=== PATIENT | male | born 1945 | race Caucasian/White ===

== ENCOUNTER → 2020-06-25 11:54 | Outpatient (BNVA) | payer MEDICARE, SELFPAY | PROVIDERS: PCP Family Medicine; Visit Provider Urology | DX: E29.1 Testicular hypofunction (principal) | CPT/HCPCS: 96372; 99213 ==

== ENCOUNTER → 2020-07-18 09:56 | Outpatient (BNVA) | payer MEDICARE, SELFPAY | PROVIDERS: Visit Provider Urology | DX: E29.1 Testicular hypofunction (principal) | CPT/HCPCS: 99212 ==

== ENCOUNTER → 2020-08-03 09:31 | Outpatient (BNVA) | payer MEDICARE, SELFPAY | PROVIDERS: PCP Family Medicine; Referring Provider Family Medicine; Visit Provider Urology | DX: Z76.89 Persons encountering health services in other specified circumstances (principal) | CPT/HCPCS: 96372; 99212 ==

== ENCOUNTER → 2020-09-10 11:18 | Outpatient (BNVA) | payer MEDICARE, SELFPAY | PROVIDERS: PCP Family Medicine; Referring Provider Family Medicine; Visit Provider Internal Medicine | DX: Z13.89 Encounter for screening for other disorder (principal) | CPT/HCPCS: Q3014 ==

== ENCOUNTER → 2020-09-18 13:57 | Outpatient (BNVA) | payer MEDICARE, SELFPAY | PROVIDERS: PCP Family Medicine; Visit Provider Urology | DX: E29.1 Testicular hypofunction (principal); Z79.899 Other long term (current) drug therapy; Z79.84 Long term (current) use of oral hypoglycemic drugs | CPT/HCPCS: 96372; 99212 ==

== ENCOUNTER → 2020-10-12 13:15 | Outpatient (BNVA) | payer MEDICARE, SELFPAY | PROVIDERS: PCP Family Medicine; Visit Provider Urology | DX: E29.1 Testicular hypofunction (principal) | CPT/HCPCS: 96372; 99212 ==

== ENCOUNTER → 2020-11-02 13:42 | Outpatient (BNVA) | payer MEDICARE, SELFPAY | PROVIDERS: Visit Provider Urology | DX: E29.1 Testicular hypofunction (principal) | CPT/HCPCS: 96372; 99212; J9217 ==

== ENCOUNTER → 2020-11-23 12:39 | Outpatient (BNVA) | payer MEDICARE, SELFPAY | PROVIDERS: Visit Provider Urology | DX: E29.1 Testicular hypofunction (principal) | CPT/HCPCS: 96372; 99212 ==

== ENCOUNTER → 2020-12-20 12:49 | Outpatient (BNVA) | payer MEDICARE, SELFPAY | PROVIDERS: Visit Provider Urology | DX: E29.1 Testicular hypofunction (principal) | CPT/HCPCS: 96372; 99212 ==

== ENCOUNTER → 2021-01-10 12:41 | Outpatient (BNVA) | payer MEDICARE, SELFPAY | PROVIDERS: Visit Provider Urology | DX: E29.1 Testicular hypofunction (principal) | CPT/HCPCS: 96372; 99212 ==

== ENCOUNTER 2021-01-23 07:26 | Outpatient (REF) | payer MEDICARE, SELFPAY ==
[2021-01-23 09:02] LABS: Hematocrit 50.3 % (42-52); Hemoglobin 16.8 g/dl (14.0-18.0); Mean Corpuscular HGB Conc 33.4 g/dl (31.0-36.0); Mean Corpuscular Hemoglobin 32.2 pg (27.0-33.0); Mean Corpuscular Volume 96.5 fL (80-98); Mean Platelet Volume 12.7 fL (9.4-12.4); Red Blood Count 5.21 X10*6/uL (4.60-5.80); Red Cell Distribution Width 13.7 % (11.0-16.0); White Blood Count 8.4 X10*3/uL (4.8-10.8)
[2021-01-23 09:04] LABS: Estimated Average Glucose 315 mg/dL; Hemoglobin A1c % 12.6 %
[2021-01-23 09:12] LABS: Platelet Count 89 X10*3/uL (160-400)
[2021-01-23 09:18] LABS: Alanine Aminotransferase 66 U/L (0-40); Albumin Level 4.2 g/dL (3.5-5.0); Alkaline Phosphatase 74 U/L (39-117); Anion Gap 15 (12-20); Aspartate Amino Transferase 46 U/L (5-37); Bilirubin Total 0.7 mg/dL (0.0-1.0); Blood Urea Nitrogen 21 mg/dL (9-16); Calcium 9.6 mg/dL (8.4-10.2); Carbon Dioxide 25 mmol/L (22-29); Chloride 102 mmol/L (96-108); Cholesterol 166 mg/dL; Estimated Glomerular Filt Rate 49; Glucose Random 256 mg/dL (60-115); HDL Cholesterol 39 mg/dL; LDL Cholesterol Calculated 82 mg/dl; Phosphorus 3.7 mg/dL (2.7-4.5); Potassium 3.8 mmol/L (3.3-5.1); Sodium 138 mmol/L (135-145); Total Protein 7.2 g/dL (6.5-8.0); Triglycerides 225 mg/dL
[2021-01-23 09:33] LABS: Free T4 (Free Thyroxine) 1.12 ng/dL (0.71-1.85); Vitamin D 25-OH Total 36.4 ng/mL (>30)
[2021-01-23 09:40] LABS: Prostate Specific Antigen 1.39 ng/mL (<0.05-4.0); Thyroid Stimulating Hormone 2.89 uIU/mL (0.32-4.0)
[2021-01-23 09:52] LABS: Microalbum/Creatinine Ratio Ur 105.4 ug/mg cr
[2021-01-24 03:31] LABS: LDL Cholesterol Direct 97 mg/dL (<100)
[2021-01-24 13:11] LABS: Calcium (PTHI) 9.5 mg/dL (8.6-10.3); PTHI 7 pg/mL (14-64)
[2021-01-28 10:52] LABS: Testosterone, Total 603 ng/dL (250-1100)
== END 2021-01-23 07:27 | disposition home or self-care (01) ==
LOC: HO.LAB 07:26
PROVIDERS: Internal Medicine; PCP Family Medicine; Visit Provider Urology
DX: N40.1 Benign prostatic hyperplasia with lower urinary tract symptoms (principal); N13.8 Other obstructive and reflux uropathy; E11.65 Type 2 diabetes mellitus with hyperglycemia; E83.52 Hypercalcemia; Z12.5 Encounter for screening for malignant neoplasm of prostate
CPT/HCPCS: 36415; 80053; 80061; 82043; 82306; 83036; 83721; 83970; 84100; 84153; 84403; 84439; 84443; 85027

== ENCOUNTER → 2021-02-01 10:46 | Outpatient (BNVA) | payer MEDICARE, SELFPAY | PROVIDERS: PCP Family Medicine; Visit Provider Urology | DX: E29.1 Testicular hypofunction (principal) | CPT/HCPCS: 96372; 99212 ==

== ENCOUNTER → 2021-02-06 11:11 | Outpatient (BNVA) | payer MEDICARE, SELFPAY | PROVIDERS: PCP Family Medicine; Visit Provider Internal Medicine | DX: E11.65 Type 2 diabetes mellitus with hyperglycemia (principal); E78.5 Hyperlipidemia, unspecified; I10 Essential (primary) hypertension; E55.9 Vitamin D deficiency, unspecified; E83.52 Hypercalcemia | CPT/HCPCS: 82947; Q3014 ==

== ENCOUNTER → 2021-02-22 10:54 | Outpatient (BNVA) | payer MEDICARE, SELFPAY | PROVIDERS: PCP Family Medicine; Visit Provider Urology | DX: E29.1 Testicular hypofunction (principal) | CPT/HCPCS: 96372 ==

== ENCOUNTER → 2021-03-22 11:05 | Outpatient (BNVA) | payer OTHER, SELFPAY | PROVIDERS: PCP Family Medicine; Visit Provider Urology | DX: Z51.81 Encounter for therapeutic drug level monitoring (principal); Z79.899 Other long term (current) drug therapy | CPT/HCPCS: 96372 ==

== ENCOUNTER → 2021-04-16 11:20 | Outpatient (BNVA) | payer MEDICARE, SELFPAY | PROVIDERS: PCP Family Medicine; Visit Provider Urology | DX: E29.1 Testicular hypofunction (principal) | CPT/HCPCS: 96372 ==

== ENCOUNTER 2021-05-13 07:53 | Outpatient (REF) | payer MEDICARE, SELFPAY | END 2021-05-13 07:54 | disposition home or self-care (01) | LOC: HO.HOSX 07:53 | PROVIDERS: Visit Provider Physician Assistant | DX: Z13.89 Encounter for screening for other disorder (principal) ==

== ENCOUNTER → 2021-05-14 11:17 | Outpatient (BNVA) | payer MEDICARE, SELFPAY | PROVIDERS: PCP Family Medicine; Visit Provider Urology | DX: E29.1 Testicular hypofunction (principal) | CPT/HCPCS: 96372 ==

== ENCOUNTER 2021-05-15 09:13 | Outpatient (REF) | payer MEDICARE, SELFPAY ==
--- NOTE | ~2021-05-15 | XR_ITS ---
EXAMINATION: XR KNEE, LEFT CLINICAL INFORMATION: Left knee pain COMPARISON: Radiographs left knee 07/20/2018 TECHNIQUE: 5 views of the left knee. FINDINGS: There is no fracture dislocation or destructive process. There is mild narrowing medial knee joint compartment. No erosive change or visible chondrocalcinosis. The lateral view shows small suprapatellar effusion similar to prior exam 2018. Hoffa's fat pad appears normal. Again, there is spurring at the quadriceps insertion patella and patellar tendon insertion anterior tibia. Axial view patella shows no lateralization or tilting. Medial and lateral patellar spurring again seen. No patellar lateralization or tilting appreciated. XR/XR knee LT 4V IMPRESSION: 1. Narrowing medial knee joint compartment. Small suprapatellar effusion. 2. Spurring quadriceps insertion patella and insertion patella tendon anterior tibia.
== END 2021-05-15 09:14 | disposition home or self-care (01) ==
LOC: HO.XRAY 09:13
PROVIDERS: PCP Family Medicine; Visit Provider Family Medicine
DX: M25.562 Pain in left knee (principal)
CPT/HCPCS: 73564

== ENCOUNTER → 2021-05-21 10:38 | Outpatient (BNVA) | payer MEDICARE, SELFPAY | PROVIDERS: Visit Provider Physician Assistant | DX: M17.12 Unilateral primary osteoarthritis, left knee (principal) | CPT/HCPCS: 20610; 99202; J1040 ==

== ENCOUNTER → 2021-06-04 10:50 | Outpatient (BNVA) | payer MEDICARE, SELFPAY | PROVIDERS: Visit Provider Urology | DX: E29.1 Testicular hypofunction (principal) | CPT/HCPCS: 96372 ==

== ENCOUNTER → 2021-06-10 11:05 | Outpatient (BNVA) | payer MEDICARE, SELFPAY | PROVIDERS: PCP Family Medicine; Visit Provider Internal Medicine | DX: E11.65 Type 2 diabetes mellitus with hyperglycemia (principal); I10 Essential (primary) hypertension; E78.5 Hyperlipidemia, unspecified; E55.9 Vitamin D deficiency, unspecified; G47.33 Obstructive sleep apnea (adult) (pediatric); Z79.4 Long term (current) use of insulin; Z79.899 Other long term (current) drug therapy | CPT/HCPCS: 82947; 83036; 99212 ==

== ENCOUNTER → 2021-06-25 10:35 | Outpatient (BNVA) | payer MEDICARE, SELFPAY | PROVIDERS: PCP Family Medicine; Visit Provider Urology | DX: E29.1 Testicular hypofunction (principal) | CPT/HCPCS: 96372 ==

== ENCOUNTER → 2021-06-26 10:48 | Outpatient (BNVA) | payer MEDICARE, SELFPAY | PROVIDERS: PCP Family Medicine; Visit Provider Dietitian, Registered | DX: E11.65 Type 2 diabetes mellitus with hyperglycemia (principal) | CPT/HCPCS: 97802 ==

== ENCOUNTER → 2021-07-16 10:27 | Outpatient (BNVA) | payer MEDICARE, SELFPAY | PROVIDERS: Visit Provider Urology | DX: E29.1 Testicular hypofunction (principal) | CPT/HCPCS: 96372 ==

== ENCOUNTER → 2021-08-13 11:11 | Outpatient (BNVA) | payer MEDICARE, SELFPAY | PROVIDERS: Visit Provider Urology | DX: E29.1 Testicular hypofunction (principal) | CPT/HCPCS: 96372 ==

== ENCOUNTER → 2021-09-11 11:28 | Outpatient (BNVA) | payer MEDICARE, SELFPAY | PROVIDERS: PCP Family Medicine; Visit Provider Urology | DX: E29.1 Testicular hypofunction (principal) | CPT/HCPCS: 96372 ==

== ENCOUNTER 2021-09-24 13:46 | Emergency (ER) | payer MEDICARE, SELFPAY ==
--- NOTE | 2021-09-24 | ECG_ITS ---
Test Reason : palpitations Blood Pressure : / mmHG Vent. Rate : 112 BPM Atrial Rate : 112 BPM P-R Int : 156 ms QRS Dur : 092 ms QT Int : 338 ms P-R-T Axes : 045 -40 045 degrees QTc Int : 461 ms Sinus tachycardia Left axis deviation Inferior infarct , age undetermined Anterolateral infarct , age undetermined Abnormal ECG When compared with ECG of 15-OCT-2019 08:42, Anterior infarct is now Present Anterolateral infarct is now Present Inferior infarct is now Present Referred By: Generic ED Physician Electronically Signed By:SJ BECKETT MD
[2021-09-24 14:05] VITALS: BP 138/80; PULSE 112; RESP 16; TEMP 36.1; O2SAT 96; BMI 32.4
[2021-09-24 14:52] LABS: MANUAL DIFF FLAG NO
[2021-09-24 15:10] LABS: Alanine Aminotransferase 47 U/L (0-40); Albumin Level 4.1 g/dL (3.5-5.0); Alkaline Phosphatase 81 U/L (39-117); Anion Gap 13 (12-20); Aspartate Amino Transferase 31 U/L (5-37); Bilirubin Total 0.4 mg/dL (0.0-1.0); Blood Urea Nitrogen 15 mg/dL (9-16); Calcium 9.3 mg/dL (8.4-10.2); Carbon Dioxide 27 mmol/L (22-29); Chloride 103 mmol/L (96-108); Estimated Glomerular Filt Rate > 60; Glucose Random 221 mg/dL (60-115); Potassium 4.2 mmol/L (3.3-5.1); Sodium 139 mmol/L (135-145); Total Protein 7.2 g/dL (6.5-8.0)
[2021-09-24 16:43] LABS: Basophils Percent Auto 0.3 % (0-2); Eosinophils Absolute Auto 0.1 X10*3/uL (0.0-0.4); Eosinophils Percent Auto 1.8 % (0-4); Hemoglobin 15.3 g/dl (14.0-18.0); Imm Gran Abs Auto 0.05 X10*3/uL (0.00-0.03); Imm Gran Pct Auto 0.6 % (0.0-0.4); Lymphocytes Absolute Auto 1.6 X10*3/uL (1.2-4.9); Lymphocytes Percent Auto 20.2 % (20-40); Mean Corpuscular Hemoglobin 33.2 pg (27.0-33.0); Mean Corpuscular Volume 97.6 fL (80.0-98.0); Mean Platelet Volume 11.8 fL (9.4-12.4); Monocytes Absolute Auto 0.6 X10*3/uL (0.1-1.2); Neutrophils Absolute Auto 5.4 x10*3/uL (2.0-8.3); Neutrophils Percent Auto 69.1 % (45-73); Platelet Count 121 X10*3/uL (160-400); Red Blood Count 4.61 X10*6/uL (4.60-5.80); Red Cell Distribution Width 14.4 % (11.0-16.0); White Blood Count 7.9 X10*3/uL (4.8-10.8)
[2021-09-24 23:47] VITALS: BP 139/87; PULSE 112; RESP 18; TEMP 36.5; O2SAT 99
== END 2021-09-25 02:24 | disposition left against medical advice (07) ==
PROVIDERS: Emergency Provider Emergency Medicine
DX: R51.9 Headache, unspecified (principal); E11.9 Type 2 diabetes mellitus without complications; I10 Essential (primary) hypertension; E78.5 Hyperlipidemia, unspecified
CPT/HCPCS: 36415; 80053; 84484; 85025; 93005; 99283

== ENCOUNTER → 2021-10-09 11:22 | Outpatient (BNVA) | payer MEDICARE, SELFPAY | PROVIDERS: Visit Provider Urology | DX: E29.1 Testicular hypofunction (principal) | CPT/HCPCS: 96372 ==

== ENCOUNTER 2021-10-25 12:22 | Outpatient (REF) | payer MEDICARE, SELFPAY ==
[2021-10-25 14:42] LABS: PSA,Total (Free>4and<10) 1.21 ng/mL (0.00-4.00)
== END 2021-10-25 12:23 | disposition home or self-care (01) ==
LOC: HO.LAB 12:22
PROVIDERS: PCP Family Medicine; Visit Provider Urology
DX: N40.0 Benign prostatic hyperplasia without lower urinary tract symptoms (principal); Z12.5 Encounter for screening for malignant neoplasm of prostate
CPT/HCPCS: 36415; 84153

== ENCOUNTER → 2021-11-06 11:19 | Outpatient (BNVA) | payer MEDICARE, SELFPAY | PROVIDERS: PCP Family Medicine; Visit Provider Urology | DX: E29.1 Testicular hypofunction (principal) | CPT/HCPCS: 96372; 99212 ==

== ENCOUNTER 2021-11-26 20:17 | Emergency (ER) | payer MEDICARE, SELFPAY ==
--- NOTE | ~2021-11-26 | XR_ITS ---
EXAMINATION: XR CHEST CLINICAL INFORMATION: Chest pain COMPARISON: Chest x-ray on 10/15/2019 TECHNIQUE: Frontal view of the chest was obtained. FINDINGS: No significant abnormality is noted involving the heart, lungs, mediastinum, bony thorax or soft tissues. XR/XR chest 1V IMPRESSION: Unremarkable examination.
--- NOTE | ~2021-11-26 | CT_ITS ---
EXAMINATION: CT HEAD WITHOUT CONTRAST CLINICAL INFORMATION: Headache. Right hand numbness for 2 days. COMPARISON: None available. TECHNIQUE: Contiguous axial imaging was performed from the skull base to vertex without intravenous administration of contrast. This CT examination was performed using dose optimization techniques as appropriate, variously including the following: *Automated exposure control. *Adjustment of mA and/or kV according to patient size (this includes techniques or standardized protocols for targeted exams where dose is matched to indication/reason for exam; i.e. extremities or head). *Use of iterative reconstruction technique. DLP: 330 mGy-cm FINDINGS: There is no evidence of acute intracranial hemorrhage or edematous territorial infarction. A few foci of hypoattenuation in the periventricular and deep white matter are consistent with mild microangiopathy. [place]-white matter differentiation is preserved. Proportional prominence of the ventricles and sulcal spaces. No evidence for obstructive hydrocephalus. No abnormal mass effect or midline shift. No extra-axial fluid collections. Calcific atherosclerotic disease of the intracranial internal carotid arteries. No hyperdense vessel sign. No acute soft tissue or osseous abnormalities. Mild mucosal thickening of the paranasal sinuses. The mastoid air cells and millicuries are clear. The patient is edentulous. Bilateral lens extractions. CT/CT head/brain wo con IMPRESSION: 1. No evidence of acute intracranial hemorrhage or edematous territorial infarction. 2. Mild underlying microangiopathy and generalized cerebral volume loss.
--- NOTE | 2021-11-26 20:25 | ED_ITS ---
HPI - Headache General Chief Complaint: Headache Stated Complaint: headache Source: patient Mode of arrival: ambulatory Limitations: no limitations History of Present Illness HPI Narrative: 75-year-old male presents via EMS for elevated blood pressure, shortness of breath, dizziness, and headache for 1 week. Patient was unable to get an appointment with his primary care physician. MD elicited complaint: headache and migraine Pertinent past history: hypertension Onset (ago): week(s) (1) Onset description: gradually Location: diffuse Severity: moderate Pain scale (0-10): 6 Quality & Timing: aching and throbbing Relieving factors: nothing Associated symptoms: chest pain, shortness of breath and other (Headache, hypertension) Treatments prior to arrival: none Related Data Home Medications Medication Instructions Recorded Confirmed aspirin 81 mg tablet,delayed 81 mg PO DAILY 06/23/20 06/10/21 release baclofen 10 mg tablet 10 mg PO TID 06/23/20 06/10/21 betamethasone dipropionate 0.05 % 1 applic TOPICAL BID 06/23/20 06/10/21 topical ointment cholecalciferol (vitamin D3) 50 50 mcg PO DAILY 06/23/20 06/10/21 mcg (2,000 unit) tablet docusate sodium 100 mg capsule 100 mg PO DAILY PRN 06/23/20 06/10/21 doxycycline hyclate 100 mg capsule 100 mg PO BID 06/23/20 06/10/21 ezetimibe 10 mg tablet 10 mg PO DAILY 06/23/20 06/10/21 fenofibrate 160 mg tablet 160 mg PO DAILY 06/23/20 06/10/21 ferrous sulfate 325 mg (65 mg 325 mg PO DAILY 06/23/20 06/10/21 iron) tablet fluocinonide 0.05 % topical 1 applic TOPICAL BID 06/23/20 06/10/21 ointment fluticasone propionate 50 2 spray INTRANASAL DAILY 06/23/20 06/10/21 mcg/actuation nasal spray,suspension glipizide 10 mg tablet 20 mg PO BID 06/23/20 06/10/21 hydrocodone 5 mg-acetaminophen 300 1 tab PO TID PRN 06/23/20 06/10/21 mg tablet hydrocortisone 2.5 % topical TOPICAL 06/23/20 06/10/21 ointment hydroxyzine HCl 25 mg tablet [id number] mg PO 06/23/20 06/10/21 lancets 33 gauge #100 ea 06/23/20 06/10/21 loratadine 10 mg tablet 10 mg PO DAILY 06/23/20 06/10/21 magnesium oxide 400 mg PO BID 06/23/20 06/10/21 metformin 500 mg tablet,extended 1,000 mg PO BID 06/23/20 06/10/21 release 24 hr metoprolol succinate 100 mg 100 mg PO DAILY 06/23/20 06/10/21 tablet,extended release 24 hr omega-3 fatty acids-fish oil 340 1 cap PO BID 06/23/20 06/10/21 mg-1,000 mg capsule oxycodone-acetaminophen 5 mg-325 0 tab PO 06/23/20 06/10/21 mg tablet sildenafil 100 mg tablet 100 mg PO DAILY PRN 06/23/20 06/10/21 amlodipine 5 mg tablet 5 mg PO DAILY 09/18/20 06/10/21 triamcinolone acetonide 0.1 % appl TOPICAL Q OTHER DAY PRN 09/18/20 06/10/21 topical cream naloxone 4 mg/actuation nasal spray 0 spray INTRANASAL 02/01/21 06/10/21 irbesartan 150 mg tablet 300 mg PO DAILY 02/06/21 06/10/21 niacin 1,000 mg tablet,extended 1,000 mg PO BEDTIME tab 02/06/21 06/10/21 release 24 hr omeprazole 20 mg capsule,delayed 20 mg PO DAILY cap 02/06/21 06/10/21 release albuterol sulfate 90 mcg/actuation 1 inh INHALATION QID 06/10/21 06/10/21 aerosol inhaler (Ventolin HFA) varicella-zoster glycoE [id number] IM 06/10/21 06/10/21 adj(PF) 50 mcg/0.5 mL IM susp, kit (Shingrix (PF)) irbesartan 300 mg tablet 300 mg PO DAILY 11/06/21 metformin 500 mg tablet 1,000 mg PO BID 11/06/21 Previous Rx's Medication Instructions Recorded atorvastatin 40 mg tablet 40 mg PO DAILY 30 Days #30 tab 02/06/21 dulaglutide 0.75 mg/0.5 mL 0.75 mg (0.5 mL) SUBCUT QWEEK 30 02/06/21 subcutaneous pen injector Days #2.5 ml (Trulicity) blood sugar diagnostic (FreeStyle #100 ea 06/26/21 Lite Strips) blood-glucose meter (FreeStyle #1 ea 06/26/21 [place] Lite) testosterone cypionate 200 mg/mL 200 mg IM Q3W 21 Days #1 ml 10/03/21 intramuscular oil celecoxib 200 mg capsule 200 mg PO BID #60 cap 11/01/21 tamsulosin 0.4 mg capsule 0.4 mg PO BEDTIME 90 Days #90 cap 11/07/21 Allergies Allergy/AdvReac Type Severity Reaction Status Date / Time No Known Allergies Allergy Verified 11/06/21 11:30 Review of Systems Review of Systems: Constitutional: No Weight loss, No Fever, No Chills, No Night Sweats, No Fatigue, No Malaise ENT/Mouth: No Hearing loss, No Ear Pain, No Nasal Congestion, No Sinus Pain, No Hoarseness, No sore throat, No Rhinorrhea, No Swallowing Difficulty Eyes: No Eye Pain, No Swelling, No Redness, No Foreign Body, No Discharge, No Vision Changes Cardiovascular: Positive Chest Pain, positive SOB, no Dyspnea on Exertion, No Orthopnea, positive Edema, No Palpitations Respiratory: No Cough, No Sputum, No Wheezing, No Smoke Exposure, No Dyspnea Gastrointestinal: No Nausea, No Vomiting, No Diarrhea, No abdominal Pain, No Hematochezia, No Melena Genitourinary: No irregular bleeding, No Dysuria, No Urinary Frequency, No Hem aturia, No Urinary Incontinence, No Urgency, No Flank Pain, No Urinary Flow Changes, No Hesitancy Musculoskeletal: No joint pain, No Myalgias, No Joint Swelling Skin: No Skin Lesions, No rash Neuro: No Weakness, No Numbness, No Paresthesias, No Loss of Consciousness, No Dizziness, positive Headache Psych: No Anxiety/Panic, No Depression, No SI/HI/AH/VH Heme/Lymph: No Bruising, No Bleeding,No Lymphadenopathy Endocrine: No Polyuria, No Polydipsia, No Temperature Intolerance Yes all other systems are reviewed and are negative [facility] Past Medical History Attestation statement: The following information was validated with the patient. Source: old records reviewed Medical History Anemia Benign prostatic hyperplasia without lower urinary tract symptoms Chronic GERD Erectile dysfunction HLD (hyperlipidemia) HTN (hypertension) Hypertriglyceridemia Hypertrophic cardiomegaly STEPH (obstructive sleep apnea) Osteoarthritis T2DM (type 2 diabetes mellitus) Type 2 diabetes mellitus Vitamin D deficiency Surgical History History of eye surgery History of left knee surgery History of removal of testicle Family History Family History Father No problems noted. Mother No problems noted. Social History Social History Alcohol intake: never Patient Tobacco Use Status: Never used Tobacco Advance Directives: No Advance Directives Information Provided: No Physical Exam Vital Signs: Vital Signs: Last Vital Signs Temp 98.0 F 11/26/21 20:29 Pulse 96 11/26/21 23:30 Resp 22 H 11/26/21 23:30 BP 146/85 H 11/26/21 23:30 Pulse Ox 98 11/26/21 23:30 BMI result Body Mass Index 31.8 Appearance: Alert. Oriented X3. No acute distress. Eyes: Pupils equal, round and reactive to light. Sclera nonicteric. EOMI. No nystagmus. ENT: Pharynx normal. Moist mucous membranes. Neck: Normal inspection. Neck supple. No JVD. No nuchal rigidity. No vertebral tenderness or step-offs. Full range of motion against resistance. No axial loading tenderness. CVS: Tachycardic heart rate and rhythm. Apical pulse occult pulses to extremities. Respiratory: Tachypneic without accessory muscle use. Breath sounds normal. Abdomen: Soft and nontender. Obese. Skin: Skin warm and dry. Normal skin color. Normal skin turgor. Extremities: +2 pitting bilateral lower extremity edema. Moves all extremities against resistance. Neuro: No motor deficit. No sensory deficit. Cranial nerves 2-12 intact. NIH Stroke Scale Internal: Initial- Upon Arrival Level of Consciousness: Alert Level of Consciousness Questions: Answers both questions correctly Level of Consciousness Commands: Performs both tasks correctly Best Gaze: Normal Visual: No visual loss Facial Palsy: Normal Motor Arm (Right): No drift Motor Arm (Left): No drift Motor Leg (Right): No drift Motor Leg (Left): No drift Limb Ataxia: Absent Sensory: Normal Best Language: No aphasia Dysarthia: Normal Extinction and Inattention: No abnormality Score: 0 Course Course Course Narrative: 75-year-old male presents with 1 week of headache, hypertension, shortness of breath and dizziness. Does report 2 days of right hand numbness. Will order CT of head to rule out CVA. Order for lab values, rule out ACS and chest x-ray 20:28 patient has had 2 days of right hand numbness. Outside of the tPA window. NIH stroke scale is 0. Will order CT angio head and neck once lab values return. 21:00 patient has chronic thrombocytopenia, CBC lab values are within his normal limits, chemistries indicate an elevated glucose level of 203, Mag of 0.9, AST of 43 and ALT of 50. Lipase is negative. Will replete with 2 g of Mag IV, and L of fluid. 21:30 lactic acid is 2.8, highly unlikely that this is DKA or euglycemic DKA. Patient is on metformin twice a day, most likely to be due to metformin acidosis. No indication of infection. Afebrile at this time. 21:44 chest x-rays negative for acute findings requiring emergent intervention. 22:42 CT of head is negative for acute findings requiring emergent intervention. Mild underlying microangiopathic and generalized cerebral volume loss which is chronic. 00:00 discussion with patient regarding need follow-up with primary care physician diabetic medication evaluation. Patient does understand that he may need to stop p.o. medications and use insulin, does have an appointment with his primary care on the . 00:27 repeat BMP within normal limits, repeat lactic 2.0, repeat Mag 2.0. Plan of care is to discharge home and have patient follow-up with primary care physician for diabetic medication evaluation. lease out worker utilized for all correspondence. Google translate utilized for discharge instructions. Patient verbalized understanding of and agrees to plan of care to discharge home. Verbalized understanding of signs and symptoms indicating need for emergent intervention MDM - Headache Differential Diagnosis Differential diagnosis: Likely migraine, tension headache, subarachnoid hemorrhage, headache and sinusitis Medical Records Attestation: I reviewed the patient's medical records. Lab Data Attestation: I reviewed the patient's lab results. Result diagrams: 11/26/21 20:50 11/27/21 00:27 Labs: Lab Results 03/08/22 03/08/22 03/08/22 Range/Units 20:49 20:50 20:50 WBC 6.8 (4.8-10.8) X10*3/uL RBC 4.36 L (4.60-5.80) X10*6/uL Hgb 14.5 (14.0-18.0) g/dl Hct 43.6 (42.0-52.0) % MCV 100.0 H (80.0-98.0) fL MCH 33.3 H (27.0-33.0) pg MCHC 33.3 (31.0-36.0) g/dl RDW 13.7 (11.0-16.0) % Plt Count 92 L (160-400) X10*3/uL MPV 11.8 (9.4-12.4) fL Immature Gran % (Auto) 0.4 (0.0-0.4) % Neut % (Auto) 57.0 (45-73) % Lymph % (Auto) 30.1 (20-40) % [place] % (Auto) 10.1 (2-11) % Eos % (Auto) 2.1 (0-4) % Baso % (Auto) 0.3 (0-2) % Lymph # (Auto) 2.1 (1.2-4.9) X10*3/uL [place] # (Auto) 0.7 (0.1-1.2) X10*3/uL Eos # (Auto) 0.1 (0.0-0.4) X10*3/uL Baso # (Auto) 0.0 (0.0-0.2) X10*3/uL Abs Immat Gran (auto) 0.03 (0.00-0.03) X10*3/uL Absolute Neuts (auto) 3.9 (2.0-8.3) x10*3/uL Absolute Nucleated RBC 0.000 (0.0-0.012) X10*3/uL Nucleated RBC % (auto) 0.0 (0.0-0.2) /100WBC PT (9.9-13.0) SEC INR (0.9-1.1) Sodium 138 (135-145) mmol/L Potassium 3.6 (3.3-5.1) mmol/L Chloride 103 (96-108) mmol/L Carbon Dioxide 27 (22-29) mmol/L Anion Gap 12 (12-20) BUN 13 (9-16) mg/dL Creatinine 0.85 (0.5-1.4) mg/dL Estim Creat Clear Calc 68.7 Estimated GFR > 60 Random Glucose 203 H (60-115) mg/dL Lactic Acid (0.5-2.0) mmol/L Calcium 8.6 D (8.4-10.2) mg/dL Magnesium 0.9 L* (1.6-2.6) mg/dL Total Bilirubin 0.5 (0.0-1.0) mg/dL Direct Bilirubin 0.2 (0.0-0.5) mg/dL AST 43 H (5-37) U/L ALT 50 H (0-40) U/L Alkaline Phosphatase 76 (39-117) U/L Troponin I High Sens 4.5 (<3.5-35.0) ng/L B-Natriuretic Peptide < 10 (<100) pg/mL Total Protein 6.5 (6.5-8.0) g/dL Albumin 3.7 (3.5-5.0) g/dL Lipase 70 (8-78) U/L Urine Color Urine Appearance Urine pH (5.0-8.0) Ur Specific [place] (1.005-1.025) Urine Protein (NEG-TRACE) MG/DL Urine Glucose (UA) (NEG) MG/DL Urine Ketones (NEG) MG/DL Urine Blood (NEG) Urine Nitrite (NEG) Ur Leukocyte Esterase (NEG) Urine RBC (0) /HPF Urine WBC (0-4) /HPF Ur Squamous Epith Cells /LPF Urine Bacteria /LPF Influenza Type A (PCR) (Negative) Influenza Type B (PCR) (Negative) RSV RNA Qual (PCR) (Negative) SARS-CoV-2 RNA (RT-PCR) (Negative) 11/26/21 11/26/21 11/26/21 Range/Units 20:50 20:50 21:30 WBC (4.8-10.8) X10*3/uL RBC (4.60-5.80) X10*6/uL Hgb (14.0-18.0) g/dl Hct (42.0-52.0) % MCV (80.0-98.0) fL MCH (27.0-33.0) pg MCHC (31.0-36.0) g/dl RDW (11.0-16.0) % Plt Count (160-400) X10*3/uL MPV (9.4-12.4) fL Immature Gran % (Auto) (0.0-0.4) % Neut % (Auto) (45-73) % Lymph % (Auto) (20-40) % [place] % (Auto) (2-11) % Eos % (Auto) (0-4) % Baso % (Auto) (0-2) % Lymph # (Auto) (1.2-4.9) X10*3/uL [place] # (Auto) (0.1-1.2) X10*3/uL Eos # (Auto) (0.0-0.4) X10*3/uL Baso # (Auto) (0.0-0.2) X10*3/uL Abs Immat Gran (auto) (0.00-0.03) X10*3/uL Absolute Neuts (auto) (2.0-8.3) x10*3/uL Absolute Nucleated RBC (0.0-0.012) X10*3/uL Nucleated RBC % (auto) (0.0-0.2) /100WBC PT 11.7 (9.9-13.0) SEC INR 1.0 (0.9-1.1) Sodium (135-145) mmol/L Potassium (3.3-5.1) mmol/L Chloride (96-108) mmol/L Carbon Dioxide (22-29) mmol/L Anion Gap (12-20) BUN (9-16) mg/dL Creatinine (0.5-1.4) mg/dL Estim Creat Clear Calc Estimated GFR Random Glucose (60-115) mg/dL Lactic Acid 2.8 H* (0.5-2.0) mmol/L Calcium (8.4-10.2) mg/dL Magnesium (1.6-2.6) mg/dL Total Bilirubin (0.0-1.0) mg/dL Direct Bilirubin (0.0-0.5) mg/dL AST (5-37) U/L ALT (0-40) U/L Alkaline Phosphatase (39-117) U/L Troponin I High Sens (<3.5-35.0) ng/L B-Natriuretic Peptide (<100) pg/mL Total Protein (6.5-8.0) g/dL Albumin (3.5-5.0) g/dL Lipase (8-78) U/L Urine Color Urine Appearance Urine pH (5.0-8.0) Ur Specific [place] (1.005-1.025) Urine Protein (NEG-TRACE) MG/DL Urine Glucose (UA) (NEG) MG/DL Urine Ketones (NEG) MG/DL Urine Blood (NEG) Urine Nitrite (NEG) Ur Leukocyte Esterase (NEG) Urine RBC (0) /HPF Urine WBC (0-4) /HPF Ur Squamous Epith Cells /LPF Urine Bacteria /LPF Influenza Type A (PCR) NEGATIVE (Negative) Influenza Type B (PCR) NEGATIVE (Negative) RSV RNA Qual (PCR) NEGATIVE (Negative) SARS-CoV-2 RNA (RT-PCR) NEGATIVE (Negative) 11/26/21 11/27/21 11/27/21 Range/Units 22:05 00:27 00:27 WBC (4.8-10.8) X10*3/uL RBC (4.60-5.80) X10*6/uL Hgb (14.0-18.0) g/dl Hct (42.0-52.0) % MCV (80.0-98.0) fL MCH (27.0-33.0) pg MCHC (31.0-36.0) g/dl RDW (11.0-16.0) % Plt Count (160-400) X10*3/uL MPV (9.4-12.4) fL Immature Gran % (Auto) (0.0-0.4) % Neut % (Auto) (45-73) % Lymph % (Auto) (20-40) % [place] % (Auto) (2-11) % Eos % (Auto) (0-4) % Baso % (Auto) (0-2) % Lymph # (Auto) (1.2-4.9) X10*3/uL [place] # (Auto) (0.1-1.2) X10*3/uL Eos # (Auto) (0.0-0.4) X10*3/uL Baso # (Auto) (0.0-0.2) X10*3/uL Abs Immat Gran (auto) (0.00-0.03) X10*3/uL Absolute Neuts (auto) (2.0-8.3) x10*3/uL Absolute Nucleated RBC (0.0-0.012) X10*3/uL Nucleated RBC % (auto) (0.0-0.2) /100WBC PT (9.9-13.0) SEC INR (0.9-1.1) Sodium 140 (135-145) mmol/L Potassium 3.8 (3.3-5.1) mmol/L Chloride 106 (96-108) mmol/L Carbon Dioxide 26 (22-29) mmol/L Anion Gap 12 (12-20) BUN 12 (9-16) mg/dL Creatinine 0.80 (0.5-1.4) mg/dL Estim Creat Clear Calc 73.0 Estimated GFR > 60 Random Glucose 158 H (60-115) mg/dL Lactic Acid 2.0 (0.5-2.0) mmol/L Calcium 8.2 L (8.4-10.2) mg/dL Magnesium 2.0 (1.6-2.6) mg/dL Total Bilirubin (0.0-1.0) mg/dL Direct Bilirubin (0.0-0.5) mg/dL AST (5-37) U/L ALT (0-40) U/L Alkaline Phosphatase (39-117) U/L Troponin I High Sens (<3.5-35.0) ng/L B-Natriuretic Peptide (<100) pg/mL Total Protein (6.5-8.0) g/dL Albumin (3.5-5.0) g/dL Lipase (8-78) U/L Urine Color YELLOW Urine Appearance CLEAR Urine pH 6.0 (5.0-8.0) Ur Specific [place] 1.010 (1.005-1.025) Urine Protein NEG (NEG-TRACE) MG/DL Urine Glucose (UA) 500 H (NEG) MG/DL Urine Ketones NEG (NEG) MG/DL Urine Blood TRACE (NEG) Urine Nitrite NEG (NEG) Ur Leukocyte Esterase NEG (NEG) Urine RBC 0-2 (0) /HPF Urine WBC 0-2 (0-4) /HPF Ur Squamous Epith Cells TRACE /LPF Urine Bacteria TRACE /LPF Influenza Type A (PCR) (Negative) Influenza Type B (PCR) (Negative) RSV RNA Qual (PCR) (Negative) SARS-CoV-2 RNA (RT-PCR) (Negative) Imaging Data Chest x-ray: Attestation: I personally reviewed and interpreted this imaging study as follows: Radiologist's impression: EXAMINATION: XR CHEST CLINICAL INFORMATION: Chest pain COMPARISON: Chest x-ray on 10/15/2019 TECHNIQUE: Frontal view of the chest was obtained. FINDINGS: No significant abnormality is noted involving the heart, lungs, mediastinum, bony thorax or soft tissues. XR/XR chest 1V IMPRESSION: Unremarkable examination. ? CT scan - head: Attestation: I personally reviewed and interpreted this imaging study as follows: Radiologist's impression: FINDINGS: There is no evidence of acute intracranial hemorrhage or edematous territorial infarction. A few foci of hypoattenuation in the periventricular and deep white matter are consistent with mild microangiopathy. [place]-white matter differentiation is preserved. Proportional prominence of the ventricles and sulcal spaces. No evidence for obstructive hydrocephalus. No abnormal mass effect or midline shift. No extra-axial fluid collections. Calcific atherosclerotic disease of the intracranial internal carotid arteries. No hyperdense vessel sign. No acute soft tissue or osseous abnormalities. Mild mucosal thickening of the paranasal sinuses. The mastoid air cells and millicuries are clear. The patient is edentulous. Bilateral lens extractions. ? CT/CT head/brain wo con IMPRESSION: 1. No evidence of acute intracranial hemorrhage or edematous territorial infarction. 2. Mild underlying microangiopathy and generalized cerebral volume loss. ECG Data Attestation: I personally reviewed and interpreted this ECG as follows: ECG interpretation date: 11/26/21 ECG interpretation time: 20:31 Prior ECG tracings: available for review Interpretation: Vent. rate 106 BPM MO interval 164 ms QRS duration 94 ms QT/QTc 334/443 ms P-R-T axes 42 -23 49 Sinus tachycardia Otherwise normal ECG When compared with ECG of 24-SEP-2021 14:29, Criteria for Anterior infarct are no longer Present Criteria for Anterolateral infarct are no longer Present No significant change was found Discharge Plan Discharge Clinical Impression: Hypomagnesemia, Headache, Acidosis Patient Disposition: Home, Self-Care Instructions: Acute Headache (ED), Hypomagnesemia (ED) Additional Instructions: Se le evalu? por presi?n arterial elevada, mareos y dolor de xavier. La tomograf?a computarizada de la xavier es negativa para accidente cerebrovascular y hallazgos agudos que requieren jacquelyn intervenci?n urgente. Radiograf?a de t?rax negativa para hallazgos agudos. El electrocardiograma es ritmo sinusal normal. La troponina es negativa. No hay indicios de evento card?aco en wendy momento. Los niveles de laboratorio indicaron acidosis, que probablemente se deba a brasher metformina. Debe realizar un seguimiento con el m?dico de atenci?n primaria para la evaluaci?n de medicamentos para la diabetes. Es posible que deba cambiar los medicamentos. Brasher nivel de magnesio era bajo. Te dimos 2 g de magnesio IV. Maria Teresa por elegir wendy departamento de emergencias para brasher evaluaci?n. Por favor, jaquan un seguimiento con el m?dico de atenci?n primaria seg?n sea necesario. Regrese al departamento de emergencias por cualquier s?ntoma nuevo, preocupante o que empeore. You were evaluated for elevated blood pressure, dizziness, and headache. CT scan of the head is negative for stroke and acute findings requiring emergent intervention. Chest x-rays negative for acute findings. EKG is normal sinus rhythm. Troponin is negative. No indication of cardiac event at this time. Lab levels indicated acidosis, which is most likely due to your metformin. You must follow-up with primary care physician for diabetic medication evaluation. You may need to change medications. Your magnesium level was low. We gave you 2 g of IV magnesium. Thank you for choosing this emergency department for evaluation. Please follow-up with primary care physician as needed. Return to the emergency department for any new, concerning, or worsening symptoms. Prescriptions: No Action (DME) blood-glucose meter [FreeStyle [place] Lite] Kit See Rx Instructions .Route Qty: 1 0RF Rx Instructions: As directed (DME) FreeStyle Lite Strips Strip See Rx Instructions .Route Qty: 100 11RF Rx Instructions: 4x daily testosterone cypionate 200 mg/mL oil 200 mg IM Q3W 21 Days Qty: 1 5RF celecoxib 200 mg capsule 200 mg PO BID Qty: 60 0RF tamsulosin 0.4 mg capsule 0.4 mg PO BEDTIME 90 Days Qty: 90 2RF Trulicity 0.75 mg/0.5 mL pen injector 0.75 mg subcut QWEEK 30 Days Qty: 2.5 11RF atorvastatin 40 mg tablet 40 mg PO DAILY 30 Days Qty: 30 11RF Narcan 4 mg/actuation spray,non-aerosol 0 spray intranasal 0RF albuterol sulfate [Ventolin HFA] 90 mcg/actuation HFA aerosol inhaler 1 inh inhalation QID 0RF Shingrix (PF) 50 mcg/0.5 mL suspension for reconstitution IM 0RF hydrocodone-acetaminophen 5-300 mg tablet 1 tab PO TID PRN0RF metoprolol succinate 100 mg tablet extended release 24 hr 100 mg PO DAILY 0RF glipizide 10 mg tablet 20 mg PO BID 0RF ezetimibe 10 mg tablet 10 mg PO DAILY 0RF hydroxyzine HCl 25 mg tablet [id number] mg PO 0RF fenofibrate 160 mg tablet 160 mg PO DAILY 0RF ferrous sulfate 325 mg (65 mg iron) tablet 325 mg PO DAILY 0RF baclofen 10 mg tablet 10 mg PO TID 0RF sildenafil 100 mg tablet 100 mg PO DAILY PRN0RF cholecalciferol (vitamin D3) 50 mcg (2,000 unit) tablet 50 mcg PO DAILY 0RF Fish Oil 340-1,000 mg capsule 1 cap PO BID 0RF loratadine 10 mg tablet 10 mg PO DAILY 0RF fluticasone propionate 50 mcg/actuation spray,suspension 2 spray intranasal DAILY 0RF oxycodone-acetaminophen 5-325 mg tablet 0 tab PO 0RF aspirin 81 mg tablet,delayed release (DR/EC) 81 mg PO DAILY 0RF (DME) lancets 33 gauge misc See Rx Instructions ea .ROUTE .MEDSUPPLY Qty: 100 0RF Rx Instructions: As directed metformin 500 mg tablet extended release 24 hr 1,000 mg PO BID 0RF hydrocortisone 2.5 % ointment topical 0RF betamethasone dipropionate 0.05 % ointment 1 applic topical BID 0RF magnesium oxide 400 mg magnesium capsule 400 mg PO BID 0RF docusate sodium 100 mg capsule 100 mg PO DAILY PRN (Reason: constipation) 0RF doxycycline hyclate 100 mg capsule 100 mg PO BID 0RF fluocinonide 0.05 % ointment 1 applic topical BID 0RF omeprazole 20 mg capsule,delayed release(DR/EC) 20 mg PO DAILY 0RF niacin 1,000 mg tablet extended release 24 hr 1,000 mg PO BEDTIME 0RF irbesartan 150 mg tablet 300 mg PO DAILY 0RF triamcinolone acetonide 0.1 % cream topical Q OTHER DAY PRN0RF amlodipine 5 mg tablet 5 mg PO DAILY 0RF metformin 500 mg tablet 1,000 mg PO BID 0RF irbesartan 300 mg tablet 300 mg PO DAILY 0RF Referrals: Gretel Robles DO [Physician] - 2 days (Lactic acidosis most likely due to metformin)
--- NOTE | 2021-11-26 20:26 | ECG_ITS ---
Test Reason : HYPERTENSION Blood Pressure : / mmHG Vent. Rate : 106 BPM Atrial Rate : 106 BPM P-R Int : 164 ms QRS Dur : 094 ms QT Int : 334 ms P-R-T Axes : 042 -23 049 degrees QTc Int : 443 ms Sinus tachycardia Otherwise normal ECG When compared with ECG of 24-SEP-2021 14:29, Criteria for Anterior infarct are no longer Present Criteria for Anterolateral infarct are no longer Present No significant change was found Referred By: Pretty Srivastava Electronically Signed By:SJ BECKETT MD
[2021-11-26 20:29] VITALS: BP 162/92; BP 200/100; PULSE 110; PULSE 116; RESP 30; TEMP 36.7; O2SAT 96; O2SAT 99; BMI 31.8
[2021-11-26 20:55] LABS: MANUAL DIFF FLAG NO
[2021-11-26 20:57] LABS: Basophils Percent Auto 0.3 % (0-2); Eosinophils Absolute Auto 0.1 X10*3/uL (0.0-0.4); Eosinophils Percent Auto 2.1 % (0-4); Hematocrit 43.6 % (42.0-52.0); Hemoglobin 14.5 g/dl (14.0-18.0); Imm Gran Abs Auto 0.03 X10*3/uL (0.00-0.03); Imm Gran Pct Auto 0.4 % (0.0-0.4); Lymphocytes Absolute Auto 2.1 X10*3/uL (1.2-4.9); Lymphocytes Percent Auto 30.1 % (20-40); Mean Corpuscular HGB Conc 33.3 g/dl (31.0-36.0); Mean Corpuscular Hemoglobin 33.3 pg (27.0-33.0); Mean Platelet Volume 11.8 fL (9.4-12.4); Monocytes Absolute Auto 0.7 X10*3/uL (0.1-1.2); Monocytes Percent Auto 10.1 % (2-11); Neutrophils Absolute Auto 3.9 x10*3/uL (2.0-8.3); Red Blood Count 4.36 X10*6/uL (4.60-5.80); Red Cell Distribution Width 13.7 % (11.0-16.0); White Blood Count 6.8 X10*3/uL (4.8-10.8)
[2021-11-26 20:58] LABS: Platelet Count 92 X10*3/uL (160-400)
[2021-11-26 21:05] LABS: Prothrombin Time 11.7 SEC (9.9-13.0)
[2021-11-26 21:15] LABS: Alanine Aminotransferase 50 U/L (0-40); Albumin Level 3.7 g/dL (3.5-5.0); Alkaline Phosphatase 76 U/L (39-117); Anion Gap 12 (12-20); Aspartate Amino Transferase 43 U/L (5-37); Bilirubin Direct 0.2 mg/dL (0.0-0.5); Bilirubin Total 0.5 mg/dL (0.0-1.0); Blood Urea Nitrogen 13 mg/dL (9-16); Calcium 8.6 mg/dL (8.4-10.2); Carbon Dioxide 27 mmol/L (22-29); Chloride 103 mmol/L (96-108); Creatinine Clr Calc Pharmacy 68.7; Estimated Glomerular Filt Rate > 60; Glucose Random 203 mg/dL (60-115); Lipase 70 U/L (8-78); Magnesium 0.9 mg/dL (1.6-2.6); Potassium 3.6 mmol/L (3.3-5.1); Sodium 138 mmol/L (135-145); Total Protein 6.5 g/dL (6.5-8.0)
[2021-11-26 21:17] LABS: B Type Natriuretic Peptide < 10 pg/mL (<100); Troponin-I High Sensitivity 4.5 ng/L (<3.5-35.0)
[2021-11-26 21:34] LABS: Influenza A PCR NEGATIVE (Negative); Influenza B PCR NEGATIVE (Negative); Resp Syncy Virus RNA Qual PCR NEGATIVE (Negative); SARS COV2 PCR INHOUSE NEGATIVE (Negative)
[2021-11-26 21:54] LABS: Lactic Acid 2.8 mmol/L (0.5-2.0)
--- NOTE | 2021-11-26 22:06 | PC.NURSE ---
PT ambulated to bathroom with steady gait. Return to room with complaint of increased SOB. PT O2 sat found to be 94% on RA. PT placed on O2 at 2 L/min via NC; sat increase to 98%. PT reported decreased SOB with O2.
[2021-11-26 22:09] LABS: Appearance Urine CLEAR; Color Urine YELLOW; Glucose Urine UA 500 MG/DL (NEG); Leukocyte Esterase Urine NEG (NEG); Nitrite Urine NEG (NEG); UACC Culture Trigger NO; Urine Blood TRACE (NEG); Urine Ketones NEG (NEG); Urine Protein NEG (NEG-TRACE)
[2021-11-26 22:16] LABS: Bacteria Urine TRACE /LPF; RBC Urine 0-2 /HPF (0); Squamous Epithelial Cell Urine TRACE /LPF; WBC Urine 0-2 /HPF (0-4)
[2021-11-26] MEDS: Magnesium Sulfate/H2O 2 GM/50 ML PIGGYBACK IV (22:43)
[2021-11-26] MEDS: 0.9 % Sodium Chloride 1,000 ML 999 ML IVCONT ×2 (22:43→23:32)
[2021-11-26 23:30] VITALS: BP 146/85; PULSE 96; RESP 22; O2SAT 98
[2021-11-26 23:34] LABS: Reflex Lactate? Lactic Acid Added
[2021-11-27 01:07] LABS: Anion Gap 12 (12-20); Blood Urea Nitrogen 12 mg/dL (9-16); Calcium 8.2 mg/dL (8.4-10.2); Carbon Dioxide 26 mmol/L (22-29); Chloride 106 mmol/L (96-108); Estimated Glomerular Filt Rate > 60; Glucose Random 158 mg/dL (60-115); Potassium 3.8 mmol/L (3.3-5.1); Sodium 140 mmol/L (135-145)
[2021-11-27 02:04] VITALS: BP 183/100; PULSE 111; RESP 20
== END 2021-11-27 02:27 | disposition home or self-care (01) ==
PROVIDERS: Nurse Practitioner Family; Emergency Provider Student in an Organized Health Care Education/Training Program
DX: R51.9 Headache, unspecified (principal); E83.42 Hypomagnesemia; E87.2 Acidosis; R06.02 Shortness of breath; R20.0 Anesthesia of skin; I10 Essential (primary) hypertension; E78.5 Hyperlipidemia, unspecified; E11.9 Type 2 diabetes mellitus without complications; Z20.822 Contact with and (suspected) exposure to COVID-19; Z79.02 Long term (current) use of antithrombotics/antiplatelets; Z79.84 Long term (current) use of oral hypoglycemic drugs
CPT/HCPCS: 0241U; 36415; 70450; 71045; 80048; 80076; 81001; 83605; 83690; 83735; 83880; 84484; 85025; 85610; 87040; 93005; 96365; 96366; 99284; J3475

== ENCOUNTER 2021-11-29 15:02 | Outpatient (REF) | payer MEDICARE, SELFPAY ==
--- NOTE | ~2021-11-29 | MR_ITS ---
EXAMINATION: MR BRAIN WITHOUT CONTRAST CLINICAL INFORMATION: 75-year-old with new left-sided headaches of 1 year duration. COMPARISON: None TECHNIQUE: Multiplanar multisequence MR imaging of the brain was done without IV contrast. FINDINGS: Brain Volume: [id number] generalized diffuse nonspecific brain parenchymal volume loss. Structural: No malformations. Brain and Meninges: DWI sequence demonstrates no restricted diffusion. Specifically, there is no evidence for acute or subacute cerebral ischemia. A few small, scattered T2 hyperintensities are seen within the deep periventricular white matter bilaterally and right subcortical white matter which are nonspecific findings, but likely reflect small zones of chronic ischemic microangiopathy with similar findings in the deep periatrial white matter bilaterally. Patchy T2 hyperintensity in the dianna on both sides of the midline likely reflects chronic ischemic microangiopathy as well. Small nodular indentations of the ependymas are seen along the lateral ventricles bilaterally which are slightly hyperintense on T1 and hyperintense on FLAIR imaging compared to crisostomo matter, consistent with bilateral subependymal nodules, the largest of which is 5.5 mm on the left. Gradient refocused imaging demonstrates no evidence for hemorrhage, hemosiderin staining or abnormal mineral deposition. No extra-axial fluid collections, space-occupying process or mass effect. Ventricles and Subarachnoid Spaces: The ventricular system and subarachnoid spaces are within normal limits in size without hydrocephalus. Orbital Structures: Bilateral lens extractions are noted. Limited assessment. Vascular: Signal voids are noted in the visualized major intracranial vessels. Sinuses and Osseous Structures: Note that the upper cervical region and craniocervical junction is partially obscured by ghosting artifact. There are probable degenerative changes at the anterior atlantodental joint. There is some mucosal thickening in the ethmoid complex. MR/MR head/brain wo con IMPRESSION: 1. No acute intracranial process. No evidence for hemorrhage, infarction, extra-axial fluid collection, space-occupying process, mass effect or hydrocephalus. 2. 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 3. 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 The signal intensity is not entirely consistent with crisostomo matter heterotopias and therefore a follow-up MRI of the brain with contrast is recommended in 3-6 months to reassess utilizing thin section gradient echo T1-weighted imaging postcontrast. 4. Other incidental findings as described above.
== END 2021-11-29 15:03 | disposition home or self-care (01) ==
LOC: HO.MRI 15:02
PROVIDERS: Visit Provider Family Medicine
DX: R51.9 Headache, unspecified (principal)
CPT/HCPCS: 70551

== ENCOUNTER → 2021-12-02 10:48 | Outpatient (BNVA) | payer MEDICARE, SELFPAY | PROVIDERS: PCP Family Medicine; Visit Provider Urology | DX: E29.1 Testicular hypofunction (principal) | CPT/HCPCS: 96372 ==

== ENCOUNTER → 2021-12-23 11:12 | Outpatient (BNVA) | payer OTHER, SELFPAY | PROVIDERS: PCP Family Medicine; Visit Provider Urology | DX: E29.1 Testicular hypofunction (principal) | CPT/HCPCS: 96372 ==

== ENCOUNTER → 2022-01-16 10:51 | Outpatient (BNVA) | payer MEDICARE, SELFPAY | PROVIDERS: PCP Family Medicine; Visit Provider Urology | DX: E29.1 Testicular hypofunction (principal) | CPT/HCPCS: 96372 ==

== ENCOUNTER 2022-01-16 12:07 | Emergency (ER) | payer MEDICARE, MEDICAID, SELFPAY ==
--- NOTE | ~2022-01-16 | XR_ITS ---
EXAMINATION: XR CHEST CLINICAL INFORMATION: Chest pain COMPARISON: 11.26.2021 TECHNIQUE: Frontal view of the chest was obtained. FINDINGS: Normal symmetric lung volumes. No parenchymal consolidation. No pleural effusion. No pneumothorax. Cardiomediastinal silhouette and pulmonary vascularity are within normal limits. No acute osseous abnormalities. XR/XR chest 1V IMPRESSION: No acute findings
[2022-01-16 12:09] VITALS: BP 158/91; PULSE 96; RESP 18; TEMP 37.2; O2SAT 95; BMI 31.8
--- NOTE | 2022-01-16 12:12 | ECG_ITS ---
Test Reason : cp Blood Pressure : / mmHG Vent. Rate : 094 BPM Atrial Rate : 094 BPM P-R Int : 178 ms QRS Dur : 096 ms QT Int : 334 ms P-R-T Axes : 060 005 050 degrees QTc Int : 417 ms Normal sinus rhythm Normal ECG No significant changes when compared with the previous EKG of 26 november 2021 Referred By: Generic ED Physician Electronically Signed By:SHEELA OBRIEN
[2022-01-16 12:39] LABS: Hematocrit 51.2 % (42.0-52.0); Hemoglobin 16.6 g/dl (14.0-18.0); Mean Corpuscular HGB Conc 32.4 g/dl (31.0-36.0); Mean Corpuscular Hemoglobin 32.2 pg (27.0-33.0); Mean Corpuscular Volume 99.2 fL (80.0-98.0); Mean Platelet Volume 12.2 fL (9.4-12.4); Platelet Count 111 X10*3/uL (160-400); Red Blood Count 5.16 X10*6/uL (4.60-5.80); Red Cell Distribution Width 12.5 % (11.0-16.0); White Blood Count 9.6 X10*3/uL (4.8-10.8)
[2022-01-16 12:42] LABS: COVID-19 Test Negative (Negative); IDNOW Serial# 55D5AD1C
[2022-01-16 12:58] LABS: Anion Gap 13 (12-20); Blood Urea Nitrogen 20 mg/dL (9-16); Calcium 9.7 mg/dL (8.4-10.2); Carbon Dioxide 30 mmol/L (22-29); Chloride 97 mmol/L (96-108); Creatinine Clr Calc Pharmacy 34.2; Estimated Glomerular Filt Rate 40; Glucose Random 220 mg/dL (60-115); Potassium 4.8 mmol/L (3.3-5.1); Sodium 135 mmol/L (135-145)
[2022-01-16 13:03] LABS: B Type Natriuretic Peptide 15 pg/mL (<100); Troponin-I High Sensitivity 4.3 ng/L (<3.5-35.0)
--- NOTE | 2022-01-16 18:26 | ED_ITS ---
HPI - Chest Pain General Chief Complaint: Chest Pain Stated Complaint: chest pain Time Seen by Provider: 01/16/22 19:19 Source: patient Mode of arrival: ambulatory Limitations: language barrier History of Present Illness HPI narrative: 76-year-old male presents with midsternal chest pain and shortness of breath. S tates his he has felt like this for approximately 2 days. complaint: chest pain Onset (ago): day(s) (2) Timing of current episode: constant Onset: during rest Pain location: substernal Pain radiation: none Severity: moderate Quality: tightness Relieving factors: nothing Exacerbating factors: exertion, inspiration, palpation and movement Associated symptoms: dyspnea Treatment prior to arrival: none Risk Factors Coronary artery disease risk factors: diabetes, hyperlipidemia and hypertension Thoracic aortic dissection risk factors: none Related Data Home Medications Medication Instructions Recorded Confirmed aspirin 81 mg tablet,delayed 81 mg PO DAILY 06/23/20 06/10/21 release baclofen 10 mg tablet 10 mg PO TID 06/23/20 06/10/21 betamethasone dipropionate 0.05 % 1 applic TOPICAL BID 06/23/20 06/10/21 topical ointment cholecalciferol (vitamin D3) 50 50 mcg PO DAILY 06/23/20 06/10/21 mcg (2,000 unit) tablet docusate sodium 100 mg capsule 100 mg PO DAILY PRN 06/23/20 06/10/21 doxycycline hyclate 100 mg capsule 100 mg PO BID 06/23/20 06/10/21 ezetimibe 10 mg tablet 10 mg PO DAILY 06/23/20 06/10/21 fenofibrate 160 mg tablet 160 mg PO DAILY 06/23/20 06/10/21 ferrous sulfate 325 mg (65 mg 325 mg PO DAILY 06/23/20 06/10/21 iron) tablet fluocinonide 0.05 % topical 1 applic TOPICAL BID 06/23/20 06/10/21 ointment fluticasone propionate 50 2 spray INTRANASAL DAILY 06/23/20 06/10/21 mcg/actuation nasal spray,suspension glipizide 10 mg tablet 20 mg PO BID 06/23/20 06/10/21 hydrocodone 5 mg-acetaminophen 300 1 tab PO TID PRN 06/23/20 06/10/21 mg tablet hydrocortisone 2.5 % topical TOPICAL 06/23/20 06/10/21 ointment hydroxyzine HCl 25 mg tablet [id number] mg PO 06/23/20 06/10/21 lancets 33 gauge #100 ea 06/23/20 06/10/21 loratadine 10 mg tablet 10 mg PO DAILY 06/23/20 06/10/21 magnesium oxide 400 mg PO BID 06/23/20 06/10/21 metformin 500 mg tablet,extended 1,000 mg PO BID 06/23/20 06/10/21 release 24 hr metoprolol succinate 100 mg 100 mg PO DAILY 06/23/20 06/10/21 tablet,extended release 24 hr omega-3 fatty acids-fish oil 340 1 cap PO BID 06/23/20 06/10/21 mg-1,000 mg capsule oxycodone-acetaminophen 5 mg-325 0 tab PO 06/23/20 06/10/21 mg tablet sildenafil 100 mg tablet 100 mg PO DAILY PRN 06/23/20 06/10/21 amlodipine 5 mg tablet 5 mg PO DAILY 09/18/20 06/10/21 triamcinolone acetonide 0.1 % appl TOPICAL Q OTHER DAY PRN 09/18/20 06/10/21 topical cream naloxone 4 mg/actuation nasal spray 0 spray INTRANASAL 02/01/21 06/10/21 irbesartan 150 mg tablet 300 mg PO DAILY 02/06/21 06/10/21 niacin 1,000 mg tablet,extended 1,000 mg PO BEDTIME tab 02/06/21 06/10/21 release 24 hr omeprazole 20 mg capsule,delayed 20 mg PO DAILY cap 02/06/21 06/10/21 release albuterol sulfate 90 mcg/actuation 1 inh INHALATION QID 06/10/21 06/10/21 aerosol inhaler (Ventolin HFA) varicella-zoster glycoE [id number] IM 06/10/21 06/10/21 adj(PF) 50 mcg/0.5 mL IM susp, kit (Shingrix (PF)) irbesartan 300 mg tablet 300 mg PO DAILY 11/06/21 metformin 500 mg tablet 1,000 mg PO BID 11/06/21 Previous Rx's Medication Instructions Recorded atorvastatin 40 mg tablet 40 mg PO DAILY 30 Days #30 tab 02/06/21 dulaglutide 0.75 mg/0.5 mL 0.75 mg (0.5 mL) SUBCUT QWEEK 30 02/06/21 subcutaneous pen injector Days #2.5 ml (Trulicity) blood sugar diagnostic (FreeStyle #100 ea 06/26/21 Lite Strips) blood-glucose meter (FreeStyle #1 ea 06/26/21 [place] Lite) testosterone cypionate 200 mg/mL 200 mg IM Q3W 21 Days #1 ml 10/03/21 intramuscular oil tamsulosin 0.4 mg capsule 0.4 mg PO BEDTIME 90 Days #90 cap 11/07/21 celecoxib 200 mg capsule 200 mg PO BID #60 cap 12/03/21 Allergies Allergy/AdvReac Type Severity Reaction Status Date / Time No Known Allergies Allergy Verified 11/06/21 11:30 Review of Systems Review of Systems: Constitutional: No Weight loss, No Fever, No Chills, No Night Sweats, No Fatigue, No Malaise ENT/Mouth: No Hearing loss, No Ear Pain, No Nasal Congestion, No Sinus Pain, No Hoarseness, No sore throat, No Rhinorrhea, No Swallowing Difficulty Eyes: No Eye Pain, No Swelling, No Redness, No Foreign Body, No Discharge, No Vision Changes Cardiovascular: Hot Chest Pain, all SOB, no Dyspnea on Exertion, No Orthopnea, No Edema, No Palpitations Respiratory: No Cough, No Sputum, No Wheezing, No Smoke Exposure, No Dyspnea Gastrointestinal: No Nausea, No Vomiting, No Diarrhea, No abdominal Pain, No Hematochezia, No Melena Genitourinary: No irregular bleeding, No Dysuria, No Urinary Frequency, No Hematuria, No Urinary Incontinence, No Urgency, No Flank Pain, No Urinary Flow Changes, No Hesitancy Musculoskeletal: No joint pain, No Myalgias, No Joint Swelling Skin: No Skin Lesions, No rash Neuro: No Weakness, No Numbness, No Paresthesias, No Loss of Consciousness, No Dizziness, No Headache Psych: No Anxiety/Panic, No Depression, No SI/HI/AH/VH Heme/Lymph: No Bruising, No Bleeding,No Lymphadenopathy Endocrine: No Polyuria, No Polydipsia, No Temperature Intolerance Yes all other systems are reviewed and are negative COUNT INCLUDES THE [facility] Past Medical History Attestation statement: The following information was validated with the patient. Source: old records reviewed Medical History Anemia Benign prostatic hyperplasia without lower urinary tract symptoms Chronic GERD Erectile dysfunction HLD (hyperlipidemia) HTN (hypertension) Hypertriglyceridemia Hypertrophic cardiomegaly STEPH (obstructive sleep apnea) Osteoarthritis T2DM (type 2 diabetes mellitus) Type 2 diabetes mellitus Vitamin D deficiency Surgical History History of eye surgery History of left knee surgery History of removal of testicle Family History Family History Father No problems noted. Mother No problems noted. Social History Social History Alcohol intake: never Patient Tobacco Use Status: Never used Tobacco Advance Directives: No Advance Directives Information Provided: No Physical Exam Vital Signs: Vital Signs: Last Vital Signs Temp 99 F 01/16/22 12:09 Pulse 84 01/16/22 21:05 Resp 20 01/16/22 21:05 BP 136/78 01/16/22 21:05 Pulse Ox 96 01/16/22 21:05 BMI result Body Mass Index 31.8 Appearance: Alert. Oriented X3. Mild distress. Eyes: Pupils equal, round and reactive to light. EOMI ENT: Pharynx normal. Neck: Normal inspection. Neck supple. CVS: Normal heart rate and rhythm. Pulses normal. Respiratory: Tachypnea, mild respiratory distress. Diminished at the bases. Poor air flow. Abdomen: Soft and nontender. Skin: Skin warm and dry. Normal skin color. Normal skin turgor. Extremities: No lower extremity edema. Moves all extremities against resistance. Neuro: No motor deficit. No sensory deficit. Gait well balanced well coordi nated. Cranial nerves 2-12 intact. Course Course Course Narrative: 76-year-old male presents for chest pain and shortness breath for approximately 2 days. Chest pain is reproducible on palpation, has poor air flow and diminished lung sounds. Will order Solu-Medrol, albuterol and labs. 19:50 lactic acid is 2.3, this is unlikely due to sepsis, most likely due to metformin acidosis. Has a history of metformin acidosis. 20:17 Magnesium 1.1 order for 2 g IV 21:00 patient receive albuterol neb. 21:44 repeat lactic 2.6, patient is not septic. His metabolic acidosis secondary to metformin use. 2 L fluid is still infusing at this time 23:04 patient states feel much better. Even unlabored respirations. Will discharge home. Patient does understand that he must follow up with primary care physician and discontinue metformin. turbine technician utilized for all correspondence. Google translate utilized for discharge instructions.Patient verbalized understanding of and agrees to plan of care to discharge home. Verbalized understanding of signs and symptoms indicating need for emergent intervention MDM - Chest Pain Differential Diagnosis Differential diagnosis: Likely pneumothorax, unstable angina pectoris, atypical chest pain, st elevation myocardial infarction and costochondritis Differential diagnosis: Asthma exacerbation, COPD, CHF, influenza, COVID Medical Records Data Attestation: I reviewed the patient's medical records. Lab Data Attestation: I reviewed the patient's lab results. Result diagrams: 01/16/22 12:20 01/16/22 12:20 Labs: Lab Results 01/16/22 01/16/22 01/16/22 Range/Units 12:20 12:20 12:20 WBC 9.6 (4.8-10.8) X10*3/uL RBC 5.16 (4.60-5.80) X10*6/uL Hgb 16.6 (14.0-18.0) g/dl Hct 51.2 (42.0-52.0) % MCV 99.2 H (80.0-98.0) fL MCH 32.2 (27.0-33.0) pg MCHC 32.4 (31.0-36.0) g/dl RDW 12.5 (11.0-16.0) % Plt Count 111 L (160-400) X10*3/uL MPV 12.2 (9.4-12.4) fL Absolute Nucleated RBC 0.000 (0.0-0.012) X10*3/uL Nucleated RBC % (auto) 0.0 (0.0-0.2) /100WBC PT (9.9-13.0) SEC INR (0.9-1.1) Sodium 135 (135-145) mmol/L Potassium 4.8 D (3.3-5.1) mmol/L Chloride 97 (96-108) mmol/L Carbon Dioxide 30 H (22-29) mmol/L Anion Gap 13 (12-20) BUN 20 H D (9-16) mg/dL Creatinine 1.68 H (0.5-1.4) mg/dL Estim Creat Clear Calc 34.2 Estimated GFR 40 Random Glucose 220 H D (60-115) mg/dL Lactic Acid (0.5-2.0) mmol/L Lactic Acid F/U @ 2Hr (0.5-2.0) mmol/L Calcium 9.7 D (8.4-10.2) mg/dL Magnesium (1.6-2.6) mg/dL Troponin I High Sens 4.3 (<3.5-35.0) ng/L B-Natriuretic Peptide 15 (<100) pg/mL Urine Color Urine Appearance Urine pH (5.0-8.0) Ur Specific [place] (1.005-1.025) Urine Protein (NEG-TRACE) MG/DL Urine Glucose (UA) (NEG) MG/DL Urine Ketones (NEG) MG/DL Urine Blood (NEG) Urine Nitrite (NEG) Ur Leukocyte Esterase (NEG) Urine RBC (0) /HPF Urine WBC (0-4) /HPF Ur Squamous Epith Cells /LPF Calcium Oxalate Crystal /LPF Urine Bacteria /LPF COVID-19 (JASSON) (Negative) COVID-19 Clin Com Influenza Type A (RICARDO) (Negative) Influenza Type B (RICARDO) (Negative) Influenza A & B Note 01/16/22 01/16/22 01/16/22 Range/Units 12:20 19:10 19:10 WBC (4.8-10.8) X10*3/uL RBC (4.60-5.80) X10*6/uL Hgb (14.0-18.0) g/dl Hct (42.0-52.0) % MCV (80.0-98.0) fL MCH (27.0-33.0) pg MCHC (31.0-36.0) g/dl RDW (11.0-16.0) % Plt Count (160-400) X10*3/uL MPV (9.4-12.4) fL Absolute Nucleated RBC (0.0-0.012) X10*3/uL Nucleated RBC % (auto) (0.0-0.2) /100WBC PT 13.0 (9.9-13.0) SEC INR 1.1 (0.9-1.1) Sodium (135-145) mmol/L Potassium (3.3-5.1) mmol/L Chloride (96-108) mmol/L Carbon Dioxide (22-29) mmol/L Anion Gap (12-20) BUN (9-16) mg/dL Creatinine (0.5-1.4) mg/dL Estim Creat Clear Calc Estimated GFR Random Glucose (60-115) mg/dL Lactic Acid 2.3 H* (0.5-2.0) mmol/L Lactic Acid F/U @ 2Hr (0.5-2.0) mmol/L Calcium (8.4-10.2) mg/dL Magnesium (1.6-2.6) mg/dL Troponin I High Sens (<3.5-35.0) ng/L B-Natriuretic Peptide (<100) pg/mL Urine Color Urine Appearance Urine pH (5.0-8.0) Ur Specific [place] (1.005-1.025) Urine Protein (NEG-TRACE) MG/DL Urine Glucose (UA) (NEG) MG/DL Urine Ketones (NEG) MG/DL Urine Blood (NEG) Urine Nitrite (NEG) Ur Leukocyte Esterase (NEG) Urine RBC (0) /HPF Urine WBC (0-4) /HPF Ur Squamous Epith Cells /LPF Calcium Oxalate Crystal /LPF Urine Bacteria /LPF COVID-19 (JASSON) Negative (Negative) COVID-19 Clin Com See Note Influenza Type A (RICARDO) (Negative) Influenza Type B (RICARDO) (Negative) Influenza A & B Note 01/16/22 01/16/22 01/16/22 Range/Units 19:10 19:33 21:08 WBC (4.8-10.8) X10*3/uL RBC (4.60-5.80) X10*6/uL Hgb (14.0-18.0) g/dl Hct (42.0-52.0) % MCV (80.0-98.0) fL MCH (27.0-33.0) pg MCHC (31.0-36.0) g/dl RDW (11.0-16.0) % Plt Count (160-400) X10*3/uL MPV (9.4-12.4) fL Absolute Nucleated RBC (0.0-0.012) X10*3/uL Nucleated RBC % (auto) (0.0-0.2) /100WBC PT (9.9-13.0) SEC INR (0.9-1.1) Sodium (135-145) mmol/L Potassium (3.3-5.1) mmol/L Chloride (96-108) mmol/L Carbon Dioxide (22-29) mmol/L Anion Gap (12-20) BUN (9-16) mg/dL Creatinine (0.5-1.4) mg/dL Estim Creat Clear Calc Estimated GFR Random Glucose (60-115) mg/dL Lactic Acid (0.5-2.0) mmol/L Lactic Acid F/U @ 2Hr (0.5-2.0) mmol/L Calcium (8.4-10.2) mg/dL Magnesium 1.1 L* (1.6-2.6) mg/dL Troponin I High Sens (<3.5-35.0) ng/L B-Natriuretic Peptide (<100) pg/mL Urine Color YELLOW Urine Appearance CLEAR Urine pH 5.5 (5.0-8.0) Ur Specific [place] <= 1.005 (1.005-1.025) Urine Protein NEG (NEG-TRACE) MG/DL Urine Glucose (UA) 250 H (NEG) MG/DL Urine Ketones NEG (NEG) MG/DL Urine Blood 1+ H (NEG) Urine Nitrite NEG (NEG) Ur Leukocyte Esterase NEG (NEG) Urine RBC 0-2 (0) /HPF Urine WBC 0 (0-4) /HPF Ur Squamous Epith Cells TRACE /LPF Calcium Oxalate Crystal TRACE /LPF Urine Bacteria NONE /LPF COVID-19 (JASSON) (Negative) COVID-19 Clin Com Influenza Type A (RICARDO) Negative (Negative) Influenza Type B (RICARDO) Negative (Negative) Influenza A & B Note See Note 01/16/22 Range/Units 21:44 WBC (4.8-10.8) X10*3/uL RBC (4.60-5.80) X10*6/uL Hgb (14.0-18.0) g/dl Hct (42.0-52.0) % MCV (80.0-98.0) fL MCH (27.0-33.0) pg MCHC (31.0-36.0) g/dl RDW (11.0-16.0) % Plt Count (160-400) X10*3/uL MPV (9.4-12.4) fL Absolute Nucleated RBC (0.0-0.012) X10*3/uL Nucleated RBC % (auto) (0.0-0.2) /100WBC PT (9.9-13.0) SEC INR (0.9-1.1) Sodium (135-145) mmol/L Potassium (3.3-5.1) mmol/L Chloride (96-108) mmol/L Carbon Dioxide (22-29) mmol/L Anion Gap (12-20) BUN (9-16) mg/dL Creatinine (0.5-1.4) mg/dL Estim Creat Clear Calc Estimated GFR Random Glucose (60-115) mg/dL Lactic Acid (0.5-2.0) mmol/L Lactic Acid F/U @ 2Hr 2.6 H* (0.5-2.0) mmol/L Calcium (8.4-10.2) mg/dL Magnesium (1.6-2.6) mg/dL Troponin I High Sens (<3.5-35.0) ng/L B-Natriuretic Peptide (<100) pg/mL Urine Color Urine Appearance Urine pH (5.0-8.0) Ur Specific [place] (1.005-1.025) Urine Protein (NEG-TRACE) MG/DL Urine Glucose (UA) (NEG) MG/DL Urine Ketones (NEG) MG/DL Urine Blood (NEG) Urine Nitrite (NEG) Ur Leukocyte Esterase (NEG) Urine RBC (0) /HPF Urine WBC (0-4) /HPF Ur Squamous Epith Cells /LPF Calcium Oxalate Crystal /LPF Urine Bacteria /LPF COVID-19 (JASSON) (Negative) COVID-19 Clin Com Influenza Type A (RICARDO) (Negative) Influenza Type B (RICARDO) (Negative) Influenza A & B Note Imaging Data Chest x-ray: Attestation: I personally reviewed and interpreted this imaging study as follows: Radiologist's impression: EXAMINATION: XR CHEST CLINICAL INFORMATION: Chest pain COMPARISON: 11.26.2021 TECHNIQUE: Frontal view of the chest was obtained. FINDINGS: Normal symmetric lung volumes. No parenchymal consolidation. No pleural effusion. No pneumothorax.? Cardiomediastinal silhouette and pulmonary vascularity are within normal limits. No acute osseous abnormalities. XR/XR chest 1V IMPRESSION: No acute findings ? ECG Data ECG #1: Attestation: I personally reviewed and interpreted this ECG as follows: ECG interpretation date: 01/16/22 ECG interpretation time: 12:08 Prior ECG tracings: available for review Interpretation: Vent. rate 94 BPM SC interval 178 ms QRS duration 96 ms QT/QTc 334/417 ms P-R-T axes 60 5 50 Normal sinus rhythm Normal ECG No significant changes when compared with the previous EKG of 26 november 2021 Scores Heart Score History: -0- slightly suspicious ECG: -0- normal Age: -2- > or = 65 Risk factory: -1- 1 or 2 risk factors Troponin: -0- < or = normal limit Score: 3 Risk: 1.7% Discharge Plan Discharge Clinical Impression: Atypical chest pain, Hypomagnesemia, Acidosis, lactic Patient Disposition: Home, Self-Care Instructions: Hypomagnesemia (ED), Noncardiac Chest Pain (ED), Chest Wall Pain (ED) Additional Instructions: Lo evaluaron por dolor en el pecho y dificultad para respirar. Debe hacer un seguimiento con el m?dico de atenci?n primaria para ajustar paola medicamentos para la diabetes. Lopez nivel de ?cido l?ctico era alto mientras estuvo en el departamento de emergencias. Siento que lopez metformina est? causando lopez nivel elevado de ?cido l?ctico. No tiene harjinder?n signo de infecci?n y no tiene un recuento de gl?bulos blancos elevado. Un efecto secundario de la metformina es la acidosis l?ctica. Esta es lopez segunda presentaci?n al departamento de emergencias por ?cido l?ctico elevado sin bhavani de infecci?n. La radiograf?a de t?rax es negativa. El electrocardiograma es ritmo sinusal normal. Las enzimas card?acas son negativas. Lopez nivel de magnesio. le dimos magnesio mientras estabas en el departamento de emergencias. Maria Teresa por elegir wendy departamento de emergencias para lopez evaluaci?n. Por favor, jaquan un seguimiento con el m?dico de atenci?n primaria seg?n sea necesario. Regrese al departamento de emergencias por cualquier s?ntoma nuevo, preocupante o que empeore You were evaluated for chest pain and shortness of breath. You must follow up with primary care physician for adjustment to your diabetes medications. Your lactic acid level was high while you were in the emergency department. I feel that your metformin is causing his elevated lactic acid level. Do not have any signs of infection, and did not have an elevated white count. A side effect of metformin is lactic acidosis. This is your 2nd presentation to the emergency department for elevated lactic acid without source of infection. Chest x-ray is negative. EKG is normal sinus rhythm. Cardiac enzymes are negative Your magnesium level. we gave him magnesium while you were in the emergency department. Thank you for choosing this emergency department for evaluation. Please follow-up with primary care physician as needed. Return to the emergency department for any new, concerning, or worsening symptoms. Prescriptions: No Action (DME) blood-glucose meter [FreeStyle [place] Lite] Kit See Rx Instructions .Route Qty: 1 0RF Rx Instructions: As directed (DME) FreeStyle Lite Strips Strip See Rx Instructions .Route Qty: 100 11RF Rx Instructions: 4x daily testosterone cypionate 200 mg/mL oil 200 mg IM Q3W 21 Days Qty: 1 5RF tamsulosin 0.4 mg capsule 0.4 mg PO BEDTIME 90 Days Qty: 90 2RF celecoxib 200 mg capsule 200 mg PO BID Qty: 60 0RF Trulicity 0.75 mg/0.5 mL pen injector 0.75 mg subcut QWEEK 30 Days Qty: 2.5 11RF atorvastatin 40 mg tablet 40 mg PO DAILY 30 Days Qty: 30 11RF Narcan 4 mg/actuation spray,non-aerosol 0 spray intranasal 0RF albuterol sulfate [Ventolin HFA] 90 mcg/actuation HFA aerosol inhaler 1 inh inhalation QID 0RF Shingrix (PF) 50 mcg/0.5 mL suspension for reconstitution IM 0RF hydrocodone-acetaminophen 5-300 mg tablet 1 tab PO TID PRN0RF metoprolol succinate 100 mg tablet extended release 24 hr 100 mg PO DAILY 0RF glipizide 10 mg tablet 20 mg PO BID 0RF ezetimibe 10 mg tablet 10 mg PO DAILY 0RF hydroxyzine HCl 25 mg tablet [id number] mg PO 0RF fenofibrate 160 mg tablet 160 mg PO DAILY 0RF ferrous sulfate 325 mg (65 mg iron) tablet 325 mg PO DAILY 0RF baclofen 10 mg tablet 10 mg PO TID 0RF sildenafil 100 mg tablet 100 mg PO DAILY PRN0RF cholecalciferol (vitamin D3) 50 mcg (2,000 unit) tablet 50 mcg PO DAILY 0RF Fish Oil 340-1,000 mg capsule 1 cap PO BID 0RF loratadine 10 mg tablet 10 mg PO DAILY 0RF fluticasone propionate 50 mcg/actuation spray,suspension 2 spray intranasal DAILY 0RF oxycodone-acetaminophen 5-325 mg tablet 0 tab PO 0RF aspirin 81 mg tablet,delayed release (DR/EC) 81 mg PO DAILY 0RF (DME) lancets 33 gauge misc See Rx Instructions ea .ROUTE .MEDSUPPLY Qty: 100 0RF Rx Instructions: As directed metformin 500 mg tablet extended release 24 hr 1,000 mg PO BID 0RF hydrocortisone 2.5 % ointment topical 0RF betamethasone dipropionate 0.05 % ointment 1 applic topical BID 0RF magnesium oxide 400 mg magnesium capsule 400 mg PO BID 0RF docusate sodium 100 mg capsule 100 mg PO DAILY PRN (Reason: constipation) 0RF doxycycline hyclate 100 mg capsule 100 mg PO BID 0RF fluocinonide 0.05 % ointment 1 applic topical BID 0RF omeprazole 20 mg capsule,delayed release(DR/EC) 20 mg PO DAILY 0RF niacin 1,000 mg tablet extended release 24 hr 1,000 mg PO BEDTIME 0RF irbesartan 150 mg tablet 300 mg PO DAILY 0RF triamcinolone acetonide 0.1 % cream topical Q OTHER DAY PRN0RF amlodipine 5 mg tablet 5 mg PO DAILY 0RF metformin 500 mg tablet 1,000 mg PO BID 0RF irbesartan 300 mg tablet 300 mg PO DAILY 0RF Referrals: Pastora Prasad DO [Primary Care Provider] - Interventions: ED Discharge Assessment Last Done: 01/16/22 23:20 Discharge Date/Time: 01/16/22 23:32
[2022-01-16] MEDS: Albuterol Sulfate (0.083%) 2.5 MG/3 ML VIAL.NEB 5 MG INHALE (19:26)
[2022-01-16 19:28] VITALS: PULSE 88; RESP 20; O2SAT 97
[2022-01-16] MEDS: methylPREDNISolone Sod Succ 125 MG/2 ML VIAL IVPUSH (19:30)
[2022-01-16] MEDS: 0.9 % Sodium Chloride 1,000 ML 999 ML IVCONT ×2 (19:30→21:41)
[2022-01-16 19:35] LABS: INTERNATIONAL NORM RATIO 1.1 (0.9-1.1)
[2022-01-16 19:45] LABS: Lactic Acid 2.3 mmol/L (0.5-2.0)
[2022-01-16 19:51] LABS: IDNOW Serial# 16C4AD1C; Influenza A Negative (Negative); Influenza B2 Negative (Negative)
[2022-01-16 20:04] LABS: Magnesium 1.1 mg/dL (1.6-2.6)
[2022-01-16] MEDS: Magnesium Sulfate/H2O 2 GM/50 ML PIGGYBACK IV (21:02)
[2022-01-16 21:05] VITALS: BP 136/78; PULSE 84; RESP 20; O2SAT 96
[2022-01-16 21:17] LABS: Appearance Urine CLEAR; Color Urine YELLOW; Glucose Urine UA 250 MG/DL (NEG); Leukocyte Esterase Urine NEG (NEG); Nitrite Urine NEG (NEG); PH 5.5 (5.0-8.0); Specific Gravity - Urine <= 1.005 (1.005-1.025); UACC Culture Trigger NO; Urine Blood 1+ (NEG); Urine Ketones NEG (NEG); Urine Protein NEG (NEG-TRACE)
[2022-01-16 21:26] LABS: Reflex Lactate? Lactic Acid Added
[2022-01-16 21:34] LABS: Calcium Oxalate Crystals Urine TRACE /LPF; RBC Urine 0-2 /HPF (0); Squamous Epithelial Cell Urine TRACE /LPF; WBC Urine 0 /HPF (0-4)
[2022-01-16 22:00] LABS: ~Lactic Acid-LAB USE ONLY 2.6 mmol/L (0.5-2.0)
[2022-01-16 23:44] LABS: Reflex Lactate? 2 Y
== END 2022-01-16 23:32 | disposition home or self-care (01) ==
PROVIDERS: Nurse Practitioner Family; Emergency Provider Internal Medicine; PCP Family Medicine
DX: R07.89 Other chest pain (principal); E83.42 Hypomagnesemia; E87.2 Acidosis; I10 Essential (primary) hypertension; E11.9 Type 2 diabetes mellitus without complications; Z20.822 Contact with and (suspected) exposure to COVID-19
CPT/HCPCS: 36415; 71045; 80048; 81001; 83605; 83735; 83880; 84484; 85027; 85610; 87040; 87502; 87635; 93005; 94640; 94644; 96361; 96365; 96366; 96375; 99283; 99284; J2930; J3475

== ENCOUNTER 2022-01-30 13:20 | Inpatient (IN) | payer MEDICARE, SELFPAY ==
[2022-01-30] VITALS (7 sets, daily range): BP systolic 124–139; BP diastolic 52–80; PULSE 112–124; RESP 18–32; TEMP 36.7; O2SAT 89–99; BMI 32.8
--- NOTE | ~2022-01-30 | XR_ITS ---
EXAMINATION: XR CHEST CLINICAL INFORMATION: Chest pain COMPARISON: Chest x-ray on 11/26/2021 TECHNIQUE: 2 views of the chest were obtained. FINDINGS: No significant abnormality is noted involving the heart, lungs, mediastinum, bony thorax or soft tissues. XR/XR chest 2V IMPRESSION: Unremarkable examination.
--- NOTE | ~2022-01-30 | CT_ITS ---
EXAMINATION: CT CHEST WITHOUT CONTRAST CLINICAL INFORMATION: Hypoxia and shortness of breath. Decreased lung sounds. COMPARISON: Previous chest x-ray from earlier the same day TECHNIQUE: Multidetector volumetric CT imaging of the chest was done. Axial MIP volume rendering provided. Sagittal and coronal reformatted images were obtained. This CT examination was performed using dose optimization techniques as appropriate, variously including the following: *Automated exposure control *Adjustment of mA and/or kV according to patient size (this includes techniques or standardized protocols for targeted exams where dose is matched to indication/reason for exam; i.e. extremities or head) *Use of iterative reconstruction technique DLP: 328 mGy-cm FINDINGS: PROCUREMENT FORESTER: Unremarkable LUNGS: The lungs are clear. MEDIASTINUM: There is mild coronary artery calcification. The mediastinum is otherwise normal. PLEURA: There is no pleural effusion. No pleural mass or thickening. AXILLA: No lymphadenopathy. UPPER ABDOMEN: Unremarkable. OSSEOUS STRUCTURES: There are degenerative changes of the spine. CT/CT chest wo con IMPRESSION: Mild coronary artery calcification. Otherwise unremarkable exam. Fleischner guidelines were followed.
--- NOTE | 2022-01-30 13:51 | ECG_ITS ---
Test Reason : CHEST PAIN Blood Pressure : / mmHG Vent. Rate : 122 BPM Atrial Rate : 122 BPM P-R Int : 176 ms QRS Dur : 094 ms QT Int : 320 ms P-R-T Axes : 000 -29 138 degrees QTc Int : 456 ms Sinus tachycardia Possible Anterolateral infarct , age undetermined Abnormal ECG When compared with ECG of 16-JAN-2022 12:08, Borderline criteria for Anterolateral infarct are now Present Referred By: Generic ED Physician Electronically Signed By:SJ BECKETT MD
[2022-01-30 14:21] LABS: Glucose, Whole Blood 459 mg/dL (60-115)
[2022-01-30 15:24] LABS: MANUAL DIFF FLAG NO
[2022-01-30 15:28] LABS: Basophils Percent Auto 0.1 % (0-2); Eosinophils Absolute Auto 0.1 X10*3/uL (0.0-0.4); Eosinophils Percent Auto 0.5 % (0-4); Hematocrit 53.1 % (42.0-52.0); Hemoglobin 17.9 g/dl (14.0-18.0); Imm Gran Abs Auto 0.17 X10*3/uL (0.00-0.03); Imm Gran Pct Auto 1.2 % (0.0-0.4); Lymphocytes Absolute Auto 2.3 X10*3/uL (1.2-4.9); Lymphocytes Percent Auto 15.8 % (20-40); Mean Corpuscular HGB Conc 33.7 g/dl (31.0-36.0); Mean Corpuscular Hemoglobin 32.5 pg (27.0-33.0); Mean Corpuscular Volume 96.4 fL (80.0-98.0); Mean Platelet Volume 11.6 fL (9.4-12.4); Monocytes Absolute Auto 1.2 X10*3/uL (0.1-1.2); Monocytes Percent Auto 8.1 % (2-11); Neutrophils Percent Auto 74.3 % (45-73); Platelet Count 152 X10*3/uL (160-400); Red Blood Count 5.51 X10*6/uL (4.60-5.80); White Blood Count 14.8 X10*3/uL (4.8-10.8)
[2022-01-30 15:44] LABS: Troponin-I High Sensitivity 36.1 ng/L (<3.5-35.0)
[2022-01-30 15:47] LABS: Alanine Aminotransferase 56 U/L (0-40); Albumin Level 3.8 g/dL (3.5-5.0); Alkaline Phosphatase 103 U/L (39-117); Anion Gap 17 (12-20); Aspartate Amino Transferase 27 U/L (5-37); Bilirubin Direct 0.4 mg/dL (0.0-0.5); Bilirubin Total 0.8 mg/dL (0.0-1.0); Blood Urea Nitrogen 23 mg/dL (9-16); Calcium 9.7 mg/dL (8.4-10.2); Carbon Dioxide 27 mmol/L (22-29); Chloride 95 mmol/L (96-108); Creatinine Clr Calc Pharmacy 39.1; Estimated Glomerular Filt Rate 46; Glucose Random 489 mg/dL (60-115); Lipase 102 U/L (8-78); Potassium 4.5 mmol/L (3.3-5.1); Sodium 134 mmol/L (135-145); Total Protein 6.9 g/dL (6.5-8.0)
--- NOTE | 2022-01-30 15:55 | PC.NURSE ---
pt alert and oriented, skin appropriate for ethnicity, respirations even and breathing at about 24-26, ls diminished, pt ambulated to the bathroom then states that he felt really tired/fatigued, sinus tach on the monitor mid 120's
[2022-01-30 16:11] LABS: B Type Natriuretic Peptide 14 pg/mL (<100)
[2022-01-30] MEDS: 0.9 % Sodium Chloride 1,000 ML 999 ML IV (16:29)
[2022-01-30 16:32] LABS: COVID-19 Test Negative (Negative)
--- NOTE | 2022-01-30 16:34 | ED_ITS ---
HPI - Chest Pain General Chief Complaint: Chest Pain Stated Complaint: DIARRHEA X'S 2 DAYS Time Seen by Provider: 01/30/22 16:07 Source: patient and EMS Mode of arrival: EMS History of Present Illness HPI narrative: 76-year-old male with a past medical history of anemia, GERD, HLD, HTN, STEPH, diabetes, presenting to the ED complaining of intermittent substernal chest pain, SOB and diarrhea since yesterday. Reports generalized fatigue / weakness and mild cough. Denies fever, chills, abdominal pain, nausea/ vomiting, pedal edema, recent travel, sick contacts. Reports eating and drinking WNL patient is poor historian MD complaint: chest pain Onset (ago): day(s) Related Data Home Medications Medication Instructions Recorded Confirmed cholecalciferol (vitamin D3) 50 50 mcg PO DAILY 06/23/20 06/10/21 mcg (2,000 unit) tablet docusate sodium 100 mg capsule 100 mg PO DAILY PRN 06/23/20 06/10/21 ezetimibe 10 mg tablet 10 mg PO DAILY 06/23/20 06/10/21 fenofibrate 160 mg tablet 160 mg PO DAILY 06/23/20 06/10/21 ferrous sulfate 325 mg (65 mg 325 mg PO DAILY 06/23/20 06/10/21 iron) tablet fluocinonide 0.05 % topical 1 applic TOPICAL BID 06/23/20 06/10/21 ointment fluticasone propionate 50 2 spray INTRANASAL DAILY 06/23/20 06/10/21 mcg/actuation nasal spray,suspension glipizide 10 mg tablet 20 mg PO BID 06/23/20 06/10/21 hydrocodone 5 mg-acetaminophen 300 1 tab PO TID PRN 06/23/20 06/10/21 mg tablet lancets 33 gauge #100 ea 06/23/20 06/10/21 loratadine 10 mg tablet 10 mg PO DAILY 06/23/20 06/10/21 magnesium oxide 400 mg PO BID 06/23/20 06/10/21 metoprolol succinate 100 mg 100 mg PO DAILY 06/23/20 01/30/22 tablet,extended release 24 hr omega-3 fatty acids-fish oil 340 1 cap PO BID 06/23/20 06/10/21 mg-1,000 mg capsule sildenafil 100 mg tablet 100 mg PO DAILY PRN 06/23/20 06/10/21 triamcinolone acetonide 0.1 % appl TOPICAL Q OTHER DAY PRN 09/18/20 06/10/21 topical cream naloxone 4 mg/actuation nasal spray 0 spray INTRANASAL 02/01/21 06/10/21 niacin 1,000 mg tablet,extended 1,000 mg PO BEDTIME tab 02/06/21 06/10/21 release 24 hr omeprazole 20 mg capsule,delayed 20 mg PO BID cap 02/06/21 06/10/21 release albuterol sulfate 90 mcg/actuation 1 inh INHALATION QID 06/10/21 01/30/22 aerosol inhaler (Ventolin HFA) irbesartan 300 mg tablet 300 mg PO DAILY 11/06/21 amitriptyline 10 mg tablet 1 tab PO BEDTIME 01/30/22 01/30/22 dulaglutide 1.5 mg/0.5 mL 1.5 mg SUBCUT QWEEK 01/30/22 subcutaneous pen injector (Trulicity) famotidine 40 mg tablet 1 tab PO BEDTIME 01/30/22 fluticasone 250 mcg-salmeterol 50 1 puff INHALATION 01/30/22 mcg/dose blistr powdr for inhalation umeclidinium 62.5 mcg/actuation 1 puff INHALATION DAILY 01/30/22 blister powder for inhalation (Incruse Ellipta) Previous Rx's Medication Instructions Recorded atorvastatin 40 mg tablet 40 mg PO DAILY 30 Days #30 tab 02/06/21 blood sugar diagnostic (FreeStyle #100 ea 06/26/21 Lite Strips) blood-glucose meter (FreeStyle #1 ea 06/26/21 [place] Lite) testosterone cypionate 200 mg/mL 200 mg IM Q3W 21 Days #1 ml 10/03/21 intramuscular oil tamsulosin 0.4 mg capsule 0.4 mg PO BEDTIME 90 Days #90 cap 11/07/21 Allergies Allergy/AdvReac Type Severity Reaction Status Date / Time No Known Allergies Allergy Verified 11/06/21 11:30 Review of Systems Review of Systems: Constitutional: No Fever, No Chills, No Night Sweats, + Fatigue, + Malaise ENT/Mouth: No Nasal Congestion, No Sinus Pain, No sore throat, No Rhinorrhea, No Swallowing Difficulty Eyes: No Eye Pain, No Swelling, No Redness Cardiovascular: + Chest Pain, + SOB, + Dyspnea on Exertion, No Orthopnea, No Edema, No Palpitations Respiratory: + Cough, No Sputum, No Wheezing, No Dyspnea Gastrointestinal: No Nausea, No Vomiting, + Diarrhea, No Constipation, No Abdominal pain Genitourinary: No Dysuria, No Urinary Frequency, No Hematuria, No Urinary Incontinence/retention Musculoskeletal: No joint pain, No Myalgias, No Joint Swelling Skin: No Skin Lesions, No rash Neuro: No Weakness, No Numbness, No Paresthesias, No Loss of Consciousness, No Dizziness, No Headache Yes all other systems are reviewed and are negative [facility] Past Medical History Attestation statement: The following information was validated with the patient. Medical History Anemia Benign prostatic hyperplasia without lower urinary tract symptoms Chronic GERD Erectile dysfunction HLD (hyperlipidemia) HTN (hypertension) Hypertriglyceridemia Hypertrophic cardiomegaly STEPH (obstructive sleep apnea) Osteoarthritis T2DM (type 2 diabetes mellitus) Type 2 diabetes mellitus Vitamin D deficiency Surgical History History of eye surgery History of left knee surgery History of removal of testicle Family History Family History Father No problems noted. Mother No problems noted. Social History Social History Alcohol intake: never Patient Tobacco Use Status: Never used Tobacco Use of substances other than those prescribed or required for medical reasons: No Advance Directives: No Advance Directives Information Provided: No Physical Exam Vital Signs: Vital Signs: Last Vital Signs Temp 98.1 F 01/30/22 13:53 Pulse 115 H 01/31/22 00:58 Resp 20 01/31/22 00:58 BP 110/87 01/31/22 00:58 Pulse Ox 98 01/31/22 00:58 BMI result Body Mass Index 32.8 Const: General: cooperative, alert and diaphoretic Limitations: no limitations HEENT: Head: Yes normal to inspection and Yes atraumatic Ears: hearing grossly normal bilaterally General nose exam: Normal external nose present Face and sinus: Yes normal facial exam Eyes: General: appearance normal, both eyes and all related structures EOM: EOMs intact bilaterally Neck: Neck: Yes normal visual inspection and Yes no meningeal signs Resp: Effort & Inspection: no respiratory distress and tachypneic Auscultation: diminished lung sounds diffuse Cardio: Rate: regular rate and tachycardic Heart sounds: S1 normal heart sound present and S2 normal heart sound present GI: Inspection: Yes normal to inspection Palpation (GI): Soft to palpation, nontender, no guarding and not rigid : General: Yes no CVA tenderness Back/Spine/Pelvis: Back: no CVA tenderness Skin: Rashes: no rashes Wounds: no wounds Neuro: General: tone normal and no meningeal signs Gait exam (Neuro): Normal gait present Extrem: General: Yes normal to inspection and Yes no pedal edema Course Course Course Narrative: -1700-- leukocytosis of 14.8. Mild DARREN with a BUN of 23, creatinine of 1.49 likely from dehydration / fluid losses. -Glucose elevated to 489, no anion gap. acetone negative > Patient receiving 1 L IVF and 5 units of IV insulin - troponin elevated to 36.1 > will obtain 3 hour repeat XR chest 2V IMPRESSION: Unremarkable examination. - lactic acid negative. Repeat troponin equivocal, [place] unlikely - D-dimer negative, PE unlikely -1720-- on re-evaluation patient with increased air movement, still diminished throughout. CT chest wo con IMPRESSION: Mild coronary artery calcification. Otherwise unremarkable exam. Fleischner guidelines were followed >> Plan to admit for further management MDM - Chest Pain MDM Narrative Medical decision making narrative: 76-year-old male with a past medical history of anemia, GERD, HLD, HTN, STEPH, diabetes, presenting to the ED complaining of intermittent substernal chest pain, SOB and diarrhea since yesterday. Reports generalized fatigue / weakness and mild cough. On exam tachypneic, tachycardic, satting 89% on RA, diaphoretic, diminished lung sounds throughout, no pedal edema, abdomen soft/ nontender. Concern for viral illness vs pneumonia vs dehydration vs ACS. PE on differential however lower at this time. Plan: EKG, labs, CXR, COVID 19/influenza testing, IVF, Solu-Medrol, magnesium, DuoNebs, anticipated admission Differential Diagnosis Differential diagnosis: Likely pneumothorax, stable angina, unstable angina pectoris, atypical chest pain and chest pain Medical Records Data Attestation: I reviewed the patient's medical records. Lab Data Attestation: I reviewed the patient's lab results. Result diagrams: 01/30/22 15:21 01/30/22 15:21 Labs: Lab Results 01/30/22 01/30/22 01/30/22 Range/Units 14:12 15:21 15:21 WBC 14.8 H (4.8-10.8) X10*3/uL RBC 5.51 (4.60-5.80) X10*6/uL Hgb 17.9 (14.0-18.0) g/dl Hct 53.1 H (42.0-52.0) % MCV 96.4 (80.0-98.0) fL MCH 32.5 (27.0-33.0) pg MCHC 33.7 (31.0-36.0) g/dl RDW 13.0 (11.0-16.0) % Plt Count 152 L D (160-400) X10*3/uL MPV 11.6 (9.4-12.4) fL Immature Gran % (Auto) 1.2 H (0.0-0.4) % Neut % (Auto) 74.3 H (45-73) % Lymph % (Auto) 15.8 L (20-40) % [place] % (Auto) 8.1 (2-11) % Eos % (Auto) 0.5 (0-4) % Baso % (Auto) 0.1 (0-2) % Lymph # (Auto) 2.3 (1.2-4.9) X10*3/uL [place] # (Auto) 1.2 (0.1-1.2) X10*3/uL Eos # (Auto) 0.1 (0.0-0.4) X10*3/uL Baso # (Auto) 0.0 (0.0-0.2) X10*3/uL Abs Immat Gran (auto) 0.17 H (0.00-0.03) X10*3/uL Absolute Neuts (auto) 11.0 H (2.0-8.3) x10*3/uL Absolute Nucleated RBC 0.000 (0.0-0.012) X10*3/uL Nucleated RBC % (auto) 0.0 (0.0-0.2) /100WBC PT (9.9-13.0) SEC INR (0.9-1.1) D-Dimer High Sensitivty NG/ML Sodium 134 L (135-145) mmol/L Potassium 4.5 (3.3-5.1) mmol/L Chloride 95 L (96-108) mmol/L Carbon Dioxide 27 (22-29) mmol/L Anion Gap 17 (12-20) BUN 23 H (9-16) mg/dL Creatinine 1.49 H (0.5-1.4) mg/dL Estim Creat Clear Calc 39.1 Estimated GFR 46 POC Glucose 459 H* (60-115) mg/dL Random Glucose 489 H* (60-115) mg/dL Lactic Acid (0.5-2.0) mmol/L Calcium 9.7 (8.4-10.2) mg/dL Magnesium 1.5 L (1.6-2.6) mg/dL Total Bilirubin 0.8 (0.0-1.0) mg/dL Direct Bilirubin 0.4 (0.0-0.5) mg/dL AST 27 (5-37) U/L ALT 56 H (0-40) U/L Alkaline Phosphatase 103 D (39-117) U/L Troponin I High Sens (<3.5-35.0) ng/L B-Natriuretic Peptide (<100) pg/mL Total Protein 6.9 (6.5-8.0) g/dL Albumin 3.8 (3.5-5.0) g/dL Lipase 102 H (8-78) U/L Urine Color Urine Appearance Urine pH (5.0-8.0) Ur Specific [place] (1.005-1.025) Urine Protein (NEG-TRACE) MG/DL Urine Glucose (UA) (NEG) MG/DL Urine Ketones (NEG) MG/DL Urine Blood (NEG) Urine Nitrite (NEG) Ur Leukocyte Esterase (NEG) Urine RBC (0) /HPF Urine WBC (0-4) /HPF Ur Squamous Epith Cells /LPF Urine Bacteria /LPF Acetone, Qual Negative (Negative) COVID-19 (JASSON) (Negative) COVID-19 Clin Com Influenza Type A (RICARDO) (Negative) Influenza Type B (RICARDO) (Negative) Influenza A & B Note 01/30/22 01/30/22 01/30/22 Range/Units 15:21 15:47 15:55 WBC (4.8-10.8) X10*3/uL RBC (4.60-5.80) X10*6/uL Hgb (14.0-18.0) g/dl Hct (42.0-52.0) % MCV (80.0-98.0) fL MCH (27.0-33.0) pg MCHC (31.0-36.0) g/dl RDW (11.0-16.0) % Plt Count (160-400) X10*3/uL MPV (9.4-12.4) fL Immature Gran % (Auto) (0.0-0.4) % Neut % (Auto) (45-73) % Lymph % (Auto) (20-40) % [place] % (Auto) (2-11) % Eos % (Auto) (0-4) % Baso % (Auto) (0-2) % Lymph # (Auto) (1.2-4.9) X10*3/uL [place] # (Auto) (0.1-1.2) X10*3/uL Eos # (Auto) (0.0-0.4) X10*3/uL Baso # (Auto) (0.0-0.2) X10*3/uL Abs Immat Gran (auto) (0.00-0.03) X10*3/uL Absolute Neuts (auto) (2.0-8.3) x10*3/uL Absolute Nucleated RBC (0.0-0.012) X10*3/uL Nucleated RBC % (auto) (0.0-0.2) /100WBC PT (9.9-13.0) SEC INR (0.9-1.1) D-Dimer High Sensitivty NG/ML Sodium (135-145) mmol/L Potassium (3.3-5.1) mmol/L Chloride (96-108) mmol/L Carbon Dioxide (22-29) mmol/L Anion Gap (12-20) BUN (9-16) mg/dL Creatinine (0.5-1.4) mg/dL Estim Creat Clear Calc Estimated GFR POC Glucose (60-115) mg/dL Random Glucose (60-115) mg/dL Lactic Acid (0.5-2.0) mmol/L Calcium (8.4-10.2) mg/dL Magnesium (1.6-2.6) mg/dL Total Bilirubin (0.0-1.0) mg/dL Direct Bilirubin (0.0-0.5) mg/dL AST (5-37) U/L ALT (0-40) U/L Alkaline Phosphatase (39-117) U/L Troponin I High Sens 36.1 H D (<3.5-35.0) ng/L B-Natriuretic Peptide 14 (<100) pg/mL Total Protein (6.5-8.0) g/dL Albumin (3.5-5.0) g/dL Lipase (8-78) U/L Urine Color Urine Appearance Urine pH (5.0-8.0) Ur Specific [place] (1.005-1.025) Urine Protein (NEG-TRACE) MG/DL Urine Glucose (UA) (NEG) MG/DL Urine Ketones (NEG) MG/DL Urine Blood (NEG) Urine Nitrite (NEG) Ur Leukocyte Esterase (NEG) Urine RBC (0) /HPF Urine WBC (0-4) /HPF Ur Squamous Epith Cells /LPF Urine Bacteria /LPF Acetone, Qual (Negative) COVID-19 (JASSON) Negative (Negative) COVID-19 Clin Com See Note Influenza Type A (RICARDO) (Negative) Influenza Type B (RICARDO) (Negative) Influenza A & B Note 01/30/22 01/30/22 01/30/22 Range/Units 17:02 17:02 17:02 WBC (4.8-10.8) X10*3/uL RBC (4.60-5.80) X10*6/uL Hgb (14.0-18.0) g/dl Hct (42.0-52.0) % MCV (80.0-98.0) fL MCH (27.0-33.0) pg MCHC (31.0-36.0) g/dl RDW (11.0-16.0) % Plt Count (160-400) X10*3/uL MPV (9.4-12.4) fL Immature Gran % (Auto) (0.0-0.4) % Neut % (Auto) (45-73) % Lymph % (Auto) (20-40) % [place] % (Auto) (2-11) % Eos % (Auto) (0-4) % Baso % (Auto) (0-2) % Lymph # (Auto) (1.2-4.9) X10*3/uL [place] # (Auto) (0.1-1.2) X10*3/uL Eos # (Auto) (0.0-0.4) X10*3/uL Baso # (Auto) (0.0-0.2) X10*3/uL Abs Immat Gran (auto) (0.00-0.03) X10*3/uL Absolute Neuts (auto) (2.0-8.3) x10*3/uL Absolute Nucleated RBC (0.0-0.012) X10*3/uL Nucleated RBC % (auto) (0.0-0.2) /100WBC PT 12.9 (9.9-13.0) SEC INR 1.1 (0.9-1.1) D-Dimer High Sensitivty < 150 NG/ML Sodium (135-145) mmol/L Potassium (3.3-5.1) mmol/L Chloride (96-108) mmol/L Carbon Dioxide (22-29) mmol/L Anion Gap (12-20) BUN (9-16) mg/dL Creatinine (0.5-1.4) mg/dL Estim Creat Clear Calc Estimated GFR POC Glucose (60-115) mg/dL Random Glucose (60-115) mg/dL Lactic Acid (0.5-2.0) mmol/L Calcium (8.4-10.2) mg/dL Magnesium (1.6-2.6) mg/dL Total Bilirubin (0.0-1.0) mg/dL Direct Bilirubin (0.0-0.5) mg/dL AST (5-37) U/L ALT (0-40) U/L Alkaline Phosphatase (39-117) U/L Troponin I High Sens 36.2 H (<3.5-35.0) ng/L B-Natriuretic Peptide (<100) pg/mL Total Protein (6.5-8.0) g/dL Albumin (3.5-5.0) g/dL Lipase (8-78) U/L Urine Color Urine Appearance Urine pH (5.0-8.0) Ur Specific [place] (1.005-1.025) Urine Protein (NEG-TRACE) MG/DL Urine Glucose (UA) (NEG) MG/DL Urine Ketones (NEG) MG/DL Urine Blood (NEG) Urine Nitrite (NEG) Ur Leukocyte Esterase (NEG) Urine RBC (0) /HPF Urine WBC (0-4) /HPF Ur Squamous Epith Cells /LPF Urine Bacteria /LPF Acetone, Qual (Negative) COVID-19 (JASSON) (Negative) COVID-19 Clin Com Influenza Type A (RICARDO) Negative (Negative) Influenza Type B (RICARDO) Negative (Negative) Influenza A & B Note See Note 01/30/22 01/30/22 01/30/22 Range/Units 17:14 17:24 18:36 WBC (4.8-10.8) X10*3/uL RBC (4.60-5.80) X10*6/uL Hgb (14.0-18.0) g/dl Hct (42.0-52.0) % MCV (80.0-98.0) fL MCH (27.0-33.0) pg MCHC (31.0-36.0) g/dl RDW (11.0-16.0) % Plt Count (160-400) X10*3/uL MPV (9.4-12.4) fL Immature Gran % (Auto) (0.0-0.4) % Neut % (Auto) (45-73) % Lymph % (Auto) (20-40) % [place] % (Auto) (2-11) % Eos % (Auto) (0-4) % Baso % (Auto) (0-2) % Lymph # (Auto) (1.2-4.9) X10*3/uL [place] # (Auto) (0.1-1.2) X10*3/uL Eos # (Auto) (0.0-0.4) X10*3/uL Baso # (Auto) (0.0-0.2) X10*3/uL Abs Immat Gran (auto) (0.00-0.03) X10*3/uL Absolute Neuts (auto) (2.0-8.3) x10*3/uL Absolute Nucleated RBC (0.0-0.012) X10*3/uL Nucleated RBC % (auto) (0.0-0.2) /100WBC PT (9.9-13.0) SEC INR (0.9-1.1) D-Dimer High Sensitivty NG/ML Sodium (135-145) mmol/L Potassium (3.3-5.1) mmol/L Chloride (96-108) mmol/L Carbon Dioxide (22-29) mmol/L Anion Gap (12-20) BUN (9-16) mg/dL Creatinine (0.5-1.4) mg/dL Estim Creat Clear Calc Estimated GFR POC Glucose 330 H (60-115) mg/dL Random Glucose (60-115) mg/dL Lactic Acid 1.7 (0.5-2.0) mmol/L Calcium (8.4-10.2) mg/dL Magnesium (1.6-2.6) mg/dL Total Bilirubin (0.0-1.0) mg/dL Direct Bilirubin (0.0-0.5) mg/dL AST (5-37) U/L ALT (0-40) U/L Alkaline Phosphatase (39-117) U/L Troponin I High Sens (<3.5-35.0) ng/L B-Natriuretic Peptide (<100) pg/mL Total Protein (6.5-8.0) g/dL Albumin (3.5-5.0) g/dL Lipase (8-78) U/L Urine Color STRAW Urine Appearance CLEAR Urine pH 5.5 (5.0-8.0) Ur Specific [place] <= 1.005 (1.005-1.025) Urine Protein NEG (NEG-TRACE) MG/DL Urine Glucose (UA) >=1000 H (NEG) MG/DL Urine Ketones 5 (NEG) MG/DL Urine Blood TRACE (NEG) Urine Nitrite NEG (NEG) Ur Leukocyte Esterase NEG (NEG) Urine RBC 1-4 (0) /HPF Urine WBC 0 (0-4) /HPF Ur Squamous Epith Cells 1+ /LPF Urine Bacteria NONE /LPF Acetone, Qual (Negative) COVID-19 (JASSON) (Negative) COVID-19 Clin Com Influenza Type A (RICARDO) (Negative) Influenza Type B (RICARDO) (Negative) Influenza A & B Note ECG Data ECG #1: Attestation: I personally reviewed and interpreted this ECG as follows: ECG interpretation date: 01/30/22 ECG interpretation time: 13:45 Prior ECG tracings: available for review Interpretation: EKG sinus tachycardia rate of 122. Pr interval 176. QTC 456. No STEMI. Critical Care Time Critical Care Time Critical Care Time: Yes Total Critical Care Time: 35 Attestation: I have personally provided critical care time exclusive of time spent on separately billable procedures. Time includes review of lab data, radiology results, discussion with consultants, and monitoring for potential decompensation. Intervention performed as documented. Discharge Plan Discharge Clinical Impression: Hypoxia Patient Disposition: Admitted As Inpatient
[2022-01-30 16:39] LABS: Acetone, serum QL Negative (Negative)
[2022-01-30 16:40] LABS: Magnesium 1.5 mg/dL (1.6-2.6)
[2022-01-30] MEDS: Albuterol/Iprat 2.5/0.5MG 3 ML AMPUL.NEB INHALE (16:52)
[2022-01-30] MEDS: Magnesium Sulfate/H2O 2 GM/50 ML PIGGYBACK IV (17:05)
[2022-01-30] MEDS: methylPREDNISolone Sod Succ 125 MG/2 ML VIAL IVPUSH (17:06)
[2022-01-30 17:18] LABS: INTERNATIONAL NORM RATIO 1.1 (0.9-1.1); Prothrombin Time 12.9 SEC (9.9-13.0)
[2022-01-30] MEDS: cefTRIAXone sodium 1 GM in 0.9 % Sodium Chloride 50 ML IV (17:19)
[2022-01-30 17:28] LABS: Lactic Acid 1.7 mmol/L (0.5-2.0)
[2022-01-30 17:29] LABS: Troponin-I High Sensitivity 36.2 ng/L (<3.5-35.0)
[2022-01-30] MEDS: Insulin Regular, Human 100 UNIT/ML 3 ML VIAL IVPUSH (17:29)
[2022-01-30] MEDS: 0.9 % Sodium Chloride 500 ML 999 ML IV (17:36)
[2022-01-30 17:48] LABS: Appearance Urine CLEAR; Color Urine STRAW; Glucose Urine UA >=1000 MG/DL (NEG); Leukocyte Esterase Urine NEG (NEG); Nitrite Urine NEG (NEG); PH 5.5 (5.0-8.0); Specific Gravity - Urine <= 1.005 (1.005-1.025); UACC Culture Trigger NO; Urine Blood TRACE (NEG); Urine Ketones 5 MG/DL (NEG); Urine Protein NEG (NEG-TRACE)
--- NOTE | 2022-01-30 17:51 | PC.NURSE ---
pt's oxygen level drops while asleep 89% on room air, put put back on the 2l via nasal cannual
[2022-01-30 17:59] LABS: Influenza A Negative (Negative); Influenza B2 Negative (Negative)
[2022-01-30 18:00] LABS: D Dimer High Sensitivity < 150 NG/ML
[2022-01-30 18:15] LABS: Squamous Epithelial Cell Urine 1+ /LPF; WBC Urine 0 /HPF (0-4)
[2022-01-30 18:45] LABS: Glucose, Whole Blood 330 mg/dL (60-115)
--- NOTE | 2022-01-30 19:00 | PC.NURSE ---
Took report from Taina to assume care of Pt, Pt resting, call light in reach.
--- NOTE | 2022-01-30 23:27 | PM.IMHP ---
History of Present Illness Date of Service: 01/30/22 Chief Complaint: Chest pain 76 M with HTN, HLD,DM p/w chest pain; reports he has been having chest pain /sob for past 3 days; denies chest pain at the time of my interview. reports no dizzines or sweating. also reports dry cough with SOB ; mentions PCP suggested him to go to ER for Eval. Denies any GI or symptoms. ROS negative except mentioned above. ER course: ER teaM reported pt sats 89% on RA. noted wheezing; given nebs. admitted for further mngt. [facility] Medical History Anemia Benign prostatic hyperplasia without lower urinary tract symptoms Chronic GERD Erectile dysfunction HLD (hyperlipidemia) HTN (hypertension) Hypertriglyceridemia Hypertrophic cardiomegaly STEPH (obstructive sleep apnea) Osteoarthritis T2DM (type 2 diabetes mellitus) Type 2 diabetes mellitus Vitamin D deficiency Family History Father No problems noted. Mother No problems noted. Surgical History History of eye surgery History of left knee surgery History of removal of testicle Social History Alcohol intake: never Patient Tobacco Use Status: Never used Tobacco Use of substances other than those prescribed or required for medical reasons: No Advance Directives: No Advance Directives Information Provided: No Meds Allergies Allergy/AdvReac Type Severity Reaction Status Date / Time No Known Allergies Allergy Verified 11/06/21 11:30 Active Medications: Current Medications Pharmacy Consult (Consult Rx Perform Med Rec) 1 each MISCELLANE ONCE PRN PRN Reason: Consult order Home Medications Medication Instructions Recorded Confirmed Last Taken Type cholecalciferol (vitamin D3) 50 50 mcg PO DAILY 06/23/20 06/10/21 Unknown History mcg (2,000 unit) tablet docusate sodium 100 mg capsule 100 mg PO DAILY PRN 06/23/20 06/10/21 Unknown History ezetimibe 10 mg tablet 10 mg PO DAILY 06/23/20 06/10/21 Unknown History fenofibrate 160 mg tablet 160 mg PO DAILY 06/23/20 06/10/21 Unknown History ferrous sulfate 325 mg (65 mg 325 mg PO DAILY 06/23/20 06/10/21 Unknown History iron) tablet fluocinonide 0.05 % topical 1 applic TOPICAL BID 06/23/20 06/10/21 Unknown History ointment fluticasone propionate 50 2 spray INTRANASAL DAILY 06/23/20 06/10/21 Unknown History mcg/actuation nasal spray,suspension glipizide 10 mg tablet 20 mg PO BID 06/23/20 06/10/21 Unknown History hydrocodone 5 mg-acetaminophen 300 1 tab PO TID PRN 06/23/20 06/10/21 Unknown History mg tablet lancets 33 gauge #100 ea 06/23/20 06/10/21 Unknown History loratadine 10 mg tablet 10 mg PO DAILY 06/23/20 06/10/21 Unknown History magnesium oxide 400 mg PO BID 06/23/20 06/10/21 Unknown History metoprolol succinate 100 mg 100 mg PO DAILY 06/23/20 01/30/22 Unknown History tablet,extended release 24 hr omega-3 fatty acids-fish oil 340 1 cap PO BID 06/23/20 06/10/21 Unknown History mg-1,000 mg capsule sildenafil 100 mg tablet 100 mg PO DAILY PRN 06/23/20 06/10/21 Unknown History triamcinolone acetonide 0.1 % appl TOPICAL Q OTHER DAY PRN 09/18/20 06/10/21 Unknown History topical cream naloxone 4 mg/actuation nasal spray 0 spray INTRANASAL 02/01/21 06/10/21 Unknown History niacin 1,000 mg tablet,extended 1,000 mg PO BEDTIME tab 02/06/21 06/10/21 Unknown History release 24 hr omeprazole 20 mg capsule,delayed 20 mg PO BID cap 02/06/21 06/10/21 Unknown History release albuterol sulfate 90 mcg/actuation 1 inh INHALATION QID 06/10/21 01/30/22 01/30/22 History aerosol inhaler (Ventolin HFA) 2 irbesartan 300 mg tablet 300 mg PO DAILY 11/06/21 Unknown History amitriptyline 10 mg tablet 1 tab PO BEDTIME 01/30/22 01/30/22 Unknown History dulaglutide 1.5 mg/0.5 mL 1.5 mg SUBCUT QWEEK 01/30/22 Unknown History subcutaneous pen injector (Trulicity) famotidine 40 mg tablet 1 tab PO BEDTIME 01/30/22 Unknown History fluticasone 250 mcg-salmeterol 50 1 puff INHALATION 01/30/22 Unknown History mcg/dose blistr powdr for inhalation umeclidinium 62.5 mcg/actuation 1 puff INHALATION DAILY 01/30/22 Unknown History blister powder for inhalation (Incruse Ellipta) Physical Exam Vital Signs and Narrative: Vital Signs: Last Vital Signs Temp 98.1 F 01/30/22 13:53 Pulse 117 H 01/30/22 18:19 Resp 32 H 01/30/22 18:19 BP 124/52 L 01/30/22 17:34 Pulse Ox 89 L 01/30/22 17:51 BMI result Body Mass Index 32.8 Gen: Appears be in no acute distress HEENT: NCAT, Moist mucosa. Pulmonary: slightly diminished; occasional expiratory wheeze CVS: Normal S1-S2 Abdomen: BS+, Soft, Nontender Extremities: Warm well perfused Neuro: Alert and awake. Results Labs CBC and Chem 7: 01/31/22 06:09 01/31/22 06:09 Labs: Laboratory Results - last 24 hr 01/30/22 01/30/22 01/30/22 14:12 15:21 15:21 MCV 96.4 MCH 32.5 MCHC 33.7 RDW 13.0 Plt Count 152 L D MPV 11.6 Immature Gran % (Auto) 1.2 H Neut % (Auto) 74.3 H Lymph % (Auto) 15.8 L [place] % (Auto) 8.1 Eos % (Auto) 0.5 Baso % (Auto) 0.1 Lymph # (Auto) 2.3 [place] # (Auto) 1.2 Eos # (Auto) 0.1 Baso # (Auto) 0.0 Abs Immat Gran (auto) 0.17 H Absolute Neuts (auto) 11.0 H Absolute Nucleated RBC 0.000 Nucleated RBC % (auto) 0.0 PT INR D-Dimer High Sensitivty Anion Gap 17 Estim Creat Clear Calc 39.1 Estimated GFR 46 POC Glucose 459 H* Random Glucose 489 H* Lactic Acid Calcium 9.7 Magnesium 1.5 L Total Bilirubin 0.8 Direct Bilirubin 0.4 AST 27 ALT 56 H Alkaline Phosphatase 103 D Troponin I High Sens B-Natriuretic Peptide Total Protein 6.9 Albumin 3.8 Lipase 102 H Urine Color Urine Appearance Urine pH Ur Specific [place] Urine Protein Urine Glucose (UA) Urine Ketones Urine Blood Urine Nitrite Ur Leukocyte Esterase Urine RBC Urine WBC Ur Squamous Epith Cells Urine Bacteria Acetone, Qual Negative COVID-19 (JASSON) COVID-19 Clin Com Influenza Type A (RICARDO) Influenza Type B (RICARDO) Influenza A & B Note 01/30/22 01/30/22 01/30/22 15:21 15:47 15:55 MCV MCH MCHC RDW Plt Count MPV Immature Gran % (Auto) Neut % (Auto) Lymph % (Auto) [place] % (Auto) Eos % (Auto) Baso % (Auto) Lymph # (Auto) [place] # (Auto) Eos # (Auto) Baso # (Auto) Abs Immat Gran (auto) Absolute Neuts (auto) Absolute Nucleated RBC Nucleated RBC % (auto) PT INR D-Dimer High Sensitivty Anion Gap Estim Creat Clear Calc Estimated GFR POC Glucose Random Glucose Lactic Acid Calcium Magnesium Total Bilirubin Direct Bilirubin AST ALT Alkaline Phosphatase Troponin I High Sens 36.1 H D B-Natriuretic Peptide 14 Total Protein Albumin Lipase Urine Color Urine Appearance Urine pH Ur Specific [place] Urine Protein Urine Glucose (UA) Urine Ketones Urine Blood Urine Nitrite Ur Leukocyte Esterase Urine RBC Urine WBC Ur Squamous Epith Cells Urine Bacteria Acetone, Qual COVID-19 (JASSON) Negative COVID-19 Clin Com See Note Influenza Type A (RICARDO) Influenza Type B (RICARDO) Influenza A & B Note 01/30/22 01/30/22 01/30/22 17:02 17:02 17:02 MCV MCH MCHC RDW Plt Count MPV Immature Gran % (Auto) Neut % (Auto) Lymph % (Auto) [place] % (Auto) Eos % (Auto) Baso % (Auto) Lymph # (Auto) [place] # (Auto) Eos # (Auto) Baso # (Auto) Abs Immat Gran (auto) Absolute Neuts (auto) Absolute Nucleated RBC Nucleated RBC % (auto) PT 12.9 INR 1.1 D-Dimer High Sensitivty < 150 Anion Gap Estim Creat Clear Calc Estimated GFR POC Glucose Random Glucose Lactic Acid Calcium Magnesium Total Bilirubin Direct Bilirubin AST ALT Alkaline Phosphatase Troponin I High Sens 36.2 H B-Natriuretic Peptide Total Protein Albumin Lipase Urine Color Urine Appearance Urine pH Ur Specific [place] Urine Protein Urine Glucose (UA) Urine Ketones Urine Blood Urine Nitrite Ur Leukocyte Esterase Urine RBC Urine WBC Ur Squamous Epith Cells Urine Bacteria Acetone, Qual COVID-19 (JASSON) COVID-19 Clin Com Influenza Type A (RICARDO) Negative Influenza Type B (RICARDO) Negative Influenza A & B Note See Note 01/30/22 01/30/22 01/30/22 17:14 17:24 18:36 MCV MCH MCHC RDW Plt Count MPV Immature Gran % (Auto) Neut % (Auto) Lymph % (Auto) [place] % (Auto) Eos % (Auto) Baso % (Auto) Lymph # (Auto) [place] # (Auto) Eos # (Auto) Baso # (Auto) Abs Immat Gran (auto) Absolute Neuts (auto) Absolute Nucleated RBC Nucleated RBC % (auto) PT INR D-Dimer High Sensitivty Anion Gap Estim Creat Clear Calc Estimated GFR POC Glucose 330 H Random Glucose Lactic Acid 1.7 Calcium Magnesium Total Bilirubin Direct Bilirubin AST ALT Alkaline Phosphatase Troponin I High Sens B-Natriuretic Peptide Total Protein Albumin Lipase Urine Color STRAW Urine Appearance CLEAR Urine pH 5.5 Ur Specific [place] <= 1.005 Urine Protein NEG Urine Glucose (UA) >=1000 H Urine Ketones 5 Urine Blood TRACE Urine Nitrite NEG Ur Leukocyte Esterase NEG Urine RBC 1-4 Urine WBC 0 Ur Squamous Epith Cells 1+ Urine Bacteria NONE Acetone, Qual COVID-19 (JASSON) COVID-19 Clin Com Influenza Type A (RICARDO) Influenza Type B (RICARDO) Influenza A & B Note Imaging Radiologist's Impressions: Impressions Chest X-Ray 01/30/22 15:27 IMPRESSION: Unremarkable examination. Chest CT 01/30/22 18:24 IMPRESSION: Mild coronary artery calcification. Otherwise unremarkable exam. Fleischner guidelines were followed. Assessment and Plan (1) Hypoxia: Status: Acute (2) Chest pain: Status: Acute (3) Reactive airway disease: Status: Acute Plan 76M with HX HTN, HLD, DM p/w Chest pain/SOB Chest pain: currently resolved; EKG non ischemic. Trops indeterminate and plateaued. Cardiology consult. Reactive airway dz/Hypoxia: suppl oxygen prn Nebs standinfg and prn Solumedrol IV QID Azithromycin DM: lantus 20U plus ISS For all other c/w home meds once med rec done. DVT ppx: Lovenox Code: full code. Quality Stroke Does the patient have a stroke diagnosis?: No VTE Prior VTE?: No VTE Risk Level:: Medical - moderate - high VTE Device Contraindication: Treatment Not Indicated VTE Drug Contraindication: N/A - Med Ordered
[2022-01-31] VITALS (13 sets, daily range): BP systolic 97–153; BP diastolic 56–87; PULSE 99–125; RESP 16–36; TEMP 36.3–36.7; O2SAT 93–99; BMI 32.4
[2022-01-31] MEDS: Melatonin 3 MG TABLET 6 MG PO (01:54)
[2022-01-31] MEDS: Acetaminophen 325 MG TABLET 650 MG PO ×2 (01:54→14:46)
[2022-01-31] MEDS: Azithromycin 500 MG TABLET PO ×2 (01:54→21:10)
[2022-01-31] MEDS: methylPREDNISolone Sod Succ 40 MG/ML VIAL IVPUSH ×5 (01:55→23:08)
[2022-01-31 06:53] LABS: Basophils Percent Auto 0.1 % (0-2); Hematocrit 50.2 % (42.0-52.0); Hemoglobin 16.4 g/dl (14.0-18.0); Imm Gran Abs Auto 0.17 X10*3/uL (0.00-0.03); Imm Gran Pct Auto 1.2 % (0.0-0.4); Lymphocytes Absolute Auto 0.7 X10*3/uL (1.2-4.9); Lymphocytes Percent Auto 4.6 % (20-40); MANUAL DIFF FLAG SCAN; Mean Corpuscular HGB Conc 32.7 g/dl (31.0-36.0); Mean Corpuscular Volume 97.9 fL (80.0-98.0); Mean Platelet Volume 11.6 fL (9.4-12.4); Monocytes Absolute Auto 0.2 X10*3/uL (0.1-1.2); Neutrophils Absolute Auto 13.7 x10*3/uL (2.0-8.3); Neutrophils Percent Auto 93.1 % (45-73); Platelet Count 139 X10*3/uL (160-400); Red Blood Count 5.13 X10*6/uL (4.60-5.80); Red Cell Distribution Width 13.2 % (11.0-16.0); SCAN SMEAR FLAG 1; White Blood Count 14.7 X10*3/uL (4.8-10.8)
[2022-01-31 07:22] LABS: SLIDE REVIEW VERIFIED
[2022-01-31 07:28] LABS: Glucose, Whole Blood 341 mg/dL (60-115)
[2022-01-31 07:29] LABS: Anion Gap 20 (12-20); Blood Urea Nitrogen 25 mg/dL (9-16); Calcium 8.5 mg/dL (8.4-10.2); Carbon Dioxide 19 mmol/L (22-29); Chloride 98 mmol/L (96-108); Creatinine Clr Calc Pharmacy 46.2; Estimated Glomerular Filt Rate 55; Glucose Random 405 mg/dL (60-115); Potassium 5.3 mmol/L (3.3-5.1); Sodium 132 mmol/L (135-145)
[2022-01-31] MEDS: Insulin Lispro 100 UNIT/ML 3 ML VIAL SUBCUT ×3 (07:51→18:34)
[2022-01-31] MEDS: Enoxaparin Sodium 40 MG/0.4 ML SYRINGE SUBCUT (07:56)
--- NOTE | 2022-01-31 07:58 | PC.NURSE ---
slight SOB while at rest in bed. LS cta. denies CP and dizziness. ST on monitor. skin pwd. ate full breakfast.
[2022-01-31] MEDS: Albuterol/Iprat 2.5/0.5MG 3 ML AMPUL.NEB INHALE ×4 (08:11→19:53)
[2022-01-31 09:23] LABS: ABG HCO3 17 mmol/L (22-26); ABG pCO2 32 mmHg (32-45); ABG pH 7.33 (7.35-7.45); ABG pO2 94 mmHg (83-108)
[2022-01-31 09:23] LABS: ABG Refer to POC result
[2022-01-31 09:42] LABS: Procalcitonin 0.16 ng/mL
[2022-01-31] MEDS: Sodium Zirconium Cyclosilicate 5 GM POWD.PACK PO (09:58)
[2022-01-31] MEDS: 0.9 % Sodium Chloride 1,000 ML 75 ML IVCONT (09:58)
--- NOTE | 2022-01-31 10:00 | PC.NURSE ---
pt has increased SOBwhile at rest in bed, may have been exacerbated by repositioning. 2L NC applied. continues to deny cp. ST on monitor at htis time. no pedal edema. LA CTA
--- NOTE | 2022-01-31 11:24 | PHA.MEDREC ---
Pharmacy Consult ? Medication Reconciliation Pharmacy has completed the medication reconciliation.Patient does not know any of his medications, he could only remember he is no longer taking metformin. Contacted md office at [facility] and compared list with claim history.
[2022-01-31 13:04] LABS: Glucose, Whole Blood 340 mg/dL (60-115)
--- NOTE | 2022-01-31 13:04 | PC.NURSE ---
resting queitly. ICE PULLER at bedside. no complaints at this time. remains tachy with w/hr of 120. ST.
[2022-01-31 13:40] LABS: Glucose, Whole Blood 356 mg/dL (60-115)
--- NOTE | 2022-01-31 14:09 | MHC.CM.PN ---
Met with pt via chain carrier to discuss dc planning: pt resides alone, uses a walker and has [employer] services in addition to [facility] RN visits through [facility]. Pt states his [employer], [employer], assists with transportation and housekeeping: IMM in chart, HCP declined, Pfizer x3. [employer] will transport pt to home when medically ready. PCP is Dr. Ford at [facility]
--- NOTE | 2022-01-31 14:38 | HO.PM.IMPN ---
Subjective Subjective Date of Service: 01/31/22 Interval History: This history was taken in Yoruba from the patient. Dyspneic, wheezing No chest pain or palpitations Feels dehydrated. Not lightheaded Review of Systems Review of Systems: Yes all other systems are reviewed and are negative Physical Exam Vital Signs: Vital Signs: Last Vital Signs Temp 97.4 F 01/31/22 08:11 Pulse 118 H 01/31/22 11:01 Resp 32 H 01/31/22 11:01 BP 133/73 01/31/22 10:00 Pulse Ox 93 01/31/22 10:00 BMI result Body Mass Index 32.8 Gen: mod resp distress HEENT: sclera anicteric, moist mucus membranes Neck: supple Lungs: moderate resp distress, diffuse exp wheezes Heart: regular, tachycardic, no murmurs Abd: soft, non-tender, non-distended Ext: no edema Skin: warm/well-perfused Neuro: alert and oriented x3, no focal findings Psych: appropriate affect Objective Data Active Medications Acetaminophen (Acetaminophen 325 Mg Tablet) 650 mg PO Q6H PRN PRN Reason: Pain, Mild (Pain Scale 1-3) Last Admin: 01/31/22 01:54 Dose: 650 mg Documented by: EDGRADO Albuterol/Ipratropium (Albuterol/Iprat 2.5/0.5mg 3 Ml Ampul.Neb) 3 ml INHALE RQ4H WHILE AWAKE [facility] Last Admin: 01/31/22 11:01 Dose: 3 ml Documented by: YASMIN Amitriptyline HCl (Amitriptyline Hcl 10 Mg Tablet) 10 mg PO BEDTIME JENNA Azithromycin (Azithromycin 500 Mg Tablet) 500 mg PO Q24H [facility] Dextrose (Dextrose 50 % 25 Gm/50 Ml Syringe) 25 gm IVPUSH Q15M PRN; Protocol PRN Reason: per Hypoglycemia Standing Ord. Enoxaparin Sodium (Enoxaparin Sodium 40 Mg/0.4 Ml Syringe) 40 mg SUBCUT Q24H [facility] Last Admin: 01/31/22 07:56 Dose: 40 mg Documented by: JEFFRY Glucose (Glucose Gel 15 Gm Gel..Gram.) 15 gm PO Q15M PRN; Protocol PRN Reason: per Hypoglycemia Standing Ord. Sodium Chloride (Ns) 1,000 mls @ 75 mls/hr IVCONT .[id number] [facility] Stop: 01/31/22 21:49 Last Admin: 01/31/22 09:58 Dose: 75 mls/hr Documented by: JEFFRY Insulin Glargine (Insulin Glargine,Hum.Rec.Anlog 100 Unit/Ml 10 Ml Vial) 20 unit SUBCUT BEDTIME [facility] Insulin Human Lispro (Insulin Lispro 100 Unit/Ml 3 Ml Vial) 0 unit SUBCUT QIDACHS [facility]; Protocol Last Admin: 01/31/22 14:11 Dose: 10 unit Documented by: JEFFRY Melatonin (Melatonin 3 Mg Tablet) 6 mg PO BEDTIME PRN PRN Reason: Insomnia Last Admin: 01/31/22 01:54 Dose: 6 mg Documented by: RAYMUNDO-FILI Methylprednisolone Sodium Succinate (Methylprednisolone Sod Succ 40 Mg/Ml Vial) 40 mg IVPUSH Q6H [facility] Last Admin: 01/31/22 14:12 Dose: 40 mg Documented by: JEFFRY Metoprolol Succinate (Metoprolol Succinate Er 100 Mg Tab.Er.24h) 100 mg PO DAILY [facility]; Protocol Pharmacy Consult (Consult Rx Perform Med Rec) 1 each MISCELLANE ONCE PRN PRN Reason: Consult order Senna (Sennosides 8.6 Mg Tablet) 17.2 mg PO BEDTIME PRN PRN Reason: Constipation Sodium Chloride (0.9 % Sodium Chloride Flush 3 Ml Syringe) 3 ml IVFLUSH QSHIFT [facility] Last Admin: 01/31/22 14:22 Dose: Not Given Documented by: JEFFRY Non-Admin Reason: Med Not Available Labs CBC & Chem 7: 01/31/22 06:09 01/31/22 06:09 Labs: Laboratory Results - last 24 hr 01/30/22 01/30/22 01/30/22 14:12 15:21 15:21 MCV 96.4 MCH 32.5 MCHC 33.7 RDW 13.0 Plt Count 152 L D MPV 11.6 Immature Gran % (Auto) 1.2 H Neut % (Auto) 74.3 H Lymph % (Auto) 15.8 L [place] % (Auto) 8.1 Eos % (Auto) 0.5 Baso % (Auto) 0.1 Lymph # (Auto) 2.3 [place] # (Auto) 1.2 Eos # (Auto) 0.1 Baso # (Auto) 0.0 Abs Immat Gran (auto) 0.17 H Absolute Neuts (auto) 11.0 H Absolute Nucleated RBC 0.000 Nucleated RBC % (auto) 0.0 Smear Tech's Comments PT INR D-Dimer High Sensitivty O2 Saturation ABG pH at Pt Temp ABG pCO2 at Pt Temp ABG pO2 at Pt Temp ABG HCO3 ABG Base Excess (Actual) Anion Gap 17 Estim Creat Clear Calc 39.1 Estimated GFR 46 POC Glucose 459 H* Random Glucose 489 H* Lactic Acid Calcium 9.7 Magnesium 1.5 L Total Bilirubin 0.8 Direct Bilirubin 0.4 AST 27 ALT 56 H Alkaline Phosphatase 103 D Troponin I High Sens B-Natriuretic Peptide Total Protein 6.9 Albumin 3.8 Lipase 102 H Procalcitonin Urine Color Urine Appearance Urine pH Ur Specific [place] Urine Protein Urine Glucose (UA) Urine Ketones Urine Blood Urine Nitrite Ur Leukocyte Esterase Urine RBC Urine WBC Ur Squamous Epith Cells Urine Bacteria Acetone, Qual Negative COVID-19 (JASSON) COVID-19 Clin Com Influenza Type A (RICARDO) Influenza Type B (RICARDO) Influenza A & B Note 01/30/22 01/30/22 01/30/22 15:21 15:47 15:55 MCV MCH MCHC RDW Plt Count MPV Immature Gran % (Auto) Neut % (Auto) Lymph % (Auto) [place] % (Auto) Eos % (Auto) Baso % (Auto) Lymph # (Auto) [place] # (Auto) Eos # (Auto) Baso # (Auto) Abs Immat Gran (auto) Absolute Neuts (auto) Absolute Nucleated RBC Nucleated RBC % (auto) Smear Tech's Comments PT INR D-Dimer High Sensitivty O2 Saturation ABG pH at Pt Temp ABG pCO2 at Pt Temp ABG pO2 at Pt Temp ABG HCO3 ABG Base Excess (Actual) Anion Gap Estim Creat Clear Calc Estimated GFR POC Glucose Random Glucose Lactic Acid Calcium Magnesium Total Bilirubin Direct Bilirubin AST ALT Alkaline Phosphatase Troponin I High Sens 36.1 H D B-Natriuretic Peptide 14 Total Protein Albumin Lipase Procalcitonin Urine Color Urine Appearance Urine pH Ur Specific [place] Urine Protein Urine Glucose (UA) Urine Ketones Urine Blood Urine Nitrite Ur Leukocyte Esterase Urine RBC Urine WBC Ur Squamous Epith Cells Urine Bacteria Acetone, Qual COVID-19 (JASSON) Negative COVID-19 Clin Com See Note Influenza Type A (RICARDO) Influenza Type B (RICARDO) Influenza A & B Note 01/30/22 01/30/22 01/30/22 17:02 17:02 17:02 MCV MCH MCHC RDW Plt Count MPV Immature Gran % (Auto) Neut % (Auto) Lymph % (Auto) [place] % (Auto) Eos % (Auto) Baso % (Auto) Lymph # (Auto) [place] # (Auto) Eos # (Auto) Baso # (Auto) Abs Immat Gran (auto) Absolute Neuts (auto) Absolute Nucleated RBC Nucleated RBC % (auto) Smear Tech's Comments PT 12.9 INR 1.1 D-Dimer High Sensitivty < 150 O2 Saturation ABG pH at Pt Temp ABG pCO2 at Pt Temp ABG pO2 at Pt Temp ABG HCO3 ABG Base Excess (Actual) Anion Gap Estim Creat Clear Calc Estimated GFR POC Glucose Random Glucose Lactic Acid Calcium Magnesium Total Bilirubin Direct Bilirubin AST ALT Alkaline Phosphatase Troponin I High Sens 36.2 H B-Natriuretic Peptide Total Protein Albumin Lipase Procalcitonin Urine Color Urine Appearance Urine pH Ur Specific [place] Urine Protein Urine Glucose (UA) Urine Ketones Urine Blood Urine Nitrite Ur Leukocyte Esterase Urine RBC Urine WBC Ur Squamous Epith Cells Urine Bacteria Acetone, Qual COVID-19 (JASSON) COVID-19 Clin Com Influenza Type A (RICARDO) Negative Influenza Type B (RICARDO) Negative Influenza A & B Note See Note 01/30/22 01/30/22 01/30/22 17:14 17:24 18:36 MCV MCH MCHC RDW Plt Count MPV Immature Gran % (Auto) Neut % (Auto) Lymph % (Auto) [place] % (Auto) Eos % (Auto) Baso % (Auto) Lymph # (Auto) [place] # (Auto) Eos # (Auto) Baso # (Auto) Abs Immat Gran (auto) Absolute Neuts (auto) Absolute Nucleated RBC Nucleated RBC % (auto) Smear Tech's Comments PT INR D-Dimer High Sensitivty O2 Saturation ABG pH at Pt Temp ABG pCO2 at Pt Temp ABG pO2 at Pt Temp ABG HCO3 ABG Base Excess (Actual) Anion Gap Estim Creat Clear Calc Estimated GFR POC Glucose 330 H Random Glucose Lactic Acid 1.7 Calcium Magnesium Total Bilirubin Direct Bilirubin AST ALT Alkaline Phosphatase Troponin I High Sens B-Natriuretic Peptide Total Protein Albumin Lipase Procalcitonin Urine Color STRAW Urine Appearance CLEAR Urine pH 5.5 Ur Specific [place] <= 1.005 Urine Protein NEG Urine Glucose (UA) >=1000 H Urine Ketones 5 Urine Blood TRACE Urine Nitrite NEG Ur Leukocyte Esterase NEG Urine RBC 1-4 Urine WBC 0 Ur Squamous Epith Cells 1+ Urine Bacteria NONE Acetone, Qual COVID-19 (JASSON) COVID-19 Clin Com Influenza Type A (RICARDO) Influenza Type B (RICARDO) Influenza A & B Note 01/31/22 01/31/22 01/31/22 06:09 06:09 06:09 MCV 97.9 MCH 32.0 MCHC 32.7 RDW 13.2 Plt Count 139 L MPV 11.6 Immature Gran % (Auto) 1.2 H Neut % (Auto) 93.1 H Lymph % (Auto) 4.6 L [place] % (Auto) 1.0 L Eos % (Auto) 0.0 Baso % (Auto) 0.1 Lymph # (Auto) 0.7 L [place] # (Auto) 0.2 Eos # (Auto) 0.0 Baso # (Auto) 0.0 Abs Immat Gran (auto) 0.17 H Absolute Neuts (auto) 13.7 H Absolute Nucleated RBC 0.000 Nucleated RBC % (auto) 0.0 Smear Tech's Comments VERIFIED PT INR D-Dimer High Sensitivty O2 Saturation ABG pH at Pt Temp ABG pCO2 at Pt Temp ABG pO2 at Pt Temp ABG HCO3 ABG Base Excess (Actual) Anion Gap 20 Estim Creat Clear Calc 46.2 Estimated GFR 55 POC Glucose Random Glucose 405 H* Lactic Acid Calcium 8.5 D Magnesium 2.0 Total Bilirubin Direct Bilirubin AST ALT Alkaline Phosphatase Troponin I High Sens B-Natriuretic Peptide Total Protein Albumin Lipase Procalcitonin 0.16 Urine Color Urine Appearance Urine pH Ur Specific [place] Urine Protein Urine Glucose (UA) Urine Ketones Urine Blood Urine Nitrite Ur Leukocyte Esterase Urine RBC Urine WBC Ur Squamous Epith Cells Urine Bacteria Acetone, Qual COVID-19 (JASSON) COVID-19 Clin Com Influenza Type A (RICARDO) Influenza Type B (RICARDO) Influenza A & B Note 01/31/22 01/31/22 01/31/22 07:24 09:15 12:58 MCV MCH MCHC RDW Plt Count MPV Immature Gran % (Auto) Neut % (Auto) Lymph % (Auto) [place] % (Auto) Eos % (Auto) Baso % (Auto) Lymph # (Auto) [place] # (Auto) Eos # (Auto) Baso # (Auto) Abs Immat Gran (auto) Absolute Neuts (auto) Absolute Nucleated RBC Nucleated RBC % (auto) Smear Tech's Comments PT INR D-Dimer High Sensitivty O2 Saturation 96.0 ABG pH at Pt Temp 7.33 L ABG pCO2 at Pt Temp 32 ABG pO2 at Pt Temp 94 ABG HCO3 17 L ABG Base Excess (Actual) -7.0 Anion Gap Estim Creat Clear Calc Estimated GFR POC Glucose 341 H 340 H Random Glucose Lactic Acid Calcium Magnesium Total Bilirubin Direct Bilirubin AST ALT Alkaline Phosphatase Troponin I High Sens B-Natriuretic Peptide Total Protein Albumin Lipase Procalcitonin Urine Color Urine Appearance Urine pH Ur Specific [place] Urine Protein Urine Glucose (UA) Urine Ketones Urine Blood Urine Nitrite Ur Leukocyte Esterase Urine RBC Urine WBC Ur Squamous Epith Cells Urine Bacteria Acetone, Qual COVID-19 (JASSON) COVID-19 Clin Com Influenza Type A (RICARDO) Influenza Type B (RICARDO) Influenza A & B Note 01/31/22 13:36 MCV MCH MCHC RDW Plt Count MPV Immature Gran % (Auto) Neut % (Auto) Lymph % (Auto) [place] % (Auto) Eos % (Auto) Baso % (Auto) Lymph # (Auto) [place] # (Auto) Eos # (Auto) Baso # (Auto) Abs Immat Gran (auto) Absolute Neuts (auto) Absolute Nucleated RBC Nucleated RBC % (auto) Smear Tech's Comments PT INR D-Dimer High Sensitivty O2 Saturation ABG pH at Pt Temp ABG pCO2 at Pt Temp ABG pO2 at Pt Temp ABG HCO3 ABG Base Excess (Actual) Anion Gap Estim Creat Clear Calc Estimated GFR POC Glucose 356 H* Random Glucose Lactic Acid Calcium Magnesium Total Bilirubin Direct Bilirubin AST ALT Alkaline Phosphatase Troponin I High Sens B-Natriuretic Peptide Total Protein Albumin Lipase Procalcitonin Urine Color Urine Appearance Urine pH Ur Specific [place] Urine Protein Urine Glucose (UA) Urine Ketones Urine Blood Urine Nitrite Ur Leukocyte Esterase Urine RBC Urine WBC Ur Squamous Epith Cells Urine Bacteria Acetone, Qual COVID-19 (JASSON) COVID-19 Clin Com Influenza Type A (RICARDO) Influenza Type B (RICARDO) Influenza A & B Note Assessment and Plan (1) Hypoxia: Status: Acute (2) Reactive airway disease: Status: Acute (3) Chest pain: Status: Acute Plan hospital d#2 76yo M with DM2, HTN, HLD presenting with chest pain and dyspnea # acute hypoxic resp failure - wean O2 as tolerated # asthma vs COPD, acute exacerbation - steroids, azithromycin, nebs, continue ICS/LABA + LAMA # atypical chest pain - EKG without ischemic changes, hs-Tn-I flat # DARREN - improved p 1L NS + holding ARB- resume and monitor BMP carefully # HTN - continue metoprolol, ARB # DM2 with hyperglycemia - basal/bolus insulin, check A1c # HLD - statin, fenofibrate, ezetimibe, niacin # VTE ppx - LMWH In my clinical judgment, the patient requires continued hospitalization for the following reasons: DARREN, hypoxia Quality Stroke Does the patient have a stroke diagnosis?: No VTE Prior VTE?: No VTE Risk Level:: Medical - moderate - high VTE Device Contraindication: Treatment Not Indicated VTE Drug Contraindication: N/A - Med Ordered
--- NOTE | 2022-01-31 14:45 | PC.NURSE ---
medicated with tylenol for slight headache.
[2022-01-31 15:05] LABS: Estimated Average Glucose 278 mg/dL; Hemoglobin A1c % 11.3 %
[2022-01-31] MEDS: Metoprolol Succinate ER 100 MG TAB.ER.24H PO (16:33)
[2022-01-31] MEDS: Omeprazole 20 MG CAPSULE.DR PO (16:33)
[2022-01-31 17:17] LABS: Glucose, Whole Blood 369 mg/dL (60-115)
[2022-01-31 18:22] LABS: Glucose, Whole Blood 335 mg/dL (60-115)
[2022-01-31] MEDS: Insulin Glargine,Hum.rec.anlog 100 UNIT/ML 10 ML VIAL 20 UNIT SUBCUT (21:11)
[2022-01-31] MEDS: Tamsulosin HCL 0.4 MG CAPSULE PO (21:11)
[2022-01-31] MEDS: Famotidine 20 MG TABLET 40 MG PO (21:11)
[2022-01-31] MEDS: Magnesium Oxide 400 MG TABLET PO (21:11)
[2022-01-31] MEDS: Amitriptyline HCl 10 MG TABLET PO (21:37)
[2022-01-31] MEDS: 0.9 % Sodium Chloride Flush 3 ML SYRINGE IVFLUSH (22:10)
[2022-02-01] VITALS (11 sets, daily range): BP systolic 90–152; BP diastolic 52–78; PULSE 82–100; RESP 16–20; TEMP 36.1–36.8; O2SAT 93–100
[2022-02-01] MEDS: methylPREDNISolone Sod Succ 40 MG/ML VIAL IVPUSH ×3 (05:34→17:13)
[2022-02-01] MEDS: Omeprazole 20 MG CAPSULE.DR PO ×2 (05:35→17:12)
[2022-02-01 06:22] LABS: Hematocrit 43.4 % (42.0-52.0); Hemoglobin 14.6 g/dl (14.0-18.0); Mean Corpuscular HGB Conc 33.6 g/dl (31.0-36.0); Mean Corpuscular Volume 98.2 fL (80.0-98.0); Mean Platelet Volume 12.1 fL (9.4-12.4); Platelet Count 123 X10*3/uL (160-400); Red Blood Count 4.42 X10*6/uL (4.60-5.80); Red Cell Distribution Width 13.1 % (11.0-16.0); White Blood Count 16.4 X10*3/uL (4.8-10.8)
[2022-02-01 07:02] LABS: Anion Gap 15 (12-20); Blood Urea Nitrogen 29 mg/dL (9-16); Calcium 8.3 mg/dL (8.4-10.2); Carbon Dioxide 22 mmol/L (22-29); Chloride 102 mmol/L (96-108); Creatinine Clr Calc Pharmacy 53.6; Estimated Glomerular Filt Rate > 60; Glucose Random 399 mg/dL (60-115); Magnesium 1.9 mg/dL (1.6-2.6); Potassium 4.4 mmol/L (3.3-5.1); Sodium 135 mmol/L (135-145)
[2022-02-01] MEDS: Magnesium Oxide 400 MG TABLET PO ×2 (08:00→21:26)
[2022-02-01] MEDS: Cholecalciferol (Vitamin D3) 25 MCG TABLET 50 MCG PO (08:00)
[2022-02-01] MEDS: Fenofibrate 160 MG TABLET PO (08:01)
[2022-02-01] MEDS: Ezetimibe 10 MG TABLET PO (08:01)
[2022-02-01] MEDS: Aspirin Enteric Coated 81 MG TABLET.DR PO (08:01)
[2022-02-01] MEDS: Metoprolol Succinate ER 100 MG TAB.ER.24H PO (08:01)
[2022-02-01] MEDS: Ferrous Sulfate 324 MG TABLET.DR PO (08:02)
[2022-02-01] MEDS: Valsartan 160 MG TABLET PO (08:02)
[2022-02-01] MEDS: Atorvastatin Calcium 40 MG TABLET PO (08:02)
[2022-02-01] MEDS: Loratadine 10 MG TABLET PO (08:02)
[2022-02-01] MEDS: 0.9 % Sodium Chloride Flush 3 ML SYRINGE IVFLUSH ×2 (08:02→15:02)
[2022-02-01] MEDS: Insulin Lispro 100 UNIT/ML 3 ML VIAL SUBCUT ×4 (08:03→21:28)
[2022-02-01] MEDS: Enoxaparin Sodium 40 MG/0.4 ML SYRINGE SUBCUT (08:04)
[2022-02-01] MEDS: Albuterol/Iprat 2.5/0.5MG 3 ML AMPUL.NEB INHALE ×4 (08:06→18:57)
[2022-02-01 08:21] LABS: Glucose, Whole Blood 377 mg/dL (60-115)
[2022-02-01 11:11] LABS: Glucose, Whole Blood 405 mg/dL (60-115)
--- NOTE | 2022-02-01 11:19 | P.DS_ITS ---
DS: Providers Provider Date of Service: 02/01/22 Date of admission: 01/30/22 23:25 Date of discharge: 02/01/22 Primary care physician: Unknown Physician DS: Diagnosis Discharge Diagnosis (1) Acute and chronic respiratory failure with hypoxia: Status: Acute (2) Asthma with COPD with exacerbation: Status: Acute (3) Uncontrolled type 2 diabetes mellitus with hyperglycemia: Status: Acute (4) Atypical chest pain: Status: Acute (5) Acute kidney injury: Status: Acute DS: Summary Hospital Course Hospital Course: from admission H+P by Anupam ANTONIO, 01/30/22: 76 M with HTN, HLD,DM p/w chest pain; reports he has been having chest pain /sob for past 3 days; denies chest pain at the time of my interview. reports no dizzines or sweating. also reports dry cough with SOB ; mentions PCP suggested him to go to ER for Eval. Denies any GI or symptoms. ROS negative except mentioned above. ER course: ER teaM reported pt sats 89% on RA. noted wheezing; given nebs. admitted for further mngt. This 76yo M with DM2, HTN, and HLD presenting with chest pain and dyspnea was admitted for acute hypoxic respiratory failure and asthma/COPD exacerbation. He was treated with steroids and azithromycin and quickly weaned off oxygen. Chest pain resolved and was thought to be secondary to cough; EKG without ischemic changes and hs-Tn-I was flat. He had a mild degree of DARREN which improved with IV isotonic fluids. ARB was held for 1 day and resumed. He was noted to have hyperglycemia and A1c was 11.3; glipizide was discontinued and he was started on basal insulin- Lantus 20 units qhs. He was discharged home with VNA services through [facility] and will need 3 days of steroids + azithromycin. BMP should be repeated in 1 week. Time Spent with Patient Time attestation: Total time spent providing and/or coordinating discharge services: Discharge coordination time: Greater than 30 minutes Quality: Safe Use of Opioids Does Pt have an Active Cancer Diagnosis on the Problem List?: No Quality: Stroke Does the patient have a stroke diagnosis?: No Physical Exam Vital Signs: Vital Signs: Last Vital Signs Temp 98.2 F 02/01/22 07:24 Pulse 89 02/01/22 08:07 Resp 19 02/01/22 08:07 BP 117/67 02/01/22 07:24 Pulse Ox 94 02/01/22 07:24 BMI result Body Mass Index 32.4 Gen: in no acute distress HEENT: sclera anicteric, moist mucus membranes Neck: supple Lungs: clear to auscultation bilaterally Heart: regular rate and rhythm, no murmurs Abd: soft, non-tender, non-distended Ext: no edema Skin: warm/well-perfused Neuro: alert and oriented x3, no focal findings Psych: appropriate affect DS: Data Data Completed and Pending Completed studies during hospitalization [Text1]: Laboratory Results WBC 16.4 X10*3/uL (4.8-10.8) H 02/01/22 05:12 RBC 4.42 X10*6/uL (4.60-5.80) L 02/01/22 05:12 Hgb 14.6 g/dl (14.0-18.0) 02/01/22 05:12 Hct 43.4 % (42.0-52.0) 02/01/22 05:12 MCV 98.2 fL (80.0-98.0) H 02/01/22 05:12 MCH 33.0 pg (27.0-33.0) 02/01/22 05:12 MCHC 33.6 g/dl (31.0-36.0) 02/01/22 05:12 RDW 13.1 % (11.0-16.0) 02/01/22 05:12 Plt Count 123 X10*3/uL (160-400) L 02/01/22 05:12 MPV 12.1 fL (9.4-12.4) 02/01/22 05:12 Immature Gran % (Auto) 1.2 % (0.0-0.4) H 01/31/22 06:09 Neut % (Auto) 93.1 % (45-73) H 01/31/22 06:09 Lymph % (Auto) 4.6 % (20-40) L 01/31/22 06:09 [place] % (Auto) 1.0 % (2-11) L 01/31/22 06:09 Eos % (Auto) 0.0 % (0-4) 01/31/22 06:09 Baso % (Auto) 0.1 % (0-2) 01/31/22 06:09 Lymph # (Auto) 0.7 X10*3/uL (1.2-4.9) L 01/31/22 06:09 [place] # (Auto) 0.2 X10*3/uL (0.1-1.2) 01/31/22 06:09 Eos # (Auto) 0.0 X10*3/uL (0.0-0.4) 01/31/22 06:09 Baso # (Auto) 0.0 X10*3/uL (0.0-0.2) 01/31/22 06:09 Abs Immat Gran (auto) 0.17 X10*3/uL (0.00-0.03) H 01/31/22 06:09 Absolute Neuts (auto) 13.7 x10*3/uL (2.0-8.3) H 01/31/22 06:09 Absolute Nucleated RBC 0.000 X10*3/uL (0.0-0.012) 02/01/22 05:12 Nucleated RBC % (auto) 0.0 /100WBC (0.0-0.2) 02/01/22 05:12 Smear Tech's Comments VERIFIED 01/31/22 06:09 PT 12.9 SEC (9.9-13.0) 01/30/22 17:02 INR 1.1 (0.9-1.1) 01/30/22 17:02 D-Dimer High Sensitivty < 150 NG/ML 01/30/22 17:02 O2 Saturation 96.0 % 01/31/22 09:15 ABG pH at Pt Temp 7.33 (7.35-7.45) L 01/31/22 09:15 ABG pCO2 at Pt Temp 32 mmHg (32-45) 01/31/22 09:15 ABG pO2 at Pt Temp 94 mmHg (83-108) 01/31/22 09:15 ABG HCO3 17 mmol/L (22-26) L 01/31/22 09:15 ABG Base Excess (Actual) -7.0 mmol/L 01/31/22 09:15 Sodium 135 mmol/L (135-145) 02/01/22 05:12 Potassium 4.4 mmol/L (3.3-5.1) 02/01/22 05:12 Chloride 102 mmol/L (96-108) 02/01/22 05:12 Carbon Dioxide 22 mmol/L (22-29) 02/01/22 05:12 Anion Gap 15 (12-20) 02/01/22 05:12 BUN 29 mg/dL (9-16) H 02/01/22 05:12 Creatinine 1.08 mg/dL (0.5-1.4) 02/01/22 05:12 Estim Creat Clear Calc 53.6 02/01/22 05:12 Estimated GFR > 60 02/01/22 05:12 POC Glucose 405 mg/dL (60-115) H* 02/01/22 11:02 Random Glucose 399 mg/dL (60-115) H* 02/01/22 05:12 Estimat Average Glucose 278 mg/dL 01/31/22 06:09 Hemoglobin A1c % 11.3 % 01/31/22 06:09 Lactic Acid 1.7 mmol/L (0.5-2.0) 01/30/22 17:14 Calcium 8.3 mg/dL (8.4-10.2) L 02/01/22 05:12 Magnesium 1.9 mg/dL (1.6-2.6) 02/01/22 05:12 Total Bilirubin 0.8 mg/dL (0.0-1.0) 01/30/22 15:21 Direct Bilirubin 0.4 mg/dL (0.0-0.5) 01/30/22 15:21 AST 27 U/L (5-37) 01/30/22 15:21 ALT 56 U/L (0-40) H 01/30/22 15:21 Alkaline Phosphatase 103 U/L (39-117) D 01/30/22 15:21 Troponin I High Sens 36.2 ng/L (<3.5-35.0) H 01/30/22 17:02 B-Natriuretic Peptide 14 pg/mL (<100) 01/30/22 15:47 Total Protein 6.9 g/dL (6.5-8.0) 01/30/22 15:21 Albumin 3.8 g/dL (3.5-5.0) 01/30/22 15:21 Lipase 102 U/L (8-78) H 01/30/22 15:21 Procalcitonin 0.16 ng/mL 01/31/22 06:09 Urine Color STRAW 01/30/22 17:24 Urine Appearance CLEAR 01/30/22 17:24 Urine pH 5.5 (5.0-8.0) 01/30/22 17:24 Ur Specific [place] <= 1.005 (1.005-1.025) 01/30/22 17:24 Urine Protein NEG MG/DL (NEG-TRACE) 01/30/22 17:24 Urine Glucose (UA) >=1000 MG/DL (NEG) H 01/30/22 17:24 Urine Ketones 5 MG/DL (NEG) 01/30/22 17:24 Urine Blood TRACE (NEG) 01/30/22 17:24 Urine Nitrite NEG (NEG) 01/30/22 17:24 Ur Leukocyte Esterase NEG (NEG) 01/30/22 17:24 Urine RBC 1-4 /HPF (0) 01/30/22 17:24 Urine WBC 0 /HPF (0-4) 01/30/22 17:24 Ur Squamous Epith Cells 1+ /LPF 01/30/22 17:24 Urine Bacteria NONE /LPF 01/30/22 17:24 Acetone, Qual Negative (Negative) 01/30/22 15:21 COVID-19 (JASSON) Negative (Negative) 01/30/22 15:55 COVID-19 Clin Com See Note 01/30/22 15:55 Influenza Type A (RICARDO) Negative (Negative) 01/30/22 17:02 Influenza Type B (RICARDO) Negative (Negative) 01/30/22 17:02 Influenza A & B Note See Note 01/30/22 17:02 Impressions Chest X-Ray 01/30/22 15:27 IMPRESSION: Unremarkable examination. Chest CT 01/30/22 18:24 IMPRESSION: Mild coronary artery calcification. Otherwise unremarkable exam. Fleischner guidelines were followed. Discharge Plan Discharge Patient Disposition: Home Health Service Discharge Diagnosis: asthma/COPD exacerbation, atypical chest pain, acute kidney injury Referrals: Pastora Prasad DO [Physician] - 1 Week Discharge Medications: New dextrose [Glutose-15] 40 % Gel 15 g PO Q15M PRN (Reason: Per Hypoglycemia Standing Ord.) Qty: 60 0RF Protocol: Glucose Gel Hypoglycemia Standing Order Protocol Text: For patients able to take PO (patient cooperative and able to swallow). Give Glucose Gel 15 gm PO for Blood Glucose (BG) < 70. Repeat BG every 15 min until BG > 70 x 3, if BG still < 70 and/or patient symptomatic repeat glucose gel or rapid acting carbohydrate. Notify MD if BG does not improve with treatment. prednisone 10 mg tablet 40 mg PO DAILY Qty: 12 0RF azithromycin 250 mg tablet 250 mg PO DAILY 3 Days Qty: 3 0RF (DME) pen needle, diabetic 32 gauge x 3/16 needle See Rx Instructions .Route Qty: 50 0RF Rx Instructions: As directed Lantus Solostar U-100 Insulin 100 unit/mL (3 mL) insulin pen 20 unit subcut QAM Qty: 15 0RF Continued (DME) blood-glucose meter [FreeStyle Auxier Lite] Kit See Rx Instructions .Route Qty: 1 0RF Rx Instructions: As directed (DME) FreeStyle Lite Strips Strip See Rx Instructions .Route Qty: 100 11RF Rx Instructions: 4x daily testosterone cypionate 200 mg/mL oil 200 mg IM Q3W 21 Days Qty: 1 5RF tamsulosin 0.4 mg capsule 0.4 mg PO BEDTIME 90 Days Qty: 90 2RF fluticasone propion-salmeterol [Advair Diskus] 250-50 mcg/dose blister with device 1 puff inhalation BID 0RF famotidine 40 mg tablet 1 tab PO BEDTIME 0RF amitriptyline 10 mg tablet 1 tab PO BEDTIME 0RF Incruse Ellipta 62.5 mcg/actuation blister with device 1 puff inhalation DAILY 0RF Trulicity 1.5 mg/0.5 mL pen injector 1.5 mg subcut QWEEK 0RF aspirin 81 mg tablet,delayed release (DR/EC) 1 tab PO DAILY 0RF sertraline 25 mg tablet 0.5 tab PO DAILY 0RF nitroglycerin 0.4 mg Tablet, Sublingual 0.4 mg SUBLINGUAL Q5M PRN (Reason: Chest Pain) 0RF Rx Instructions: do not exceed 3 doses per episode omeprazole 20 mg capsule,delayed release(DR/EC) 1 cap PO BID@0630,1630 0RF atorvastatin 40 mg tablet 40 mg PO DAILY 30 Days Qty: 30 11RF albuterol sulfate [Ventolin HFA] 90 mcg/actuation HFA aerosol inhaler 2 inh inhalation Q4H PRN (Reason: Shortness Of Breath) 0RF hydrocodone-acetaminophen 5-300 mg tablet 1 tab PO Q8H PRN (Reason: Pain (Scale Score 4-6)) 0RF metoprolol succinate 100 mg tablet extended release 24 hr 100 mg PO DAILY 0RF ezetimibe 10 mg tablet 10 mg PO DAILY 0RF fenofibrate 160 mg tablet 160 mg PO DAILY 0RF ferrous sulfate 325 mg (65 mg iron) tablet 325 mg PO DAILY 0RF sildenafil 100 mg tablet 100 mg PO DAILY PRN (Reason: Sexual Activity) 0RF cholecalciferol (vitamin D3) 50 mcg (2,000 unit) tablet 50 mcg PO DAILY 0RF omega-3 fatty acids-fish oil 340-1,000 mg capsule 1 cap PO BID 0RF loratadine 10 mg tablet 10 mg PO DAILY 0RF (DME) lancets 33 gauge misc See Rx Instructions ea .ROUTE .MEDSUPPLY Qty: 100 0RF Rx Instructions: As directed magnesium oxide 400 mg magnesium capsule 400 mg PO BID 0RF niacin 1,000 mg tablet extended release 24 hr 2,000 mg PO BEDTIME 0RF irbesartan 300 mg tablet 300 mg PO DAILY 0RF Discontinued glipizide 10 mg tablet 20 mg PO BIDAC 0RF Discharge Orders: Discharge Order (Routine); Ordered 02/01/22 Ordered By: Gabrielle Thorpe Diet: diabetic diet Activity on Discharge: As tolerated Stand Alone Forms: Patient Portal Discharge page Other Ambulatory Orders: Basic Metabolic Panel (Routine) Timeframe: 1 Week Facility: [facility] - Location: Laboratory Ordered By: Gabrielle Thorpe Care Plan Goals: lung health control of diabetes and its complications Health Concerns: asthma/COPD exacerbation, atypical chest pain, acute kidney injury Plan of Treatment: take prednisone 40 mg daily x 3 days take azithromycin 250 mg daily x 3 days continue Advair and Incruse inhalers, as-needed albuterol stop glipizide, continue Trulicity, add Lantus 20 units daily diabetic diet avoid sugar and simple starches recheck BMP in 1 week see your primary care doctor in 1 week Assessment: See Discharge Summary Patient Instructions: Insulin Glargine (By injection)
--- NOTE | 2022-02-01 12:44 | P.PNIM_ITS ---
Subjective Subjective Date of Service: 02/01/22 Interval History: This history was taken in [place] from the patient. Breathing improved Having more chest pain again Hyperglycemic Review of Systems Review of Systems: Yes all other systems are reviewed and are negative Physical Exam Vital Signs: Vital Signs: Last Vital Signs Temp 98.3 F 02/01/22 11:23 Pulse 94 02/01/22 11:47 Resp 18 02/01/22 11:47 BP 144/70 H 02/01/22 11:23 Pulse Ox 99 02/01/22 11:23 BMI result Body Mass Index 32.4 Gen: in no acute distress HEENT: sclera anicteric, moist mucus membranes Neck: supple Lungs: clear to auscultation bilaterally Heart: regular rate and rhythm, no murmurs, tender L sternal border Abd: soft, non-tender, non-distended Ext: no edema Skin: warm/well-perfused Neuro: alert and oriented x3, no focal findings Psych: appropriate affect Objective Data Active Medications Acetaminophen (Acetaminophen 325 Mg Tablet) 650 mg PO Q6H PRN PRN Reason: Pain, Mild (Pain Scale 1-3) Last Admin: 01/31/22 14:46 Dose: 650 mg Documented by: JEFFRY Hydrocodone Bitart/Acetaminophen (Hydrocodone Bit/Acetam 5/325 Tablet) 1 tab PO Q8H PRN PRN Reason: Pain (Scale Score 4-6) Albuterol/Ipratropium (Albuterol/Iprat 2.5/0.5mg 3 Ml Ampul.Neb) 3 ml INHALE RQ4H WHILE AWAKE [facility] Last Admin: 02/01/22 11:46 Dose: 3 ml Documented by: DARCI Amitriptyline HCl (Amitriptyline Hcl 10 Mg Tablet) 10 mg PO BEDTIME [facility] Last Admin: 01/31/22 21:37 Dose: 10 mg Documented by: KEVIN Aspirin (Aspirin Enteric Coated 81 Mg Tablet.) 81 mg PO DAILY [facility] Last Admin: 02/01/22 08:01 Dose: 81 mg Documented by: RAIMUNDO Atorvastatin Calcium (Atorvastatin Calcium 40 Mg Tablet) 40 mg PO DAILY [facility] Last Admin: 02/01/22 08:02 Dose: 40 mg Documented by: RAIMUNDO Azithromycin (Azithromycin 500 Mg Tablet) 500 mg PO Q24H [facility] Last Admin: 01/31/22 21:10 Dose: 500 mg Documented by: KEVIN Dextrose (Dextrose 50 % 25 Gm/50 Ml Syringe) 25 gm IVPUSH Q15M PRN; Protocol PRN Reason: per Hypoglycemia Standing Ord. Ezetimibe (Ezetimibe 10 Mg Tablet) 10 mg PO DAILY [facility] Last Admin: 02/01/22 08:01 Dose: 10 mg Documented by: RAIMUNDO Enoxaparin Sodium (Enoxaparin Sodium 40 Mg/0.4 Ml Syringe) 40 mg SUBCUT Q24H [facility] Last Admin: 02/01/22 08:04 Dose: 40 mg Documented by: RAIMUNDO Famotidine (Famotidine 20 Mg Tablet) 40 mg PO BEDTIME [facility] Last Admin: 01/31/22 21:11 Dose: 40 mg Documented by: KEVIN Fenofibrate (Fenofibrate 160 Mg Tablet) 160 mg PO DAILY [facility] Last Admin: 02/01/22 08:01 Dose: 160 mg Documented by: RAIMUNDO Ferrous Sulfate (Ferrous Sulfate 324 Mg Tablet.Dr) 324 mg PO DAILY [facility] Last Admin: 02/01/22 08:02 Dose: 324 mg Documented by: RAIMUNDO Fluticasone/Vilanterol (Fluticasone/Vilanterol 100/25 Blst.W.Dev) 1 puff INHALE RDAILY [facility] Last Admin: 02/01/22 08:08 Dose: Not Given Documented by: DARCI Non-Admin Reason: Med Not Available Glucose (Glucose Gel 15 Gm Gel..Gram.) 15 gm PO Q15M PRN; Protocol PRN Reason: per Hypoglycemia Standing Ord. Insulin Glargine (Insulin Glargine,Hum.Rec.Anlog 100 Unit/Ml 10 Ml Vial) 25 unit SUBCUT BEDTIME [facility] Insulin Human Lispro (Insulin Lispro 100 Unit/Ml 3 Ml Vial) 0 unit SUBCUT QIDACHS [facility]; Protocol Last Admin: 02/01/22 12:18 Dose: 18 unit Documented by: RAIMUNDO Lidocaine (Lidocaine 4 % Patch Adh..Patch) 1 patch TRANSDERMA DAILY [facility]; Protocol Loratadine (Loratadine 10 Mg Tablet) 10 mg PO DAILY [facility] Last Admin: 02/01/22 08:02 Dose: 10 mg Documented by: RAIMUNDO Magnesium Oxide (Magnesium Oxide 400 Mg Tablet) 400 mg PO BID [facility] Last Admin: 02/01/22 08:00 Dose: 400 mg Documented by: RAIMUNDO Melatonin (Melatonin 3 Mg Tablet) 6 mg PO BEDTIME PRN PRN Reason: Insomnia Last Admin: 01/31/22 01:54 Dose: 6 mg Documented by: EDGARDO Methylprednisolone Sodium Succinate (Methylprednisolone Sod Succ 40 Mg/Ml Vial) 40 mg IVPUSH Q6H [facility] Last Admin: 02/01/22 12:19 Dose: 40 mg Documented by: RAIMUNDO Metoprolol Succinate (Metoprolol Succinate Er 100 Mg Tab.Er.24h) 100 mg PO DAILY [facility]; Protocol Last Admin: 02/01/22 08:01 Dose: 100 mg Documented by: RAIMUNDO Niacin (Niacin Er 250 Mg Tablet.Er) 2,000 mg PO BEDTIME [facility] Last Admin: 01/31/22 22:40 Dose: Not Given Documented by: ANDRES Non-Admin Reason: given in ED, not documented Nitroglycerin (Nitroglycerin 0.4 Mg Tab.Subl) 0.4 mg SUBLINGUAL Q5M PRN PRN Reason: Chest Pain Non-Formulary Medication (Umeclidinium [Incruse Ellipta]) 1 puff INHALE DAILY [facility] Omeprazole (Omeprazole 20 Mg Capsule.Dr) 20 mg PO BID@0630,1630 [facility] Last Admin: 02/01/22 05:35 Dose: 20 mg Documented by: ANDRES Pharmacy Consult (Consult Rx Perform Med Rec) 1 each MISCELLANE ONCE PRN PRN Reason: Consult order Senna (Sennosides 8.6 Mg Tablet) 17.2 mg PO BEDTIME PRN PRN Reason: Constipation Sodium Chloride (0.9 % Sodium Chloride Flush 3 Ml Syringe) 3 ml IVFLUSH QSHIFT [facility] Last Admin: 02/01/22 08:02 Dose: 3 ml Documented by: RAIMUNDO Tamsulosin HCl (Tamsulosin Hcl 0.4 Mg Capsule) 0.4 mg PO BEDTIME [facility] Last Admin: 01/31/22 21:11 Dose: 0.4 mg Documented by: KEVIN Valsartan (Valsartan 160 Mg Tablet) 160 mg PO DAILY [facility] Last Admin: 02/01/22 08:02 Dose: 160 mg Documented by: RAIMUNDO Vitamin D (Cholecalciferol (Vitamin D3) 25 Mcg Tablet) 50 mcg PO DAILY [facility] Last Admin: 02/01/22 08:00 Dose: 50 mcg Documented by: RAIMUNDO Labs CBC & Chem 7: 02/01/22 05:12 02/01/22 05:12 Labs: Laboratory Results - last 24 hr 01/31/22 01/31/22 01/31/22 06:09 12:58 13:36 MCV MCH MCHC RDW Plt Count MPV Absolute Nucleated RBC Nucleated RBC % (auto) Anion Gap Estim Creat Clear Calc Estimated GFR POC Glucose 340 H 356 H* Random Glucose Estimat Average Glucose 278 Hemoglobin A1c % 11.3 Calcium Magnesium 01/31/22 01/31/22 02/01/22 17:10 18:18 05:12 MCV 98.2 H MCH 33.0 MCHC 33.6 RDW 13.1 Plt Count 123 L MPV 12.1 Absolute Nucleated RBC 0.000 Nucleated RBC % (auto) 0.0 Anion Gap Estim Creat Clear Calc Estimated GFR POC Glucose 369 H* 335 H Random Glucose Estimat Average Glucose Hemoglobin A1c % Calcium Magnesium 02/01/22 02/01/22 02/01/22 05:12 07:28 11:02 MCV MCH MCHC RDW Plt Count MPV Absolute Nucleated RBC Nucleated RBC % (auto) Anion Gap 15 Estim Creat Clear Calc 53.6 Estimated GFR > 60 POC Glucose 377 H* 405 H* Random Glucose 399 H* Estimat Average Glucose Hemoglobin A1c % Calcium 8.3 L Magnesium 1.9 Microbiology Microbiology Results: Microbiology 01/30/22 17:03 Blood Culture - Preliminary Blood - Venous No growth after 24 hours. 01/30/22 16:55 Blood Culture - Preliminary Blood - Venous No growth after 24 hours. Assessment and Plan (1) Hypoxia: Status: Acute (2) Reactive airway disease: Status: Acute (3) Chest pain: Status: Acute Plan hospital d#3 76yo M with DM2, HTN, HLD presenting with chest pain and dyspnea # acute hypoxic resp failure - resolved, weaned off O2 # asthma vs COPD, acute exacerbation - steroids, azithromycin, nebs, continue ICS/LABA + LAMA # atypical chest pain - recheck hs-Tn-I + EKG; prior elevated + flat and thought due to DARREN # DARREN - improved p 1L NS + holding ARB- resume and monitor BMP carefully # hyperK - mild, resolved p SZC # HTN - continue metoprolol, ARB # DM2 with hyperglycemia, A1c 11.3 - basal/bolus insulin - will d/c GPZ and start Lantus pen upon discharge # HLD - statin, fenofibrate, ezetimibe, niacin # VTE ppx - LMWH In my clinical judgment, the patient requires continued hospitalization for the following reasons: chest pain Quality Stroke Does the patient have a stroke diagnosis?: No VTE Prior VTE?: No VTE Risk Level:: Medical - moderate - high VTE Device Contraindication: Treatment Not Indicated VTE Drug Contraindication: N/A - Med Ordered
--- NOTE | 2022-02-01 13:22 | MHC.CM.PN ---
message left for cc bethany re dc today
[2022-02-01 13:29] LABS: Troponin-I High Sensitivity 18.5 ng/L (<3.5-35.0)
[2022-02-01 14:41] LABS: Troponin-I High Sensitivity 17.3 ng/L (<3.5-35.0)
[2022-02-01] MEDS: Lidocaine 4 % Patch ADH..PATCH 1 PATCH TRANSDERMA (15:02)
--- NOTE | 2022-02-01 15:45 | ECG_ITS ---
Test Reason : cp Blood Pressure : / mmHG Vent. Rate : 099 BPM Atrial Rate : 099 BPM P-R Int : 172 ms QRS Dur : 080 ms QT Int : 346 ms P-R-T Axes : 046 002 052 degrees QTc Int : 444 ms Normal sinus rhythm Normal ECG When compared with ECG of 30-JAN-2022 13:45, Borderline criteria for Anterolateral infarct are no longer Present Referred By: Gabrielle Thorpe Electronically Signed By:SHEELA OBRIEN
[2022-02-01 16:04] LABS: Glucose, Whole Blood 266 mg/dL (60-115)
[2022-02-01] MEDS: Nitroglycerin 0.4 MG TAB.SUBL SUBLINGUAL (17:19)
[2022-02-01 19:41] LABS: Glucose, Whole Blood 370 mg/dL (60-115)
[2022-02-01] MEDS: Azithromycin 500 MG TABLET PO (21:26)
[2022-02-01] MEDS: Famotidine 20 MG TABLET 40 MG PO (21:27)
[2022-02-01] MEDS: Amitriptyline HCl 10 MG TABLET PO (21:27)
[2022-02-01] MEDS: Tamsulosin HCL 0.4 MG CAPSULE PO (21:28)
[2022-02-01] MEDS: Insulin Glargine,Hum.rec.anlog 100 UNIT/ML 10 ML VIAL 25 UNIT SUBCUT (21:28)
[2022-02-02] MEDS: 0.9 % Sodium Chloride Flush 3 ML SYRINGE IVFLUSH ×2 (01:18→10:00)
[2022-02-02] MEDS: methylPREDNISolone Sod Succ 40 MG/ML VIAL IVPUSH ×3 (01:18→12:15)
[2022-02-02 04:00] VITALS: BP 131/75; PULSE 88; RESP 17; TEMP 36.3; O2SAT 95
[2022-02-02] MEDS: Omeprazole 20 MG CAPSULE.DR PO (06:17)
[2022-02-02 07:37] VITALS: BP 125/68; PULSE 82; RESP 19; TEMP 36.4; O2SAT 100
[2022-02-02] MEDS: Albuterol/Iprat 2.5/0.5MG 3 ML AMPUL.NEB INHALE ×2 (07:44→11:24)
[2022-02-02] MEDS: Fluticasone/Vilanterol 100/25 BLST.W.DEV 1 PUFF INHALE (07:44)
[2022-02-02 07:46] VITALS: PULSE 82; RESP 15; O2SAT 100
[2022-02-02 08:07] LABS: Glucose, Whole Blood 211 mg/dL (60-115)
--- NOTE | 2022-02-02 09:39 | ECG_ITS ---
Test Reason : CP Blood Pressure : / mmHG Vent. Rate : 092 BPM Atrial Rate : 092 BPM P-R Int : 158 ms QRS Dur : 118 ms QT Int : 360 ms P-R-T Axes : 048 000 040 degrees QTc Int : 445 ms Normal sinus rhythm Normal EKG When compared with ECG of 01-FEB-2022 12:53, No significant change was found Referred By: Gabrielle Thorpe Electronically Signed By:SHEELA OBRIEN
[2022-02-02] MEDS: Enoxaparin Sodium 40 MG/0.4 ML SYRINGE SUBCUT (09:56)
[2022-02-02] MEDS: Insulin Lispro 100 UNIT/ML 3 ML VIAL SUBCUT ×2 (09:56→12:16)
[2022-02-02] MEDS: Cholecalciferol (Vitamin D3) 25 MCG TABLET 50 MCG PO (09:57)
[2022-02-02] MEDS: Ezetimibe 10 MG TABLET PO (09:58)
[2022-02-02] MEDS: Aspirin Enteric Coated 81 MG TABLET.DR PO (09:58)
[2022-02-02] MEDS: Fenofibrate 160 MG TABLET PO (09:58)
[2022-02-02] MEDS: Metoprolol Succinate ER 100 MG TAB.ER.24H PO (09:58)
[2022-02-02] MEDS: Ferrous Sulfate 324 MG TABLET.DR PO (09:59)
[2022-02-02] MEDS: Atorvastatin Calcium 40 MG TABLET PO (09:59)
[2022-02-02] MEDS: Loratadine 10 MG TABLET PO (09:59)
[2022-02-02] MEDS: Valsartan 160 MG TABLET PO (09:59)
[2022-02-02] MEDS: Magnesium Oxide 400 MG TABLET PO (10:00)
[2022-02-02] MEDS: Lidocaine 4 % Patch ADH..PATCH 1 PATCH TRANSDERMA (10:02)
[2022-02-02 11:00] VITALS: BP 157/77; PULSE 98; RESP 19; TEMP 36.7; O2SAT 93
[2022-02-02 11:25] VITALS: PULSE 88; RESP 18; O2SAT 99
[2022-02-02 11:29] LABS: Glucose, Whole Blood 320 mg/dL (60-115)
--- NOTE | 2022-02-02 12:09 | MHC.CM.PN ---
Spoke w/ RE D/C: patient cleared for D/C today. CM yesterday called Corie at [facility] RE D/C for this W/E. Clarified w/CM from yesterday D/C all set. D/C in place.
== END 2022-02-02 15:00 | disposition home health service (06) | DRG 190 ==
LOC: HO.ED 19:22 → HO.EDOVER 23:34 → HO.IMC 01-31 20:31
PROVIDERS: Physician Assistant; Admitting Provider Hospitalist; Emergency Provider Emergency Medicine; PCP Family Medicine; Visit Provider Family Medicine
DX: J44.1 Chronic obstructive pulmonary disease with (acute) exacerbation (principal); J96.21 Acute and chronic respiratory failure with hypoxia; J45.901 Unspecified asthma with (acute) exacerbation; N17.9 Acute kidney failure, unspecified; K21.9 Gastro-esophageal reflux disease without esophagitis; E78.5 Hyperlipidemia, unspecified; M19.90 Unspecified osteoarthritis, unspecified site; I10 Essential (primary) hypertension; E87.5 Hyperkalemia; E11.65 Type 2 diabetes mellitus with hyperglycemia; Z20.822 Contact with and (suspected) exposure to COVID-19; Z90.79 Acquired absence of other genital organ(s); Z79.4 Long term (current) use of insulin; Z79.51 Long term (current) use of inhaled steroids; Z79.82 Long term (current) use of aspirin; Z79.899 Other long term (current) drug therapy
CPT/HCPCS: 36415; 36600; 71046; 71250; 80048; 80076; 81001; 82009; 82803; 82947; 83036; 83605; 83690; 83735; 83880; 84145; 84484; 85025; 85027; 85379; 85610; 87040; 87502; 87635; 93005; 94640; 96361; 96365; 96375; 99285; 99291; J0696; J1650; J2920; J2930; J3475

== ENCOUNTER → 2022-02-07 10:47 | Outpatient (BNVA) | payer MEDICARE, SELFPAY | PROVIDERS: PCP Family Medicine; Visit Provider Urology | DX: E29.1 Testicular hypofunction (principal) | CPT/HCPCS: 96372 ==

== ENCOUNTER → 2022-02-28 10:28 | Outpatient (BNVA) | payer MEDICARE, SELFPAY | PROVIDERS: PCP Family Medicine; Visit Provider Urology | DX: E29.1 Testicular hypofunction (principal) | CPT/HCPCS: 96372 ==

== ENCOUNTER → 2022-03-05 10:22 | Outpatient (BNVA) | payer OTHER, SELFPAY | PROVIDERS: PCP Family Medicine; Visit Provider Internal Medicine | DX: J44.9 Chronic obstructive pulmonary disease, unspecified (principal); G47.33 Obstructive sleep apnea (adult) (pediatric) | CPT/HCPCS: 99202 ==

== ENCOUNTER → 2022-03-26 12:57 | Outpatient (BNVA) | payer OTHER, SELFPAY | PROVIDERS: PCP Family Medicine; Visit Provider Urology | DX: E29.1 Testicular hypofunction (principal) | CPT/HCPCS: 96372 ==

== ENCOUNTER 2022-03-27 06:56 | Outpatient (REF) | payer OTHER, SELFPAY ==
--- NOTE | 2022-03-27 12:03 | PFT_ITS ---
FLOWS: FEV1 61% of predicted at 1.36 L. FVC 63% of predicted at 1.91 L. FEV1 to FVC ratio of 0.71. No bronchodilator response except for small to medium airways. LUNG VOLUMES: Total lung capacity 71% of predicted at 4.00 L. Residual volume 102% of predicted at 2.29 L. Slow vital capacity 50% of predicted at 1.72 L. Expiratory reserve volume 43% of predicted at 0.31 L. Diffusion capacity is mildly decreased, diffusion capacity corrects to normal after adjustment for alveolar ventilation. IMPRESSION: Moderate restrictive ventilatory defect with no bronchodilator response except in small to medium airways. Decreased expiratory reserve volume suggests extrathoracic restriction likely secondary to abdominal obesity. MD MACARIO Carroll/MODL / [id number]
== END 2022-03-27 06:57 | disposition home or self-care (01) ==
LOC: HO.RESP 06:56
PROVIDERS: Visit Provider Family Medicine
DX: J44.1 Chronic obstructive pulmonary disease with (acute) exacerbation (principal); J45.901 Unspecified asthma with (acute) exacerbation; R06.02 Shortness of breath
CPT/HCPCS: 94060; 94727; 94729

== ENCOUNTER 2022-04-01 09:38 | Outpatient (REF) | payer OTHER, SELFPAY | END 2022-04-01 09:39 | disposition home or self-care (01) | LOC: HO.MRI 09:38 | PROVIDERS: Visit Provider Family Medicine | DX: Z13.89 Encounter for screening for other disorder (principal) ==

== ENCOUNTER 2022-04-09 16:57 | Emergency (ER) | payer OTHER, SELFPAY ==
--- NOTE | ~2022-04-09 | XR_ITS ---
EXAMINATION: XR CHEST CLINICAL INFORMATION: Cough. COMPARISON: Most recent CT chest dated 01/30/2022. TECHNIQUE: Frontal view of the chest was obtained. FINDINGS: The lungs are clear. The cardiomediastinal silhouette is normal in size. There is no pleural effusion or pneumothorax. No acute osseous abnormality. XR/XR chest 1V IMPRESSION: No acute cardiopulmonary findings.
[2022-04-09 17:12] VITALS: BP 173/63; PULSE 100; RESP 19; TEMP 36.6; O2SAT 93; BMI 31.8
--- NOTE | 2022-04-09 17:19 | ED.GENADULT ---
HPI - General Adult General Chief complaint: General Medical Stated complaint: CP,HIGH HR 10''S/10/10'S,SHAKEY PER EMS Time Seen by Provider: 04/09/22 17:19 Source: patient Limitations: language barrier History of Present Illness HPI narrative: Patient is 76 years old with history of COPD diabetes obstructive sleep apnea, hypertension comes here for feeling cold inside since morning with episode of shaking. No fever no cough no abdominal pain no significant shortness of breath no chest pain otherwise he feels okay Related Data Home Medications Medication Instructions Recorded Confirmed cholecalciferol (vitamin D3) 50 50 mcg PO DAILY 06/23/20 03/05/22 mcg (2,000 unit) tablet ezetimibe 10 mg tablet 10 mg PO DAILY 06/23/20 03/05/22 fenofibrate 160 mg tablet 160 mg PO DAILY 06/23/20 03/05/22 ferrous sulfate 325 mg (65 mg 325 mg PO DAILY 06/23/20 03/05/22 iron) tablet hydrocodone 5 mg-acetaminophen 300 1 tab PO Q8H PRN Pain (Scale Score 06/23/20 03/05/22 mg tablet 4-6) lancets 33 gauge #100 ea 06/23/20 03/05/22 loratadine 10 mg tablet 10 mg PO DAILY 06/23/20 03/05/22 magnesium oxide 400 mg PO BID 06/23/20 03/05/22 metoprolol succinate 100 mg 100 mg PO DAILY 06/23/20 03/05/22 tablet,extended release 24 hr omega-3 fatty acids-fish oil 340 1 cap PO BID 06/23/20 03/05/22 mg-1,000 mg capsule sildenafil 100 mg tablet 100 mg PO DAILY PRN Sexual Activity 06/23/20 03/05/22 niacin 1,000 mg tablet,extended 2,000 mg PO BEDTIME 02/06/21 03/05/22 release 24 hr albuterol sulfate 90 mcg/actuation 2 inh inhalation Q4H PRN Shortness 06/10/21 03/05/22 aerosol inhaler (Ventolin HFA) Of Breath irbesartan 300 mg tablet 300 mg PO DAILY 11/06/21 03/05/22 amitriptyline 10 mg tablet 1 tab PO BEDTIME 01/30/22 03/05/22 famotidine 40 mg tablet 1 tab PO BEDTIME 01/30/22 03/05/22 fluticasone 250 mcg-salmeterol 50 1 puff inhalation BID 01/30/22 03/05/22 mcg/dose blistr powdr for inhalation (Advair Diskus) umeclidinium 62.5 mcg/actuation 1 puff inhalation DAILY 01/30/22 03/05/22 blister powder for inhalation (Incruse Ellipta) aspirin 81 mg tablet,delayed 1 tab PO DAILY 01/31/22 03/05/22 release nitroglycerin 0.4 mg sublingual 0.4 mg sublingual Q5M PRN Chest 01/31/22 03/05/22 tablet Pain omeprazole 20 mg capsule,delayed 1 cap PO BID@0630,1630 01/31/22 03/05/22 release sertraline 25 mg tablet 25 mg PO DAILY 03/05/22 03/05/22 umeclidinium 62.5 mcg/actuation 1 inh inhalation BEDTIME 03/05/22 03/05/22 blister powder for inhalation (Incruse Ellipta) Previous Rx's Medication Instructions Recorded atorvastatin 40 mg tablet 40 mg PO DAILY 30 days #30 tabs 02/06/21 blood sugar diagnostic (FreeStyle #100 ea 06/26/21 Lite Strips) blood-glucose meter (FreeStyle #1 ea 06/26/21 [place] Lite kit) testosterone cypionate 200 mg/mL 200 mg IM Q3W 21 days #1 mL 10/03/21 intramuscular oil tamsulosin 0.4 mg capsule 0.4 mg PO BEDTIME 90 days #90 caps 11/07/21 dextrose 40 % oral gel (Glutose-15) 15 g PO Q15M PRN Per Hypoglycemia 02/01/22 Standing Ord. #60 grams insulin glargine 100 unit/mL (3 20 unit (0.2 mL) subcut QAM #15 mL 02/01/22 mL) subcutaneous pen (Lantus Solostar U-100 Insulin) pen needle, diabetic 32 gauge x #50 ea 02/01/22 3/16 prednisone 10 mg tablet 40 mg PO DAILY #12 tabs 02/01/22 dulaglutide 1.5 mg/0.5 mL 1.5 mg (0.5 mL) subcut QWEEK 30 02/19/22 subcutaneous pen injector days #2.5 mL (Trulicity) Allergies Allergy/AdvReac Type Severity Reaction Status Date / Time No Known Allergies Allergy Verified 03/05/22 10:57 Review of Systems Review of Systems: Yes all other systems are reviewed and are negative [facility] Past Medical History Medical History Anemia Benign prostatic hyperplasia without lower urinary tract symptoms Chest pain Chronic GERD Erectile dysfunction HLD (hyperlipidemia) HTN (hypertension) Hypertriglyceridemia Hypertrophic cardiomegaly Hypoxia STEPH (obstructive sleep apnea) Osteoarthritis Reactive airway disease T2DM (type 2 diabetes mellitus) Type 2 diabetes mellitus Uncontrolled type 2 diabetes mellitus with hyperglycemia Vitamin D deficiency Surgical History History of eye surgery History of left knee surgery History of removal of testicle Family History Family History Father No problems noted. Mother No problems noted. Social History Social History Household Members: None Housing: Apartment Do you presently have visiting nurse or other home services: Yes (MAT WORKER also) Alcohol intake: never Patient Tobacco Use Status: Never used Tobacco Advance Directives: No Advance Directives Information Provided: No service: No Current occupational status: disabled Physical Exam ED Vital Signs: Vital Signs - 24 hr 04/09/22 17:12 04/09/22 19:41 Temperature 98 F Pulse Rate 100 93 Respiratory Rate 19 18 Blood Pressure 173/63 H 152/91 H Pulse Oximetry 93 93 Oxygen Delivery Method Room Air Room Air BMI result Body Mass Index 31.8 Appearance: Alert. Oriented X3. No acute distress. Eyes: No pallor or icterus ENT: Pharynx normal. Oral Mucosa moist Neck: Normal inspection. Neck supple. CVS: Normal heart rate and rhythm. Pulses normal. Respiratory: No respiratory distress. Equal air entry bilateral, no wheezing/rales/rhonchi Abdomen: Soft and nontender. Bowel sounds are present, no mass palpable, no CVA tenderness Skin: Skin warm and dry. Normal skin color. Normal skin turgor. Extremities: No lower extremity edema. No calf tenderness Neuro: Oriented X 3. No motor deficit. Medical Decision Making MDM Narrative Medical decision making narrative: Patient has stable labs nonspecific complaints with history of anxiety and COPD advised to follow with PCP no signs of infection or sepsis Lab Data Lab results reviewed: Yes I reviewed the patient's lab results. Result diagrams: 04/09/22 18:46 04/09/22 18:46 Labs: Lab Results 04/09/22 04/09/22 04/09/22 Range/Units 18:46 18:46 18:46 WBC 10.6 (4.8-10.8) X10*3/uL RBC 5.19 (4.60-5.80) X10*6/uL Hgb 16.7 (14.0-18.0) g/dl Hct 50.7 (42.0-52.0) % MCV 97.7 (80.0-98.0) fL MCH 32.2 (27.0-33.0) pg MCHC 32.9 (31.0-36.0) g/dl RDW 13.2 (11.0-16.0) % Plt Count 157 L D (160-400) X10*3/uL MPV 11.3 (9.4-12.4) fL Immature Gran % (Auto) 0.6 H (0.0-0.4) % Neut % (Auto) 74.6 H (45-73) % Lymph % (Auto) 14.4 L (20-40) % [place] % (Auto) 9.5 (2-11) % Eos % (Auto) 0.6 (0-4) % Baso % (Auto) 0.3 (0-2) % Lymph # (Auto) 1.5 (1.2-4.9) X10*3/uL [place] # (Auto) 1.0 (0.1-1.2) X10*3/uL Eos # (Auto) 0.1 (0.0-0.4) X10*3/uL Baso # (Auto) 0.0 (0.0-0.2) X10*3/uL Abs Immat Gran (auto) 0.06 H (0.00-0.03) X10*3/uL Absolute Neuts (auto) 7.9 (2.0-8.3) x10*3/uL Absolute Nucleated RBC 0.000 (0.0-0.012) X10*3/uL Nucleated RBC % (auto) 0.0 (0.0-0.2) /100WBC Sodium 137 (135-145) mmol/L Potassium 4.3 (3.3-5.1) mmol/L Chloride 100 (96-108) mmol/L Carbon Dioxide 29 (22-29) mmol/L Anion Gap 12 (12-20) BUN 10 D (9-16) mg/dL Creatinine 1.00 (0.5-1.4) mg/dL Estim Creat Clear Calc 57.5 Estimated GFR > 60 Random Glucose 137 H D (60-115) mg/dL Lactic Acid 1.0 (0.5-2.0) mmol/L Calcium 9.2 D (8.4-10.2) mg/dL Total Bilirubin 0.8 (0.0-1.0) mg/dL AST 20 (5-37) U/L ALT 20 (0-40) U/L Alkaline Phosphatase 70 D (39-117) U/L Troponin I High Sens (<3.5-35.0) ng/L Total Protein 6.8 (6.5-8.0) g/dL Albumin 4.2 (3.5-5.0) g/dL Urine Color Urine Appearance Urine pH (5.0-8.0) Ur Specific [place] (1.005-1.025) Urine Protein (NEG-TRACE) MG/DL Urine Glucose (UA) (NEG) MG/DL Urine Ketones (NEG) MG/DL Urine Blood (NEG) Urine Nitrite (NEG) Ur Leukocyte Esterase (NEG) Urine RBC (0) /HPF Urine WBC (0-4) /HPF Ur Squamous Epith Cells /LPF Urine Bacteria /LPF COVID-19 ([facility]) (Negative) COVID-19 Clin Com 04/09/22 04/09/22 04/09/22 Range/Units 18:46 18:47 20:30 WBC (4.8-10.8) X10*3/uL RBC (4.60-5.80) X10*6/uL Hgb (14.0-18.0) g/dl Hct (42.0-52.0) % MCV (80.0-98.0) fL MCH (27.0-33.0) pg MCHC (31.0-36.0) g/dl RDW (11.0-16.0) % Plt Count (160-400) X10*3/uL MPV (9.4-12.4) fL Immature Gran % (Auto) (0.0-0.4) % Neut % (Auto) (45-73) % Lymph % (Auto) (20-40) % [place] % (Auto) (2-11) % Eos % (Auto) (0-4) % Baso % (Auto) (0-2) % Lymph # (Auto) (1.2-4.9) X10*3/uL [place] # (Auto) (0.1-1.2) X10*3/uL Eos # (Auto) (0.0-0.4) X10*3/uL Baso # (Auto) (0.0-0.2) X10*3/uL Abs Immat Gran (auto) (0.00-0.03) X10*3/uL Absolute Neuts (auto) (2.0-8.3) x10*3/uL Absolute Nucleated RBC (0.0-0.012) X10*3/uL Nucleated RBC % (auto) (0.0-0.2) /100WBC Sodium (135-145) mmol/L Potassium (3.3-5.1) mmol/L Chloride (96-108) mmol/L Carbon Dioxide (22-29) mmol/L Anion Gap (12-20) BUN (9-16) mg/dL Creatinine (0.5-1.4) mg/dL Estim Creat Clear Calc Estimated GFR Random Glucose (60-115) mg/dL Lactic Acid (0.5-2.0) mmol/L Calcium (8.4-10.2) mg/dL Total Bilirubin (0.0-1.0) mg/dL AST (5-37) U/L ALT (0-40) U/L Alkaline Phosphatase (39-117) U/L Troponin I High Sens 4.7 D (<3.5-35.0) ng/L Total Protein (6.5-8.0) g/dL Albumin (3.5-5.0) g/dL Urine Color YELLOW Urine Appearance CLEAR Urine pH 6.5 (5.0-8.0) Ur Specific [place] <= 1.005 (1.005-1.025) Urine Protein NEG (NEG-TRACE) MG/DL Urine Glucose (UA) NEG (NEG) MG/DL Urine Ketones NEG (NEG) MG/DL Urine Blood TRACE (NEG) Urine Nitrite NEG (NEG) Ur Leukocyte Esterase NEG (NEG) Urine RBC 0-2 (0) /HPF Urine WBC 0 (0-4) /HPF Ur Squamous Epith Cells NONE /LPF Urine Bacteria NONE /LPF COVID-19 ([facility]ON) Negative (Negative) COVID-19 Clin Com See Note Discharge Plan Discharge Clinical Impression: COPD (chronic obstructive pulmonary disease) Patient Disposition: Home, Self-Care Instructions: COPD (Chronic Obstructive Pulmonary Disease) (ED) Additional Instructions: Continue your neb treatments and other meds and follow up with PCP Prescriptions: No Action (DME) blood-glucose meter [FreeStyle [place] Lite] Kit See Rx Instructions .Route Qty: 1 0RF Rx Instructions: As directed (DME) FreeStyle Lite Strips Strip See Rx Instructions .Route Qty: 100 11RF Rx Instructions: 4x daily testosterone cypionate 200 mg/mL oil 200 mg IM Q3W 21 Days Qty: 1 5RF tamsulosin 0.4 mg capsule 0.4 mg PO BEDTIME 90 Days Qty: 90 2RF Trulicity 1.5 mg/0.5 mL pen injector 1.5 mg subcut QWEEK 30 Days Qty: 2.5 11RF fluticasone propion-salmeterol [Advair Diskus] 250-50 mcg/dose blister with device 1 puff inhalation BID famotidine 40 mg tablet 1 tab PO BEDTIME amitriptyline 10 mg tablet 1 tab PO BEDTIME Incruse Ellipta 62.5 mcg/actuation blister with device 1 puff inhalation DAILY aspirin 81 mg tablet,delayed release (DR/EC) 1 tab PO DAILY nitroglycerin 0.4 mg Tablet, Sublingual 0.4 mg SUBLINGUAL Q5M PRN (Reason: Chest Pain) Rx Instructions: do not exceed 3 doses per episode omeprazole 20 mg capsule,delayed release(DR/EC) 1 cap PO BID@0630,1630 dextrose [Glutose-15] 40 % Gel 15 g PO Q15M PRN (Reason: Per Hypoglycemia Standing Ord.) Qty: 60 0RF Protocol: Glucose Gel Hypoglycemia Standing Order Protocol Text: For patients able to take PO (patient cooperative and able to swallow). Give Glucose Gel 15 gm PO for Blood Glucose (BG) < 70. Repeat BG every 15 min until BG > 70 x 3, if BG still < 70 and/or patient symptomatic repeat glucose gel or rapid acting carbohydrate. Notify MD if BG does not improve with treatment. prednisone 10 mg tablet 40 mg PO DAILY Qty: 12 0RF (DME) pen needle, diabetic 32 gauge x 3/16 needle See Rx Instructions .Route Qty: 50 0RF Rx Instructions: As directed Lantus Solostar U-100 Insulin 100 unit/mL (3 mL) insulin pen 20 unit subcut QAM Qty: 15 0RF sertraline 25 mg tablet 25 mg PO DAILY atorvastatin 40 mg tablet 40 mg PO DAILY 30 Days Qty: 30 11RF albuterol sulfate [Ventolin HFA] 90 mcg/actuation HFA aerosol inhaler 2 inh inhalation Q4H PRN (Reason: Shortness Of Breath) hydrocodone-acetaminophen 5-300 mg tablet 1 tab PO Q8H PRN (Reason: Pain (Scale Score 4-6)) metoprolol succinate 100 mg tablet extended release 24 hr 100 mg PO DAILY ezetimibe 10 mg tablet 10 mg PO DAILY fenofibrate 160 mg tablet 160 mg PO DAILY ferrous sulfate 325 mg (65 mg iron) tablet 325 mg PO DAILY sildenafil 100 mg tablet 100 mg PO DAILY PRN (Reason: Sexual Activity) cholecalciferol (vitamin D3) 50 mcg (2,000 unit) tablet 50 mcg PO DAILY omega-3 fatty acids-fish oil 340-1,000 mg capsule 1 cap PO BID loratadine 10 mg tablet 10 mg PO DAILY (DME) lancets 33 gauge misc See Rx Instructions .ROUTE .MEDSUPPLY Qty: 100 Rx Instructions: As directed magnesium oxide 400 mg magnesium capsule 400 mg PO BID niacin 1,000 mg tablet extended release 24 hr 2,000 mg PO BEDTIME Incruse Ellipta 62.5 mcg/actuation blister with device 1 inh inhalation BEDTIME irbesartan 300 mg tablet 300 mg PO DAILY Interventions: ED Discharge Assessment Last Done: 04/09/22 21:49 Discharge Date/Time: 04/09/22 21:49
--- NOTE | 2022-04-09 18:53 | PC.NURSE ---
tech in room drawing labs
[2022-04-09 19:02] LABS: MANUAL DIFF FLAG NO
[2022-04-09 19:04] LABS: Basophils Percent Auto 0.3 % (0-2); Eosinophils Absolute Auto 0.1 X10*3/uL (0.0-0.4); Eosinophils Percent Auto 0.6 % (0-4); Hematocrit 50.7 % (42.0-52.0); Hemoglobin 16.7 g/dl (14.0-18.0); Imm Gran Abs Auto 0.06 X10*3/uL (0.00-0.03); Imm Gran Pct Auto 0.6 % (0.0-0.4); Lymphocytes Absolute Auto 1.5 X10*3/uL (1.2-4.9); Lymphocytes Percent Auto 14.4 % (20-40); Mean Corpuscular HGB Conc 32.9 g/dl (31.0-36.0); Mean Corpuscular Hemoglobin 32.2 pg (27.0-33.0); Mean Corpuscular Volume 97.7 fL (80.0-98.0); Mean Platelet Volume 11.3 fL (9.4-12.4); Monocytes Percent Auto 9.5 % (2-11); Neutrophils Absolute Auto 7.9 x10*3/uL (2.0-8.3); Neutrophils Percent Auto 74.6 % (45-73); Platelet Count 157 X10*3/uL (160-400); Red Blood Count 5.19 X10*6/uL (4.60-5.80); Red Cell Distribution Width 13.2 % (11.0-16.0); White Blood Count 10.6 X10*3/uL (4.8-10.8)
[2022-04-09 19:18] LABS: Alanine Aminotransferase 20 U/L (0-40); Albumin Level 4.2 g/dL (3.5-5.0); Alkaline Phosphatase 70 U/L (39-117); Anion Gap 12 (12-20); Aspartate Amino Transferase 20 U/L (5-37); Bilirubin Total 0.8 mg/dL (0.0-1.0); Blood Urea Nitrogen 10 mg/dL (9-16); Calcium 9.2 mg/dL (8.4-10.2); Carbon Dioxide 29 mmol/L (22-29); Chloride 100 mmol/L (96-108); Creatinine Clr Calc Pharmacy 57.5; Estimated Glomerular Filt Rate > 60; Glucose Random 137 mg/dL (60-115); Potassium 4.3 mmol/L (3.3-5.1); Sodium 137 mmol/L (135-145); Total Protein 6.8 g/dL (6.5-8.0)
[2022-04-09 19:23] LABS: Troponin-I High Sensitivity 4.7 ng/L (<3.5-35.0)
[2022-04-09 19:23] LABS: COVID-19 Test Negative (Negative)
[2022-04-09 19:41] VITALS: BP 152/91; PULSE 93; RESP 18; O2SAT 93
[2022-04-09 20:56] LABS: Appearance Urine CLEAR; Color Urine YELLOW; Glucose Urine UA NEG (NEG); Leukocyte Esterase Urine NEG (NEG); Nitrite Urine NEG (NEG); PH 6.5 (5.0-8.0); Specific Gravity - Urine <= 1.005 (1.005-1.025); UACC Culture Trigger NO; Urine Blood TRACE (NEG); Urine Ketones NEG (NEG); Urine Protein NEG (NEG-TRACE)
[2022-04-09 21:24] LABS: RBC Urine 0-2 /HPF (0); WBC Urine 0 /HPF (0-4)
== END 2022-04-09 21:49 | disposition home or self-care (01) ==
PROVIDERS: Emergency Provider Internal Medicine
DX: R07.89 Other chest pain (principal); J44.1 Chronic obstructive pulmonary disease with (acute) exacerbation; Z20.822 Contact with and (suspected) exposure to COVID-19; Z79.899 Other long term (current) drug therapy
CPT/HCPCS: 71045; 80053; 81001; 81003; 83605; 84484; 85025; 87040; 87635; 99283

== ENCOUNTER 2022-04-11 19:57 | Emergency (ER) | payer OTHER, SELFPAY ==
--- NOTE | ~2022-04-11 | CT_ITS ---
EXAMINATION: CT HEAD WITHOUT CONTRAST CLINICAL INFORMATION: Involuntary abdominal muscle movements COMPARISON: 11/26/2021 TECHNIQUE: Contiguous axial imaging was performed from the skull base to vertex without intravenous administration of contrast. This CT examination was performed using dose optimization techniques as appropriate, variously including the following: *Automated exposure control *Adjustment of mA and/or kV according to patient size (this includes techniques or standardized protocols for targeted exams where dose is matched to indication/reason for exam; i.e. extremities or head) *Use of iterative reconstruction technique DLP: 736 mGy-cm FINDINGS: There is no evidence of acute intracranial hemorrhage or territorial infarction. No abnormal mass effect or midline shift is seen. [place] to white matter differentiation is well preserved. No extra-axial fluid collections are identified. The ventricles are normal in size. There is mild periventricular white matter hypoattenuation consistent with chronic small vessel ischemic disease. The osseous structures and soft tissues are normal. The mastoid air cells and visualized portions of the paranasal sinuses are well aerated. CT/CT head/brain wo con IMPRESSION: No acute intracranial pathology.
--- NOTE | 2022-04-11 20:06 | ECG_ITS ---
Test Reason : CHEST PAIN Blood Pressure : / mmHG Vent. Rate : 086 BPM Atrial Rate : 086 BPM P-R Int : 178 ms QRS Dur : 094 ms QT Int : 344 ms P-R-T Axes : 048 -35 016 degrees QTc Int : 411 ms Normal sinus rhythm Left axis deviation Abnormal ECG When compared with ECG of 02-FEB-2022 09:39, QRS duration has decreased Referred By: Generic ED Physician Electronically Signed By:Thaddeus Cleary
[2022-04-11 20:07] VITALS: BP 160/90; PULSE 90; TEMP 37.1; O2SAT 96; BMI 31.8
[2022-04-11 20:17] VITALS: BP 156/86; PULSE 84; RESP 18; O2SAT 91; O2SAT 95
--- NOTE | 2022-04-11 20:34 | ED.ABDPAIN ---
HPI - Abdominal Pain General Chief Complaint: Abdominal Pain Stated Complaint: multiple complaints Time Seen by Provider: 04/11/22 20:21 Source: patient Mode of arrival: ambulatory Limitations: no limitations History of Present Illness HPI narrative: Patient having abdominal muscle twitching for last 1 week was seen here 3 days ago with workup negative comes back at is not going away and unable to function at home no loss of consciousness no abdominal pain no nausea no vomiting no diarrhea no fever patient never had any epilepsy in the past his sister had history of epilepsy patient denies any fever or chills Related Data Home Medications Medication Instructions Recorded Confirmed cholecalciferol (vitamin D3) 50 50 mcg PO DAILY 06/23/20 03/05/22 mcg (2,000 unit) tablet ezetimibe 10 mg tablet 10 mg PO DAILY 06/23/20 03/05/22 fenofibrate 160 mg tablet 160 mg PO DAILY 06/23/20 03/05/22 ferrous sulfate 325 mg (65 mg 325 mg PO DAILY 06/23/20 03/05/22 iron) tablet hydrocodone 5 mg-acetaminophen 300 1 tab PO Q8H PRN Pain (Scale Score 06/23/20 03/05/22 mg tablet 4-6) lancets 33 gauge #100 ea 06/23/20 03/05/22 loratadine 10 mg tablet 10 mg PO DAILY 06/23/20 03/05/22 magnesium oxide 400 mg PO BID 06/23/20 03/05/22 metoprolol succinate 100 mg 100 mg PO DAILY 06/23/20 03/05/22 tablet,extended release 24 hr omega-3 fatty acids-fish oil 340 1 cap PO BID 06/23/20 03/05/22 mg-1,000 mg capsule sildenafil 100 mg tablet 100 mg PO DAILY PRN Sexual Activity 06/23/20 03/05/22 niacin 1,000 mg tablet,extended 2,000 mg PO BEDTIME 02/06/21 03/05/22 release 24 hr albuterol sulfate 90 mcg/actuation 2 inh inhalation Q4H PRN Shortness 06/10/21 03/05/22 aerosol inhaler (Ventolin HFA) Of Breath irbesartan 300 mg tablet 300 mg PO DAILY 11/06/21 03/05/22 amitriptyline 10 mg tablet 1 tab PO BEDTIME 01/30/22 03/05/22 famotidine 40 mg tablet 1 tab PO BEDTIME 01/30/22 03/05/22 fluticasone 250 mcg-salmeterol 50 1 puff inhalation BID 01/30/22 03/05/22 mcg/dose blistr powdr for inhalation (Advair Diskus) umeclidinium 62.5 mcg/actuation 1 puff inhalation DAILY 01/30/22 03/05/22 blister powder for inhalation (Incruse Ellipta) aspirin 81 mg tablet,delayed 1 tab PO DAILY 01/31/22 03/05/22 release nitroglycerin 0.4 mg sublingual 0.4 mg sublingual Q5M PRN Chest 01/31/22 03/05/22 tablet Pain omeprazole 20 mg capsule,delayed 1 cap PO BID@0630,1630 01/31/22 03/05/22 release sertraline 25 mg tablet 25 mg PO DAILY 03/05/22 03/05/22 umeclidinium 62.5 mcg/actuation 1 inh inhalation BEDTIME 03/05/22 03/05/22 blister powder for inhalation (Incruse Ellipta) Previous Rx's Medication Instructions Recorded atorvastatin 40 mg tablet 40 mg PO DAILY 30 days #30 tabs 02/06/21 blood sugar diagnostic (FreeStyle #100 ea 06/26/21 Lite Strips) blood-glucose meter (FreeStyle #1 ea 06/26/21 [place] Lite kit) testosterone cypionate 200 mg/mL 200 mg IM Q3W 21 days #1 mL 10/03/21 intramuscular oil tamsulosin 0.4 mg capsule 0.4 mg PO BEDTIME 90 days #90 caps 11/07/21 dextrose 40 % oral gel (Glutose-15) 15 g PO Q15M PRN Per Hypoglycemia 02/01/22 Standing Ord. #60 grams insulin glargine 100 unit/mL (3 20 unit (0.2 mL) subcut QAM #15 mL 02/01/22 mL) subcutaneous pen (Lantus Solostar U-100 Insulin) pen needle, diabetic 32 gauge x #50 ea 02/01/22 3/16 prednisone 10 mg tablet 40 mg PO DAILY #12 tabs 02/01/22 dulaglutide 1.5 mg/0.5 mL 1.5 mg (0.5 mL) subcut QWEEK 30 02/19/22 subcutaneous pen injector days #2.5 mL (Trulicity) diazepam 2 mg tablet (Valium) 2 mg PO TID PRN muscle twitching 04/11/22 #20 tabs Allergies Allergy/AdvReac Type Severity Reaction Status Date / Time No Known Allergies Allergy Verified 03/05/22 10:57 Review of Systems Review of Systems Yes all other systems are reviewed and are negative [facility] Past Medical History Medical History Anemia Benign prostatic hyperplasia without lower urinary tract symptoms Chest pain Chronic GERD Erectile dysfunction HLD (hyperlipidemia) HTN (hypertension) Hypertriglyceridemia Hypertrophic cardiomegaly Hypoxia STEPH (obstructive sleep apnea) Osteoarthritis Reactive airway disease T2DM (type 2 diabetes mellitus) Type 2 diabetes mellitus Uncontrolled type 2 diabetes mellitus with hyperglycemia Vitamin D deficiency Surgical History History of eye surgery History of left knee surgery History of removal of testicle Family History Family History Father No problems noted. Mother No problems noted. Social History Social History Household Members: None Housing: Apartment Do you presently have visiting nurse or other home services: Yes ([employer] also) Alcohol intake: never Patient Tobacco Use Status: Never used Tobacco Use of substances other than those prescribed or required for medical reasons: No Advance Directives: Yes Advance Directives on File: Yes Advance Directives Date on File: 01/31/22 service: No Current occupational status: disabled Physical Exam ED Vital Signs: Vital Signs - 24 hr 04/11/22 20:07 04/11/22 20:17 04/11/22 20:17 Temperature 98.8 F Pulse Rate 84 Respiratory Rate 18 Blood Pressure 156/86 H Pulse Oximetry 91 L 95 Oxygen Delivery Method Room Air Nasal Cannula Oxygen Flow Rate 2 BMI result Body Mass Index 31.8 Appearance: Alert. Oriented X3. No acute distress. Eyes: PERRLA, No Nystagmus ENT: Pharynx normal. Oral Mucosa moist Neck: Normal inspection. Neck supple. CVS: Normal heart rate and rhythm. Pulses normal. Respiratory: No respiratory distress. Equal air entry bilateral, no wheezing/rales/rhonchi Abdomen: Soft and nontender twitching of the abdominal recti muscles frequently. Bowel sounds are present, no mass palpable, no CVA tenderness Skin: Skin warm and dry. Normal skin color. Normal skin turgor. Extremities: No lower extremity edema. No calf tenderness Neuro: Oriented X 3. No motor deficit. 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 The patient responded to Valium 5 mg IV will discharge patient home on Valium. Case discussed Dr. Alvarez neurologist advised to follow-up as outpatient Lab Data Attestation: I reviewed the patient's lab results. Result diagrams: 04/11/22 21:52 04/11/22 21:52 Labs: Lab Results 04/11/22 04/11/22 04/11/22 Range/Units 20:28 21:52 21:52 WBC 11.1 H (4.8-10.8) X10*3/uL RBC 5.48 (4.60-5.80) X10*6/uL Hgb 17.6 (14.0-18.0) g/dl Hct 54.0 H (42.0-52.0) % MCV 98.5 H (80.0-98.0) fL MCH 32.1 (27.0-33.0) pg MCHC 32.6 (31.0-36.0) g/dl RDW 13.4 (11.0-16.0) % Plt Count 153 L (160-400) X10*3/uL MPV 11.3 (9.4-12.4) fL Absolute Nucleated RBC 0.000 (0.0-0.012) X10*3/uL Nucleated RBC % (auto) 0.0 (0.0-0.2) /100WBC ESR (0-15) MM/HR Sodium 138 (135-145) mmol/L Potassium 4.8 (3.3-5.1) mmol/L Chloride 100 (96-108) mmol/L Carbon Dioxide 27 (22-29) mmol/L Anion Gap 16 (12-20) BUN 11 (9-16) mg/dL Creatinine 1.05 (0.5-1.4) mg/dL Estim Creat Clear Calc 54.7 Estimated GFR > 60 Random Glucose 132 H (60-115) mg/dL Calcium 9.3 (8.4-10.2) mg/dL Total Bilirubin 0.9 (0.0-1.0) mg/dL AST 29 D (5-37) U/L ALT 24 (0-40) U/L Alkaline Phosphatase 71 (39-117) U/L Total Creatine Kinase 300 H (38-174) U/L Total Protein 7.4 (6.5-8.0) g/dL Albumin 4.3 (3.5-5.0) g/dL Lipase 300 H (8-78) U/L Urine Color YELLOW Urine Appearance HAZY Urine pH 5.5 (5.0-8.0) Ur Specific [place] >= 1.030 H (1.005-1.025) Urine Protein TRACE (NEG-TRACE) MG/DL Urine Glucose (UA) NEG (NEG) MG/DL Urine Ketones NEG (NEG) MG/DL Urine Blood 1+ H (NEG) Urine Nitrite NEG (NEG) Ur Leukocyte Esterase NEG (NEG) Urine RBC 10-14 H (0) /HPF Urine WBC 1-4 (0-4) /HPF Ur Squamous Epith Cells 1+ /LPF Urine Bacteria NONE /LPF 04/11/ Range/Units 21:52 WBC (4.8-10.8) X10*3/uL RBC (4.60-5.80) X10*6/uL Hgb (14.0-18.0) g/dl Hct (42.0-52.0) % MCV (80.0-98.0) fL MCH (27.0-33.0) pg MCHC (31.0-36.0) g/dl RDW (11.0-16.0) % Plt Count (160-400) X10*3/uL MPV (9.4-12.4) fL Absolute Nucleated RBC (0.0-0.012) X10*3/uL Nucleated RBC % (auto) (0.0-0.2) /100WBC ESR 2 (0-15) MM/HR Sodium (135-145) mmol/L Potassium (3.3-5.1) mmol/L Chloride (96-108) mmol/L Carbon Dioxide (22-29) mmol/L Anion Gap (12-20) BUN (9-16) mg/dL Creatinine (0.5-1.4) mg/dL Estim Creat Clear Calc Estimated GFR Random Glucose (60-115) mg/dL Calcium (8.4-10.2) mg/dL Total Bilirubin (0.0-1.0) mg/dL AST (5-37) U/L ALT (0-40) U/L Alkaline Phosphatase (39-117) U/L Total Creatine Kinase (38-174) U/L Total Protein (6.5-8.0) g/dL Albumin (3.5-5.0) g/dL Lipase (8-78) U/L Urine Color Urine Appearance Urine pH (5.0-8.0) Ur Specific [place] (1.005-1.025) Urine Protein (NEG-TRACE) MG/DL Urine Glucose (UA) (NEG) MG/DL Urine Ketones (NEG) MG/DL Urine Blood (NEG) Urine Nitrite (NEG) Ur Leukocyte Esterase (NEG) Urine RBC (0) /HPF Urine WBC (0-4) /HPF Ur Squamous Epith Cells /LPF Urine Bacteria /LPF Discharge Plan Discharge Clinical Impression: Abdominal epilepsy Patient Disposition: Home, Self-Care Instructions: Epilepsy (ED) Additional Instructions: Likely twitching of the muscles of the abdomen his abdominal epilepsy diagnosis has to be made by the neurologist Meanwhile start taking Valium 1 tablet every 8 hours as needed for muscle twitching Follow-up with PCP/neurologist Espasmos probables de los m?sculos del abdomen. Brasher diagn?stico de epilepsia abdominal debe ser realizado por el neur?logo. Mientras tanto, comience a nic Valium 1 tableta cada 8 horas seg?n sea necesario para las contracciones musculares. Seguimiento con PCP/neur?logo Prescriptions: New diazepam [Valium] 2 mg tablet 2 mg PO TID PRN (Reason: muscle twitching) Qty: 20 0RF No Action (DME) blood-glucose meter [FreeStyle [place] Lite] Kit See Rx Instructions .Route Qty: 1 0RF Rx Instructions: As directed (DME) FreeStyle Lite Strips Strip See Rx Instructions .Route Qty: 100 11RF Rx Instructions: 4x daily testosterone cypionate 200 mg/mL oil 200 mg IM Q3W 21 Days Qty: 1 5RF tamsulosin 0.4 mg capsule 0.4 mg PO BEDTIME 90 Days Qty: 90 2RF Trulicity 1.5 mg/0.5 mL pen injector 1.5 mg subcut QWEEK 30 Days Qty: 2.5 11RF fluticasone propion-salmeterol [Advair Diskus] 250-50 mcg/dose blister with device 1 puff inhalation BID famotidine 40 mg tablet 1 tab PO BEDTIME amitriptyline 10 mg tablet 1 tab PO BEDTIME Incruse Ellipta 62.5 mcg/actuation blister with device 1 puff inhalation DAILY aspirin 81 mg tablet,delayed release (DR/EC) 1 tab PO DAILY nitroglycerin 0.4 mg Tablet, Sublingual 0.4 mg SUBLINGUAL Q5M PRN (Reason: Chest Pain) Rx Instructions: do not exceed 3 doses per episode omeprazole 20 mg capsule,delayed release(DR/EC) 1 cap PO BID@0630,1630 dextrose [Glutose-15] 40 % Gel 15 g PO Q15M PRN (Reason: Per Hypoglycemia Standing Ord.) Qty: 60 0RF Protocol: Glucose Gel Hypoglycemia Standing Order Protocol Text: For patients able to take PO (patient cooperative and able to swallow). Give Glucose Gel 15 gm PO for Blood Glucose (BG) < 70. Repeat BG every 15 min until BG > 70 x 3, if BG still < 70 and/or patient symptomatic repeat glucose gel or rapid acting carbohydrate. Notify MD if BG does not improve with treatment. prednisone 10 mg tablet 40 mg PO DAILY Qty: 12 0RF (DME) pen needle, diabetic 32 gauge x 3/16 needle See Rx Instructions .Route Qty: 50 0RF Rx Instructions: As directed Lantus Solostar U-100 Insulin 100 unit/mL (3 mL) insulin pen 20 unit subcut QAM Qty: 15 0RF sertraline 25 mg tablet 25 mg PO DAILY atorvastatin 40 mg tablet 40 mg PO DAILY 30 Days Qty: 30 11RF albuterol sulfate [Ventolin HFA] 90 mcg/actuation HFA aerosol inhaler 2 inh inhalation Q4H PRN (Reason: Shortness Of Breath) hydrocodone-acetaminophen 5-300 mg tablet 1 tab PO Q8H PRN (Reason: Pain (Scale Score 4-6)) metoprolol succinate 100 mg tablet extended release 24 hr 100 mg PO DAILY ezetimibe 10 mg tablet 10 mg PO DAILY fenofibrate 160 mg tablet 160 mg PO DAILY ferrous sulfate 325 mg (65 mg iron) tablet 325 mg PO DAILY sildenafil 100 mg tablet 100 mg PO DAILY PRN (Reason: Sexual Activity) cholecalciferol (vitamin D3) 50 mcg (2,000 unit) tablet 50 mcg PO DAILY omega-3 fatty acids-fish oil 340-1,000 mg capsule 1 cap PO BID loratadine 10 mg tablet 10 mg PO DAILY (DME) lancets 33 gauge misc See Rx Instructions .ROUTE .MEDSUPPLY Qty: 100 Rx Instructions: As directed magnesium oxide 400 mg magnesium capsule 400 mg PO BID niacin 1,000 mg tablet extended release 24 hr 2,000 mg PO BEDTIME Incruse Ellipta 62.5 mcg/actuation blister with device 1 inh inhalation BEDTIME irbesartan 300 mg tablet 300 mg PO DAILY Referrals: Amairani Alvarez MD [Physician] - 1 week Print Language: Lithuanian
[2022-04-11 20:36] LABS: Appearance Urine HAZY; Color Urine YELLOW; Glucose Urine UA NEG (NEG); Leukocyte Esterase Urine NEG (NEG); Nitrite Urine NEG (NEG); PH 5.5 (5.0-8.0); Specific Gravity - Urine >= 1.030 (1.005-1.025); UACC Culture Trigger NO; Urine Blood 1+ (NEG); Urine Ketones NEG (NEG); Urine Protein TRACE MG/DL (NEG-TRACE)
--- NOTE | 2022-04-11 20:36 | PC.NURSE ---
pt a&ox3, vss, reporting chronic abd pain, shaking/spasms, provider in room w corner trimmer operator.
[2022-04-11 20:42] LABS: Squamous Epithelial Cell Urine 1+ /LPF
--- NOTE | 2022-04-11 21:53 | PC.NURSE ---
20G placed left AC, labs drawn.
[2022-04-11 21:58] LABS: Hemoglobin 17.6 g/dl (14.0-18.0); Mean Corpuscular HGB Conc 32.6 g/dl (31.0-36.0); Mean Corpuscular Hemoglobin 32.1 pg (27.0-33.0); Mean Corpuscular Volume 98.5 fL (80.0-98.0); Mean Platelet Volume 11.3 fL (9.4-12.4); Platelet Count 153 X10*3/uL (160-400); Red Blood Count 5.48 X10*6/uL (4.60-5.80); Red Cell Distribution Width 13.4 % (11.0-16.0); White Blood Count 11.1 X10*3/uL (4.8-10.8)
[2022-04-11] MEDS: diazePAM 10 MG/2 ML CARTRIDGE 5 MG IVPUSH (22:00)
--- NOTE | 2022-04-11 22:02 | PC.NURSE ---
medicated per provider order.
[2022-04-11 22:15] LABS: Alanine Aminotransferase 24 U/L (0-40); Albumin Level 4.3 g/dL (3.5-5.0); Alkaline Phosphatase 71 U/L (39-117); Anion Gap 16 (12-20); Aspartate Amino Transferase 29 U/L (5-37); Bilirubin Total 0.9 mg/dL (0.0-1.0); Blood Urea Nitrogen 11 mg/dL (9-16); Calcium 9.3 mg/dL (8.4-10.2); Carbon Dioxide 27 mmol/L (22-29); Chloride 100 mmol/L (96-108); Creatinine Clr Calc Pharmacy 54.7; Estimated Glomerular Filt Rate > 60; Glucose Random 132 mg/dL (60-115); Lipase 300 U/L (8-78); Potassium 4.8 mmol/L (3.3-5.1); Sodium 138 mmol/L (135-145); Total Protein 7.4 g/dL (6.5-8.0)
[2022-04-11 22:34] LABS: Erythrocyte Sedimentation Rate 2 MM/HR (0-15)
== END 2022-04-12 00:27 | disposition home or self-care (01) ==
PROVIDERS: Emergency Provider Internal Medicine; PCP Family Medicine
DX: G40.802 Other epilepsy, not intractable, without status epilepticus (principal); E11.9 Type 2 diabetes mellitus without complications; I10 Essential (primary) hypertension; E78.5 Hyperlipidemia, unspecified; Z79.82 Long term (current) use of aspirin; Z79.4 Long term (current) use of insulin; Z79.02 Long term (current) use of antithrombotics/antiplatelets
CPT/HCPCS: 36415; 70450; 80053; 81001; 82550; 83690; 85027; 85652; 93005; 96374; 99284; J3360

== ENCOUNTER → 2022-04-14 09:48 | Outpatient (BNVA) | payer OTHER, SELFPAY | PROVIDERS: PCP Family Medicine; Visit Provider Internal Medicine | DX: J44.9 Chronic obstructive pulmonary disease, unspecified (principal); G47.33 Obstructive sleep apnea (adult) (pediatric); Z79.899 Other long term (current) drug therapy | CPT/HCPCS: 99212 ==

== ENCOUNTER → 2022-04-21 19:30 | Outpatient (REF) | payer OTHER, SELFPAY | LOC: HO.SL 19:30 | PROVIDERS: PCP Family Medicine; Visit Provider Internal Medicine | DX: G47.33 Obstructive sleep apnea (adult) (pediatric) (principal) | CPT/HCPCS: 95810 ==

== ENCOUNTER → 2022-04-23 12:59 | Outpatient (BNVA) | payer OTHER, SELFPAY | PROVIDERS: PCP Family Medicine; Visit Provider Urology | DX: E29.1 Testicular hypofunction (principal) | CPT/HCPCS: 96372 ==

== ENCOUNTER 2022-05-07 09:04 | Outpatient (REF) | payer OTHER, SELFPAY ==
[2022-05-07 09:48] LABS: Hematocrit 53.5 % (42.0-52.0); Hemoglobin 17.2 g/dl (14.0-18.0); Mean Corpuscular HGB Conc 32.1 g/dl (31.0-36.0); Mean Corpuscular Hemoglobin 31.4 pg (27.0-33.0); Mean Corpuscular Volume 97.8 fL (80.0-98.0); Mean Platelet Volume 11.7 fL (9.4-12.4); Platelet Count 169 X10*3/uL (160-400); Red Blood Count 5.47 X10*6/uL (4.60-5.80); Red Cell Distribution Width 12.9 % (11.0-16.0); White Blood Count 11.2 X10*3/uL (4.8-10.8)
[2022-05-07 10:04] LABS: Anion Gap 16 (12-20); Blood Urea Nitrogen 8 mg/dL (9-16); Calcium 8.7 mg/dL (8.4-10.2); Carbon Dioxide 31 mmol/L (22-29); Chloride 99 mmol/L (96-108); Estimated Glomerular Filt Rate > 60; Glucose Random 191 mg/dL (60-115); Potassium 3.9 mmol/L (3.3-5.1); Sodium 142 mmol/L (135-145)
[2022-05-07 10:28] LABS: Prostate Specific Antigen 1.11 ng/mL (<0.05-4.0)
[2022-05-12 14:52] LABS: Testosterone, Total 867 ng/dL (250-1100)
== END 2022-05-07 09:05 | disposition home or self-care (01) ==
LOC: HO.LAB 09:04
PROVIDERS: Visit Provider Urology
DX: Z12.5 Encounter for screening for malignant neoplasm of prostate (principal); E29.1 Testicular hypofunction; N17.9 Acute kidney failure, unspecified
CPT/HCPCS: 36415; 80048; 84153; 84403; 85027

== ENCOUNTER 2022-05-15 15:04 | Inpatient (IN) | payer OTHER, SELFPAY ==
--- NOTE | ~2022-05-15 | CT_ITS ---
EXAMINATION: CT ABDOMEN AND PELVIS WITH CONTRAST CLINICAL INFORMATION: Abdominal pain COMPARISON: CT scan abdomen pelvis 05/20/2022 TECHNIQUE: Multidetector volumetric images were obtained from the superior aspect of the liver through the pubic symphysis following administration 85 mL of Omnipaque 350 intravenous contrast. Sagittal and coronal reformatted images were obtained on the technologist's workstation. Oral contrast: No This CT examination was performed using dose optimization techniques as appropriate, variously including the following: *Automated exposure control *Adjustment of mA and/or kV according to patient size (this includes techniques or standardized protocols for targeted exams where dose is matched to indication/reason for exam; i.e. extremities or head) *Use of iterative reconstruction technique DLP: 493 mGy-cm FINDINGS: LUNG BASES: Dependent atelectasis at lung bases, right greater than left. LIVER, GALLBLADDER, AND BILIARY TREE: The liver is normal in size, shape, and attenuation. No focal hepatic lesion or biliary ductal dilatation is present. The gallbladder is unremarkable with no evidence of radiopaque gallstones, gallbladder wall thickening, or obvious pericholecystic inflammatory changes. PANCREAS: Unremarkable. SPLEEN: Unremarkable. ADRENAL GLANDS: Unremarkable. KIDNEYS AND URETERS: The kidneys are normal in size, shape, and attenuation. No hydronephrosis, hydroureter, or calculi seen. No perinephric stranding. BLADDER: Eubanks catheter within the bladder. Air-fluid level in the bladder from the catheter. Mild thickening of the superior wall the bladder, sagittal image 70/134 series 5. Bladder wall measures 1.3 cm. This could be due to focal inflammation or neoplasm or underdistention. The thickening of the bladder wall is new since exam of 03/31/2020. GASTROINTESTINAL TRACT: The small and large bowel are unremarkable. The appendix is unremarkable. ABDOMINAL WALL: No significant hernia is appreciated. LYMPH NODES: Normal. VASCULAR: Unremarkable. PELVIC VISCERA: Unremarkable. OSSEOUS STRUCTURES: Degenerative spondylosis spine. CT/CT abdomen pelvis w IV con IMPRESSION: 1. No acute abnormality the abdomen or pelvis. 2. Asymmetric thickening of the bladder dome. Correlate with urinalysis. Fleischner guidelines were followed.
--- NOTE | ~2022-05-15 | CT_ITS ---
EXAMINATION: CT ABDOMEN AND PELVIS WITHOUT CONTRAST CLINICAL INFORMATION: Epigastric pain, nausea and vomiting, question pancreatitis COMPARISON: 03/31/2020 TECHNIQUE: Multidetector volumetric imaging was performed from the superior aspect of the liver through the pubic symphysis. Sagittal and coronal reformatted images were obtained on the technologist's workstation. This CT examination was performed using dose optimization techniques as appropriate, variously including the following: *Automated exposure control *Adjustment of mA and/or kV according to patient size (this includes techniques or standardized protocols for targeted exams where dose is matched to indication/reason for exam; i.e. extremities or head) *Use of iterative reconstruction technique DLP: 44 mGy-cm FINDINGS: LUNG BASES: Small pleural effusions and adjacent bibasilar opacities favoring atelectasis. LIVER, GALLBLADDER, AND BILIARY TREE: The liver is normal in size, shape, and attenuation. No focal hepatic lesion or biliary ductal dilatation is present. The gallbladder is unremarkable with no evidence of radiopaque gallstones, gallbladder wall thickening, or obvious pericholecystic inflammatory changes. PANCREAS: Unremarkable. SPLEEN: Unremarkable. ADRENAL GLANDS: Unremarkable. KIDNEYS AND URETERS: No hydronephrosis or obstructing calculus. Cortical scarring noted in the left kidney. Nonspecific bilateral perinephric stranding. BLADDER: Decompressed with a Eubanks catheter. Bladder gas is suspected to be due to recent catheterization. GASTROINTESTINAL TRACT: No evidence of bowel obstruction. No significant bowel wall thickening or pericolonic inflammation. The appendix is prominent measuring approximately 8 mm in diameter; no significant surrounding stranding, and appearance is similar to prior. No free fluid or free air is seen. ABDOMINAL WALL: Foci of gas in the anterior abdominal wall suggests sequelae of recent injections. LYMPH NODES: Normal. VASCULAR: Mild atherosclerotic calcification. PELVIC VISCERA: Unremarkable. OSSEOUS STRUCTURES: Degenerative changes are noted in the spine. CT/CT abdomen pelvis wo IV con IMPRESSION: 1. No findings to suggest pancreatitis. 2. Small pleural effusions with adjacent bibasilar atelectasis.
--- NOTE | ~2022-05-15 | XR_ITS ---
EXAMINATION: XR CHEST CLINICAL INFORMATION: SOB. COMPARISON: Chest 05/17/2022 TECHNIQUE: Frontal view of the chest was obtained. FINDINGS: The lungs are hypoexpanded and clear.. The heart size and pulmonary vascularity is normal. No gross bony abnormality seen. XR/XR chest 1V IMPRESSION: Hypoexpanded lungs without acute process.
--- NOTE | ~2022-05-15 | CT_ITS ---
EXAMINATION: CT ANGIOGRAM OF THE CHEST WITH AND WITHOUT CONTRAST (CT PULMONARY ANGIOGRAM FOR PE) CLINICAL INFORMATION: Reason for Exam sob COMPARISON: 01/30/2022 TECHNIQUE: Prior to contrast administration, noncontrast localization images were obtained. Subsequently, multidetector volumetric imaging was performed from the thoracic inlet to below the diaphragms following the administration of 65 mL Omnipaque 350 intravenous contrast. No contrast reaction reported Sagittal, coronal, and MIP oblique sagittal reformatted images were obtained on the CT workstation, uploaded to PACS, and reviewed. This CT examination was performed using dose optimization techniques as appropriate, variously including the following: *Automated exposure control *Adjustment of mA and/or kV according to patient size (this includes techniques or standardized protocols for targeted exams where dose is matched to indication/reason for exam; i.e. extremities or head) *Use of iterative reconstruction technique Total exam dose-length product 368 mGy-cm FINDINGS: QUALITY OF STUDY/CONTRAST BOLUS: Satisfactory. PULMONARY ARTERIES: No central or segmental pulmonary emboli. THORACIC AORTA: No aneurysm or dissection. LUNG: Regions of subsegmental atelectasis at the bilateral lung bases. No additional consolidation. PLEURA: Trace pleural effusions. No pneumothorax. MEDIASTINUM: The visualized thyroid gland is unremarkable. There are subcentimeter mediastinal lymph nodes within the range of normal variation. Cardiac size is within normal limits; no pericardial effusion. CHEST WALL/AXILLA: No axillary or internal mammary lymphadenopathy. 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 UPPER ABDOMEN: Unremarkable. No reflux of contrast into the hepatic veins to suggest elevated right heart pressures. CT/CT angio chest PE protocol IMPRESSION: 1. No pulmonary embolus identified. 2. Bibasilar subsegmental atelectasis and trace pleural effusions. VTE: negative
--- NOTE | ~2022-05-15 | CT_ITS ---
EXAMINATION: NONCONTRAST HEAD CT INDICATION INFORMATION: Shortness of breath COMPARISON: 04/11/2022 TECHNIQUE: Noncontrast CT of the head was performed. DLP: 715 mGy-cm DOSE LOWERING TECHNIQUES: This CT examination was performed using dose optimization techniques as appropriate, variously including the following: - Automated exposure control - Adjustment of mA and/or kV according to patient size (this includes techniques or standardized protocols for targeted exams were dose is matched to indication/reason for exam; i.e. extremities or head) - Use of iterative reconstruction technique FINDINGS: There is no evidence of acute intracranial hemorrhage or territorial infarction. No abnormal mass-effect or midline shift is seen. [place] to white matter differentiation is well preserved. No extra-axial fluid collections are identified. The ventricles are normal in size. There is mild periventricular white matter hypoattenuation consistent with chronic small vessel ischemic disease. Mild volume loss is noted. The osseous structures and soft tissues are normal. The mastoid air cells and visualized portions of the paranasal sinuses are well-aerated. CT/CT head/brain wo con IMPRESSION: No acute intracranial findings.
--- NOTE | ~2022-05-15 | XR_ITS ---
EXAMINATION: XR CHEST CLINICAL INFORMATION: Chest pain COMPARISON: 04/09/2022 TECHNIQUE: Frontal view of the chest was obtained. FINDINGS: The lungs are well expanded. Hazy opacities at the lung bases. No pleural effusion or pneumothorax. The cardiomediastinal silhouette is unchanged. No acute osseous abnormality. XR/XR chest 1V IMPRESSION: Hazy basilar opacities favor atelectasis. Otherwise clear lungs.
--- NOTE | ~2022-05-15 | XR_ITS ---
EXAMINATION: XR CHEST CLINICAL INFORMATION: Shortness of breath COMPARISON: CTA chest May 16, 2022 and chest x-ray May 15, 2022 TECHNIQUE: Frontal view of the chest was obtained. FINDINGS: Cardiac silhouette is normal in size. Lungs are mildly hypoinflated. No gross lobar consolidation. No pleural effusion or pneumothorax. XR/XR chest 1V IMPRESSION: No acute pulmonary pathology.
[2022-05-15 15:23] VITALS: BP 145/80; PULSE 122; O2SAT 98
[2022-05-15 15:40] VITALS: BP 102/58; PULSE 119; RESP 18; TEMP 37.2; O2SAT 90; BMI 26.9
--- NOTE | 2022-05-15 15:45 | ECG_ITS ---
Test Reason : WEAKNESS Blood Pressure : / mmHG Vent. Rate : 118 BPM Atrial Rate : 118 BPM P-R Int : 154 ms QRS Dur : 092 ms QT Int : 322 ms P-R-T Axes : 043 -29 024 degrees QTc Int : 451 ms Sinus tachycardia Possible Lateral infarct , age undetermined Inferior infarct , age undetermined Abnormal ECG When compared with ECG of 11-APR-2022 20:02, Borderline criteria for Lateral infarct are now Present No significant change was found Referred By: Georgina Burroughs Electronically Signed By:RUDY PENA
--- NOTE | 2022-05-15 17:00 | PHA.MEDREC ---
Pharmacy Consult ? Medication Reconciliation Pharmacy has completed the medication reconciliation. Patient was incoherent at time of interview. Called [facility] to obtain list, spoke to
[2022-05-15 17:03] LABS: MANUAL DIFF FLAG NO
[2022-05-15 17:15] LABS: Basophils Absolute Auto 0.1 X10*3/uL (0.0-0.2); Basophils Percent Auto 0.5 % (0-2); Eosinophils Absolute Auto 0.1 X10*3/uL (0.0-0.4); Eosinophils Percent Auto 1.2 % (0-4); Hematocrit 50.8 % (42.0-52.0); Hemoglobin 16.6 g/dl (14.0-18.0); Imm Gran Abs Auto 0.06 X10*3/uL (0.00-0.03); Imm Gran Pct Auto 0.6 % (0.0-0.4); Lymphocytes Percent Auto 20.8 % (20-40); Mean Corpuscular HGB Conc 32.7 g/dl (31.0-36.0); Mean Corpuscular Hemoglobin 32.6 pg (27.0-33.0); Mean Corpuscular Volume 99.8 fL (80.0-98.0); Mean Platelet Volume 12.3 fL (9.4-12.4); Monocytes Absolute Auto 1.4 X10*3/uL (0.1-1.2); Monocytes Percent Auto 14.6 % (2-11); Neutrophils Percent Auto 62.3 % (45-73); Platelet Count 117 X10*3/uL (160-400); Red Blood Count 5.09 X10*6/uL (4.60-5.80); Red Cell Distribution Width 13.2 % (11.0-16.0); White Blood Count 9.6 X10*3/uL (4.8-10.8)
--- NOTE | 2022-05-15 17:15 | ED.WEAKNESS ---
HPI - Weakness General Chief complaint: Weakness Stated complaint: WEAKNESS Time Seen by Provider: 05/15/22 15:44 History of Present Illness HPI Narrative: Patient is 76-year-old male with a history of COPD history of diabetes presents today with generalized malaise weakness. Baseline not on oxygen at home. Noted to be hypoxic. Patient is sent in for further evaluation positive generalized malaise. Unsure patient's COVID status. Unsure patient is vaccinated. Patient too weak to answer specific questions. Related Data Home Medications Medication Instructions Recorded Confirmed cholecalciferol (vitamin D3) 50 50 mcg PO DAILY 06/23/20 05/15/22 mcg (2,000 unit) tablet ferrous sulfate 325 mg (65 mg 325 mg PO DAILY 06/23/20 05/15/22 iron) tablet hydrocodone 5 mg-acetaminophen 300 1 tab PO Q8H PRN Pain (Scale Score 06/23/20 05/15/22 mg tablet 4-6) lancets 33 gauge #100 ea 06/23/20 04/14/22 magnesium oxide 400 mg PO BID 06/23/20 05/15/22 metoprolol succinate 100 mg 100 mg PO DAILY 06/23/20 05/15/22 tablet,extended release 24 hr albuterol sulfate 90 mcg/actuation 2 inh inhalation Q4H PRN Shortness 06/10/21 05/15/22 aerosol inhaler (Ventolin HFA) Of Breath irbesartan 300 mg tablet 300 mg PO DAILY 11/06/21 05/15/22 amitriptyline 10 mg tablet 1 tab PO BEDTIME 01/30/22 05/15/22 aspirin 81 mg tablet,delayed 1 tab PO DAILY 01/31/22 05/15/22 release nitroglycerin 0.4 mg sublingual 0.4 mg sublingual Q5M PRN Chest 01/31/22 05/15/22 tablet Pain sertraline 25 mg tablet 12.5 mg PO DAILY 03/05/22 05/15/22 atorvastatin 20 mg tablet 20 mg PO BEDTIME 05/14/22 05/15/22 baclofen 10 mg tablet 10 mg PO TID PRN muscle spasm 05/14/22 05/15/22 dulaglutide 3 mg/0.5 mL 3 mg subcut QWEEK 05/14/22 05/15/22 subcutaneous pen injector ([facility]) famotidine 20 mg tablet 20 mg PO BID heartburn 05/14/22 05/15/22 fluticasone fur. 100 mcg-umeclid 1 ea inhalation DAILY 05/14/22 05/15/22 62.5 mcg-vilant 25 mcg inhalat.powder (Trelegy Ellipta) pen needle, diabetic 31 gauge x #50 ea 05/14/22 3/16 (BD Ultra-Fine Mini Pen Needle) pen needle, diabetic 32 gauge x #50 ea 05/14/2232 (UltiCare Pen Needle) fluticasone fur. 100 mcg-umeclid 1 puff inhalation DAILY 05/15/22 05/15/22 62.5 mcg-vilant 25 mcg inhalat.powder (Trelegy Ellipta) fluticasone propionate 50 2 spray intranasal DAILY 05/15/22 05/15/22 mcg/actuation nasal spray,suspension insulin glargine 100 unit/mL (3 24 unit subcut QAM 05/15/22 05/15/22 mL) subcutaneous pen (Lantus Solostar U-100 Insulin) sildenafil 100 mg tablet (Viagra) 1 tab PO DAILY PRN Sexual Activity 05/15/22 05/15/22 Previous Rx's Medication Instructions Recorded blood sugar diagnostic (FreeStyle #100 ea 06/26/21 Lite Strips) blood-glucose meter (FreeStyle #1 ea 06/26/21 [place] Lite kit) tamsulosin 0.4 mg capsule 0.4 mg PO BEDTIME 90 days #90 caps 11/07/21 dextrose 40 % oral gel (Glutose-15) 15 g PO Q15M PRN Per Hypoglycemia 02/01/22 Standing Ord. #60 grams pen needle, diabetic 32 gauge x #50 ea 02/01/22 316 diazepam 2 mg tablet (Valium) 2 mg PO TID PRN muscle twitching 04/11/22 #20 tabs testosterone cypionate 200 mg/mL 200 mg IM Q3W 21 days #1 mL 04/16/22 intramuscular oil Allergies Allergy/AdvReac Type Severity Reaction Status Date / Time No Known Allergies Allergy Verified 05/14/22 08:35 Review of Systems Review of Systems: Unable to obtain review system even with aircraft load controller present. Patient was just mumbling. [facility] Past Medical History Attestation statement: The following information was validated with the patient. Medical History Anemia Benign prostatic hyperplasia without lower urinary tract symptoms Chest pain Chronic GERD Erectile dysfunction HLD (hyperlipidemia) HTN (hypertension) Hypertriglyceridemia Hypertrophic cardiomegaly Hypoxia STEPH (obstructive sleep apnea) Osteoarthritis Reactive airway disease T2DM (type 2 diabetes mellitus) Type 2 diabetes mellitus Uncontrolled type 2 diabetes mellitus with hyperglycemia Vitamin D deficiency Surgical History History of eye surgery History of left knee surgery History of removal of testicle Family History Family History Father No problems noted. Mother No problems noted. Social History Social History Household Members: None Housing: Apartment Do you presently have visiting nurse or other home services: Yes ([employer] also) Alcohol intake: never Patient Tobacco Use Status: Never used Tobacco Advance Directives: Yes Advance Directives on File: Yes Advance Directives Date on File: 01/31/22 service: No Current occupational status: disabled Physical Exam Vital Signs: Vital Signs: Last Vital Signs Temp 98.7 F 05/15/22 21:15 Pulse 127 H 05/15/22 21:15 Resp 18 05/15/22 21:15 BP 135/74 05/15/22 21:15 Pulse Ox 90 L 05/15/22 21:15 O2 Del Method 05/15/22 21:15 BMI result Body Mass Index 26.9 Appearance: Alert. Oriented X3. No acute distress. Eyes: Pupils equal, round and reactive to light. ENT: Pharynx normal. Neck: Normal inspection. Neck supple. No lymph nodes noted. No crepitus CVS: Normal heart rate and rhythm. Pulses normal. Normal S1 and S2 Respiratory: Diminished breath sounds bilaterally Abdomen: Soft and nontender. No rigidity. No distention. good BS x4 Skin: Skin warm and dry. Normal skin color. Normal skin turgor. Extremities: No lower extremity edema. Neurovascular intact to all extremities. No Lacerations. No Rash Neuro: Oriented X 3. No motor deficit. No sensory deficit. Moving all extermities. No slurred speech MDM - Weakness MDM Narrative Medical decision making narrative: Patient's white count was normal. Lactate was normal. No evidence for severe sepsis. Patient's ABG showed mild CO2 retention. With a pH of 7.28 with a pCO2 in the 60s. Question secondary to too much oxygen. Will place patient off oxygen. Given IV fluid as patient's BMP was normal no evidence bnp was normal there is no evidence for congestive heart failure. Chest x-ray showed no pneumonia. Likely symptoms consistent with COPD exacerbation. Patient given steroid given albuterol monitor in the emergency department. A repeat VBG was done. It did show improvement in pH but pCO2 still in the 60s. After discussion with hospitalist wanted patient to be on BiPAP for an hour. Patient is to be admitted. Currently in stable condition. Medical Records Attestation: I reviewed the patient's medical records. Lab Data Attestation: I reviewed the patient's lab results. Result diagrams: 05/15/22 16:55 05/15/22 16:55 Labs: Lab Results 05/15/22 05/15/22 05/15/22 Range/Units 16:55 16:55 16:55 WBC 9.6 (4.8-10.8) X10*3/uL RBC 5.09 (4.60-5.80) X10*6/uL Hgb 16.6 (14.0-18.0) g/dl Hct 50.8 (42.0-52.0) % MCV 99.8 H (80.0-98.0) fL MCH 32.6 (27.0-33.0) pg MCHC 32.7 (31.0-36.0) g/dl RDW 13.2 (11.0-16.0) % Plt Count 117 L D (160-400) X10*3/uL MPV 12.3 (9.4-12.4) fL Immature Gran % (Auto) 0.6 H (0.0-0.4) % Neut % (Auto) 62.3 (45-73) % Lymph % (Auto) 20.8 (20-40) % [place] % (Auto) 14.6 H (2-11) % Eos % (Auto) 1.2 (0-4) % Baso % (Auto) 0.5 (0-2) % Lymph # (Auto) 2.0 (1.2-4.9) X10*3/uL [place] # (Auto) 1.4 H (0.1-1.2) X10*3/uL Eos # (Auto) 0.1 (0.0-0.4) X10*3/uL Baso # (Auto) 0.1 (0.0-0.2) X10*3/uL Abs Immat Gran (auto) 0.06 H (0.00-0.03) X10*3/uL Absolute Neuts (auto) 6.0 (2.0-8.3) x10*3/uL Absolute Nucleated RBC 0.000 (0.0-0.012) X10*3/uL Nucleated RBC % (auto) 0.0 (0.0-0.2) /100WBC O2 Saturation % ABG pH at Pt Temp (7.35-7.45) ABG pCO2 at Pt Temp (32-45) mmHg ABG pO2 at Pt Temp (83-108) mmHg ABG HCO3 (22-26) mmol/L ABG Base Excess (Actual) mmol/L VBG pH (7.32-7.43) VBG pCO2 mmHg VBG pO2 mmHg VBG HCO3 (22-26) mmol/L VBG O2 Saturation % VBG Base Excess mmol/L Sodium 139 (135-145) mmol/L Potassium 3.9 (3.3-5.1) mmol/L Chloride 94 L (96-108) mmol/L Carbon Dioxide 35 H (22-29) mmol/L Anion Gap 14 (12-20) BUN 21 H D (9-16) mg/dL Creatinine 1.37 (0.5-1.4) mg/dL Estim Creat Clear Calc 44.4 Estimated GFR 50 Random Glucose 313 H D (60-115) mg/dL Lactic Acid 0.7 (0.5-2.0) mmol/L Calcium 9.3 D (8.4-10.2) mg/dL Troponin I High Sens (<3.5-35.0) ng/L B-Natriuretic Peptide (<100) pg/mL Influenza Type A (PCR) (Negative) Influenza Type B (PCR) (Negative) RSV RNA Qual (PCR) (Negative) SARS-CoV-2 RNA (RT-PCR) (Negative) 05/15/22 05/15/22 05/15/22 Range/Units 16:55 16:55 16:55 WBC (4.8-10.8) X10*3/uL RBC (4.60-5.80) X10*6/uL Hgb (14.0-18.0) g/dl Hct (42.0-52.0) % MCV (80.0-98.0) fL MCH (27.0-33.0) pg MCHC (31.0-36.0) g/dl RDW (11.0-16.0) % Plt Count (160-400) X10*3/uL MPV (9.4-12.4) fL Immature Gran % (Auto) (0.0-0.4) % Neut % (Auto) (45-73) % Lymph % (Auto) (20-40) % [place] % (Auto) (2-11) % Eos % (Auto) (0-4) % Baso % (Auto) (0-2) % Lymph # (Auto) (1.2-4.9) X10*3/uL [place] # (Auto) (0.1-1.2) X10*3/uL Eos # (Auto) (0.0-0.4) X10*3/uL Baso # (Auto) (0.0-0.2) X10*3/uL Abs Immat Gran (auto) (0.00-0.03) X10*3/uL Absolute Neuts (auto) (2.0-8.3) x10*3/uL Absolute Nucleated RBC (0.0-0.012) X10*3/uL Nucleated RBC % (auto) (0.0-0.2) /100WBC O2 Saturation % ABG pH at Pt Temp (7.35-7.45) ABG pCO2 at Pt Temp (32-45) mmHg ABG pO2 at Pt Temp (83-108) mmHg ABG HCO3 (22-26) mmol/L ABG Base Excess (Actual) mmol/L VBG pH (7.32-7.43) VBG pCO2 mmHg VBG pO2 mmHg VBG HCO3 (22-26) mmol/L VBG O2 Saturation % VBG Base Excess mmol/L Sodium (135-145) mmol/L Potassium (3.3-5.1) mmol/L Chloride (96-108) mmol/L Carbon Dioxide (22-29) mmol/L Anion Gap (12-20) BUN (9-16) mg/dL Creatinine (0.5-1.4) mg/dL Estim Creat Clear Calc Estimated GFR Random Glucose (60-115) mg/dL Lactic Acid (0.5-2.0) mmol/L Calcium (8.4-10.2) mg/dL Troponin I High Sens 17.1 D (<3.5-35.0) ng/L B-Natriuretic Peptide 13 (<100) pg/mL Influenza Type A (PCR) NEGATIVE (Negative) Influenza Type B (PCR) NEGATIVE (Negative) RSV RNA Qual (PCR) NEGATIVE (Negative) SARS-CoV-2 RNA (RT-PCR) NEGATIVE (Negative) 05/15/22 05/15/22 Range/Units 17:37 20:39 WBC (4.8-10.8) X10*3/uL RBC (4.60-5.80) X10*6/uL Hgb (14.0-18.0) g/dl Hct (42.0-52.0) % MCV (80.0-98.0) fL MCH (27.0-33.0) pg MCHC (31.0-36.0) g/dl RDW (11.0-16.0) % Plt Count (160-400) X10*3/uL MPV (9.4-12.4) fL Immature Gran % (Auto) (0.0-0.4) % Neut % (Auto) (45-73) % Lymph % (Auto) (20-40) % [place] % (Auto) (2-11) % Eos % (Auto) (0-4) % Baso % (Auto) (0-2) % Lymph # (Auto) (1.2-4.9) X10*3/uL [place] # (Auto) (0.1-1.2) X10*3/uL Eos # (Auto) (0.0-0.4) X10*3/uL Baso # (Auto) (0.0-0.2) X10*3/uL Abs Immat Gran (auto) (0.00-0.03) X10*3/uL Absolute Neuts (auto) (2.0-8.3) x10*3/uL Absolute Nucleated RBC (0.0-0.012) X10*3/uL Nucleated RBC % (auto) (0.0-0.2) /100WBC O2 Saturation 97.0 % ABG pH at Pt Temp 7.28 L (7.35-7.45) ABG pCO2 at Pt Temp 63 H* (32-45) mmHg ABG pO2 at Pt Temp 99 (83-108) mmHg ABG HCO3 30 H (22-26) mmol/L ABG Base Excess (Actual) 1.3 mmol/L VBG pH 7.32 (7.32-7.43) VBG pCO2 68 mmHg VBG pO2 34 mmHg VBG HCO3 35 H (22-26) mmol/L VBG O2 Saturation 49.0 % VBG Base Excess 6.1 mmol/L Sodium (135-145) mmol/L Potassium (3.3-5.1) mmol/L Chloride (96-108) mmol/L Carbon Dioxide (22-29) mmol/L Anion Gap (12-20) BUN (9-16) mg/dL Creatinine (0.5-1.4) mg/dL Estim Creat Clear Calc Estimated GFR Random Glucose (60-115) mg/dL Lactic Acid (0.5-2.0) mmol/L Calcium (8.4-10.2) mg/dL Troponin I High Sens (<3.5-35.0) ng/L B-Natriuretic Peptide (<100) pg/mL Influenza Type A (PCR) (Negative) Influenza Type B (PCR) (Negative) RSV RNA Qual (PCR) (Negative) SARS-CoV-2 RNA (RT-PCR) (Negative) Discharge Plan Discharge Clinical Impression: COPD (chronic obstructive pulmonary disease) Patient Disposition: Admitted As Inpatient
[2022-05-15 17:16] LABS: Lactic Acid 0.7 mmol/L (0.5-2.0)
[2022-05-15 17:18] LABS: Anion Gap 14 (12-20); Blood Urea Nitrogen 21 mg/dL (9-16); Calcium 9.3 mg/dL (8.4-10.2); Carbon Dioxide 35 mmol/L (22-29); Chloride 94 mmol/L (96-108); Creatinine Clr Calc Pharmacy 44.4; Estimated Glomerular Filt Rate 50; Glucose Random 313 mg/dL (60-115); Potassium 3.9 mmol/L (3.3-5.1); Sodium 139 mmol/L (135-145)
[2022-05-15] MEDS: 0.9 % Sodium Chloride 1,000 ML 999 ML IV ×2 (17:19→20:55)
[2022-05-15 17:25] LABS: Troponin-I High Sensitivity 17.1 ng/L (<3.5-35.0)
[2022-05-15 17:26] LABS: B Type Natriuretic Peptide 13 pg/mL (<100)
[2022-05-15 17:48] LABS: ABG Base Excess 1.3 mmol/L; ABG HCO3 30 mmol/L (22-26); ABG pCO2 63 mmHg (32-45); ABG pH 7.28 (7.35-7.45); ABG pO2 99 mmHg (83-108)
[2022-05-15 17:50] LABS: Influenza A PCR NEGATIVE (Negative); Influenza B PCR NEGATIVE (Negative); Resp Syncy Virus RNA Qual PCR NEGATIVE (Negative); SARS COV2 PCR INHOUSE NEGATIVE (Negative)
[2022-05-15] MEDS: methylPREDNISolone Sod Succ 125 MG/2 ML VIAL IVPUSH (18:22)
[2022-05-15] MEDS: cefTRIAXone sodium 1 GM in 0.9 % Sodium Chloride 50 ML IV (18:22)
[2022-05-15] MEDS: Azithromycin 500 MG TABLET PO (18:22)
--- NOTE | 2022-05-15 18:52 | PC.NURSE ---
Pt awake, orientated to person and place. Ambulates to the bathroom with minimal assistance. Able to swallow PO meds.
[2022-05-15 19:07] LABS: ABG Refer to POC result
[2022-05-15 20:41] LABS: Venous Blood Gas Refer to POC result
[2022-05-15 20:44] LABS: VBG Base Excess 6.1 mmol/L; VBG HCO3 35 mmol/L (22-26); VBG pCO2 68 mmHg; VBG pH 7.32 (7.32-7.43); VBG pO2 34 mmHg
[2022-05-15] MEDS: Albuterol Sulfate 90 MCG 8 GM INHALER 2 PUFF INHALE (20:55)
[2022-05-15 21:15] VITALS: BP 135/74; PULSE 127; RESP 18; TEMP 37.1; O2SAT 90
--- NOTE | 2022-05-15 21:22 | PC.NURSE ---
aware of patients HR
[2022-05-15 22:30] VITALS: PULSE 88; RESP 20; O2SAT 93
[2022-05-15] MEDS: Midazolam HCl/PF 2 MG/2 ML VIAL 1 MG IVPUSH (23:29)
[2022-05-16] VITALS (10 sets, daily range): BP systolic 129–160; BP diastolic 65–89; PULSE 97–123; RESP 16–31; TEMP 36.3–37.2; O2SAT 90–96
--- NOTE | 2022-05-16 | ECG_ITS ---
Test Reason : Tachycardia Blood Pressure : / mmHG Vent. Rate : 120 BPM Atrial Rate : 120 BPM P-R Int : 172 ms QRS Dur : 094 ms QT Int : 312 ms P-R-T Axes : 030 -16 034 degrees QTc Int : 440 ms Sinus tachycardia Otherwise normal ECG When compared with ECG of 15-MAY-2022 18:09, Borderline criteria for Lateral infarct are no longer Present No significant change was found Referred By: Bhavana Triana Electronically Signed By:RUDY PENA
[2022-05-16 00:26] LABS: Venous Blood Gas Refer to POC result
[2022-05-16 00:27] LABS: VBG Base Excess 2.2 mmol/L; VBG HCO3 30 mmol/L (22-26); VBG pCO2 58 mmHg; VBG pH 7.32 (7.32-7.43); VBG pO2 44 mmHg
[2022-05-16] MEDS: iohexoL 350 MG/ML 100 ML INFUS..BTL 65 ML IV (01:15)
--- NOTE | 2022-05-16 03:41 | P.HPHOSP_ITS ---
History of Present Illness Date of Service: 05/16/22 Chief Complaint: shortness of breath 76-year-old male with past medical history of COPD, STEPH, type 2 diabetes, BPH, HLD, HTN, who is sent to the hospital via EMS with reported shortness of breath. Patient is Greek-speaking, tried to obtain history from him, and although he is awake oriented to self, he knows he is in the hospital but does not know which 1, and he knows the year he appears to be very confused, unable to give an accurate history. He is all over the place given me different unrelated stories. Therefore so history is obtained mostly from EMR and ED physician with limited patient in regards to history and cause of presentation per triage nurse patient was brought into the hospital with 1 week of general was weakness, was found to be 86% on room air at home, I tried to call the 2 numbers available on EMR and neither 1 answered. On review of system patient reports no chest pain, denies any shortness of breath, no abdominal pain nausea or vomiting, patient is sitting upright in bed refusing to lay down, denies no lower extremity swelling. He keeps saying that they asked him to come here but he does not know who they are on arrival to the ED patient found to have a heart rate of 119 satting 88-90% on room air Labs are significant for WBC count of 9.6, otherwise unremarkable, VBG showed a pH of 7.28 with a CO2 of 63, patient was placed on BiPAP for few hours, and is now off BiPAP sitting in bed appears comfortable, with no distress. COVID-[address] angiogram shows no pulmonary emboli, subsegmental atelectasis and trace pleural effusion patient will be admitted for further management Review of Systems Review of Systems: Yes Unobtainable due to mental condition [facility] Medical History Anemia Benign prostatic hyperplasia without lower urinary tract symptoms Chest pain Chronic GERD Erectile dysfunction HLD (hyperlipidemia) HTN (hypertension) Hypertriglyceridemia Hypertrophic cardiomegaly Hypoxia STEPH (obstructive sleep apnea) Osteoarthritis Reactive airway disease T2DM (type 2 diabetes mellitus) Type 2 diabetes mellitus Uncontrolled type 2 diabetes mellitus with hyperglycemia Vitamin D deficiency Family History Father No problems noted. Mother No problems noted. Surgical History History of eye surgery History of left knee surgery History of removal of testicle Social History Household Members: None Housing: Apartment Do you presently have visiting nurse or other home services: Yes ([employer] also) Alcohol intake: never Patient Tobacco Use Status: Never used Tobacco Advance Directives: Yes Advance Directives on File: Yes Advance Directives Date on File: 01/31/22 service: No Current occupational status: disabled Meds Allergies Allergy/AdvReac Type Severity Reaction Status Date / Time No Known Allergies Allergy Verified 05/14/22 08:35 Active Medications: Current Medications Pharmacy Consult (Consult Rx Perform Med Rec) 1 each MISCELLANE ONCE PRN PRN Reason: Consult order Home Medications Medication Instructions Recorded Confirmed Last Taken Type cholecalciferol (vitamin D3) 50 50 mcg PO DAILY 06/23/20 05/15/22 Unknown History mcg (2,000 unit) tablet ferrous sulfate 325 mg (65 mg 325 mg PO DAILY 06/23/20 05/15/22 Unknown History iron) tablet hydrocodone 5 mg-acetaminophen 300 1 tab PO Q8H PRN Pain (Scale Score 06/23/20 05/15/22 Unknown History mg tablet 4-6) lancets 33 gauge #100 ea 06/23/20 04/14/22 Unknown History magnesium oxide 400 mg PO BID 06/23/20 05/15/22 Unknown History metoprolol succinate 100 mg 100 mg PO DAILY 06/23/20 05/15/22 Unknown History tablet,extended release 24 hr albuterol sulfate 90 mcg/actuation 2 inh inhalation Q4H PRN Shortness 06/10/21 05/15/22 Unknown History aerosol inhaler (Ventolin HFA) Of Breath irbesartan 300 mg tablet 300 mg PO DAILY 11/06/21 05/15/22 Unknown History amitriptyline 10 mg tablet 1 tab PO BEDTIME 01/30/22 05/15/22 Unknown History aspirin 81 mg tablet,delayed 1 tab PO DAILY 01/31/22 05/15/22 Unknown History release nitroglycerin 0.4 mg sublingual 0.4 mg sublingual Q5M PRN Chest 01/31/22 05/15/22 Unknown History tablet Pain sertraline 25 mg tablet 12.5 mg PO DAILY 03/05/22 05/15/22 Unknown History atorvastatin 20 mg tablet 20 mg PO BEDTIME 05/14/22 05/15/22 Unknown History baclofen 10 mg tablet 10 mg PO TID PRN muscle spasm 05/14/22 05/15/22 Unknown History dulaglutide 3 mg/0.5 mL 3 mg subcut QWEEK 05/14/22 05/15/22 Unknown History subcutaneous pen injector (Trulicity) famotidine 20 mg tablet 20 mg PO BID heartburn 05/14/22 05/15/22 Unknown History fluticasone fur. 100 mcg-umeclid 1 ea inhalation DAILY 05/14/22 05/15/22 Unknown History 62.5 mcg-vilant 25 mcg inhalat.powder (Trelegy Ellipta) pen needle, diabetic 31 gauge x #50 ea 05/14/22 Unknown History 3 (BD Ultra-Fine Mini Pen Needle) pen needle, diabetic 32 gauge x #50 ea 05/14/22 Unknown History (UltiCare Pen Needle) fluticasone fur. 100 mcg-umeclid 1 puff inhalation DAILY 05/15/22 05/15/22 Unknown History 62.5 mcg-vilant 25 mcg inhalat.powder (Trelegy Ellipta) fluticasone propionate 50 2 spray intranasal DAILY 05/15/22 05/15/22 Unknown History mcg/actuation nasal spray,suspension insulin glargine 100 unit/mL (3 24 unit subcut QAM 05/15/22 05/15/22 Unknown History mL) subcutaneous pen (Lantus Solostar U-100 Insulin) sildenafil 100 mg tablet (Viagra) 1 tab PO DAILY PRN Sexual Activity 05/15/22 05/15/22 Unknown History Physical Exam Vital Signs and Narrative: Vital Signs: Last Vital Signs Temp 98.7 F 05/15/22 21:15 Pulse 127 H 05/15/22 21:15 Resp 20 05/15/22 22:30 BP 135/74 05/15/22 21:15 Pulse Ox 90 L 05/15/22 21:15 O2 Del Method 05/15/22 21:15 BMI result Body Mass Index 26.9 Const: Other: patient sitting upright on the side of the bed, does not appear to be in acute distress but appears anxious and diaphoretic General: cooperative, no acute distress and ill appearing Orientation/consciousness: patient oriented x3 Eyes: General: appearance normal, both eyes and all related structures Resp: Other: decreased breath sounds Effort & Inspection: normal respiratory effort Cardio: Rate: regular rate Rhythm: regular rhythm GI: Palpation (GI): Soft to palpation Auscultation: normal bowel sounds Skin: General skin exam: no rashes or lesions noted Neuro: General: patient oriented x3 Cognition (Neuro): normal cognition Extrem: General: Yes normal to inspection and Yes no pedal edema Results Labs CBC and Chem 7: 05/15/22 16:55 05/15/22 16:55 Labs: Laboratory Results - last 24 hr 05/15/22 05/15/22 05/15/22 16:55 16:55 16:55 MCV 99.8 H MCH 32.6 MCHC 32.7 RDW 13.2 Plt Count 117 L D MPV 12.3 Immature Gran % (Auto) 0.6 H Neut % (Auto) 62.3 Lymph % (Auto) 20.8 [place] % (Auto) 14.6 H Eos % (Auto) 1.2 Baso % (Auto) 0.5 Lymph # (Auto) 2.0 [place] # (Auto) 1.4 H Eos # (Auto) 0.1 Baso # (Auto) 0.1 Abs Immat Gran (auto) 0.06 H Absolute Neuts (auto) 6.0 Absolute Nucleated RBC 0.000 Nucleated RBC % (auto) 0.0 O2 Saturation ABG pH at Pt Temp ABG pCO2 at Pt Temp ABG pO2 at Pt Temp ABG HCO3 ABG Base Excess (Actual) VBG pH VBG pCO2 VBG pO2 VBG HCO3 VBG O2 Saturation VBG Base Excess Anion Gap 14 Estim Creat Clear Calc 44.4 Estimated GFR 50 Random Glucose 313 H D Lactic Acid 0.7 Calcium 9.3 D B-Natriuretic Peptide Influenza Type A (PCR) Influenza Type B (PCR) RSV RNA Qual (PCR) SARS-CoV-2 RNA (RT-PCR) 05/15/22 05/15/22 05/15/22 16:55 16:55 17:37 MCV MCH MCHC RDW Plt Count MPV Immature Gran % (Auto) Neut % (Auto) Lymph % (Auto) [place] % (Auto) Eos % (Auto) Baso % (Auto) Lymph # (Auto) [place] # (Auto) Eos # (Auto) Baso # (Auto) Abs Immat Gran (auto) Absolute Neuts (auto) Absolute Nucleated RBC Nucleated RBC % (auto) O2 Saturation 97.0 ABG pH at Pt Temp 7.28 L ABG pCO2 at Pt Temp 63 H* ABG pO2 at Pt Temp 99 ABG HCO3 30 H ABG Base Excess (Actual) 1.3 VBG pH VBG pCO2 VBG pO2 VBG HCO3 VBG O2 Saturation VBG Base Excess Anion Gap Estim Creat Clear Calc Estimated GFR Random Glucose Lactic Acid Calcium B-Natriuretic Peptide 13 Influenza Type A (PCR) NEGATIVE Influenza Type B (PCR) NEGATIVE RSV RNA Qual (PCR) NEGATIVE SARS-CoV-2 RNA (RT-PCR) NEGATIVE 05/15/22 05/16/22 20:39 00:05 MCV MCH MCHC RDW Plt Count MPV Immature Gran % (Auto) Neut % (Auto) Lymph % (Auto) [place] % (Auto) Eos % (Auto) Baso % (Auto) Lymph # (Auto) [place] # (Auto) Eos # (Auto) Baso # (Auto) Abs Immat Gran (auto) Absolute Neuts (auto) Absolute Nucleated RBC Nucleated RBC % (auto) O2 Saturation ABG pH at Pt Temp ABG pCO2 at Pt Temp ABG pO2 at Pt Temp ABG HCO3 ABG Base Excess (Actual) VBG pH 7.32 7.32 VBG pCO2 68 58 VBG pO2 34 44 VBG HCO3 35 H 30 H VBG O2 Saturation 49.0 71.0 VBG Base Excess 6.1 2.2 Anion Gap Estim Creat Clear Calc Estimated GFR Random Glucose Lactic Acid Calcium B-Natriuretic Peptide Influenza Type A (PCR) Influenza Type B (PCR) RSV RNA Qual (PCR) SARS-CoV-2 RNA (RT-PCR) Imaging Radiologist's Impressions: Impressions Chest X-Ray 05/15/22 15:59 IMPRESSION: Hazy basilar opacities favor atelectasis. Otherwise clear lungs. Chest CTA 05/16/22 01:00 IMPRESSION: 1. No pulmonary embolus identified. 2. Bibasilar subsegmental atelectasis and trace pleural effusions. VTE: negative Head CT 05/16/22 01:00 IMPRESSION: No acute intracranial findings. Assessment and Plan (1) Acute on chronic respiratory failure with hypoxia and hypercapnia: Status: Acute (2) Acute exacerbation of COPD with asthma: Status: Acute (3) Encephalopathy: Status: Acute Plan 76-year-old male with past medical history COPD presents to the hospital with acute on chronic respiratory failure found to be hypoxic as well as hypercapnic, and what appears to be encephalopathy # acute on chronic respiratory failure with hypoxia and hypercapnia - secondary to his COPD exacerbation, not on baseline oxygen - no evidence of pneumonia, patient is on multiple sedatives making hypercapnia and CO2 retention a likely recurrence - at this time will treat with Solu-Medrol, DuoNeb p.r.n. as well as scheduled - follow respiratory status # acute COPD exacerbation - no pneumonia, COVID negative - will treat with IV Solu-Medrol, DuoNeb # encephalopathy - likely multifactorial in the setting of polypharmacy as patient is on multiple sedatives including anti- antidepressants, narcotic pain medications as well as benzo - patient also has CO2 retention compounding his encephalopathy - underwent BiPAP placement while in the ED, off bipap now, will repeat VBG - tried ocntacting family for baseline mental status- no answer- left VM - onitor mentation # DM - Continue home insulin - LDSSI - diabetic diet # HTN - stable # DARREN - Will tx with IV fluids - follow BMP DVT ppx: Heparin SubQ given his hypoxia, hypercapnia, need for COPD exacerbation treatment with IV Solu-Medrol, and cephalopathy DARREN needing IV fluids patient will require minimum 2 night hospital stay for further management and monitoring Quality Stroke Does the patient have a stroke diagnosis?: No VTE Prior VTE?: No VTE Risk Level:: Medical - moderate - high VTE Device Contraindication: Treatment Not Indicated VTE Drug Contraindication: N/A - Med Ordered
[2022-05-16] MEDS: Heparin Sodium,Porcine 5,000 UNIT/ML VIAL 5000 UNIT SUBCUT ×2 (05:45→17:36)
[2022-05-16] MEDS: methylPREDNISolone Sod Succ 40 MG/ML VIAL IVPUSH ×2 (05:45→17:36)
[2022-05-16 07:01] LABS: Venous Blood Gas Refer to POC result
[2022-05-16 07:03] LABS: VBG Base Excess 5.1 mmol/L; VBG HCO3 33 mmol/L (22-26); VBG pCO2 61 mmHg; VBG pH 7.33 (7.32-7.43); VBG pO2 42 mmHg
[2022-05-16 07:22] LABS: Glucose, Whole Blood 333 mg/dL (60-115)
[2022-05-16] MEDS: Albuterol/Iprat 2.5/0.5MG 3 ML AMPUL.NEB INHALE ×4 (08:35→19:53)
[2022-05-16] MEDS: Lactated Ringers 1,000 ML 80 ML IVCONT (08:56)
[2022-05-16] MEDS: Insulin Lispro 100 UNIT/ML 3 ML VIAL SUBCUT ×4 (08:57→20:37)
[2022-05-16] MEDS: Cholecalciferol (Vitamin D3) 25 MCG TABLET 50 MCG PO (09:58)
[2022-05-16] MEDS: Ferrous Sulfate 324 MG TABLET.DR PO (09:58)
[2022-05-16] MEDS: Sertraline HCL 25 MG TABLET 12.5 MG PO (09:58)
[2022-05-16] MEDS: Aspirin Enteric Coated 81 MG TABLET.DR PO (09:59)
[2022-05-16] MEDS: Metoprolol Succinate ER 100 MG TAB.ER.24H PO (09:59)
[2022-05-16] MEDS: Famotidine 20 MG TABLET PO ×2 (09:59→20:36)
[2022-05-16] MEDS: Insulin Glargine,Hum.rec.anlog 100 UNIT/ML 10 ML VIAL 24 UNIT SUBCUT (09:59)
[2022-05-16] MEDS: Magnesium Oxide 400 MG TABLET PO ×2 (09:59→20:37)
[2022-05-16 10:44] LABS: Anion Gap 16 (12-20); Blood Urea Nitrogen 22 mg/dL (9-16); Carbon Dioxide 29 mmol/L (22-29); Chloride 100 mmol/L (96-108); Estimated Glomerular Filt Rate > 60; Potassium 4.3 mmol/L (3.3-5.1); Sodium 141 mmol/L (135-145)
[2022-05-16 10:46] LABS: Glucose Random 385 mg/dL (60-115)
--- NOTE | 2022-05-16 10:55 | P.PNIM_ITS ---
Subjective Subjective Date of Service: 05/16/22 Interval History: Seen and examined this morning. 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 Per nurse report, he was noted to desaturate to the mid 80s with ambulation to the bathroom Reports shortness of breath, palpitations, no chest pain Review of Systems Review of Systems: Yes all other systems are reviewed and are negative Constitutional Constitutional: Denies chills and Denies fever(s) Cardiovascular Cardiovascular: Reports palpitations and Reports dyspnea Respiratory Respiratory: Reports dyspnea Gastrointestinal Gastrointestinal: Denies abdominal pain, Denies nausea and Denies vomiting Endocrine Endocrine: Reports palpitations Physical Exam Vital Signs: Vital Signs: Last Vital Signs Temp 98.7 F 05/15/22 21:15 Pulse 108 H 05/16/22 08:36 Resp 18 05/16/22 08:36 BP 144/77 H 05/16/22 08:07 Pulse Ox 91 L 05/16/22 08:07 O2 Del Method 05/16/22 08:07 O2 Flow Rate 1 05/16/22 08:07 BMI result Body Mass Index 26.9 Const: General: cooperative, comfortable, no acute distress, alert and awake Nutritional Appearance: average body habitus Orientation/consciousness: patient oriented x3 Cardio: Rate: regular rate Heart sounds: S1 normal heart sound present and S2 normal heart sound present GI: Inspection: No distended Palpation (GI): Soft to palpation and nontender Neuro: General: patient oriented x3 and CN's II-XI intact bilaterally Extrem: General: Yes no pedal edema Objective Data Active Medications Acetaminophen (Acetaminophen 325 Mg Tablet) 650 mg PO Q6H PRN PRN Reason: Pain, Mild (Pain Scale 1-3) Hydrocodone Bitart/Acetaminophen (Hydrocodone Bit/Acetam 5/325 Tablet) 1 tab PO Q8H PRN PRN Reason: Pain (Scale Score 4-6) Albuterol/Ipratropium (Albuterol/Iprat 2.5/0.5mg 3 Ml Ampul.Neb) 3 ml INHALE RQ4H WHILE AWAKE [facility] Last Admin: 05/16/22 08:35 Dose: 3 ml Documented By: DARCI Aspirin (Aspirin Enteric Coated 81 Mg Tablet.) 81 mg PO DAILY [facility] Last Admin: 05/16/22 09:59 Dose: 81 mg Documented By: TK Atorvastatin Calcium (Atorvastatin Calcium 20 Mg Tablet) 20 mg PO BEDTIME [facility] Baclofen (Baclofen 10 Mg Tablet) 10 mg PO TID PRN PRN Reason: muscle spasm Dextrose (Dextrose 50 % 25 Gm/50 Ml Syringe) 25 gm IVPUSH Q15M PRN; Protocol PRN Reason: per Hypoglycemia Standing Ord. Diazepam (Diazepam 2 Mg Tablet) 2 mg PO TID PRN PRN Reason: muscle twitching Docusate Sodium (Docusate Sodium 100 Mg Capsule) 100 mg PO DAILY PRN PRN Reason: Constipation Famotidine (Famotidine 20 Mg Tablet) 20 mg PO BID [facility] Last Admin: 05/16/22 09:59 Dose: 20 mg Documented By: TK Ferrous Sulfate (Ferrous Sulfate 324 Mg Tablet.Dr) 324 mg PO DAILY [facility] Last Admin: 05/16/22 09:58 Dose: 324 mg Documented By: TK Fluticasone Propionate (Fluticasone Propionate Nasal 16 Gm [place]) 2 spray NOSTRIL-B DAILY [facility] Glucose (Glucose Gel 15 Gm Gel..Gram.) 15 gm PO Q15M PRN; Protocol PRN Reason: per Hypoglycemia Standing Ord. Glucose (Glucose Gel 15 Gm Gel..Gram.) 15 gm PO Q15M PRN; Protocol PRN Reason: Per Hypoglycemia Standing Ord. Heparin Sodium (Porcine) (Heparin Sodium,Porcine 5,000 Unit/Ml Vial) 5,000 unit SUBCUT Q12H [facility] Last Admin: 05/16/22 05:45 Dose: 5,000 unit Documented By: MICHAEL Lactated Ringer's (Lr) 1,000 mls @ 80 mls/hr IVCONT .[id number] [facility] Last Admin: 05/16/22 08:56 Dose: 80 mls/hr Documented By: TK Insulin Glargine (Insulin Glargine,Hum.Rec.Anlog 100 Unit/Ml 10 Ml Vial) 24 unit SUBCUT DAILY [facility] Last Admin: 05/16/22 09:59 Dose: 24 unit Documented By: TK Insulin Human Lispro (Insulin Lispro 100 Unit/Ml 3 Ml Vial) 0 unit SUBCUT QIDACHS [facility]; Protocol Last Admin: 05/16/22 08:57 Dose: 8 unit Documented By: TK Magnesium Oxide (Magnesium Oxide 400 Mg Tablet) 400 mg PO BID [facility] Last Admin: 05/16/22 09:59 Dose: 400 mg Documented By: TK Methylprednisolone Sodium Succinate (Methylprednisolone Sod Succ 40 Mg/Ml Vial) 40 mg IVPUSH Q12H [facility] Last Admin: 05/16/22 05:45 Dose: 40 mg Documented By: MICHAEL Metoprolol Succinate (Metoprolol Succinate Er 100 Mg Tab.Er.24h) 100 mg PO DAILY [facility]; Protocol Last Admin: 05/16/22 09:59 Dose: 100 mg Documented By: TK Nitroglycerin (Nitroglycerin 0.4 Mg Tab.Subl) 0.4 mg SUBLINGUAL Q5M PRN PRN Reason: Chest Pain Non-Formulary Medication (Dulaglutide [Trulicity]) 3 mg SUBCUT Th@1000 [facility] Non-Formulary Medication (Testosterone Cypionate) 200 mg IM Q21D [facility] Ondansetron HCl (Ondansetron Hcl 4 Mg/2 Ml Vial) 4 mg IVPUSH Q8H PRN PRN Reason: Nausea and Vomiting Pharmacy Consult (Consult Rx Perform Med Rec) 1 each MISCELLANE ONCE PRN PRN Reason: Consult order Sertraline HCl (Sertraline Hcl 25 Mg Tablet) 12.5 mg PO DAILY [facility] Last Admin: 05/16/22 09:58 Dose: 12.5 mg Documented By: TK Sodium Chloride (0.9 % Sodium Chloride Flush 3 Ml Syringe) 3 ml IVFLUSH QSHIFT [facility] Last Admin: 05/16/22 08:16 Dose: Not Given Documented By: TK Non-Admin Reason: Med Not Available Tamsulosin HCl (Tamsulosin Hcl 0.4 Mg Capsule) 0.4 mg PO BEDTIME [facility] Valsartan (Valsartan 160 Mg Tablet) 160 mg PO DAILY [facility] Vitamin D (Cholecalciferol (Vitamin D3) 25 Mcg Tablet) 50 mcg PO DAILY [facility] Last Admin: 05/16/22 09:58 Dose: 50 mcg Documented By: TK Labs CBC & Chem 7: 05/15/22 16:55 05/16/22 10:13 Labs: Laboratory Results - last 24 hr 05/15/22 05/15/22 05/15/22 16:55 16:55 16:55 MCV 99.8 H MCH 32.6 MCHC 32.7 RDW 13.2 Plt Count 117 L D MPV 12.3 Immature Gran % (Auto) 0.6 H Neut % (Auto) 62.3 Lymph % (Auto) 20.8 [place] % (Auto) 14.6 H Eos % (Auto) 1.2 Baso % (Auto) 0.5 Lymph # (Auto) 2.0 [place] # (Auto) 1.4 H Eos # (Auto) 0.1 Baso # (Auto) 0.1 Abs Immat Gran (auto) 0.06 H Absolute Neuts (auto) 6.0 Absolute Nucleated RBC 0.000 Nucleated RBC % (auto) 0.0 O2 Saturation ABG pH at Pt Temp ABG pCO2 at Pt Temp ABG pO2 at Pt Temp ABG HCO3 ABG Base Excess (Actual) VBG pH VBG pCO2 VBG pO2 VBG HCO3 VBG O2 Saturation VBG Base Excess Anion Gap 14 Estim Creat Clear Calc 44.4 Estimated GFR 50 POC Glucose Random Glucose 313 H D Lactic Acid 0.7 Calcium 9.3 D B-Natriuretic Peptide Influenza Type A (PCR) Influenza Type B (PCR) RSV RNA Qual (PCR) SARS-CoV-2 RNA (RT-PCR) 05/15/22 05/15/22 05/15/22 16:55 16:55 17:37 MCV MCH MCHC RDW Plt Count MPV Immature Gran % (Auto) Neut % (Auto) Lymph % (Auto) [place] % (Auto) Eos % (Auto) Baso % (Auto) Lymph # (Auto) [place] # (Auto) Eos # (Auto) Baso # (Auto) Abs Immat Gran (auto) Absolute Neuts (auto) Absolute Nucleated RBC Nucleated RBC % (auto) O2 Saturation 97.0 ABG pH at Pt Temp 7.28 L ABG pCO2 at Pt Temp 63 H* ABG pO2 at Pt Temp 99 ABG HCO3 30 H ABG Base Excess (Actual) 1.3 VBG pH VBG pCO2 VBG pO2 VBG HCO3 VBG O2 Saturation VBG Base Excess Anion Gap Estim Creat Clear Calc Estimated GFR POC Glucose Random Glucose Lactic Acid Calcium B-Natriuretic Peptide 13 Influenza Type A (PCR) NEGATIVE Influenza Type B (PCR) NEGATIVE RSV RNA Qual (PCR) NEGATIVE SARS-CoV-2 RNA (RT-PCR) NEGATIVE 05/15/22 05/16/22 05/16/22 20:39 00:05 06:57 MCV MCH MCHC RDW Plt Count MPV Immature Gran % (Auto) Neut % (Auto) Lymph % (Auto) [place] % (Auto) Eos % (Auto) Baso % (Auto) Lymph # (Auto) [place] # (Auto) Eos # (Auto) Baso # (Auto) Abs Immat Gran (auto) Absolute Neuts (auto) Absolute Nucleated RBC Nucleated RBC % (auto) O2 Saturation ABG pH at Pt Temp ABG pCO2 at Pt Temp ABG pO2 at Pt Temp ABG HCO3 ABG Base Excess (Actual) VBG pH 7.32 7.32 7.33 VBG pCO2 68 58 61 VBG pO2 34 44 42 VBG HCO3 35 H 30 H 33 H VBG O2 Saturation 49.0 71.0 66.0 VBG Base Excess 6.1 2.2 5.1 Anion Gap Estim Creat Clear Calc Estimated GFR POC Glucose Random Glucose Lactic Acid Calcium B-Natriuretic Peptide Influenza Type A (PCR) Influenza Type B (PCR) RSV RNA Qual (PCR) SARS-CoV-2 RNA (RT-PCR) 05/16/22 05/16/22 07:18 10:13 MCV MCH MCHC RDW Plt Count MPV Immature Gran % (Auto) Neut % (Auto) Lymph % (Auto) [place] % (Auto) Eos % (Auto) Baso % (Auto) Lymph # (Auto) [place] # (Auto) Eos # (Auto) Baso # (Auto) Abs Immat Gran (auto) Absolute Neuts (auto) Absolute Nucleated RBC Nucleated RBC % (auto) O2 Saturation ABG pH at Pt Temp ABG pCO2 at Pt Temp ABG pO2 at Pt Temp ABG HCO3 ABG Base Excess (Actual) VBG pH VBG pCO2 VBG pO2 VBG HCO3 VBG O2 Saturation VBG Base Excess Anion Gap 16 Estim Creat Clear Calc 52.0 Estimated GFR > 60 POC Glucose 333 H Random Glucose 385 H* Lactic Acid Calcium 9.0 B-Natriuretic Peptide Influenza Type A (PCR) Influenza Type B (PCR) RSV RNA Qual (PCR) SARS-CoV-2 RNA (RT-PCR) Assessment and Plan (1) Encephalopathy: Status: Acute (2) Acute exacerbation of COPD with asthma: Status: Acute (3) Acute on chronic respiratory failure with hypoxia and hypercapnia: Status: Acute Plan 76-year-old male with past medical history COPD presents to the hospital with acute on chronic respiratory failure found to be hypoxic as well as hypercapnic, and what appears to be encephalopathy acute on chronic respiratory failure with hypoxia and hypercapnia secondary to his COPD exacerbation, not on baseline oxygen - no evidence of pneumonia, patient is on multiple sedatives likely contributing to hypercapnia and CO2 retention - continue treatment for COPD - follow respiratory status acute COPD exacerbation COVID negative -continue IV Solu-Medrol, DuoNeb -pulmonology consult toxic metabolic encephalopathy Brain CT negative, no focal neurological deficits likely multifactorial in the setting of polypharmacy as patient is on multiple sedatives including anti- antidepressants, narcotic pain medications as well as benzos and well as CO2 retention compounding his encephalopathy -baclofen, Valium are ordered prn, will decrease doses palpitations repeat EKG if persistent will obtain cardiology consult -monitor on tele DM - Continue home insulin - SSI, ada diet HTN Continue valsartan, metoprolol BPH Continue Flomax DARREN Creatinine initially 1.37, down to 1.17 with IV fluid. close to baseline follow BMP DVT ppx: Heparin SubQ attending - dr. fitzgerald Patient requires ongoing inpatient hospitalization for management of acute COPD exacerbation, hypoxia and encephalopathy Quality Stroke Does the patient have a stroke diagnosis?: No VTE Prior VTE?: No VTE Risk Level:: Medical - moderate - high VTE Device Contraindication: Treatment Not Indicated VTE Drug Contraindication: N/A - Med Ordered
[2022-05-16] MEDS: Fluticasone Propionate Nasal 16 GM SPRAY 2 SPRAY NOSTRIL-B (11:19)
[2022-05-16] MEDS: Valsartan 160 MG TABLET PO (11:19)
[2022-05-16 11:36] LABS: Glucose, Whole Blood 285 mg/dL (60-115)
--- NOTE | 2022-05-16 12:12 | MHC.CM.PN ---
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
[2022-05-16 13:22] LABS: Glucose, Whole Blood 258 mg/dL (60-115)
--- NOTE | 2022-05-16 13:51 | MHC.CM.PN ---
Addendum entered by Sierra Pham 05/16/22 13:54: PATIENTS [facility] CRUDE TESTER ELOISE SCHMITT Original Note: CM RECEIVED A CALL FROM LESLIE [facility], PATIENT'S INSURANCE, REQUESTING MD DISCHARGE PATIENT WITH [facility] FOR DISEASE TEACHING (DM) AND MEDICATION MANAGEMENT. MD HAS BEEN INFORMED. [facility] REQUEST COMPLETED.
[2022-05-16] MEDS: 0.9 % Sodium Chloride Flush 3 ML SYRINGE IVFLUSH ×2 (17:02→20:37)
[2022-05-16 17:08] LABS: Glucose, Whole Blood 302 mg/dL (60-115)
--- NOTE | 2022-05-16 18:44 | PC.NURSE ---
Patient taking oxygen off, appears disoriented and confused. Re-oriented to time and place using lapper. Patient repositioned in chair for comfort but did not last long. MD aware. Video sitter at bedside
[2022-05-16 19:56] LABS: Glucose, Whole Blood 215 mg/dL (60-115)
[2022-05-16] MEDS: Atorvastatin Calcium 20 MG TABLET PO (20:36)
[2022-05-16] MEDS: Tamsulosin HCL 0.4 MG CAPSULE PO (20:37)
[2022-05-16] MEDS: traZODone HCL 50 MG TABLET PO (21:41)
[2022-05-16 22:59] LABS: Appearance Urine Clear; Color Urine Yellow; Glucose Urine UA 250 mg/dL (Negative); Leukocyte Esterase Urine Negative (Negative); Nitrite Urine Negative (Negative); PH 5.5 (5.0-8.0); Specific Gravity - Urine 1.015 (1.005-1.025); Urine Blood Small (1+) (Negative); Urine Ketones Negative (Negative); Urine Protein Trace mg/dL (Neg-Trace)
[2022-05-16 23:10] LABS: Bacteria Urine None Seen (None Seen); Hyaline Casts Urine 0-2 /LPF (0-2); RBC Urine 0-2 /HPF (0-2); Squamous Epithelial Cell Urine 0-2 /HPF (0-2); WBC Urine 0-5 /HPF (0-5)
[2022-05-17] VITALS (25 sets, daily range): BP systolic 119–156; BP diastolic 66–85; PULSE 74–103; RESP 12–26; TEMP 36–36.4; O2SAT 81–97
--- NOTE | 2022-05-17 02:31 | PM.EVENT ---
Event Note Date of Service: 05/17/22 Event Note: pt becoming agitated, combative, pulling oxygen off face and becoming hypoxic. given trazodone with no effect. WIll give haldol
[2022-05-17] MEDS: Haloperidol Lactate 5 MG/ML VIAL 2.5 MG IVPUSH (02:39)
[2022-05-17] MEDS: Heparin Sodium,Porcine 5,000 UNIT/ML VIAL 5000 UNIT SUBCUT ×2 (05:14→16:47)
[2022-05-17] MEDS: methylPREDNISolone Sod Succ 40 MG/ML VIAL IVPUSH ×3 (05:14→22:22)
--- NOTE | 2022-05-17 05:41 | PC.NURSE ---
Received pt at start of the shift restless, confused and only oriented to self, and very hard to redirect, pacing in room, VS WNL, ST low 100s in tele, Dr. Flores was made aware, Trazodone given, slept on a recliner after. Around 2am pt woke up more confused, grabbing, combative and pulling off tele wires and O2 tube and unredirectible, unsteady as attempting to get up, O2 sats noted at 81 % RA, 93% when O2 was back on, security was called, noted O2 at Dr. Flores came to bedside, Haldol 2.5 mg IV given, pt slept soundly after.
[2022-05-17 06:29] LABS: Anion Gap 12 (12-20); Blood Urea Nitrogen 25 mg/dL (9-16); Calcium 8.6 mg/dL (8.4-10.2); Carbon Dioxide 33 mmol/L (22-29); Chloride 101 mmol/L (96-108); Creatinine Clr Calc Pharmacy 64.7; Estimated Glomerular Filt Rate > 60; Glucose Random 244 mg/dL (60-115); Potassium 5.3 mmol/L (3.3-5.1); Sodium 141 mmol/L (135-145)
[2022-05-17 07:34] LABS: Glucose, Whole Blood 215 mg/dL (60-115)
[2022-05-17] MEDS: 0.9 % Sodium Chloride Flush 3 ML SYRINGE IVFLUSH ×3 (08:14→22:22)
--- NOTE | 2022-05-17 09:12 | HO.PM.IMPN ---
Subjective Subjective Date of Service: 05/17/22 Interval History: Seen and examined this morning Follow-up for acute COPD exacerbation Initially admitted with encephalopathy, patient was alert and oriented yesterday morning during evaluation but became confused and agitated overnight. Received a dose of IV Haldol. This morning patient is sleepy, difficult to obtain history. He is following basic commands but overall difficult to understand. Review of Systems Review of Systems: Yes Unobtainable due to mental condition Constitutional Constitutional: Reports chills and Reports fever(s) Physical Exam Vital Signs: Vital Signs: Last Vital Signs Temp 96.9 F 05/17/22 07:42 Pulse 96 05/17/22 07:42 Resp 14 05/17/22 07:42 BP 131/74 05/17/22 07:42 Pulse Ox 94 05/17/22 07:42 O2 Del Method 05/17/22 07:42 O2 Flow Rate 2.0 05/17/22 07:42 BMI result Body Mass Index 26.9 Const: Other: sleepy, arousable to verbal stimuli but falling back to sleep appears comfortable When asked what his name is or where he is he shrugs his shoulders Resp: Other: scattered wheezing Effort & Inspection: normal respiratory effort Auscultation: diminished lung sounds Cardio: Rate: regular rate Heart sounds: S1 normal heart sound present and S2 normal heart sound present GI: Other: Abdomen soft, positive bowel sounds, no guarding, no rebound Neuro: Other: Confused, moving all four extremities; hand grasp equal bilaterally General: Unable to assess gait Gait exam (Neuro): Unable to assess gait Extrem: General: Yes no pedal edema Objective Data Active Medications Acetaminophen (Acetaminophen 325 Mg Tablet) 650 mg PO Q6H PRN PRN Reason: Pain, Mild (Pain Scale 1-3) Hydrocodone Bitart/Acetaminophen (Hydrocodone Bit/Acetam 5/325 Tablet) 1 tab PO Q8H PRN PRN Reason: Pain (Scale Score 4-6) Albuterol/Ipratropium (Albuterol/Iprat 2.5/0.5mg 3 Ml Ampul.Neb) 3 ml INHALE RQ4H WHILE AWAKE [facility] Last Admin: 05/16/22 19:53 Dose: 3 ml Documented By: SHAYAN Aspirin (Aspirin Enteric Coated 81 Mg Tablet.) 81 mg PO DAILY [facility] Last Admin: 05/16/22 09:59 Dose: 81 mg Documented By: TK Atorvastatin Calcium (Atorvastatin Calcium 20 Mg Tablet) 20 mg PO BEDTIME [facility] Last Admin: 05/16/22 20:36 Dose: 20 mg Documented By: BERENICE Baclofen (Baclofen 10 Mg Tablet) 5 mg PO TID PRN PRN Reason: muscle spasm Dextrose (Dextrose 50 % 25 Gm/50 Ml Syringe) 25 gm IVPUSH Q15M PRN; Protocol PRN Reason: per Hypoglycemia Standing Ord. Diazepam (Diazepam 2 Mg Tablet) 1 mg PO BID PRN PRN Reason: muscle twitching Docusate Sodium (Docusate Sodium 100 Mg Capsule) 100 mg PO DAILY PRN PRN Reason: Constipation Famotidine (Famotidine 20 Mg Tablet) 20 mg PO BID [facility] Last Admin: 05/16/22 20:36 Dose: 20 mg Documented By: BERENICE Ferrous Sulfate (Ferrous Sulfate 324 Mg Tablet.Dr) 324 mg PO DAILY [facility] Last Admin: 05/16/22 09:58 Dose: 324 mg Documented By: TK Fluticasone Propionate (Fluticasone Propionate Nasal 16 Gm [place]) 2 spray NOSTRIL-B DAILY [facility] Last Admin: 05/16/22 11:19 Dose: 2 spray Documented By: TK Glucose (Glucose Gel 15 Gm Gel..Gram.) 15 gm PO Q15M PRN; Protocol PRN Reason: per Hypoglycemia Standing Ord. Glucose (Glucose Gel 15 Gm Gel..Gram.) 15 gm PO Q15M PRN; Protocol PRN Reason: Per Hypoglycemia Standing Ord. Heparin Sodium (Porcine) (Heparin Sodium,Porcine 5,000 Unit/Ml Vial) 5,000 unit SUBCUT Q12H [facility] Last Admin: 05/17/22 05:14 Dose: 5,000 unit Documented By: BERENICE Insulin Glargine (Insulin Glargine,Hum.Rec.Anlog 100 Unit/Ml 10 Ml Vial) 24 unit SUBCUT DAILY [facility] Last Admin: 05/17/22 08:13 Dose: Not Given Documented By: JORGE LUIS Non-Admin Reason: patient not eating Insulin Human Lispro (Insulin Lispro 100 Unit/Ml 3 Ml Vial) 0 unit SUBCUT QIDACHS [facility]; Protocol Last Admin: 05/17/22 08:13 Dose: Not Given Documented By: JORGE LUIS Non-Admin Reason: patient not eating Magnesium Oxide (Magnesium Oxide 400 Mg Tablet) 400 mg PO BID [facility] Last Admin: 05/16/22 20:37 Dose: 400 mg Documented By: BERENICE Methylprednisolone Sodium Succinate (Methylprednisolone Sod Succ 40 Mg/Ml Vial) 40 mg IVPUSH Q12H [facility] Last Admin: 05/17/22 05:14 Dose: 40 mg Documented By: BERENICE Metoprolol Succinate (Metoprolol Succinate Er 100 Mg Tab.Er.24h) 100 mg PO DAILY [facility]; Protocol Last Admin: 05/16/22 09:59 Dose: 100 mg Documented By: TK Nitroglycerin (Nitroglycerin 0.4 Mg Tab.Subl) 0.4 mg SUBLINGUAL Q5M PRN PRN Reason: Chest Pain Non-Formulary Medication (Dulaglutide [Trulicity]) 3 mg SUBCUT Th@1000 [facility] Ondansetron HCl (Ondansetron Hcl 4 Mg/2 Ml Vial) 4 mg IVPUSH Q8H PRN PRN Reason: Nausea and Vomiting Pharmacy Consult (Consult Rx Perform Med Rec) 1 each MISCELLANE ONCE PRN PRN Reason: Consult order Sertraline HCl (Sertraline Hcl 25 Mg Tablet) 12.5 mg PO DAILY [facility] Last Admin: 05/16/22 09:58 Dose: 12.5 mg Documented By: TK Sodium Chloride (0.9 % Sodium Chloride Flush 3 Ml Syringe) 3 ml IVFLUSH QSHIFT [facility] Last Admin: 05/17/22 08:14 Dose: 3 ml Documented By: JORGE LUIS Tamsulosin HCl (Tamsulosin Hcl 0.4 Mg Capsule) 0.4 mg PO BEDTIME [facility] Last Admin: 05/16/22 20:37 Dose: 0.4 mg Documented By: BERENICE Valsartan (Valsartan 160 Mg Tablet) 160 mg PO DAILY [facility] Last Admin: 05/16/22 11:19 Dose: 160 mg Documented By: TK Vitamin D (Cholecalciferol (Vitamin D3) 25 Mcg Tablet) 50 mcg PO DAILY [facility] Last Admin: 05/16/22 09:58 Dose: 50 mcg Documented By: TK Labs CBC & Chem 7: 05/15/22 16:55 05/17/22 05:45 Labs: Laboratory Results - last 24 hr 05/16/22 05/16/22 05/16/22 10:13 10:13 11:29 Anion Gap 16 Estim Creat Clear Calc 52.0 Estimated GFR > 60 POC Glucose 285 H Random Glucose 385 H* Calcium 9.0 TSH 0.60 Urine Color Urine Appearance Urine pH Ur Specific [place] Urine Protein Urine Glucose (UA) Urine Ketones Urine Blood Urine Nitrite Ur Leukocyte Esterase Urine RBC Urine WBC Ur Squamous Epith Cells Urine Bacteria Hyaline Casts 05/16/22 05/16/22 05/16/22 13:19 16:59 19:37 Anion Gap Estim Creat Clear Calc Estimated GFR POC Glucose 258 H 302 H 215 H Random Glucose Calcium TSH Urine Color Urine Appearance Urine pH Ur Specific [place] Urine Protein Urine Glucose (UA) Urine Ketones Urine Blood Urine Nitrite Ur Leukocyte Esterase Urine RBC Urine WBC Ur Squamous Epith Cells Urine Bacteria Hyaline Casts 05/16/22 05/17/22 05/17/22 22:35 05:45 07:14 Anion Gap 12 Estim Creat Clear Calc 64.7 Estimated GFR > 60 POC Glucose 215 H Random Glucose 244 H D Calcium 8.6 TSH Urine Color Yellow Urine Appearance Clear Urine pH 5.5 Ur Specific [place] 1.015 Urine Protein Trace Urine Glucose (UA) 250 H Urine Ketones Negative Urine Blood Small (1+) H Urine Nitrite Negative Ur Leukocyte Esterase Negative Urine RBC 0-2 Urine WBC 0-5 Ur Squamous Epith Cells 0-2 Urine Bacteria None Seen Hyaline Casts 0-2 Microbiology Microbiology Results: Microbiology 05/15/22 17:21 Blood Culture - Preliminary Blood - Venous No growth after 24 hours. 05/15/22 16:55 Blood Culture - Preliminary Blood - Venous No growth after 24 hours. Assessment and Plan (1) Encephalopathy: Status: Acute (2) Acute exacerbation of COPD with asthma: Status: Acute Plan 76-year-old male with past medical history COPD presents to the hospital with acute on chronic respiratory failure found to be hypoxic as well as hypercapnic, and what appears to be encephalopathy toxic metabolic encephalopathy Brain CT negative, no focal neurological deficits. was alert and oriented yesterday but became confused and agitated overnight; received trazodone and haldol and sleepy this am - difficult to assess likely multifactorial in the setting of polypharmacy as patient is on multiple sedatives including anti- antidepressants, narcotic pain medications as well as benzos and well as CO2 retention compounding his encephalopathy no known history of dementia ? - attempted to call both contact listed in computer, both unanswered -baclofen, Valium are ordered prn, will decrease doses, so far has not received since admission -check tox screen, b12, folate, TSH acute on chronic respiratory failure with hypoxia and hypercapnia secondary to his COPD exacerbation, not on baseline oxygen no evidence of pneumonia, patient is on multiple sedatives likely contributing to hypercapnia and CO2 retention - continue treatment for COPD - follow respiratory status - pulmonology consult pending - repeat VBG acute COPD exacerbation COVID negative -continue IV Solu-Medrol, DuoNeb -pulmonology consult Hyperkalemia k 5.3 will repeat this afternoon, if still elevated will give lokelma follow BMP DARREN Resolved with IVF follow BMP palpitations repeat EKG with sinus tachycardia tachycardia resolved -monitor on tele DM - Continue home insulin - SSI, ada diet HTN Continue valsartan, metoprolol BPH Continue Flomax DVT ppx: Heparin SubQ attending - dr. painter Patient requires ongoing inpatient hospitalization for management of acute COPD exacerbation, hypoxia and encephalopathy Quality Stroke Does the patient have a stroke diagnosis?: No VTE Prior VTE?: No VTE Risk Level:: Medical - moderate - high VTE Device Contraindication: Treatment Not Indicated VTE Drug Contraindication: N/A - Med Ordered
[2022-05-17 09:33] LABS: VBG Base Excess 8.2 mmol/L; VBG HCO3 37 mmol/L (22-26); VBG pCO2 69 mmHg; VBG pH 7.33 (7.32-7.43); VBG pO2 118 mmHg
[2022-05-17 09:39] LABS: Alanine Aminotransferase 22 U/L (0-40); Albumin Level 3.8 g/dL (3.5-5.0); Alkaline Phosphatase 72 U/L (39-117); Aspartate Amino Transferase 26 U/L (5-37); Bilirubin Direct 0.2 mg/dL (0.0-0.5); Bilirubin Total 0.5 mg/dL (0.0-1.0); Total Protein 6.2 g/dL (6.5-8.0)
[2022-05-17 09:42] LABS: Venous Blood Gas Refer to POC result
[2022-05-17 10:16] LABS: Folate 11.1 ng/mL (> or = 4.0); Vitamin B12 302 pg/mL (200-900)
--- NOTE | 2022-05-17 10:45 | PC.NURSE ---
Addendum entered by Lizbet Luke RN 05/17/22 11:32: ABG results back pH7.26, Co2 87, HCO3 40. Bhavana GRIJALVA made aware. Order for Bipap and transfer to ICU. Report given to ICU nurse and patient transferred to ICU. Original Note: Patient became restless and agitated. Upon assessment patient was noted to be using accessory muscles to breath and o2 sat was 80% on 2L NC. Bhavana GRIJALVA made aware and at bedside. O2 increased to 4L NC, Patient recovered to 95%. Stat chest xray and ABG ordered. Continuous o2 monitoring applied. Patient currently weaned back to 2L NC sating at 97%. Awaiting ABG and chest xray results. Will continue to monitor.
--- NOTE | 2022-05-17 10:47 | PM.CNPUL ---
History of Present Illness History of Present Illness Consult date: 05/17/22 Requesting physician: Bhavana Triana Reason for consult: COPD and other (Respiratory failure) Chief complaint: COPD Exacerbation Narrative: This 76 years old gentleman, Gambian speaking, admitted since yesterday, is seen by me this morning for pulmonary consultation. He has been seen by me as outpatient recently, after his discharge from the hospital in January of this year. He does have history of chronic obstructive pulmonary disease for the last many years. Has had frequent emergency room visits and a few hospitalizations this year, He is [place]ian-speaking, has a relatively poor understanding of his disease and is mainly supervised by his MAINTENANCE TECHNICIAN at home. Currently he is on Trelegy 1 inhalation daily, and albuterol inhalers p.r.n., and was doing fairly well, Patient also has history of obstructive sleep apnea in the past, did use CPAP for a while in the past but then stopped using it. When I saw him couple months ago in the office, I had ordered a E lab based sleep study, to see if he still has sleep apnea. This study was completed only a few nights ago. Should be noted that he has lost significant weight in the last few years. And the current polysomnogram study does not show any evidence of obstructive sleep apnea, his total sleep time AHI was only 1.8. He does have evidence of periodic limb movement disorder, which may be causing some disturbance of his sleep. The sleep was of very poor quality mostly in the senior quality control inspector stages and mostly interrupted. This gentleman also has multiple other medical problems especially that of chronic pain, diabetes mellitus and peripheral neuropathy, GERD symptoms, BPH and erectile dysfunction, hypertension and history of chest pain secondary to angina pectoralis. List of his medications includes the acetaminophen with hydrocodone which he takes 3 times a day, Valium 2 mg b.i.d. p.r.n. also takes Amitrypltiline 25 mg at nighttime. Details are not fully available but according to the notes the he has quit smoking and denied any excessive drinking of alcohol. Currently he has come to the hospital through emergency room with about 1 weeks history of not feeling well, and having more shortness of breath, his O2 sats were noted to be low at the time of arrival to the emergency room. Blood gas study showed CO2 retention. He was treated with BiPAP for a few hours in the emergency room then removed. While his respiratory status was relatively stable, during the night he became quite agitated and required a dose of Haldol to to calm down. This morning at the time of my examination he is sedated, breathing regularly, not showing any respiratory distress, but he is not awake enough to do any conversation. Review of Systems Review of Systems: Yes Unobtainable due to mental condition [facility] Past Medical History Medical History (Updated 05/17/22 @ 11:07 by Isacc Chilel MD) Anemia Benign prostatic hyperplasia without lower urinary tract symptoms Chest pain Chronic GERD Erectile dysfunction HLD (hyperlipidemia) HTN (hypertension) Hypertriglyceridemia Hypertrophic cardiomegaly Hypoventilation syndrome Hypoxia Mild bibasilar atelectasis STEPH (obstructive sleep apnea) Osteoarthritis Reactive airway disease T2DM (type 2 diabetes mellitus) Type 2 diabetes mellitus Uncontrolled type 2 diabetes mellitus with hyperglycemia Vitamin D deficiency Family History Family History Father No problems noted. Mother No problems noted. Surgical History Surgical History History of eye surgery History of left knee surgery History of removal of testicle Social History Social History Household Members: None Housing: House Do you presently have visiting nurse or other home services: Yes (MAINTENANCE TECHNICIAN for 13 hrs /day. Visiting nurse weekly) Alcohol intake: never Patient Tobacco Use Status: Never used Tobacco Advance Directives Date on File: 01/31/22 service: No Current occupational status: disabled Meds Allergies Allergy/AdvReac Type Severity Reaction Status Date / Time No Known Allergies Allergy Verified 05/14/22 08:35 Active Medications: Current Medications Acetaminophen (Acetaminophen 325 Mg Tablet) 650 mg PO Q6H PRN PRN Reason: Pain, Mild (Pain Scale 1-3) Hydrocodone Bitart/Acetaminophen (Hydrocodone Bit/Acetam 5/325 Tablet) 1 tab PO Q8H PRN PRN Reason: Pain (Scale Score 4-6) Albuterol/Ipratropium (Albuterol/Iprat 2.5/0.5mg 3 Ml Ampul.Neb) 3 ml INHALE RQ4H WHILE AWAKE JENNA Last Admin: 08/27/22 09:59 Dose: Not Given Aspirin (Aspirin Enteric Coated 81 Mg Tablet.) 81 mg PO DAILY [facility] Last Admin: 05/16/22 09:59 Dose: 81 mg Atorvastatin Calcium (Atorvastatin Calcium 20 Mg Tablet) 20 mg PO BEDTIME [facility] Last Admin: 05/16/22 20:36 Dose: 20 mg Baclofen (Baclofen 10 Mg Tablet) 5 mg PO TID PRN PRN Reason: muscle spasm Dextrose (Dextrose 50 % 25 Gm/50 Ml Syringe) 25 gm IVPUSH Q15M PRN; Protocol PRN Reason: per Hypoglycemia Standing Ord. Diazepam (Diazepam 2 Mg Tablet) 1 mg PO BID PRN PRN Reason: muscle twitching Docusate Sodium (Docusate Sodium 100 Mg Capsule) 100 mg PO DAILY PRN PRN Reason: Constipation Famotidine (Famotidine 20 Mg Tablet) 20 mg PO BID [facility] Last Admin: 05/16/22 20:36 Dose: 20 mg Ferrous Sulfate (Ferrous Sulfate 324 Mg Tablet.) 324 mg PO DAILY [facility] Last Admin: 05/16/22 09:58 Dose: 324 mg Fluticasone Propionate (Fluticasone Propionate Nasal 16 Gm [place]) 2 spray NOSTRIL-B DAILY [facility] Last Admin: 05/17/22 09:59 Dose: Not Given Glucose (Glucose Gel 15 Gm Gel..Gram.) 15 gm PO Q15M PRN; Protocol PRN Reason: per Hypoglycemia Standing Ord. Glucose (Glucose Gel 15 Gm Gel..Gram.) 15 gm PO Q15M PRN; Protocol PRN Reason: Per Hypoglycemia Standing Ord. Heparin Sodium (Porcine) (Heparin Sodium,Porcine 5,000 Unit/Ml Vial) 5,000 unit SUBCUT Q12H [facility] Last Admin: 05/17/22 05:14 Dose: 5,000 unit Insulin Glargine (Insulin Glargine,Hum.Rec.Anlog 100 Unit/Ml 10 Ml Vial) 24 unit SUBCUT DAILY [facility] Last Admin: 05/17/22 08:13 Dose: Not Given Insulin Human Lispro (Insulin Lispro 100 Unit/Ml 3 Ml Vial) 0 unit SUBCUT QIDACHS [facility]; Protocol Last Admin: 05/17/22 08:13 Dose: Not Given Magnesium Oxide (Magnesium Oxide 400 Mg Tablet) 400 mg PO BID [facility] Last Admin: 05/16/22 20:37 Dose: 400 mg Methylprednisolone Sodium Succinate (Methylprednisolone Sod Succ 40 Mg/Ml Vial) 40 mg IVPUSH Q12H [facility] Last Admin: 05/17/22 05:14 Dose: 40 mg Metoprolol Succinate (Metoprolol Succinate Er 100 Mg Tab.Er.24h) 100 mg PO DAILY [facility]; Protocol Last Admin: 05/16/22 09:59 Dose: 100 mg Nitroglycerin (Nitroglycerin 0.4 Mg Tab.Subl) 0.4 mg SUBLINGUAL Q5M PRN PRN Reason: Chest Pain Non-Formulary Medication (Dulaglutide [Trulicity]) 3 mg SUBCUT Th@1000 [facility] Ondansetron HCl (Ondansetron Hcl 4 Mg/2 Ml Vial) 4 mg IVPUSH Q8H PRN PRN Reason: Nausea and Vomiting Pharmacy Consult (Consult Rx Perform Med Rec) 1 each MISCELLANE ONCE PRN PRN Reason: Consult order Sertraline HCl (Sertraline Hcl 25 Mg Tablet) 12.5 mg PO DAILY [facility] Last Admin: 05/16/22 09:58 Dose: 12.5 mg Sodium Chloride (0.9 % Sodium Chloride Flush 3 Ml Syringe) 3 ml IVFLUSH QSHIFT [facility] Last Admin: 05/17/22 08:14 Dose: 3 ml Tamsulosin HCl (Tamsulosin Hcl 0.4 Mg Capsule) 0.4 mg PO BEDTIME [facility] Last Admin: 05/16/22 20:37 Dose: 0.4 mg Valsartan (Valsartan 160 Mg Tablet) 160 mg PO DAILY [facility] Last Admin: 05/16/22 11:19 Dose: 160 mg Vitamin D (Cholecalciferol (Vitamin D3) 25 Mcg Tablet) 50 mcg PO DAILY [facility] Last Admin: 05/16/22 09:58 Dose: 50 mcg Home Medications Medication Instructions Recorded Confirmed Last Taken Type cholecalciferol (vitamin D3) 50 50 mcg PO DAILY 06/23/20 05/15/22 Unknown History mcg (2,000 unit) tablet ferrous sulfate 325 mg (65 mg 325 mg PO DAILY 06/23/20 05/15/22 Unknown History iron) tablet hydrocodone 5 mg-acetaminophen 300 1 tab PO Q8H PRN Pain (Scale Score 06/23/20 05/15/22 Unknown History mg tablet 4-6) lancets 33 gauge #100 ea 06/23/20 04/14/22 Unknown History magnesium oxide 400 mg PO BID 06/23/20 05/15/22 Unknown History metoprolol succinate 100 mg 100 mg PO DAILY 06/23/20 05/15/22 Unknown History tablet,extended release 24 hr albuterol sulfate 90 mcg/actuation 2 inh inhalation Q4H PRN Shortness 06/10/21 05/15/22 Unknown History aerosol inhaler (Ventolin HFA) Of Breath irbesartan 300 mg tablet 300 mg PO DAILY 11/06/21 05/15/22 Unknown History amitriptyline 10 mg tablet 1 tab PO BEDTIME 01/30/22 05/15/22 Unknown History aspirin 81 mg tablet,delayed 1 tab PO DAILY 01/31/22 05/15/22 Unknown History release nitroglycerin 0.4 mg sublingual 0.4 mg sublingual Q5M PRN Chest 01/31/22 05/15/22 Unknown History tablet Pain sertraline 25 mg tablet 12.5 mg PO DAILY 03/05/22 05/15/22 Unknown History atorvastatin 20 mg tablet 20 mg PO BEDTIME 05/14/22 05/15/22 Unknown History baclofen 10 mg tablet 10 mg PO TID PRN muscle spasm 05/14/22 05/15/22 Unknown History dulaglutide 3 mg/0.5 mL 3 mg subcut QWEEK 05/14/22 05/15/22 Unknown History subcutaneous pen injector (Trulicity) famotidine 20 mg tablet 20 mg PO BID heartburn 05/14/22 05/15/22 Unknown History fluticasone fur. 100 mcg-umeclid 1 ea inhalation DAILY 05/14/22 05/15/22 Unknown History 62.5 mcg-vilant 25 mcg inhalat.powder (Trelegy Ellipta) pen needle, diabetic 31 gauge x #50 ea 05/14/22 Unknown History 3 (BD Ultra-Fine Mini Pen Needle) pen needle, diabetic 32 gauge x #50 ea 05/14/22 Unknown History (UltiCare Pen Needle) fluticasone fur. 100 mcg-umeclid 1 puff inhalation DAILY 05/15/22 05/15/22 Unknown History 62.5 mcg-vilant 25 mcg inhalat.powder (Trelegy Ellipta) fluticasone propionate 50 2 spray intranasal DAILY 05/15/22 05/15/22 Unknown History mcg/actuation nasal spray,suspension insulin glargine 100 unit/mL (3 24 unit subcut QAM 05/15/22 05/15/22 Unknown History mL) subcutaneous pen (Lantus Solostar U-100 Insulin) sildenafil 100 mg tablet (Viagra) 1 tab PO DAILY PRN Sexual Activity 05/15/22 05/15/22 Unknown History Physical Exam Vital Signs: Vital Signs: Last Vital Signs Temp 96.9 F 05/17/22 07:42 Pulse 96 05/17/22 07:42 Resp 14 05/17/22 07:42 BP 131/74 05/17/22 07:42 Pulse Ox 94 05/17/22 07:42 O2 Del Method 05/17/22 07:42 O2 Flow Rate 2.0 05/17/22 07:42 BMI result Body Mass Index 26.9 Const: General: no acute distress and other (Sedated and non-conversant at this time); No alert or awake HEENT: Head: Yes normal to inspection General nose exam: No nasal polyps present and No nasal discharge present Face and sinus: Yes sinuses nontender Mouth: oropharynx normal Eyes: General: appearance normal, both eyes and all related structures Neck: Neck: Yes normal visual inspection, Yes no lymphadenopathy, Yes trachea midline and Yes no JVD Thyroid: Thyroid normal Chest: Chest palpation & inspection: normal inspection of the chest, normal palpation of entire chest wall and no tenderness Resp: Other: Percussion note is resonant, breath sounds are distant on both sides. Has inspiratory crepitations over the basilar areas. No wheezes are heard. Cardio: Palpation: normal PMI Rate: regular rate Rhythm: regular rhythm Heart sounds: no gallops and no murmurs GI: Palpation (GI): Soft to palpation, nontender, No hepatosplenomegaly present and no masses Auscultation: normal bowel sounds Back/Spine/Pelvis: Thoracic/Lumbar Spine: thoracic and lumbar spine normal to inspection Skin: General skin exam: no rashes or lesions noted Neuro: General: No gait normal (Cannot be assessed) Extrem: General: Yes normal to inspection, Yes no clubbing, cyanosis or edema and Yes no calf tenderness Psych: Mental Status: other (Patient has been agitated during the night,currently sedated,not conversing) Results Laboratory Findings CBC and BMP: 05/15/22 16:55 05/17/22 05:45 Abnormal lab findings: Abnormal Labs 05/15/22 05/15/22 05/15/22 16:55 16:55 17:37 MCV 99.8 H Plt Count 117 L D Immature Gran % (Auto) 0.6 H Mcclain % (Auto) 14.6 H Mcclain # (Auto) 1.4 H Abs Immat Gran (auto) 0.06 H ABG pH at Pt Temp 7.28 L ABG pCO2 at Pt Temp 63 H* ABG HCO3 30 H VBG HCO3 Potassium Chloride 94 L Carbon Dioxide 35 H BUN 21 H D POC Glucose Random Glucose 313 H D Total Protein Urine Glucose (UA) Urine Blood 05/15/22 05/16/22 05/16/22 20:39 00:05 06:57 MCV Plt Count Immature Gran % (Auto) Mcclain % (Auto) Mcclain # (Auto) Abs Immat Gran (auto) ABG pH at Pt Temp ABG pCO2 at Pt Temp ABG HCO3 VBG HCO3 35 H 30 H 33 H Potassium Chloride Carbon Dioxide BUN POC Glucose Random Glucose Total Protein Urine Glucose (UA) Urine Blood 05/16/22 05/16/22 05/16/22 07:18 10:13 11:29 MCV Plt Count Immature Gran % (Auto) Mccl[place] % (Auto) [place]cl[place] # (Auto) Abs Immat Gran (auto) ABG pH at Pt Temp ABG pCO2 at Pt Temp ABG HCO3 VBG HCO3 Potassium Chloride Carbon Dioxide BUN 22 H POC Glucose 333 H 285 H Random Glucose 385 H* Total Protein Urine Glucose (UA) Urine Blood 05/16/22 05/16/22 05/16/22 13:19 16:59 19:37 MCV Plt Count Immature Gran % (Auto) Mcclain % (Auto) Mccl[place] # (Auto) Abs Immat Gran (auto) ABG pH at Pt Temp ABG pCO2 at Pt Temp ABG HCO3 VBG HCO3 Potassium Chloride Carbon Dioxide BUN POC Glucose 258 H 302 H 215 H Random Glucose Total Protein Urine Glucose (UA) Urine Blood 05/16/22 05/17/22 05/17/22 22:35 05:45 07:14 MCV Plt Count Immature Gran % (Auto) Mcclain % (Auto) Mcclain # (Auto) Abs Immat Gran (auto) ABG pH at Pt Temp ABG pCO2 at Pt Temp ABG HCO3 VBG HCO3 Potassium 5.3 H D Chloride Carbon Dioxide 33 H BUN 25 H POC Glucose 215 H Random Glucose 244 H D Total Protein 6.2 L Urine Glucose (UA) 250 H Urine Blood Small (1+) H 05/17/22 09:28 MCV Plt Count Immature Gran % (Auto) Mcclain % (Auto) Mcclain # (Auto) Abs Immat Gran (auto) ABG pH at Pt Temp ABG pCO2 at Pt Temp ABG HCO3 VBG HCO3 37 H Potassium Chloride Carbon Dioxide BUN POC Glucose Random Glucose Total Protein Urine Glucose (UA) Urine Blood Microbiology: Microbiology 05/15/22 17:21 Blood - Venous Blood Culture - Preliminary No growth after 24 hours. 05/15/22 16:55 Blood - Venous Blood Culture - Preliminary No growth after 24 hours. Diagnostic Findings Chest x-ray: report reviewed and image reviewed CT scan - chest: report reviewed and image reviewed Assessment and Plan (1) Acute exacerbation of COPD with asthma: Status: Acute (2) Acute on chronic respiratory failure with hypoxia and hypercapnia: Status: Acute (3) Hypoventilation syndrome: Status: Acute (4) Encephalopathy: Status: Acute (5) Mild bibasilar atelectasis: Status: Acute Plan This 76 years old gentleman, with poor understanding of his medical issues at baseline, Has acute exacerbation of his COPD at this time. There is no evidence of pneumonia but he does patchy atelectasis in both basilar areas, this may be due to mucus plugging. Past history of STEPH, but his recent polysomnogram study is negative for STEPH. Blood gases consistent with hypoventilation syndrome, this may be related to his chronic use of opioids. Confusion and agitation, secondary to acute encephalopathy, may be partly aggravated by a CO2 retention, and may also be due to opioid withdrawal. His chronic respiratory failure with hypoxemia and hypercapnia seems to be relatively stable and compensated. Recc. Continue IV Solu-Medrol 40 mg q.12 hours, once he is stable and alert can be switched to prednisone p.o. for a short course. Continue DuoNeb updrafts Q 6 hours while awake. Oxygen supplementation to keep O2 sat between 89-92%. May use BiPAP, with pressure setting of 15/6 cm at nighttime, for about 8 hours per day. Once he becomes comes, stable, he can be evaluated for home use of BiPAP by doing overnight oximetry recording at his baseline oxygen of 2 L/minute. Thank you for asking me to see this patient. Procedures Date of Service Date of Service: 05/17/22
[2022-05-17 10:55] LABS: ABG Base Excess 8.4 mmol/L; ABG HCO3 40 mmol/L (22-26); ABG pCO2 87 mmHg (32-45); ABG pH 7.26 (7.35-7.45); ABG pO2 88 mmHg (83-108)
[2022-05-17 11:29] LABS: Magnesium 1.8 mg/dL (1.6-2.6)
[2022-05-17 11:33] LABS: Glucose, Whole Blood 245 mg/dL (60-115)
[2022-05-17 11:35] LABS: Glucose, Whole Blood 221 mg/dL (60-115)
[2022-05-17] MEDS: Naloxone HCl 0.4 MG/ML VIAL IVPUSH (11:35)
[2022-05-17] MEDS: Albuterol/Iprat 2.5/0.5MG 3 ML AMPUL.NEB INHALE ×3 (11:49→20:07)
[2022-05-17] MEDS: flumazeniL 0.5 MG/5 ML VIAL 0.2 MG IVPUSH (12:32)
[2022-05-17 12:49] LABS: ABG Base Excess 7.6 mmol/L; ABG HCO3 37 mmol/L (22-26); ABG pCO2 73 mmHg (32-45); ABG pH 7.31 (7.35-7.45); ABG pO2 80 mmHg (83-108)
[2022-05-17 13:35] LABS: ABG Refer to POC result
[2022-05-17 13:35] LABS: ABG Refer to POC result
--- NOTE | 2022-05-17 14:28 | P.PNCC_ITS ---
Subjective Subjective Date of Service: 05/17/22 Interval History: Mr. Sebas Marcus was transferred to the ICU this morning with acute hypercapnic respiratory failure. The patient is 76-year-old male w PMHx of obesity, COPD, STEPH not currently on CPAP, recent sleep study was negative, DM, BPH, HLD, HTN, hypertrophic cardiomyopathy, reactive airway disease, peripheral neuropathy, and chronic pain.? Not on oxygen at home.? Notable is the fact that his serum bicarb levels have prev been normal, so he does not have chronic CO2 retention.? Reportedly e patient is on valium, baclofen, and opiates for ? abdominal spasms. He was BIBA to the ED on May 15 c/o generalized malaise, weakness.? He was found to have a Sat of 86% at home.? On arrival to ED, mental status was altered, Sat 88-90% on room air.? VBG showed 7.28/63.? The patient was placed on BiPAP for a couple of hours in the ED, and then came off, was breathing comf ortably.? COVID and influenza were negative. chest CT PA showed no pulmonary emboli, Head CT was negative. Admitted to Medicine for acute on chronic respiratory failure and likely toxic encephalopathy.? The patient was treated for COPD exacerbation and toxic encephalopathy.? Has not had any opiates, valium, or baclofen since admission. Early this morning, patient became agitative, combative, pulling oxygen off his face and becoming hypoxemic.? He was given trazodone without affect.? He was then given Haldol and subsequently slept till the morning.? Later in the morning, he desaturated.? VBG showed 7.33/69/+8.? He became more somnolent later and at 10:50, ABG showed 7.26/87/88/+8 (unspecified FiO2).? He was therefore transferred to ICU for rescue BiPAP. On my exam in the ICU, he was arousable with only very vigorous prompting, and then went right back to sleep again.? Pupils were miotic.? Heart rate 94, blood pressure 124/69, respiratory rate 16-20 on BiPAP 18/5/30%, with tidal volumes 250-400 cc, sat low 90s.? Temperature 96.8 degrees.? No jugular venous distention with the head of the bed at 30-40 degrees.? Has a bit of a barrel chest. ?On auscultation, I heard nothing, and he barely had any chest rise.? Unable to gauge his expiratory phase.? Heart tones very soft, I heard no murmur or gallops.? Abdomen is slightly obese, and benign.? He has no peripheral edema. We gave him Narcan 0.4 mg, which did not do very much.? Every time we would arouse him with vigorous shaking, his tidal volumes would turkey picker and we could see chest excursion. ?So we kept shaking him.? When asleep, tidal volumes would drop into the 200s; when we shook him awake, tidal volumes would rise into the 400+ range.? We kept doing that for the next 30-45 minutes.? Repeat ABG showed 7.31/73/80 on AVAPS.? By then, he was much more awake, consistently with tidal volumes greater than 400 cc. IMPRESSION: 1. Underlying obesity 2. 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 3. Underlying COPD. 4. Acute COPD exacerbation.? Treatment with bronchodilators and steroids. 5. Acute hypercarbic respiratory failure.? Improving with BiPAP. ?Add Diamox. 6. Metabolic encephalopathy -- CO2 narcosis.? It must be appreciated that benzodiazepines and opiates are poison for this gentleman.? At this point, the only thing I would be willing to give him is baclofen 5 mg tid.? Hold the valium and opiates and observe for withdrawal sx. 7. DM.? On SSI 8. Not septic.? No Abx indicated.? No fluids indicated. Critical care time (including chart rev, hosp course summary, mult visits and many minutes at the bedside):? 90 min. Critical Care Time (minutes): 90 Physical Exam Vital Signs: Vital Signs: Last Vital Signs Temp 96.8 F 05/17/22 10:52 Pulse 95 05/17/22 14:00 Resp 15 05/17/22 12:53 BP 137/80 05/17/22 14:00 Pulse Ox 95 05/17/22 14:00 O2 Del Method 05/17/22 14:00 O2 Flow Rate 2.5 05/17/22 10:52 FiO2 30 05/17/22 14:00 BMI result Body Mass Index 26.9 Objective Data Labs CBC & Chem 7: 05/15/22 16:55 05/17/22 05:45 Labs: Laboratory Results - last 24 hr 05/16/22 05/16/22 05/16/22 10:13 16:59 19:37 O2 Saturation ABG pH at Pt Temp ABG pCO2 at Pt Temp ABG pO2 at Pt Temp ABG HCO3 ABG Base Excess (Actual) VBG pH VBG pCO2 VBG pO2 VBG HCO3 VBG O2 Saturation VBG Base Excess Sodium Potassium Chloride Carbon Dioxide Anion Gap BUN Creatinine Estim Creat Clear Calc Estimated GFR POC Glucose 302 H 215 H Random Glucose Calcium Magnesium Total Bilirubin Direct Bilirubin AST ALT Alkaline Phosphatase Total Protein Albumin Vitamin B12 Folate TSH 0.60 Urine Color Urine Appearance Urine pH Ur Specific [place] Urine Protein Urine Glucose (UA) Urine Ketones Urine Blood Urine Nitrite Ur Leukocyte Esterase Urine RBC Urine WBC Ur Squamous Epith Cells Urine Bacteria Hyaline Casts 05/16/22 05/17/22 05/17/22 22:35 05:45 05:45 O2 Saturation ABG pH at Pt Temp ABG pCO2 at Pt Temp ABG pO2 at Pt Temp ABG HCO3 ABG Base Excess (Actual) VBG pH VBG pCO2 VBG pO2 VBG HCO3 VBG O2 Saturation VBG Base Excess Sodium 141 Potassium 5.3 H D Chloride 101 Carbon Dioxide 33 H Anion Gap 12 BUN 25 H Creatinine 0.94 Estim Creat Clear Calc 64.7 Estimated GFR > 60 POC Glucose Random Glucose 244 H D Calcium 8.6 Magnesium 1.8 Total Bilirubin 0.5 Direct Bilirubin 0.2 AST 26 ALT 22 Alkaline Phosphatase 72 Total Protein 6.2 L Albumin 3.8 Vitamin B12 302 Folate 11.1 TSH Urine Color Yellow Urine Appearance Clear Urine pH 5.5 Ur Specific [place] 1.015 Urine Protein Trace Urine Glucose (UA) 250 H Urine Ketones Negative Urine Blood Small (1+) H Urine Nitrite Negative Ur Leukocyte Esterase Negative Urine RBC 0-2 Urine WBC 0-5 Ur Squamous Epith Cells 0-2 Urine Bacteria None Seen Hyaline Casts 0-2 05/17/22 05/17/22 05/17/22 07:14 09:28 10:50 O2 Saturation 97.0 ABG pH at Pt Temp 7.26 L ABG pCO2 at Pt Temp 87 H* ABG pO2 at Pt Temp 88 ABG HCO3 40 H ABG Base Excess (Actual) 8.4 VBG pH 7.33 VBG pCO2 69 VBG pO2 118 VBG HCO3 37 H VBG O2 Saturation 100.0 VBG Base Excess 8.2 Sodium Potassium Chloride Carbon Dioxide Anion Gap BUN Creatinine Estim Creat Clear Calc Estimated GFR POC Glucose 215 H Random Glucose Calcium Magnesium Total Bilirubin Direct Bilirubin AST ALT Alkaline Phosphatase Total Protein Albumin Vitamin B12 Folate TSH Urine Color Urine Appearance Urine pH Ur Specific [place] Urine Protein Urine Glucose (UA) Urine Ketones Urine Blood Urine Nitrite Ur Leukocyte Esterase Urine RBC Urine WBC Ur Squamous Epith Cells Urine Bacteria Hyaline Casts 05/17/22 05/17/22 05/17/22 10:57 11:31 12:45 O2 Saturation 96.0 ABG pH at Pt Temp 7.31 L ABG pCO2 at Pt Temp 73 H* ABG pO2 at Pt Temp 80 L ABG HCO3 37 H ABG Base Excess (Actual) 7.6 VBG pH VBG pCO2 VBG pO2 VBG HCO3 VBG O2 Saturation VBG Base Excess Sodium Potassium Chloride Carbon Dioxide Anion Gap BUN Creatinine Estim Creat Clear Calc Estimated GFR POC Glucose 245 H 221 H Random Glucose Calcium Magnesium Total Bilirubin Direct Bilirubin AST ALT Alkaline Phosphatase Total Protein Albumin Vitamin B12 Folate TSH Urine Color Urine Appearance Urine pH Ur Specific [place] Urine Protein Urine Glucose (UA) Urine Ketones Urine Blood Urine Nitrite Ur Leukocyte Esterase Urine RBC Urine WBC Ur Squamous Epith Cells Urine Bacteria Hyaline Casts Microbiology Microbiology Results: Microbiology 05/15/22 17:21 Blood - Venous Blood Culture - Preliminary No growth after 24 hours. 05/15/22 16:55 Blood - Venous Blood Culture - Preliminary No growth after 24 hours. Quality Stroke Does the patient have a stroke diagnosis?: No VTE Prior VTE?: No VTE Risk Level:: Medical - moderate - high VTE Device Contraindication: Treatment Not Indicated VTE Drug Contraindication: N/A - Med Ordered Critical Care Time Critical Care Time (minutes): 90
[2022-05-17 15:40] LABS: Amphetamine Screen Urine Not Detected (Not Detect); Barbiturates, Urine Not Detected (Not Detect); Benzodiazepines Screen Urine POSITIVE (Not Detect); Cannabinoid Screen Urine Not Detected (Not Detect); Cocaine Screen Urine Not Detected (Not Detect); Fentanyl, urine Not Detected (Not Detect); Opiate Screen Urine POSITIVE (Not Detect); Phencyclidine Screen Urine Not Detected (Not Detect)
[2022-05-17 16:45] LABS: Glucose, Whole Blood 230 mg/dL (60-115)
[2022-05-17] MEDS: Insulin Lispro 100 UNIT/ML 3 ML VIAL SUBCUT ×2 (16:48→22:22)
[2022-05-17 17:04] LABS: ABG Base Excess 9.8 mmol/L; ABG HCO3 38 mmol/L (22-26); ABG pCO2 65 mmHg (32-45); ABG pH 7.37 (7.35-7.45); ABG pO2 72 mmHg (83-108)
[2022-05-17] MEDS: acetaZOLAMIDE sodium 500 MG VIAL IVPUSH (17:05)
[2022-05-17 17:07] LABS: Phosphorus 4.2 mg/dL (2.7-4.5)
[2022-05-17] MEDS: Magnesium Sulfate/H2O 2 GM/50 ML PIGGYBACK IV (17:08)
--- NOTE | 2022-05-17 18:12 | PC.NURSE ---
PATIENT ADMITTED TO ICU FOR RESCUE BIPAP PATIENT ADMITTED UNRESPONSIVE WITH AMS. PATIENT NEEDED CONTINUOS STIMULATION AND STERNAL RUB IN ORDER TO KEEP PATIENT AWAKE FOR ASSESSMENT. A&O X0. BIPAP ADMINISTERED BY RESPIRATORY, AVAPS SETTING - RATE 14, TIDAL VOLUME 650, EPAP 5, FIO2 30%. ABLE TO TITRATE DOWN TO 25% FI02. NARCAN ADMINISTERED PER MD AT 1135 WITH NO EFFECT. FLUMAZENIL ADMINISTERED AT 1232 WITH NO EFFECT. ROSS CATHETER ADMINISTERED DUE TO URINARY RETENTION - 400ML DRUG SCREEN COMPLETED. ABG LEVELS TRENDING TOWARDS NORMAL THROUGHOUT SHIFT. SITTER REMAINS BEDSIDE FOR SAFETY.
[2022-05-17 20:26] LABS: Glucose, Whole Blood 192 mg/dL (60-115)
[2022-05-17 23:02] LABS: ABG Refer to POC result
[2022-05-18] VITALS (33 sets, daily range): BP systolic 117–171; BP diastolic 57–116; PULSE 84–118; RESP 11–36; TEMP 36.1–37.2; O2SAT 89–96
[2022-05-18 00:22] LABS: Glucose, Whole Blood 235 mg/dL (60-115)
[2022-05-18] MEDS: Acetaminophen 325 MG TABLET 650 MG PO ×3 (00:22→20:29)
[2022-05-18] MEDS: Ibuprofen 600 MG TABLET PO (01:04)
[2022-05-18] MEDS: acetaZOLAMIDE sodium 500 MG VIAL IVPUSH ×2 (01:04→09:01)
[2022-05-18] MEDS: methylPREDNISolone Sod Succ 40 MG/ML VIAL IVPUSH ×3 (05:15→17:23)
[2022-05-18] MEDS: Heparin Sodium,Porcine 5,000 UNIT/ML VIAL 5000 UNIT SUBCUT ×3 (05:15→20:02)
[2022-05-18 05:30] LABS: VBG Base Excess 2.7 mmol/L; VBG HCO3 34 mmol/L (22-26); VBG pCO2 84 mmHg; VBG pH 7.22 (7.32-7.43); VBG pO2 36 mmHg
[2022-05-18 05:56] LABS: Venous Blood Gas Refer to POC result
[2022-05-18 06:10] LABS: Anion Gap 17 (12-20); Blood Urea Nitrogen 34 mg/dL (9-16); Calcium 9.2 mg/dL (8.4-10.2); Carbon Dioxide 30 mmol/L (22-29); Chloride 99 mmol/L (96-108); Creatinine Clr Calc Pharmacy 42.8; Estimated Glomerular Filt Rate 48; Glucose Random 379 mg/dL (60-115); Magnesium 2.5 mg/dL (1.6-2.6); Phosphorus 4.8 mg/dL (2.7-4.5); Potassium 4.6 mmol/L (3.3-5.1); Sodium 141 mmol/L (135-145)
[2022-05-18] MEDS: Insulin Lispro 100 UNIT/ML 3 ML VIAL SUBCUT ×2 (06:13→20:29)
[2022-05-18 07:23] LABS: Glucose, Whole Blood 303 mg/dL (60-115)
[2022-05-18] MEDS: Albuterol/Iprat 2.5/0.5MG 3 ML AMPUL.NEB INHALE ×4 (08:17→19:08)
[2022-05-18] MEDS: 0.9 % Sodium Chloride Flush 3 ML SYRINGE IVFLUSH ×2 (09:01→15:43)
[2022-05-18] MEDS: Insulin Glargine,Hum.rec.anlog 100 UNIT/ML 10 ML VIAL 30 UNIT SUBCUT (09:02)
[2022-05-18 10:22] LABS: ABG Base Excess 4.2 mmol/L; ABG HCO3 32 mmol/L (22-26); ABG pCO2 62 mmHg (32-45); ABG pH 7.32 (7.35-7.45); ABG pO2 62 mmHg (83-108)
[2022-05-18 10:37] LABS: ABG Refer to POC result
[2022-05-18 11:33] LABS: Glucose, Whole Blood 158 mg/dL (60-115)
--- NOTE | 2022-05-18 11:47 | P.PNCC_ITS ---
Subjective Subjective Date of Service: 05/18/22 Interval History: Mr. Sebas Marcus was transferred to the ICU yesterday morning with acute hypercapnic respiratory failure. 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 Not on oxygen at home.? Notable is the fact that his serum bicarb levels have prev been normal, so he does not have chronic CO2 retention.? Reportedly the patient is on valium, baclofen, and opiates for ? ?abdominal spasms?. He was BIBA to the ED on May 15 c/o generalized malaise, weakness.? He was found to have a Sat of 86% at home.? On arrival to ED, mental status was altered, Sat 88-90% on room air.? VBG showed 7.28/63.? The patient was placed on BiPAP for a couple of hours in the ED, and then came off, was breathing comfortably.? COVID and influenza were negative. chest CT PA showed no pulmonary emboli, Head CT was negative. Admitted to Medicine for acute on chronic respiratory failure and likely toxic encephalopathy.? The patient was treated for COPD exacerbation and toxic encephalopathy.? Has not had any opiates, valium, or baclofen since admission. Early yesterday morning, patient became agitative, combative, pulling oxygen off his face and becoming hypoxemic.? He was given trazodone without affect.? He was then given Haldol and subsequently slept till the morning.? Later in the morning, he desaturated.? VBG showed 7.33/69/+8.? He became more somnolent later and at 10:50, ABG showed 7.26/87/88/+8 (unspecified FiO2).? He was therefore transferred to ICU for rescue BiPAP. On my initial exam in the ICU, he was arousable with only very vigorous prompting, and then went right back to sleep again.? Pupils were miotic.? RR 16- 20 on BiPAP 18/5/30%, with tidal volumes 250-400 cc, sat low 90s.? On auscultation, I heard nothing, and he barely had any chest rise. We gave him Narcan 0.4 mg, which did not do very much.? Every time we would arouse him with vigorous shaking, his tidal volumes would picker box operator and we could see chest excursion.? So we kept shaking him.? When asleep, tidal volumes would drop into the 200s; when we shook him awake, tidal volumes would rise into the 400+ range.? We kept doing that for the next 30-45 minutes.? Repeat ABG showed 7.31/73/80 on AVAPS.? By then, he was much more awake, consistently with tidal volumes greater than 400 cc. Later yesterday afternoon, PaCO2 was 65.? He stayed on BiPAP until about 2am this morning, when he refused to wear it anymore.? He was put on 1L NC, and was Sat?ing 95% until about 6am this morning, when he desaturated and had to go back on BiPAP. On BiPAP this morning with room air, Sat was 92%.? At 10am, ABG on BiPAP with FiO2 21% showed 7.32/62/62/+4.? We tried taking the BiPAP off to unsupported room air.? Sat dropped to mid-80?s, so we put him on 1L NC, Sat has been 93-95%. On exam, he is easily arousable but doesn?t seem oriented.? HR 93, SR.? BP 146/67.? RR is 27 with shallow excursion, that at least is visible, in contrast to yesterday.? Afebrile.? No JVD.? Chest is CTA, no wheeze, maybe a very slightly prolonged exp phase.? No edema. LABORATORY DATA:? Below.? Notably, BUN and creatinine a bump to 34/1.4.? He?s not on any IVF. IMPRESSION: 1. Underlying obesity 2. 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 3. Underlying COPD. 4. Acute COPD exacerbation.? Treatment with bronchodilators and steroids.? I bumped his Solumedrol to 40mg q6hr. 5. Acute hypercarbic respiratory failure.? Improving with BiPAP.? D/C the Diamox this afternoon. 6. Metabolic encephalopathy -- CO2 narcosis.? It must be appreciated that benzodiazepines and opiates are poison for this gentleman.? At this point, the only thing I would be willing to give him is baclofen 5 mg tid.? Hold the valium and opiates and observe for withdrawal sx.? He?s still not oriented today. 7. DM.? On SSI and Lantus.? I increased the SS dose schedule and the Lantus dose. 8. DARREN.? Hypovolemic.? Started him on LR. 9. Not septic.? No Abx indicated.? No fluids indicated. Critical Care Time (minutes): 60 Physical Exam Vital Signs: Vital Signs: Last Vital Signs Temp 97.0 F 05/18/22 08:00 Pulse 96 05/18/22 11:00 Resp 23 H 05/18/22 11:00 BP 117/68 05/18/22 11:00 Pulse Ox 93 05/18/22 11:00 O2 Del Method 05/18/22 11:00 O2 Flow Rate 1 05/18/22 11:00 FiO2 21 05/18/22 10:00 BMI result Body Mass Index 26.9 Objective Data Labs CBC & Chem 7: 05/28/22 05:52 05/28/22 05:52 Labs: Laboratory Results - last 24 hr 05/17/22 05/17/22 05/17/22 05:45 12:45 14:55 O2 Saturation 96.0 ABG pH at Pt Temp 7.31 L ABG pCO2 at Pt Temp 73 H* ABG pO2 at Pt Temp 80 L ABG HCO3 37 H ABG Base Excess (Actual) 7.6 VBG pH VBG pCO2 VBG pO2 VBG HCO3 VBG O2 Saturation VBG Base Excess Sodium Potassium Chloride Carbon Dioxide Anion Gap BUN Creatinine Estim Creat Clear Calc Estimated GFR POC Glucose Random Glucose Calcium Phosphorus 4.2 Magnesium Urine Opiates Screen POSITIVE H Urine Fentanyl Screen Not Detected Ur Barbiturates Screen Not Detected Ur Phencyclidine Scrn Not Detected Ur Amphetamines Screen Not Detected U Benzodiazepines Scrn POSITIVE H Urine Cocaine Screen Not Detected U Marijuana (THC) Screen Not Detected 05/17/22 05/17/22 05/17/22 16:40 17:00 20:22 O2 Saturation 94.0 ABG pH at Pt Temp 7.37 ABG pCO2 at Pt Temp 65 H* ABG pO2 at Pt Temp 72 L ABG HCO3 38 H ABG Base Excess (Actual) 9.8 VBG pH VBG pCO2 VBG pO2 VBG HCO3 VBG O2 Saturation VBG Base Excess Sodium Potassium Chloride Carbon Dioxide Anion Gap BUN Creatinine Estim Creat Clear Calc Estimated GFR POC Glucose 230 H 192 H Random Glucose Calcium Phosphorus Magnesium Urine Opiates Screen Urine Fentanyl Screen Ur Barbiturates Screen Ur Phencyclidine Scrn Ur Amphetamines Screen U Benzodiazepines Scrn Urine Cocaine Screen U Marijuana (THC) Screen 05/18/22 05/18/22 05/18/22 00:18 05:15 05:24 O2 Saturation ABG pH at Pt Temp ABG pCO2 at Pt Temp ABG pO2 at Pt Temp ABG HCO3 ABG Base Excess (Actual) VBG pH 7.22 L VBG pCO2 84 VBG pO2 36 VBG HCO3 34 H VBG O2 Saturation 57.0 VBG Base Excess 2.7 Sodium 141 Potassium 4.6 Chloride 99 Carbon Dioxide 30 H Anion Gap 17 BUN 34 H Creatinine 1.42 H Estim Creat Clear Calc 42.8 Estimated GFR 48 POC Glucose 235 H Random Glucose 379 H* Calcium 9.2 D Phosphorus 4.8 H Magnesium 2.5 Urine Opiates Screen Urine Fentanyl Screen Ur Barbiturates Screen Ur Phencyclidine Scrn Ur Amphetamines Screen U Benzodiazepines Scrn Urine Cocaine Screen U Marijuana (THC) Screen 05/18/22 05/18/22 05/18/22 07:20 10:16 11:22 O2 Saturation 89.0 ABG pH at Pt Temp 7.32 L ABG pCO2 at Pt Temp 62 H* ABG pO2 at Pt Temp 62 L ABG HCO3 32 H ABG Base Excess (Actual) 4.2 VBG pH VBG pCO2 VBG pO2 VBG HCO3 VBG O2 Saturation VBG Base Excess Sodium Potassium Chloride Carbon Dioxide Anion Gap BUN Creatinine Estim Creat Clear Calc Estimated GFR POC Glucose 303 H 158 H Random Glucose Calcium Phosphorus Magnesium Urine Opiates Screen Urine Fentanyl Screen Ur Barbiturates Screen Ur Phencyclidine Scrn Ur Amphetamines Screen U Benzodiazepines Scrn Urine Cocaine Screen U Marijuana (THC) Screen Microbiology Microbiology Results: Microbiology 05/15/22 17:21 Blood - Venous Blood Culture - Preliminary No growth after 48 hours. 05/15/22 16:55 Blood - Venous Blood Culture - Preliminary No growth after 48 hours. Quality Stroke Does the patient have a stroke diagnosis?: No VTE Prior VTE?: No VTE Risk Level:: Medical - moderate - high VTE Device Contraindication: Treatment Not Indicated VTE Drug Contraindication: N/A - Med Ordered Critical Care Time Critical Care Time (minutes): 60
[2022-05-18] MEDS: Lactated Ringers 1,000 ML 400 ML IV (15:40)
[2022-05-18 16:35] LABS: Glucose, Whole Blood 188 mg/dL (60-115)
--- NOTE | 2022-05-18 17:13 | ECG_ITS ---
Test Reason : 20108 Blood Pressure : / mmHG Vent. Rate : 114 BPM Atrial Rate : 114 BPM P-R Int : 178 ms QRS Dur : 094 ms QT Int : 324 ms P-R-T Axes : 044 -16 054 degrees QTc Int : 446 ms Sinus tachycardia with Premature supraventricular complexes Otherwise normal ECG When compared with ECG of 16-MAY-2022 14:13, Premature supraventricular complexes are now Present Referred By: Yuval Cantu Electronically Signed By:RUDY PENA
[2022-05-18 17:25] LABS: ABG Base Excess -0.7 mmol/L; ABG HCO3 30 mmol/L (22-26); ABG pCO2 74 mmHg (32-45); ABG pH 7.21 (7.35-7.45); ABG pO2 67 mmHg (83-108)
--- NOTE | 2022-05-18 17:28 | ECG_ITS ---
Test Reason : CEHST PAIN ON BIPAP Blood Pressure : / mmHG Vent. Rate : 113 BPM Atrial Rate : 113 BPM P-R Int : 162 ms QRS Dur : 092 ms QT Int : 326 ms P-R-T Axes : 042 -17 037 degrees QTc Int : 447 ms Sinus tachycardia Lateral infarct , age undetermined Abnormal ECG When compared with ECG of 18-MAY-2022 17:09, Premature supraventricular complexes are no longer Present Referred By: Yuval Cantu Electronically Signed By:RUDY PENA
[2022-05-18] MEDS: Nitroglycerin 0.4 MG TAB.SUBL SUBLINGUAL (17:33)
--- NOTE | 2022-05-18 18:00 | ECG_ITS ---
Test Reason : REPEAT, CHEST PAIN Blood Pressure : / mmHG Vent. Rate : 101 BPM Atrial Rate : 101 BPM P-R Int : 168 ms QRS Dur : 094 ms QT Int : 338 ms P-R-T Axes : 041 -15 043 degrees QTc Int : 438 ms Sinus tachycardia with Premature atrial complexes Otherwise normal ECG When compared with ECG of 18-MAY-2022 17:23, Premature atrial complexes are now Present Referred By: Yuval Cantu Electronically Signed By:RUDY PENA
[2022-05-18] MEDS: Lactated Ringers 1,000 ML 60 ML IVCONT (18:13)
[2022-05-18] MEDS: Metoprolol Tartrate 5 MG/5 ML VIAL IVPUSH (18:25)
[2022-05-18 18:34] LABS: Troponin-I High Sensitivity 5.7 ng/L (<3.5-35.0)
--- NOTE | 2022-05-18 18:35 | PC.NURSE ---
PATIENT C/O CHEST PAIN AT 1715. HR 115-120, ST. MANAGER PRESENTATION CALLED. PATIENT STATES 9 OUT OF 10 CRUSHING PAIN TO CHEST. DOES NOT RADIATE ANYWHERE MD NOTIFIED VIA [facility] [employer]. EKG AND ABGS OBTAINED. PATIENT BEGAN TO DESAT TO MID 80S ON 1L NC, PLACED ON BIPAP. TELEPHONE ORDERS FOR REPEAT EKG ONCE PLACED ON BIPAP, THEN AGAIN AT 1800. STAT TROPONIN AT 1800. SUBLINGUAL NITROGLYCERIN. MD [facility] [employer]. PER MD FI02 INCREASED TO 30% - 02 CURRENTLY 95%. SBP 150-160S. TELEPHONE ORDER FOR METOPROLOL 5MG IVP - EFFECTS PENDING. MANAGER PRESENTATION BEDSIDE TO ASSESS PAIN: PATIENT STATES 4 OUT OF 10, A LITTLE CRUSHING BUT NOT LIKE BEFORE. REPEAT TROPONIN ORDERED FOR 2100. TELESITTER REMAINS BEDSIDE FOR SAFETY.
--- NOTE | 2022-05-18 20:02 | P.PNCC_ITS ---
Subjective Subjective Date of Service: 05/18/22 Interval History: Subjective:? Today pt had complained of chest pain around 18:00, he states that it is intermittent 5/10 localized in the central chest with the radiation, no arm or joint involvement, he did feel little nauseous but no now, no vomiting, no diaphoresis, no abdominal pain in.? Patient did receive 5 mg of Lopressor, nitroglycerin sublingual x1 without any significant change on his symptoms which he still has now only when he takes a deep breath Focused Review of systems: ?As above, no history of PE, the remainder of the review of systems are negative. Objective VS: ?166/85, 84, 14, 96% on BiPAP with an FiO2 of 30% General:? Alert oriented x3 no acute distress.? Follows all commands. Skin:? Intact, no lesions or rash HEENT:? Normocephalic, atraumatic, extraocular movements intact, neck is supple, no lymphadenopathy.? Buccal mucosa moist.? Throat midline. Cardiac:? Clear S1-S2, no murmurs rubs or gallops.? No reproducible chest discomfort to palpation Pulmonary:? Clear to auscultation, no wheezes, rales or rhonchi. Abdomen:? Protuberant, positive bowel sounds in all 4 quadrants.? Soft, nontender, no rebound or guarding.? No CVA tenderness. Musculoskeletal:? Moving all 4 extremities upon request a major joints, no calf tenderness, no edema. Neurologic:? As above, no focal deficits. Vascular:? 2+ pulses upper and lower extremities distally. ? SIGNIFICANT LABORATORY DATA:? Laboratories from this morning were reviewed, his BUN creatinine have increased to 34 and 1.42 respectively from ( 25 and 0.94); these evenings arterial blood gas show pH of 7.21, pCO2 of 74, PO2 67, HC03 30. ?First troponin at 18:00 today is 5.7. REVIEW OF IMAGES: ?No new images ? EKG REVIEW: EKG 1 2 and 3. To my view shows sinus tachycardia ventricular rate 114 down to 101 beats per minute.? No ST elevations, with possible and slight ST depression in lead V2 and V3 which improves on last EKG.? They all have P a sees and PVCs noted , QT 324. Revised ASSESSMENT AND PLAN: 1. Chest pain without EKG changes, rule out ACS although unlikely 2. Acute kidney injury due to volume depletion==== improving off ARB 3. Uncontrolled hypertension 4. Generalized anxiety 5. Acute on chronic Hypoxic/hypercarbic respiratory failure First troponin was negative, will repeat 1 in 3 hours, repeat EKG showed no changes.? Will continue with gentle IV hydration, it could be does some of his discomfort is from uncontrolled hypertension, I do not think he is in flash pulmonary edema or CHF at this point. Patient is already on aspirin, beta srinivasa, his ARB is being held due to DARREN, I will add Norvasc 5 mg p.o. daily 1st dose now. The 1st nitroglycerin given to the patient was sticking on his lip and was not given under the tongue. ?If his discomfort is ongoing his blood pressure is not controlled will consider nitropaste.? Will replete electrolytes with 21:00 troponin. GI PROPHYLAXIS:? Pepcid DVT PROPHYLAXIS:? Increase heparin to t.i.d. subQ 00:30 05/19/2022 clinical update The patient's 2nd troponin is normal, the patient still has epigastric discomfort, BiPAP had to be removed for the patient became nauseous and vomited brown material. Will give him a break from BiPAP for about an hour, gave him Zofran and famotidine. For now he is tolerating oxygen via nasal cannula 1 L with O2 sat of 95%. I note this happened yesterday, he will retain again, will place him back on BiPAP in about an hour. Laboratories to be drawn in the morning including an ABG. Critical care time used for critical evaluation of this patient, diagnosis, t reatment and coordination of care, review her records and documentation TOTAL CRITICAL CARE TIME 60 MIN Patient's care was discussed in detail with Dr. Cantu.? He is aware of all the above as well as the plan of care for this patient.? Critical Care Time (minutes): 60 Physical Exam Vital Signs: Vital Signs: Last Vital Signs Temp 99.0 F 05/18/22 16:00 Pulse 84 05/18/22 19:00 Resp 14 05/18/22 19:05 BP 166/85 H 05/18/22 19:00 Pulse Ox 96 05/18/22 19:00 O2 Del Method 05/18/22 19:00 O2 Flow Rate 1 05/18/22 17:00 FiO2 30 05/18/22 19:00 BMI result Body Mass Index 26.9 Objective Data Labs CBC & Chem 7: 05/18/22 21:27 05/18/22 21:27 Labs: Laboratory Results - last 24 hr 05/17/22 05/18/22 05/18/22 20:22 00:18 05:15 O2 Saturation ABG pH at Pt Temp ABG pCO2 at Pt Temp ABG pO2 at Pt Temp ABG HCO3 ABG Base Excess (Actual) VBG pH VBG pCO2 VBG pO2 VBG HCO3 VBG O2 Saturation VBG Base Excess Sodium 141 Potassium 4.6 Chloride 99 Carbon Dioxide 30 H Anion Gap 17 BUN 34 H Creatinine 1.42 H Estim Creat Clear Calc 42.8 Estimated GFR 48 POC Glucose 192 H 235 H Random Glucose 379 H* Calcium 9.2 D Phosphorus 4.8 H Magnesium 2.5 Troponin I High Sens 05/18/22 05/18/22 05/18/22 05:24 07:20 10:16 O2 Saturation 89.0 ABG pH at Pt Temp 7.32 L ABG pCO2 at Pt Temp 62 H* ABG pO2 at Pt Temp 62 L ABG HCO3 32 H ABG Base Excess (Actual) 4.2 VBG pH 7.22 L VBG pCO2 84 VBG pO2 36 VBG HCO3 34 H VBG O2 Saturation 57.0 VBG Base Excess 2.7 Sodium Potassium Chloride Carbon Dioxide Anion Gap BUN Creatinine Estim Creat Clear Calc Estimated GFR POC Glucose 303 H Random Glucose Calcium Phosphorus Magnesium Troponin I High Sens 05/18/22 05/18/22 05/18/22 11:22 16:30 17:20 O2 Saturation 90.0 ABG pH at Pt Temp 7.21 L ABG pCO2 at Pt Temp 74 H* ABG pO2 at Pt Temp 67 L ABG HCO3 30 H ABG Base Excess (Actual) -0.7 VBG pH VBG pCO2 VBG pO2 VBG HCO3 VBG O2 Saturation VBG Base Excess Sodium Potassium Chloride Carbon Dioxide Anion Gap BUN Creatinine Estim Creat Clear Calc Estimated GFR POC Glucose 158 H 188 H Random Glucose Calcium Phosphorus Magnesium Troponin I High Sens 05/18/22 18:01 O2 Saturation ABG pH at Pt Temp ABG pCO2 at Pt Temp ABG pO2 at Pt Temp ABG HCO3 ABG Base Excess (Actual) VBG pH VBG pCO2 VBG pO2 VBG HCO3 VBG O2 Saturation VBG Base Excess Sodium Potassium Chloride Carbon Dioxide Anion Gap BUN Creatinine Estim Creat Clear Calc Estimated GFR POC Glucose Random Glucose Calcium Phosphorus Magnesium Troponin I High Sens 5.7 D Microbiology Microbiology Results: Microbiology 05/15/22 17:21 Blood - Venous Blood Culture - Preliminary No growth after 48 hours. 05/15/22 16:55 Blood - Venous Blood Culture - Preliminary No growth after 48 hours. Quality Stroke Does the patient have a stroke diagnosis?: No VTE Prior VTE?: No VTE Risk Level:: Medical - moderate - high VTE Device Contraindication: Treatment Not Indicated VTE Drug Contraindication: N/A - Med Ordered
[2022-05-18 20:15] LABS: Glucose, Whole Blood 220 mg/dL (60-115)
[2022-05-18] MEDS: Tamsulosin HCL 0.4 MG CAPSULE PO (20:35)
[2022-05-18] MEDS: Magnesium Oxide 400 MG TABLET PO (20:35)
[2022-05-18] MEDS: amLODIPine Besylate 5 MG TABLET PO (20:35)
[2022-05-18] MEDS: Famotidine 20 MG TABLET PO (20:35)
[2022-05-18] MEDS: Atorvastatin Calcium 20 MG TABLET PO (20:35)
[2022-05-18 21:24] LABS: VBG Base Excess -1.4 mmol/L; VBG HCO3 22 mmol/L (22-26); VBG pCO2 34 mmHg; VBG pH 7.41 (7.32-7.43); VBG pO2 159 mmHg
[2022-05-18 21:35] LABS: Hemoglobin 17.7 g/dl (14.0-18.0); Mean Corpuscular Hemoglobin 32.2 pg (27.0-33.0); Mean Corpuscular Volume 100.7 fL (80.0-98.0); Mean Platelet Volume 11.9 fL (9.4-12.4); Platelet Count 118 X10*3/uL (160-400); Red Blood Count 5.49 X10*6/uL (4.60-5.80); Red Cell Distribution Width 13.2 % (11.0-16.0)
[2022-05-18 21:47] LABS: Hematocrit 55.3 % (42.0-52.0)
[2022-05-18 21:58] LABS: Anion Gap 15 (12-20); Blood Urea Nitrogen 35 mg/dL (9-16); Carbon Dioxide 27 mmol/L (22-29); Chloride 103 mmol/L (96-108); Creatinine Clr Calc Pharmacy 56.8; Estimated Glomerular Filt Rate > 60; Glucose Random 243 mg/dL (60-115); Sodium 141 mmol/L (135-145)
[2022-05-18 22:05] LABS: Troponin-I High Sensitivity 6.6 ng/L (<3.5-35.0)
[2022-05-18 22:10] LABS: Calcium 8.6 mg/dL (8.4-10.2)
[2022-05-19] VITALS (37 sets, daily range): BP systolic 126–191; BP diastolic 65–109; PULSE 79–115; RESP 9–33; TEMP 36–37.2; O2SAT 91–105
[2022-05-19] MEDS: methylPREDNISolone Sod Succ 40 MG/ML VIAL IVPUSH ×5 (00:04→21:26)
[2022-05-19] MEDS: ondansetron HCL 4 MG/2 ML VIAL IVPUSH ×3 (00:06→20:32)
[2022-05-19] MEDS: 0.9 % Sodium Chloride Flush 3 ML SYRINGE IVFLUSH ×3 (00:32→21:27)
[2022-05-19 02:20] LABS: Venous Blood Gas Refer to POC result
[2022-05-19] MEDS: Acetaminophen 325 MG TABLET 650 MG PO (02:29)
[2022-05-19] MEDS: Heparin Sodium,Porcine 5,000 UNIT/ML VIAL 5000 UNIT SUBCUT ×3 (04:01→20:32)
[2022-05-19 04:29] LABS: ABG Refer to POC result
[2022-05-19 05:30] LABS: VBG Base Excess -2.1 mmol/L; VBG HCO3 26 mmol/L (22-26); VBG pCO2 58 mmHg; VBG pH 7.26 (7.32-7.43); VBG pO2 82 mmHg
[2022-05-19 05:33] LABS: Venous Blood Gas Refer to POC result
[2022-05-19 05:41] LABS: Hemoglobin 17.3 g/dl (14.0-18.0); Mean Corpuscular Hemoglobin 32.2 pg (27.0-33.0); Mean Corpuscular Volume 100.6 fL (80.0-98.0); Mean Platelet Volume 12.6 fL (9.4-12.4); Platelet Count 124 X10*3/uL (160-400); Red Blood Count 5.37 X10*6/uL (4.60-5.80); Red Cell Distribution Width 13.1 % (11.0-16.0); White Blood Count 14.8 X10*3/uL (4.8-10.8)
[2022-05-19] MEDS: Metoclopramide HCl 10 MG/2 ML VIAL 5 MG IVPUSH (05:43)
[2022-05-19] MEDS: Pantoprazole Sodium 40 MG/10 ML VIAL IVPUSH (05:45)
[2022-05-19 05:51] LABS: Glucose, Whole Blood 208 mg/dL (60-115)
[2022-05-19 05:57] LABS: Anion Gap 14 (12-20); Blood Urea Nitrogen 36 mg/dL (9-16); Calcium 8.4 mg/dL (8.4-10.2); Carbon Dioxide 25 mmol/L (22-29); Chloride 106 mmol/L (96-108); Creatinine Clr Calc Pharmacy 69.9; Estimated Glomerular Filt Rate > 60; Glucose Random 221 mg/dL (60-115); Potassium 4.2 mmol/L (3.3-5.1); Sodium 141 mmol/L (135-145)
[2022-05-19 06:27] LABS: Alanine Aminotransferase 38 U/L (0-40); Albumin Level 3.7 g/dL (3.5-5.0); Alkaline Phosphatase 72 U/L (39-117); Aspartate Amino Transferase 26 U/L (5-37); Bilirubin Direct 0.3 mg/dL (0.0-0.5); Bilirubin Total 0.5 mg/dL (0.0-1.0); Lipase 33 U/L (8-78); Total Protein 6.3 g/dL (6.5-8.0)
[2022-05-19 07:25] LABS: ABG Base Excess -5.7 mmol/L; ABG HCO3 23 mmol/L (22-26); ABG pCO2 57 mmHg (32-45); ABG pH 7.21 (7.35-7.45); ABG pO2 81 mmHg (83-108)
--- NOTE | 2022-05-19 07:32 | PC.NURSE ---
Assumed care at 19:00. Patient was initially alert and oriented, restless, complained of call rogers not working, provided with alternative call rogers with good effect. Patient was having left anterior chest pain sternal area, was having a hard time describing the pain. Delivery Tech Kaity utilized and still was not very clear about description of chest pain, but rated 7/10. Also complained of lower back pain, which responded well to tylenol and to being assisted to stand at the side of the bed. Patient was able to get to the commode and had a large semi-formed/mushy dark brown BM. Patient continued to have chest pain, but this was gradually alleviating through the night, PA was reviewing the EKGs, and troponins had been drawn and reviewed. Patient was medicated with tylenol at 2030 and at 0230. Patient was being treated with bipap overnight (see bipap assessment for settings). Patient was not tolerating bipap well, but wore it for most of the night with about 6 short breaks, especially dealing with nausea. He had nausea at around 00:00 and vomited a moderate amount of chocolate colored liquid vomit, which was not aspirated. The patient was also nausaeous about 5 am and had another dose of PRN zofran with no effect, VALENTINE notified and was given one time reglan 5 mg with good effect. Patient's AM venous blood gas showed PH of 7.26/pH 57.6, and was convinced to wear bipap with good effect. POC was checked PRN and was 220, not covered as patient due for POC at 730. Patient has been very restless and jumping out of bed all night, not sleeping for much of the night, assisted to dangle feet at side of bed and to stand related to back pain numerous times. Patient with high blood pressures overnight, in 170's-180's at times systolically, and was medicated with VALENTINE [place] aware. Noted to have nitroglycerin tablet on lip at 19:30, and was assisted to place NTG tab on buccal membrane until it dissolved. This morning, patient's nausea abated after the administration of reglan, and patient consented to re-place bipap mask. Patient at shift change found to be obtunded and unarousable, notified and new ABG was taken by day shift, , dayshift nurse, and RT following up at this time.
[2022-05-19 08:16] LABS: Troponin-I High Sensitivity 6.7 ng/L (<3.5-35.0)
[2022-05-19] MEDS: Albuterol/Iprat 2.5/0.5MG 3 ML AMPUL.NEB INHALE ×4 (08:17→19:17)
[2022-05-19 08:44] LABS: Venous Blood Gas Refer to POC result
[2022-05-19 08:46] LABS: VBG Base Excess -4.1 mmol/L; VBG HCO3 24 mmol/L (22-26); VBG pCO2 56 mmHg; VBG pH 7.24 (7.32-7.43); VBG pO2 67 mmHg
[2022-05-19 08:51] LABS: Ammonia 35 umol/L (13-55)
[2022-05-19 08:54] LABS: Lactic Acid 0.9 mmol/L (0.5-2.0)
[2022-05-19 09:00] LABS: Anion Gap 13 (12-20); Blood Urea Nitrogen 35 mg/dL (9-16); Calcium 8.1 mg/dL (8.4-10.2); Carbon Dioxide 23 mmol/L (22-29); Chloride 107 mmol/L (96-108); Creatinine Clr Calc Pharmacy 60.2; Estimated Glomerular Filt Rate > 60; Glucose Random 246 mg/dL (60-115); Potassium 4.8 mmol/L (3.3-5.1); Sodium 138 mmol/L (135-145)
[2022-05-19] MEDS: Insulin Glargine,Hum.rec.anlog 100 UNIT/ML 10 ML VIAL 30 UNIT SUBCUT (09:10)
[2022-05-19] MEDS: Insulin Lispro 100 UNIT/ML 3 ML VIAL SUBCUT ×4 (09:10→23:37)
[2022-05-19] MEDS: Aspirin Enteric Coated 81 MG TABLET.DR PO (09:11)
[2022-05-19] MEDS: Magnesium Oxide 400 MG TABLET PO ×2 (09:11→21:24)
[2022-05-19] MEDS: Metoprolol Succinate ER 100 MG TAB.ER.24H PO (09:11)
[2022-05-19] MEDS: Ferrous Sulfate 324 MG TABLET.DR PO (09:11)
[2022-05-19] MEDS: Valsartan 160 MG TABLET PO (09:11)
[2022-05-19] MEDS: Famotidine 20 MG TABLET PO ×2 (09:11→21:24)
[2022-05-19 09:19] LABS: Procalcitonin 0.06 ng/mL
[2022-05-19 10:17] LABS: ABG HCO3 24 mmol/L (22-26); ABG pCO2 53 mmHg (32-45); ABG pH 7.25 (7.35-7.45); ABG pO2 78 mmHg (83-108)
[2022-05-19] MEDS: Lactated Ringers 1,000 ML 60 ML IVCONT (11:07)
[2022-05-19 11:49] LABS: Glucose, Whole Blood 223 mg/dL (60-115)
--- NOTE | 2022-05-19 11:55 | P.PNCC_ITS ---
Subjective Subjective Date of Service: 05/19/22 Interval History: He is a 76-year-old moderately obese male who presented with acute on chronic hypercarbic and hypoxic respiratory failure and no apparent reason with bedside echo demonstrating preserved left ventricular function no primary valve or pericardial disease and is chest CT scan showing no evidence of infiltrate nothing apparently infectious no COPD exacerbation wheezing in fact he makes very little respiratory effort despite worsening respiratory acidosis so clearly this seems to be a central issue and knowing at home that he takes hide hydrocodone as well as a prescribed benzodiazepine and amitriptyline I question whether not he might have taken in inappropriate dose for what ever reason and his neurological physiotherapist will gather his medicines and bring them and the other question of course is whether not alcohol plays a role but we know of no personal relationships out there that can valve for his habits so we watch basically for signs of withdrawal and his a panic function seems to have remained preserved so the acetaminophen no component of his narcotic certainly was not taken at the no to a toxic level and we continue to treat him with just BiPAP which seems to help him compensate and will intermittently try to wean him from the BiPAP at to see if his pCO2 skin be reasonably maintained Critical Care Time (minutes): 45 Physical Exam Vital Signs: Vital Signs: Last Vital Signs Temp 96.8 F 05/19/22 08:00 Pulse 106 H 05/19/22 11:00 Resp 9 L 05/19/22 11:00 BP 169/98 H 05/19/22 11:00 Pulse Ox 93 05/19/22 11:00 O2 Del Method 05/19/22 11:00 O2 Flow Rate 25 05/19/22 07:00 FiO2 25 05/19/22 11:00 BMI result Body Mass Index 26.9 Initially he was deeply obtunded but he does respond now 2 normal voice verbal stimuli Bedside echo showing preserved left ventricular systolic motion Abdomen is soft with no organomegaly Lungs without adventitious signs and no accessory muscle use Peripherally no edema Objective Data Labs CBC & Chem 7: 05/20/22 05:19 05/19/22 16:40 Labs: Laboratory Results - last 24 hr 05/18/22 05/18/22 05/18/22 16:30 17:20 18:01 WBC RBC Hgb Hct MCV MCH MCHC RDW Plt Count MPV Absolute Nucleated RBC Nucleated RBC % (auto) O2 Saturation 90.0 ABG pH at Pt Temp 7.21 L ABG pCO2 at Pt Temp 74 H* ABG pO2 at Pt Temp 67 L ABG HCO3 30 H ABG Base Excess (Actual) -0.7 VBG pH VBG pCO2 VBG pO2 VBG HCO3 VBG O2 Saturation VBG Base Excess Sodium Potassium Chloride Carbon Dioxide Anion Gap BUN Creatinine Estim Creat Clear Calc Estimated GFR POC Glucose 188 H Random Glucose Lactic Acid Calcium Phosphorus Total Bilirubin Direct Bilirubin AST ALT Alkaline Phosphatase Ammonia Troponin I High Sens 5.7 D Total Protein Albumin Lipase Procalcitonin 05/18/22 05/18/22 05/18/22 20:11 21:19 21:26 WBC RBC Hgb Hct MCV MCH MCHC RDW Plt Count MPV Absolute Nucleated RBC Nucleated RBC % (auto) O2 Saturation ABG pH at Pt Temp ABG pCO2 at Pt Temp ABG pO2 at Pt Temp ABG HCO3 ABG Base Excess (Actual) VBG pH 7.41 VBG pCO2 34 VBG pO2 159 VBG HCO3 22 VBG O2 Saturation 100.0 VBG Base Excess -1.4 Sodium Potassium Chloride Carbon Dioxide Anion Gap BUN Creatinine Estim Creat Clear Calc Estimated GFR POC Glucose 220 H Random Glucose Lactic Acid Calcium Phosphorus Total Bilirubin Direct Bilirubin AST ALT Alkaline Phosphatase Ammonia Troponin I High Sens 6.6 Total Protein Albumin Lipase Procalcitonin 05/18/22 05/18/22 05/19/22 21:27 21:27 05:15 WBC 17.0 H 14.8 H RBC 5.49 5.37 Hgb 17.7 17.3 Hct 55.3 H 54.0 H MCV 100.7 H 100.6 H MCH 32.2 32.2 MCHC 32.0 32.0 RDW 13.2 13.1 Plt Count 118 L 124 L MPV 11.9 12.6 H Absolute Nucleated RBC 0.000 0.000 Nucleated RBC % (auto) 0.0 0.0 O2 Saturation ABG pH at Pt Temp ABG pCO2 at Pt Temp ABG pO2 at Pt Temp ABG HCO3 ABG Base Excess (Actual) VBG pH VBG pCO2 VBG pO2 VBG HCO3 VBG O2 Saturation VBG Base Excess Sodium 141 Potassium 4.0 Chloride 103 Carbon Dioxide 27 Anion Gap 15 BUN 35 H Creatinine 1.07 Estim Creat Clear Calc 56.8 Estimated GFR > 60 POC Glucose Random Glucose 243 H D Lactic Acid Calcium 8.6 D Phosphorus 3.0 Total Bilirubin Direct Bilirubin AST ALT Alkaline Phosphatase Ammonia Troponin I High Sens Total Protein Albumin Lipase Procalcitonin 05/19/22 05/19/22 05/19/22 05:15 05:15 05:25 WBC RBC Hgb Hct MCV MCH MCHC RDW Plt Count MPV Absolute Nucleated RBC Nucleated RBC % (auto) O2 Saturation ABG pH at Pt Temp ABG pCO2 at Pt Temp ABG pO2 at Pt Temp ABG HCO3 ABG Base Excess (Actual) VBG pH 7.26 L VBG pCO2 58 VBG pO2 82 VBG HCO3 26 VBG O2 Saturation 96.0 VBG Base Excess -2.1 Sodium 141 Potassium 4.2 Chloride 106 Carbon Dioxide 25 Anion Gap 14 BUN 36 H Creatinine 0.87 Estim Creat Clear Calc 69.9 Estimated GFR > 60 POC Glucose Random Glucose 221 H Lactic Acid Calcium 8.4 Phosphorus Total Bilirubin 0.5 Direct Bilirubin 0.3 AST 26 ALT 38 Alkaline Phosphatase 72 Ammonia Troponin I High Sens 6.7 Total Protein 6.3 L Albumin 3.7 Lipase 33 Procalcitonin 05/19/22 05/19/22 05/19/22 05:47 07:20 08:34 WBC RBC Hgb Hct MCV MCH MCHC RDW Plt Count MPV Absolute Nucleated RBC Nucleated RBC % (auto) O2 Saturation 95.0 ABG pH at Pt Temp 7.21 L ABG pCO2 at Pt Temp 57 H ABG pO2 at Pt Temp 81 L ABG HCO3 23 ABG Base Excess (Actual) -5.7 VBG pH VBG pCO2 VBG pO2 VBG HCO3 VBG O2 Saturation VBG Base Excess Sodium Potassium Chloride Carbon Dioxide Anion Gap BUN Creatinine Estim Creat Clear Calc Estimated GFR POC Glucose 208 H Random Glucose Lactic Acid 0.9 Calcium Phosphorus Total Bilirubin Direct Bilirubin AST ALT Alkaline Phosphatase Ammonia Troponin I High Sens Total Protein Albumin Lipase Procalcitonin 05/19/22 05/19/22 05/19/22 08:34 08:34 08:34 WBC RBC Hgb Hct MCV MCH MCHC RDW Plt Count MPV Absolute Nucleated RBC Nucleated RBC % (auto) O2 Saturation ABG pH at Pt Temp ABG pCO2 at Pt Temp ABG pO2 at Pt Temp ABG HCO3 ABG Base Excess (Actual) VBG pH VBG pCO2 VBG pO2 VBG HCO3 VBG O2 Saturation VBG Base Excess Sodium 138 Potassium 4.8 Chloride 107 Carbon Dioxide 23 Anion Gap 13 BUN 35 H Creatinine 1.01 Estim Creat Clear Calc 60.2 Estimated GFR > 60 POC Glucose Random Glucose 246 H Lactic Acid Calcium 8.1 L Phosphorus Total Bilirubin Direct Bilirubin AST ALT Alkaline Phosphatase Ammonia 35 Troponin I High Sens Total Protein Albumin Lipase Procalcitonin 0.06 05/19/22 05/19/22 05/19/22 08:41 10:12 11:44 WBC RBC Hgb Hct MCV MCH MCHC RDW Plt Count MPV Absolute Nucleated RBC Nucleated RBC % (auto) O2 Saturation 95.0 ABG pH at Pt Temp 7.25 L ABG pCO2 at Pt Temp 53 H ABG pO2 at Pt Temp 78 L ABG HCO3 24 ABG Base Excess (Actual) -4.0 VBG pH 7.24 L VBG pCO2 56 VBG pO2 67 VBG HCO3 24 VBG O2 Saturation 91.0 VBG Base Excess -4.1 Sodium Potassium Chloride Carbon Dioxide Anion Gap BUN Creatinine Estim Creat Clear Calc Estimated GFR POC Glucose 223 H Random Glucose Lactic Acid Calcium Phosphorus Total Bilirubin Direct Bilirubin AST ALT Alkaline Phosphatase Ammonia Troponin I High Sens Total Protein Albumin Lipase Procalcitonin Microbiology Microbiology Results: Microbiology 05/15/22 17:21 Blood - Venous Blood Culture - Preliminary No growth after 48 hours. 05/15/22 16:55 Blood - Venous Blood Culture - Preliminary No growth after 48 hours. Progress Note: A&P Assessment and plan (1) Mild bibasilar atelectasis: Status: Acute (2) Hypoventilation syndrome: Status: Acute (3) Encephalopathy: Status: Acute (4) Acute exacerbation of COPD with asthma: Status: Acute (5) Acute on chronic respiratory failure with hypoxia and hypercapnia: Status: Acute (6) STEPH (obstructive sleep apnea): Status: Acute (7) COPD (chronic obstructive pulmonary disease): Status: Acute (8) COPD (chronic obstructive pulmonary disease): Status: Acute (9) Acute kidney injury: Status: Acute (10) Atypical chest pain: Status: Acute (11) Asthma with COPD with exacerbation: Status: Acute (12) Acute and chronic respiratory failure with hypoxia: Status: Acute (13) Uncontrolled type 2 diabetes mellitus with hyperglycemia: Status: Acute (14) Benign prostatic hyperplasia without lower urinary tract symptoms: Status: Acute (15) Osteoarthritis of left knee: Status: Acute (16) Vitamin D deficiency: Status: Acute (17) HLD (hyperlipidemia): Status: Acute (18) HTN (hypertension): Status: Acute (19) Hypogonadism in male: Status: Acute (20) Chronic ITP (idiopathic thrombocytopenia): Status: Acute (21) T2DM (type 2 diabetes mellitus): Status: Acute Plan So we will maintain BiPAP has the mainstay of his treatment and each day continue to try to wean assessing his his mental status and of course his blood gas as we await further information for when they bring in his home medication Quality Stroke Does the patient have a stroke diagnosis?: No VTE Prior VTE?: No VTE Risk Level:: Medical - moderate - high VTE Device Contraindication: Treatment Not Indicated VTE Drug Contraindication: N/A - Med Ordered
[2022-05-19 12:12] LABS: ABG Refer to POC result
[2022-05-19 16:50] LABS: Venous Blood Gas Refer to POC result
[2022-05-19 16:51] LABS: VBG Base Excess -2.1 mmol/L; VBG HCO3 21 mmol/L (22-26); VBG pCO2 34 mmHg; VBG pO2 95 mmHg
[2022-05-19 18:01] LABS: Anion Gap 19 (12-20); Carbon Dioxide 15 mmol/L (22-29); Chloride 111 mmol/L (96-108); Potassium 4.5 mmol/L (3.3-5.1); Sodium 140 mmol/L (135-145)
[2022-05-19 18:05] LABS: Alanine Aminotransferase 36 U/L (0-40); Albumin Level 3.3 g/dL (3.5-5.0); Alkaline Phosphatase 62 U/L (39-117); Aspartate Amino Transferase 25 U/L (5-37); Bilirubin Total 0.5 mg/dL (0.0-1.0); Blood Urea Nitrogen 31 mg/dL (9-16); Calcium 8.2 mg/dL (8.4-10.2); Creatinine Clr Calc Pharmacy 69.1; Estimated Glomerular Filt Rate > 60; Glucose Random 162 mg/dL (60-115); Total Protein 6.1 g/dL (6.5-8.0)
[2022-05-19 18:11] LABS: Glucose, Whole Blood 168 mg/dL (60-115)
--- NOTE | 2022-05-19 21:12 | MHC.PIE ---
Addendum entered by Farrukh Varghese RN 05/20/22 06:42: BP improved after labetolol. Patient tolerated bipap for the most part of the night - AVAPS setting. Intermit restless, pulling at mask, but easily redirectable. Patient up to commode in at approx 2200. 1 assist w/ lines & tubes. Patient had loose BM. Assist w/ pericare. Original Note: Pt c/o nausea, taken off bipap temporarily. RT called. Patient agreed to go back on bipap. PRN amiefrkatlyn given @ 2031. Patricia GRIJALVA at bedside to see patient. Clarified NPO order r/t PO medictions due. Ok to give PO meds and take a 10 - 15 min break off bipap in order to take meds. Also, BP elevated 180's - 190's systolic. Patricia GRIJALVA aware, ordered labetolol.
[2022-05-19] MEDS: Atorvastatin Calcium 20 MG TABLET PO (21:24)
[2022-05-19] MEDS: Tamsulosin HCL 0.4 MG CAPSULE PO (21:24)
[2022-05-19 23:25] LABS: Glucose, Whole Blood 152 mg/dL (60-115)
[2022-05-20] VITALS (36 sets, daily range): BP systolic 91–176; BP diastolic 56–105; PULSE 71–100; RESP 12–39; TEMP 36.4–37.1; O2SAT 91–97
[2022-05-20] MEDS: Lactated Ringers 1,000 ML 60 ML IVCONT (04:38)
[2022-05-20] MEDS: Heparin Sodium,Porcine 5,000 UNIT/ML VIAL 5000 UNIT SUBCUT ×3 (04:41→20:15)
[2022-05-20 05:26] LABS: VBG Base Excess 0.5 mmol/L; VBG HCO3 27 mmol/L (22-26); VBG pCO2 50 mmHg; VBG pH 7.34 (7.32-7.43); VBG pO2 37 mmHg
[2022-05-20 05:28] LABS: Glucose, Whole Blood 138 mg/dL (60-115)
[2022-05-20 05:33] LABS: Venous Blood Gas Refer to POC result
[2022-05-20 06:04] LABS: MANUAL DIFF FLAG NO
[2022-05-20 06:11] LABS: Basophils Percent Auto 0.1 % (0-2); Hematocrit 51.9 % (42.0-52.0); Hemoglobin 16.7 g/dl (14.0-18.0); Imm Gran Abs Auto 0.06 X10*3/uL (0.00-0.03); Imm Gran Pct Auto 0.4 % (0.0-0.4); Lymphocytes Absolute Auto 0.7 X10*3/uL (1.2-4.9); Lymphocytes Percent Auto 4.8 % (20-40); Mean Corpuscular HGB Conc 32.2 g/dl (31.0-36.0); Mean Corpuscular Volume 99.4 fL (80.0-98.0); Mean Platelet Volume 12.7 fL (9.4-12.4); Monocytes Absolute Auto 0.9 X10*3/uL (0.1-1.2); Monocytes Percent Auto 6.2 % (2-11); Neutrophils Absolute Auto 12.4 x10*3/uL (2.0-8.3); Neutrophils Percent Auto 88.5 % (45-73); Platelet Count 114 X10*3/uL (160-400); Red Blood Count 5.22 X10*6/uL (4.60-5.80); White Blood Count 14.1 X10*3/uL (4.8-10.8)
[2022-05-20] MEDS: methylPREDNISolone Sod Succ 40 MG/ML VIAL IVPUSH ×4 (06:22→22:20)
[2022-05-20 06:28] LABS: Alanine Aminotransferase 31 U/L (0-40); Albumin Level 3.2 g/dL (3.5-5.0); Alkaline Phosphatase 60 U/L (39-117); Aspartate Amino Transferase 18 U/L (5-37); Bilirubin Direct 0.3 mg/dL (0.0-0.5); Bilirubin Total 0.6 mg/dL (0.0-1.0); Magnesium 2.5 mg/dL (1.6-2.6); Phosphorus 2.4 mg/dL (2.7-4.5); Total Protein 5.3 g/dL (6.5-8.0)
[2022-05-20] MEDS: Albuterol/Iprat 2.5/0.5MG 3 ML AMPUL.NEB INHALE ×4 (08:22→19:22)
[2022-05-20] MEDS: Metoprolol Succinate ER 100 MG TAB.ER.24H PO (09:21)
[2022-05-20] MEDS: Famotidine 20 MG TABLET PO ×2 (09:21→20:11)
[2022-05-20] MEDS: Ferrous Sulfate 324 MG TABLET.DR PO (09:21)
[2022-05-20] MEDS: 0.9 % Sodium Chloride Flush 3 ML SYRINGE IVFLUSH ×2 (09:21→23:41)
[2022-05-20] MEDS: Aspirin Enteric Coated 81 MG TABLET.DR PO (09:21)
[2022-05-20] MEDS: Valsartan 160 MG TABLET PO (09:21)
[2022-05-20] MEDS: Magnesium Oxide 400 MG TABLET PO ×2 (09:21→20:11)
[2022-05-20] MEDS: Insulin Glargine,Hum.rec.anlog 100 UNIT/ML 10 ML VIAL 30 UNIT SUBCUT (09:22)
[2022-05-20 09:26] LABS: Anion Gap 15 (12-20); Blood Urea Nitrogen 33 mg/dL (9-16); Calcium 8.7 mg/dL (8.4-10.2); Carbon Dioxide 26 mmol/L (22-29); Chloride 107 mmol/L (96-108); Creatinine Clr Calc Pharmacy 62.1; Estimated Glomerular Filt Rate > 60; Glucose Random 144 mg/dL (60-115); Potassium 4.3 mmol/L (3.3-5.1); Sodium 144 mmol/L (135-145)
[2022-05-20 11:16] LABS: Glucose, Whole Blood 172 mg/dL (60-115)
[2022-05-20] MEDS: Insulin Lispro 100 UNIT/ML 3 ML VIAL SUBCUT (12:07)
--- NOTE | 2022-05-20 13:43 | P.PNCC_ITS ---
Subjective Subjective Date of Service: 05/20/22 Interval History: 76-year-old male with underlying COPD and supposedly untreated obstructive sleep apnea came in with diminished mental status diminished responsiveness and clearly was hypoventilating and had periods of of apnea and even though they did not do a complete drug screen we had the lawn caretaker bring in home medicines and despite a recent refill on hydrocodone there 11 pills left out of 84 him for less than 10 days use the there was no left over amitriptyline and we could not find any diazepam so I have a feeling that this might very well have been a drug related issue compromising his central drive any compensated very well throughout the day and tolerated the BiPAP with good tidal volumes perfectly repaired blood gas and and this morning when he woke up we removed the BiPAP satting minute chair started to feed him patient's respiratory rate is markedly improved adding to the likelihood that this was a drug-induced diminishment mental status with secondary hypotension cassette looked like it was overwhelmingly and acute respiratory acidosis No primary lung pathology that we could see and bedside echocardiogram showed preserved left ventricular anatomy making that to an unlikely source of issue Critical Care Time (minutes): 35 Physical Exam Vital Signs: Vital Signs: Last Vital Signs Temp 98.2 F 05/20/22 12:00 Pulse 93 05/20/22 13:00 Resp 34 H 05/20/22 13:00 BP 145/77 H 05/20/22 13:00 Pulse Ox 97 05/20/22 13:00 O2 Del Method 05/20/22 13:00 O2 Flow Rate 1 05/20/22 13:00 FiO2 25 05/20/22 08:00 BMI result Body Mass Index 26.9 He is awake alert oriented and nonfocal Bedside echo with class 1 LV function Lungs clear no adventitious sounds Abdomen benign soft with no organomegaly Objective Data Labs CBC & Chem 7: 05/20/22 05:19 05/20/22 08:32 Labs: Laboratory Results - last 24 hr 05/19/22 05/19/22 05/19/22 16:40 16:46 18:08 WBC RBC Hgb Hct MCV MCH MCHC RDW Plt Count MPV Immature Gran % (Auto) Neut % (Auto) Lymph % (Auto) [place] % (Auto) Eos % (Auto) Baso % (Auto) Lymph # (Auto) [place] # (Auto) Eos # (Auto) Baso # (Auto) Abs Immat Gran (auto) Absolute Neuts (auto) Absolute Nucleated RBC Nucleated RBC % (auto) VBG pH 7.40 VBG pCO2 34 VBG pO2 95 VBG HCO3 21 L VBG O2 Saturation 99.0 VBG Base Excess -2.1 Sodium 140 Potassium 4.5 Chloride 111 H Carbon Dioxide 15 L Anion Gap 19 BUN 31 H Creatinine 0.88 Estim Creat Clear Calc 69.1 Estimated GFR > 60 POC Glucose 168 H Random Glucose 162 H Calcium 8.2 L Phosphorus Magnesium Total Bilirubin 0.5 Direct Bilirubin AST 25 ALT 36 Alkaline Phosphatase 62 Total Protein 6.1 L Albumin 3.3 L 05/19/22 05/20/22 05/20/22 23:21 05:19 05:19 WBC 14.1 H RBC 5.22 Hgb 16.7 Hct 51.9 MCV 99.4 H MCH 32.0 MCHC 32.2 RDW 13.0 Plt Count 114 L MPV 12.7 H Immature Gran % (Auto) 0.4 Neut % (Auto) 88.5 H Lymph % (Auto) 4.8 L [place] % (Auto) 6.2 Eos % (Auto) 0.0 Baso % (Auto) 0.1 Lymph # (Auto) 0.7 L [place] # (Auto) 0.9 Eos # (Auto) 0.0 Baso # (Auto) 0.0 Abs Immat Gran (auto) 0.06 H Absolute Neuts (auto) 12.4 H Absolute Nucleated RBC 0.000 Nucleated RBC % (auto) 0.0 VBG pH VBG pCO2 VBG pO2 VBG HCO3 VBG O2 Saturation VBG Base Excess Sodium Potassium Chloride Carbon Dioxide Anion Gap BUN Creatinine Estim Creat Clear Calc Estimated GFR POC Glucose 152 H Random Glucose Calcium Phosphorus 2.4 L Magnesium 2.5 Total Bilirubin 0.6 Direct Bilirubin 0.3 AST 18 ALT 31 Alkaline Phosphatase 60 Total Protein 5.3 L Albumin 3.2 L 05/20/22 05/20/22 05/20/22 05:22 05:24 08:32 WBC RBC Hgb Hct MCV MCH MCHC RDW Plt Count MPV Immature Gran % (Auto) Neut % (Auto) Lymph % (Auto) [place] % (Auto) Eos % (Auto) Baso % (Auto) Lymph # (Auto) [place] # (Auto) Eos # (Auto) Baso # (Auto) Abs Immat Gran (auto) Absolute Neuts (auto) Absolute Nucleated RBC Nucleated RBC % (auto) VBG pH 7.34 VBG pCO2 50 VBG pO2 37 VBG HCO3 27 H VBG O2 Saturation 68.0 VBG Base Excess 0.5 Sodium 144 Potassium 4.3 Chloride 107 Carbon Dioxide 26 Anion Gap 15 BUN 33 H Creatinine 0.98 Estim Creat Clear Calc 62.1 Estimated GFR > 60 POC Glucose 138 H Random Glucose 144 H Calcium 8.7 D Phosphorus Magnesium Total Bilirubin Direct Bilirubin AST ALT Alkaline Phosphatase Total Protein Albumin 05/20/22 11:12 WBC RBC Hgb Hct MCV MCH MCHC RDW Plt Count MPV Immature Gran % (Auto) Neut % (Auto) Lymph % (Auto) [place] % (Auto) Eos % (Auto) Baso % (Auto) Lymph # (Auto) [place] # (Auto) Eos # (Auto) Baso # (Auto) Abs Immat Gran (auto) Absolute Neuts (auto) Absolute Nucleated RBC Nucleated RBC % (auto) VBG pH VBG pCO2 VBG pO2 VBG HCO3 VBG O2 Saturation VBG Base Excess Sodium Potassium Chloride Carbon Dioxide Anion Gap BUN Creatinine Estim Creat Clear Calc Estimated GFR POC Glucose 172 H Random Glucose Calcium Phosphorus Magnesium Total Bilirubin Direct Bilirubin AST ALT Alkaline Phosphatase Total Protein Albumin Microbiology Microbiology Results: Microbiology 05/15/22 17:21 Blood - Venous Blood Culture - Preliminary No growth after 48 hours. 05/15/22 16:55 Blood - Venous Blood Culture - Preliminary No growth after 48 hours. Progress Note: A&P Assessment and plan (1) Mild bibasilar atelectasis: Status: Acute (2) Hypoventilation syndrome: Status: Acute (3) Encephalopathy: Status: Acute (4) Acute on chronic respiratory failure with hypoxia and hypercapnia: Status: Acute (5) COPD (chronic obstructive pulmonary disease): Status: Acute (6) STEPH (obstructive sleep apnea): Status: Acute (7) Uncontrolled type 2 diabetes mellitus with hyperglycemia: Status: Acute (8) Vitamin D deficiency: Status: Acute (9) HLD (hyperlipidemia): Status: Acute (10) HTN (hypertension): Status: Acute (11) T2DM (type 2 diabetes mellitus): Status: Acute (12) Chronic ITP (idiopathic thrombocytopenia): Status: Acute Plan So acute hypercarbic and hypoxic respiratory failure based on hypoventilation which she it appears to be drug-induced likely the combination of benzodiazepine and the hydrocodone and today mental status and responsiveness of showing signs of resolution so we will recheck his blood gas now that he is several hours on nasal cannula and if his pCO2 is still in a comfortable and compensated range I think that we could plan for transfer to the floor at and maybe this gentleman needs to be placed where it the medications can be administered to him and therefore have more control Quality Stroke Does the patient have a stroke diagnosis?: No VTE Prior VTE?: No VTE Risk Level:: Medical - moderate - high VTE Device Contraindication: Treatment Not Indicated VTE Drug Contraindication: N/A - Med Ordered
[2022-05-20 16:53] LABS: Glucose, Whole Blood 156 mg/dL (60-115)
[2022-05-20 18:13] LABS: Glucose, Whole Blood 137 mg/dL (60-115)
--- NOTE | 2022-05-20 19:03 | PC.NURSE ---
Patients caregiver brought home patients phone, tank charger, and keys per pt request.
[2022-05-20] MEDS: Tamsulosin HCL 0.4 MG CAPSULE PO (20:11)
[2022-05-20] MEDS: Atorvastatin Calcium 20 MG TABLET PO (20:11)
[2022-05-20 20:29] LABS: ABG Base Excess 4.2 mmol/L; ABG HCO3 33 mmol/L (22-26); ABG pCO2 71 mmHg (32-45); ABG pH 7.28 (7.35-7.45); ABG pO2 132 mmHg (83-108)
[2022-05-20 23:34] LABS: Glucose, Whole Blood 139 mg/dL (60-115)
[2022-05-21] VITALS (31 sets, daily range): BP systolic 110–197; BP diastolic 62–102; PULSE 73–125; RESP 14–39; TEMP 36.2–37.2; O2SAT 90–98
[2022-05-21 01:03] LABS: ABG Refer to POC result
[2022-05-21] MEDS: Heparin Sodium,Porcine 5,000 UNIT/ML VIAL 5000 UNIT SUBCUT ×3 (03:56→20:35)
[2022-05-21] MEDS: methylPREDNISolone Sod Succ 40 MG/ML VIAL IVPUSH ×4 (04:09→23:53)
[2022-05-21 05:17] LABS: VBG HCO3 22 mmol/L (22-26); VBG pCO2 35 mmHg; VBG pO2 41 mmHg
[2022-05-21 05:26] LABS: Venous Blood Gas Refer to POC result
[2022-05-21 05:33] LABS: MANUAL DIFF FLAG NO
[2022-05-21 05:46] LABS: Basophils Percent Auto 0.2 % (0-2); Hemoglobin 17.5 g/dl (14.0-18.0); Imm Gran Abs Auto 0.04 X10*3/uL (0.00-0.03); Imm Gran Pct Auto 0.3 % (0.0-0.4); Lymphocytes Absolute Auto 0.5 X10*3/uL (1.2-4.9); Lymphocytes Percent Auto 4.1 % (20-40); Mean Corpuscular HGB Conc 32.4 g/dl (31.0-36.0); Mean Corpuscular Hemoglobin 31.8 pg (27.0-33.0); Mean Corpuscular Volume 98.2 fL (80.0-98.0); Mean Platelet Volume 12.5 fL (9.4-12.4); Monocytes Absolute Auto 0.8 X10*3/uL (0.1-1.2); Monocytes Percent Auto 5.9 % (2-11); Neutrophils Absolute Auto 11.8 x10*3/uL (2.0-8.3); Neutrophils Percent Auto 89.5 % (45-73); Platelet Count 123 X10*3/uL (160-400); White Blood Count 13.1 X10*3/uL (4.8-10.8)
[2022-05-21 05:53] LABS: Alanine Aminotransferase 37 U/L (0-40); Albumin Level 3.6 g/dL (3.5-5.0); Alkaline Phosphatase 70 U/L (39-117); Aspartate Amino Transferase 20 U/L (5-37); Bilirubin Direct 0.4 mg/dL (0.0-0.5); Bilirubin Total 0.7 mg/dL (0.0-1.0); Magnesium 2.7 mg/dL (1.6-2.6); Phosphorus 2.7 mg/dL (2.7-4.5); Total Protein 6.2 g/dL (6.5-8.0)
[2022-05-21 06:08] LABS: Glucose, Whole Blood 215 mg/dL (60-115)
[2022-05-21] MEDS: Insulin Lispro 100 UNIT/ML 3 ML VIAL SUBCUT ×2 (06:09→23:53)
[2022-05-21] MEDS: Ferrous Sulfate 324 MG TABLET.DR PO (08:03)
[2022-05-21] MEDS: Aspirin Enteric Coated 81 MG TABLET.DR PO (08:03)
[2022-05-21] MEDS: carvediloL 6.25 MG TABLET PO ×2 (08:03→20:35)
[2022-05-21] MEDS: Valsartan 160 MG TABLET PO (08:03)
[2022-05-21] MEDS: Insulin Glargine,Hum.rec.anlog 100 UNIT/ML 10 ML VIAL 30 UNIT SUBCUT (08:04)
[2022-05-21] MEDS: Spironolactone 25 MG TABLET PO (08:04)
[2022-05-21] MEDS: Famotidine 20 MG TABLET PO ×2 (08:04→20:36)
[2022-05-21] MEDS: Magnesium Oxide 400 MG TABLET PO ×2 (08:06→20:36)
[2022-05-21] MEDS: 0.9 % Sodium Chloride Flush 3 ML SYRINGE IVFLUSH ×3 (08:06→23:58)
[2022-05-21] MEDS: Albuterol/Iprat 2.5/0.5MG 3 ML AMPUL.NEB INHALE ×4 (08:42→20:26)
--- NOTE | 2022-05-21 08:46 | PM.CCPN ---
Subjective Subjective Date of Service: 05/21/22 Interval History: 76-year-old moderately obese patient with underlying untreated obstructive sleep apnea and COPD came in with pure hypoventilation and altered mental status and he is prescribed both low dosed Valium as well as acetaminophen and oxycodone and I believe was a combination and the monotyper brought in all his vials and he clearly had very little left of the oxycodone pills and they were just filled 10 days earlier and 70 pills presumably were consumed and the Valium was no added be found in the home so that may very well a been consumed in full and neck could have accounted for some of the change but he does have some active signs of COPD any little bit of exertion ease the persistently tachypneic for long stretch of time with a little diaphragmatic expiratory effort Bedside echo with with concentric left ventricular hypertrophy but perfectly normal systolic wall motion as well for the right ventricle with no primary valve or pericardial disease Was acutely hypertensive in excess of 200 systolic and I changed the metoprolol to carvedilol and added spironolactone to his regimen He had been complaining of some vague abdominal discomfort but with persistently soft abdominal exam no point tenderness no rebound no guarding and a completely benign CT scan without contrast of his abdomen but he does do a considerable amount of air swallowing when he is on the BiPAP and that may be the issue Critical Care Time (minutes): 35 Physical Exam Vital Signs: Vital Signs: Last Vital Signs Temp 97.8 F 05/21/22 08:00 Pulse 98 05/21/22 08:44 Resp 24 H 05/21/22 08:44 BP 160/85 H 05/21/22 08:00 Pulse Ox 92 05/21/22 08:00 O2 Del Method 05/21/22 08:00 O2 Flow Rate 1 05/21/22 08:00 FiO2 25 05/21/22 07:45 BMI result Body Mass Index 26.9 Afebrile and currently normotensive at 01:15 systolic correction at 01:45 systolic oxygen saturation is 94 his heart rate is 96 and sinus rhythm Abdomen is is benign Chest with no adventitious sounds just the some degree of tachypnea with shallow volume and some diaphragmatic effort Objective Data Labs CBC & Chem 7: 05/21/22 05:11 05/20/22 08:32 Labs: Laboratory Results - last 24 hr 05/20/22 05/20/22 05/20/22 08:32 11:12 13:56 WBC RBC Hgb Hct MCV MCH MCHC RDW Plt Count MPV Immature Gran % (Auto) Neut % (Auto) Lymph % (Auto) [place] % (Auto) Eos % (Auto) Baso % (Auto) Lymph # (Auto) [place] # (Auto) Eos # (Auto) Baso # (Auto) Abs Immat Gran (auto) Absolute Neuts (auto) Absolute Nucleated RBC Nucleated RBC % (auto) O2 Saturation 99.0 ABG pH at Pt Temp 7.28 L ABG pCO2 at Pt Temp 71 H* ABG pO2 at Pt Temp 132 H ABG HCO3 33 H ABG Base Excess (Actual) 4.2 VBG pH VBG pCO2 VBG pO2 VBG HCO3 VBG O2 Saturation VBG Base Excess Sodium 144 Potassium 4.3 Chloride 107 Carbon Dioxide 26 Anion Gap 15 BUN 33 H Creatinine 0.98 Estim Creat Clear Calc 62.1 Estimated GFR > 60 POC Glucose 172 H Random Glucose 144 H Calcium 8.7 D Phosphorus Magnesium Total Bilirubin Direct Bilirubin AST ALT Alkaline Phosphatase Total Protein Albumin 05/20/22 05/20/22 05/20/22 16:49 18:10 23:30 WBC RBC Hgb Hct MCV MCH MCHC RDW Plt Count MPV Immature Gran % (Auto) Neut % (Auto) Lymph % (Auto) [place] % (Auto) Eos % (Auto) Baso % (Auto) Lymph # (Auto) [place] # (Auto) Eos # (Auto) Baso # (Auto) Abs Immat Gran (auto) Absolute Neuts (auto) Absolute Nucleated RBC Nucleated RBC % (auto) O2 Saturation ABG pH at Pt Temp ABG pCO2 at Pt Temp ABG pO2 at Pt Temp ABG HCO3 ABG Base Excess (Actual) VBG pH VBG pCO2 VBG pO2 VBG HCO3 VBG O2 Saturation VBG Base Excess Sodium Potassium Chloride Carbon Dioxide Anion Gap BUN Creatinine Estim Creat Clear Calc Estimated GFR POC Glucose 156 H 137 H 139 H Random Glucose Calcium Phosphorus Magnesium Total Bilirubin Direct Bilirubin AST ALT Alkaline Phosphatase Total Protein Albumin 05/21/22 05/21/22 05/21/22 05:11 05:11 05:13 WBC 13.1 H RBC 5.50 Hgb 17.5 Hct 54.0 H MCV 98.2 H MCH 31.8 MCHC 32.4 RDW 13.0 Plt Count 123 L MPV 12.5 H Immature Gran % (Auto) 0.3 Neut % (Auto) 89.5 H Lymph % (Auto) 4.1 L [place] % (Auto) 5.9 Eos % (Auto) 0.0 Baso % (Auto) 0.2 Lymph # (Auto) 0.5 L [place] # (Auto) 0.8 Eos # (Auto) 0.0 Baso # (Auto) 0.0 Abs Immat Gran (auto) 0.04 H Absolute Neuts (auto) 11.8 H Absolute Nucleated RBC 0.000 Nucleated RBC % (auto) 0.0 O2 Saturation ABG pH at Pt Temp ABG pCO2 at Pt Temp ABG pO2 at Pt Temp ABG HCO3 ABG Base Excess (Actual) VBG pH 7.40 VBG pCO2 35 VBG pO2 41 VBG HCO3 22 VBG O2 Saturation 74.0 VBG Base Excess -2.0 Sodium Potassium Chloride Carbon Dioxide Anion Gap BUN Creatinine Estim Creat Clear Calc Estimated GFR POC Glucose Random Glucose Calcium Phosphorus 2.7 Magnesium 2.7 H Total Bilirubin 0.7 Direct Bilirubin 0.4 AST 20 ALT 37 Alkaline Phosphatase 70 Total Protein 6.2 L Albumin 3.6 05/21/22 06:04 WBC RBC Hgb Hct MCV MCH MCHC RDW Plt Count MPV Immature Gran % (Auto) Neut % (Auto) Lymph % (Auto) [place] % (Auto) Eos % (Auto) Baso % (Auto) Lymph # (Auto) [place] # (Auto) Eos # (Auto) Baso # (Auto) Abs Immat Gran (auto) Absolute Neuts (auto) Absolute Nucleated RBC Nucleated RBC % (auto) O2 Saturation ABG pH at Pt Temp ABG pCO2 at Pt Temp ABG pO2 at Pt Temp ABG HCO3 ABG Base Excess (Actual) VBG pH VBG pCO2 VBG pO2 VBG HCO3 VBG O2 Saturation VBG Base Excess Sodium Potassium Chloride Carbon Dioxide Anion Gap BUN Creatinine Estim Creat Clear Calc Estimated GFR POC Glucose 215 H Random Glucose Calcium Phosphorus Magnesium Total Bilirubin Direct Bilirubin AST ALT Alkaline Phosphatase Total Protein Albumin Microbiology Microbiology Results: Microbiology 05/15/22 17:21 Blood - Venous Blood Culture - Final No growth after 5 days. 05/15/22 16:55 Blood - Venous Blood Culture - Final No growth after 5 days. Progress Note: A&P Assessment and plan (1) Mild bibasilar atelectasis: Status: Acute (2) Hypoventilation syndrome: Status: Acute (3) Encephalopathy: Status: Acute (4) Acute exacerbation of COPD with asthma: Status: Acute (5) Acute on chronic respiratory failure with hypoxia and hypercapnia: Status: Acute (6) COPD (chronic obstructive pulmonary disease): Status: Acute (7) STEPH (obstructive sleep apnea): Status: Acute (8) Acute kidney injury: Status: Acute (9) Atypical chest pain: Status: Acute (10) Uncontrolled type 2 diabetes mellitus with hyperglycemia: Status: Acute (11) Benign prostatic hyperplasia without lower urinary tract symptoms: Status: Acute (12) Vitamin D deficiency: Status: Acute Plan So the plan is to keep up with symptomatic airway treatment as add spironolactone to help with the vasodilation and volume status and along with the addition of the alpha blockade in the form of Coreg and we will recheck a blood gas and his clinical status later in the day Quality Stroke Does the patient have a stroke diagnosis?: No VTE Prior VTE?: No VTE Risk Level:: Medical - moderate - high VTE Device Contraindication: Treatment Not Indicated VTE Drug Contraindication: N/A - Med Ordered
[2022-05-21 11:59] LABS: Glucose, Whole Blood 90 mg/dL (60-115)
[2022-05-21 12:18] LABS: Anion Gap 13 (12-20); Blood Urea Nitrogen 36 mg/dL (9-16); Calcium 8.1 mg/dL (8.4-10.2); Carbon Dioxide 29 mmol/L (22-29); Chloride 107 mmol/L (96-108); Creatinine Clr Calc Pharmacy 69.9; Estimated Glomerular Filt Rate > 60; Glucose Random 104 mg/dL (60-115); Potassium 3.9 mmol/L (3.3-5.1); Sodium 145 mmol/L (135-145)
--- NOTE | 2022-05-21 12:33 | PC.NURSE ---
Addendum entered by Gbariela Hernandez RN 05/21/22 18:25: Pt required Bipap 09:53-14:30 for increased drowsiness and lethargy. Pt became more alert and awake 14:30, ate late lunch with 1L NC. 16:05 placed BiPap AVAP with settings back on for increased drowsiness. Original Note: pt on 3L NC SaO2 94% at 07:00. Pt titrated to 1L NC to stay in goal SaO2 89-92%. Pt up to recliner 08:00. Pt began taking naps 09:30. Pt placed on BiPap while sleeping at 09:53 AVAP setting. Rate: 20, MinP:12, MaxP:30 FiO2 25%.
--- NOTE | 2022-05-21 14:28 | MHC.CM.PN ---
EMR reviewed, pt placed back on bipap after being off for a short time between 8-10am, O2 goal is 89-92%, per hospitalist suspectd AMS/lethargy from overmedicating at home. No plan for d/c at this time, antic pt will be able to return home w/new VNA for disease education and med management. CM will cont to folllow d/c needs.
[2022-05-21 18:06] LABS: Glucose, Whole Blood 120 mg/dL (60-115)
[2022-05-21] MEDS: Tamsulosin HCL 0.4 MG CAPSULE PO (20:35)
[2022-05-21] MEDS: Atorvastatin Calcium 20 MG TABLET PO (20:35)
[2022-05-21 23:42] LABS: Glucose, Whole Blood 213 mg/dL (60-115)
[2022-05-22] VITALS (30 sets, daily range): BP systolic 122–181; BP diastolic 59–90; PULSE 78–103; RESP 12–38; TEMP 36–37; O2SAT 90–99
[2022-05-22] MEDS: Acetaminophen 325 MG TABLET 650 MG PO (02:02)
[2022-05-22] MEDS: methylPREDNISolone Sod Succ 40 MG/ML VIAL IVPUSH ×3 (05:14→22:10)
[2022-05-22] MEDS: Heparin Sodium,Porcine 5,000 UNIT/ML VIAL 5000 UNIT SUBCUT ×3 (05:14→21:56)
[2022-05-22 05:27] LABS: VBG Base Excess 3.3 mmol/L; VBG HCO3 28 mmol/L (22-26); VBG pCO2 45 mmHg; VBG pO2 47 mmHg
[2022-05-22 05:36] LABS: Glucose, Whole Blood 114 mg/dL (60-115)
[2022-05-22 05:38] LABS: Venous Blood Gas Refer to POC result
[2022-05-22 05:52] LABS: Basophils Percent Auto 0.1 % (0-2); Hematocrit 52.8 % (42.0-52.0); Hemoglobin 17.3 g/dl (14.0-18.0); Imm Gran Abs Auto 0.05 X10*3/uL (0.00-0.03); Imm Gran Pct Auto 0.4 % (0.0-0.4); Lymphocytes Absolute Auto 0.6 X10*3/uL (1.2-4.9); MANUAL DIFF FLAG NO; Mean Corpuscular HGB Conc 32.8 g/dl (31.0-36.0); Mean Corpuscular Hemoglobin 31.9 pg (27.0-33.0); Mean Corpuscular Volume 97.2 fL (80.0-98.0); Mean Platelet Volume 12.4 fL (9.4-12.4); Monocytes Absolute Auto 0.9 X10*3/uL (0.1-1.2); Monocytes Percent Auto 6.7 % (2-11); Neutrophils Absolute Auto 12.4 x10*3/uL (2.0-8.3); Neutrophils Percent Auto 88.8 % (45-73); Platelet Count 123 X10*3/uL (160-400); Red Blood Count 5.43 X10*6/uL (4.60-5.80); Red Cell Distribution Width 13.1 % (11.0-16.0); White Blood Count 13.9 X10*3/uL (4.8-10.8)
[2022-05-22 06:09] LABS: Alanine Aminotransferase 37 U/L (0-40); Albumin Level 3.6 g/dL (3.5-5.0); Alkaline Phosphatase 69 U/L (39-117); Anion Gap 14 (12-20); Aspartate Amino Transferase 22 U/L (5-37); Bilirubin Total 0.7 mg/dL (0.0-1.0); Blood Urea Nitrogen 34 mg/dL (9-16); Calcium 8.4 mg/dL (8.4-10.2); Carbon Dioxide 30 mmol/L (22-29); Chloride 106 mmol/L (96-108); Estimated Glomerular Filt Rate > 60; Glucose Random 124 mg/dL (60-115); Magnesium 2.6 mg/dL (1.6-2.6); Phosphorus 2.5 mg/dL (2.7-4.5); Potassium 3.9 mmol/L (3.3-5.1); Sodium 146 mmol/L (135-145); Total Protein 6.1 g/dL (6.5-8.0)
[2022-05-22] MEDS: Sodium Chloride 0.45 % 1,000 ML 100 ML IVCONT ×2 (07:32→22:11)
--- NOTE | 2022-05-22 08:47 | MHC.CM.PN ---
[facility] UNABLE TO OFFER DAILY MEDICATION MANAGEMENT. [facility] REFERRAL PLACED WITH THIS REQUEST. CASE MANAGEMENT TO UPDATE [facility] ONCE OFFER IS MADE
[2022-05-22] MEDS: Valsartan 160 MG TABLET PO (08:50)
[2022-05-22] MEDS: Aspirin Enteric Coated 81 MG TABLET.DR PO (08:50)
[2022-05-22] MEDS: Famotidine 20 MG TABLET PO ×2 (08:50→21:57)
[2022-05-22] MEDS: Magnesium Oxide 400 MG TABLET PO ×2 (08:50→21:57)
[2022-05-22] MEDS: carvediloL 6.25 MG TABLET PO ×2 (08:50→21:57)
[2022-05-22] MEDS: Spironolactone 25 MG TABLET PO (08:50)
[2022-05-22] MEDS: Ferrous Sulfate 324 MG TABLET.DR PO (08:51)
[2022-05-22] MEDS: Insulin Glargine,Hum.rec.anlog 100 UNIT/ML 10 ML VIAL 30 UNIT SUBCUT (08:51)
[2022-05-22] MEDS: Albuterol/Iprat 2.5/0.5MG 3 ML AMPUL.NEB INHALE ×4 (08:59→20:09)
[2022-05-22 11:42] LABS: Glucose, Whole Blood 190 mg/dL (60-115)
[2022-05-22 12:11] LABS: ABG Base Excess 2.9 mmol/L; ABG HCO3 29 mmol/L (22-26); ABG pCO2 51 mmHg (32-45); ABG pH 7.36 (7.35-7.45); ABG pO2 99 mmHg (83-108)
[2022-05-22 13:12] LABS: ABG Refer to POC result
--- NOTE | 2022-05-22 13:21 | MHC.CM.PN ---
CALL FROM [facility] RN LESLIE ([phone]) UPDATES GIVEN. SHE IS AWARE THAT CASE MANAGEMENT IS ASKING FOR VNA SERVICES THAT CAN OFFER DAILY MEDICATION MANAGEMENT.
[2022-05-22] MEDS: Insulin Lispro 100 UNIT/ML 3 ML VIAL SUBCUT ×2 (13:38→18:38)
--- NOTE | 2022-05-22 14:14 | MHC.CM.PN ---
ALLIED [facility] OFFERING DAILY MEDICATION MANAGEMENT AND MONITORING. TL RN, LESLIE ([phone]) NOTIFIED
--- NOTE | 2022-05-22 15:00 | PM.CCPN ---
Subjective Subjective Date of Service: 05/22/22 Interval History: 76-year-old with COPD and untreated sleep apnea although he has a CPAP machine at home that he does not use presented with altered mental status and a lot of missing pills at home namely the oxycodone as well as the Valium and presented with acute on chronic hypercarbic respiratory failure and this was pure hypoventilation and I believe a good part of it was related to the combination of opiate and benzodiazepine but clearly has very significant exertional dyspnea no signs of an acute infection he has remained afebrile no left shift on his white count he has got mild leukocytosis but probably based on the low use of steroids and he has been on steroids as well as bronchodilator therapy and gradually mental status has improved ability to maintain a comfortable pCO2 for extended periods of time on nasal cannula oxygen as also improved and I think were down to the use of BiPAP on an as needed basis and potentially nocturnally Critical Care Time (minutes): 35 Physical Exam Vital Signs: Vital Signs: Last Vital Signs Temp 97.8 F 05/22/22 08:00 Pulse 83 05/22/22 14:00 Resp 20 05/22/22 14:00 BP 139/68 05/22/22 14:00 Pulse Ox 95 05/22/22 14:00 O2 Del Method 05/22/22 14:00 O2 Flow Rate 1 05/22/22 13:00 FiO2 25 05/22/22 14:00 BMI result Body Mass Index 26.9 More alert oriented and nonfocal neurologically Lungs with diminishing expiratory effort on the part of the diaphragms and and diminished bilateral breath sounds and no accessory muscle use Bedside echo for cardiac exam shows concentric left ventricular hypertrophy but normal systolic wall motion Abdomen soft nontender yet and that we had a CT scan of his abdomen which was completely benign Skin is intact Objective Data Labs CBC & Chem 7: 05/22/22 05:22 05/22/22 05:22 Labs: Laboratory Results - last 24 hr 05/21/22 05/21/22 05/22/22 18:02 23:34 05:22 WBC 13.9 H RBC 5.43 Hgb 17.3 Hct 52.8 H MCV 97.2 MCH 31.9 MCHC 32.8 RDW 13.1 Plt Count 123 L MPV 12.4 Immature Gran % (Auto) 0.4 Neut % (Auto) 88.8 H Lymph % (Auto) 4.0 L [place] % (Auto) 6.7 Eos % (Auto) 0.0 Baso % (Auto) 0.1 Lymph # (Auto) 0.6 L [place] # (Auto) 0.9 Eos # (Auto) 0.0 Baso # (Auto) 0.0 Abs Immat Gran (auto) 0.05 H Absolute Neuts (auto) 12.4 H Absolute Nucleated RBC 0.000 Nucleated RBC % (auto) 0.0 O2 Saturation ABG pH at Pt Temp ABG pCO2 at Pt Temp ABG pO2 at Pt Temp ABG HCO3 ABG Base Excess (Actual) VBG pH VBG pCO2 VBG pO2 VBG HCO3 VBG O2 Saturation VBG Base Excess Sodium Potassium Chloride Carbon Dioxide Anion Gap BUN Creatinine Estim Creat Clear Calc Estimated GFR POC Glucose 120 H 213 H Random Glucose Calcium Phosphorus Magnesium Total Bilirubin AST ALT Alkaline Phosphatase Total Protein Albumin 05/22/22 05/22/22 05/22/22 05:22 05:22 05:28 WBC RBC Hgb Hct MCV MCH MCHC RDW Plt Count MPV Immature Gran % (Auto) Neut % (Auto) Lymph % (Auto) [place] % (Auto) Eos % (Auto) Baso % (Auto) Lymph # (Auto) [place] # (Auto) Eos # (Auto) Baso # (Auto) Abs Immat Gran (auto) Absolute Neuts (auto) Absolute Nucleated RBC Nucleated RBC % (auto) O2 Saturation ABG pH at Pt Temp ABG pCO2 at Pt Temp ABG pO2 at Pt Temp ABG HCO3 ABG Base Excess (Actual) VBG pH 7.40 VBG pCO2 45 VBG pO2 47 VBG HCO3 28 H VBG O2 Saturation 80.0 VBG Base Excess 3.3 Sodium 146 H Potassium 3.9 Chloride 106 Carbon Dioxide 30 H Anion Gap 14 BUN 34 H Creatinine 0.79 Estim Creat Clear Calc 77.0 Estimated GFR > 60 POC Glucose 114 Random Glucose 124 H Calcium 8.4 Phosphorus 2.5 L Magnesium 2.6 Total Bilirubin 0.7 AST 22 ALT 37 Alkaline Phosphatase 69 Total Protein 6.1 L Albumin 3.6 05/22/22 05/22/22 11:35 12:06 WBC RBC Hgb Hct MCV MCH MCHC RDW Plt Count MPV Immature Gran % (Auto) Neut % (Auto) Lymph % (Auto) [place] % (Auto) Eos % (Auto) Baso % (Auto) Lymph # (Auto) [place] # (Auto) Eos # (Auto) Baso # (Auto) Abs Immat Gran (auto) Absolute Neuts (auto) Absolute Nucleated RBC Nucleated RBC % (auto) O2 Saturation 98.0 ABG pH at Pt Temp 7.36 ABG pCO2 at Pt Temp 51 H ABG pO2 at Pt Temp 99 ABG HCO3 29 H ABG Base Excess (Actual) 2.9 VBG pH VBG pCO2 VBG pO2 VBG HCO3 VBG O2 Saturation VBG Base Excess Sodium Potassium Chloride Carbon Dioxide Anion Gap BUN Creatinine Estim Creat Clear Calc Estimated GFR POC Glucose 190 H Random Glucose Calcium Phosphorus Magnesium Total Bilirubin AST ALT Alkaline Phosphatase Total Protein Albumin Microbiology Microbiology Results: Microbiology 05/15/22 17:21 Blood - Venous Blood Culture - Final No growth after 5 days. 05/15/22 16:55 Blood - Venous Blood Culture - Final No growth after 5 days. Progress Note: A&P Assessment and plan (1) Mild bibasilar atelectasis: Status: Acute (2) Hypoventilation syndrome: Status: Acute (3) Encephalopathy: Status: Acute (4) Acute exacerbation of COPD with asthma: Status: Acute (5) Acute on chronic respiratory failure with hypoxia and hypercapnia: Status: Acute (6) COPD (chronic obstructive pulmonary disease): Status: Acute (7) STEPH (obstructive sleep apnea): Status: Acute (8) COPD (chronic obstructive pulmonary disease): Status: Acute (9) Acute kidney injury: Status: Acute (10) Atypical chest pain: Status: Acute (11) Asthma with COPD with exacerbation: Status: Acute (12) Acute and chronic respiratory failure with hypoxia: Status: Acute (13) Uncontrolled type 2 diabetes mellitus with hyperglycemia: Status: Acute (14) Benign prostatic hyperplasia without lower urinary tract symptoms: Status: Acute (15) Osteoarthritis of left knee: Status: Acute (16) Vitamin D deficiency: Status: Acute (17) HLD (hyperlipidemia): Status: Acute (18) HTN (hypertension): Status: Acute (19) T2DM (type 2 diabetes mellitus): Status: Acute (20) Chronic ITP (idiopathic thrombocytopenia): Status: Acute (21) Hypogonadism in male: Status: Acute Plan So work of breathing in other words breathing effort is diminishing on his therapy And I do believe although not proven that it was the combined excessive use of the diazepam along with the oxycodone that precipitated this issue Quality Stroke Does the patient have a stroke diagnosis?: No VTE Prior VTE?: No VTE Risk Level:: Medical - moderate - high VTE Device Contraindication: Treatment Not Indicated VTE Drug Contraindication: N/A - Med Ordered
[2022-05-22 18:35] LABS: Glucose, Whole Blood 335 mg/dL (60-115)
[2022-05-22] MEDS: Tamsulosin HCL 0.4 MG CAPSULE PO (21:57)
[2022-05-22] MEDS: Atorvastatin Calcium 20 MG TABLET PO (21:57)
[2022-05-23] VITALS (22 sets, daily range): BP systolic 132–179; BP diastolic 54–90; PULSE 71–108; RESP 10–77; TEMP 36.1–37; O2SAT 90–99
[2022-05-23 00:56] LABS: Glucose, Whole Blood 250 mg/dL (60-115)
[2022-05-23] MEDS: Insulin Lispro 100 UNIT/ML 3 ML VIAL SUBCUT ×4 (00:58→21:17)
[2022-05-23] MEDS: Heparin Sodium,Porcine 5,000 UNIT/ML VIAL 5000 UNIT SUBCUT ×3 (05:21→21:18)
[2022-05-23] MEDS: methylPREDNISolone Sod Succ 40 MG/ML VIAL IVPUSH (05:21)
[2022-05-23 05:23] LABS: VBG Base Excess 2.1 mmol/L; VBG HCO3 28 mmol/L (22-26); VBG pCO2 50 mmHg; VBG pH 7.35 (7.32-7.43); VBG pO2 32 mmHg
[2022-05-23 05:33] LABS: MANUAL DIFF FLAG NO
[2022-05-23 05:37] LABS: Basophils Percent Auto 0.1 % (0-2); Imm Gran Abs Auto 0.07 X10*3/uL (0.00-0.03); Imm Gran Pct Auto 0.5 % (0.0-0.4); Lymphocytes Absolute Auto 0.6 X10*3/uL (1.2-4.9); Lymphocytes Percent Auto 4.6 % (20-40); Mean Corpuscular Hemoglobin 31.6 pg (27.0-33.0); Mean Corpuscular Volume 98.6 fL (80.0-98.0); Mean Platelet Volume 12.4 fL (9.4-12.4); Monocytes Absolute Auto 1.1 X10*3/uL (0.1-1.2); Monocytes Percent Auto 8.1 % (2-11); Neutrophils Absolute Auto 11.8 x10*3/uL (2.0-8.3); Neutrophils Percent Auto 86.7 % (45-73); Platelet Count 110 X10*3/uL (160-400); Red Blood Count 5.07 X10*6/uL (4.60-5.80); Red Cell Distribution Width 12.8 % (11.0-16.0); White Blood Count 13.6 X10*3/uL (4.8-10.8)
[2022-05-23 05:52] LABS: Glucose, Whole Blood 188 mg/dL (60-115)
[2022-05-23 05:55] LABS: Venous Blood Gas Refer to POC result
[2022-05-23 06:04] LABS: Alanine Aminotransferase 34 U/L (0-40); Albumin Level 3.2 g/dL (3.5-5.0); Alkaline Phosphatase 63 U/L (39-117); Anion Gap 15 (12-20); Aspartate Amino Transferase 20 U/L (5-37); Bilirubin Total 0.5 mg/dL (0.0-1.0); Blood Urea Nitrogen 24 mg/dL (9-16); Carbon Dioxide 30 mmol/L (22-29); Chloride 101 mmol/L (96-108); Estimated Glomerular Filt Rate > 60; Glucose Random 140 mg/dL (60-115); Magnesium 2.3 mg/dL (1.6-2.6); Phosphorus 2.9 mg/dL (2.7-4.5); Potassium 3.6 mmol/L (3.3-5.1); Sodium 142 mmol/L (135-145); Total Protein 5.5 g/dL (6.5-8.0)
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
[2022-05-23 07:31] LABS: Glucose, Whole Blood 93 mg/dL (60-115)
[2022-05-23] MEDS: Albuterol/Iprat 2.5/0.5MG 3 ML AMPUL.NEB INHALE (07:42)
[2022-05-23] MEDS: Insulin Glargine,Hum.rec.anlog 100 UNIT/ML 10 ML VIAL 30 UNIT SUBCUT (08:11)
[2022-05-23] MEDS: Famotidine 20 MG TABLET PO ×2 (08:13→21:17)
[2022-05-23] MEDS: Spironolactone 25 MG TABLET PO (08:13)
[2022-05-23] MEDS: Ferrous Sulfate 324 MG TABLET.DR PO (08:13)
[2022-05-23] MEDS: Valsartan 160 MG TABLET PO (08:13)
[2022-05-23] MEDS: predniSONE 20 MG TABLET 40 MG PO (08:13)
[2022-05-23] MEDS: carvediloL 12.5 MG TABLET PO ×2 (08:13→21:17)
[2022-05-23] MEDS: Magnesium Oxide 400 MG TABLET PO ×2 (08:13→21:16)
[2022-05-23] MEDS: Aspirin Enteric Coated 81 MG TABLET.DR PO (08:13)
[2022-05-23 12:09] LABS: Glucose, Whole Blood 146 mg/dL (60-115)
--- NOTE | 2022-05-23 13:22 | MHC.CM.PN ---
Addendum entered by Liberty Mcclellan 05/23/22 14:18: Per MD: jose FITCH Seen by respiratory therapist patient oxygenation dropped down to 78, he is unsteady on gait therefore will obtain overnight finger oximetry as well as PT so not sure about discharge plan yet Case Management will follow for d/c plan. Original Note: Spoke w/ [facility], They are going to start services tomorrow 05/24 in the home and set-up a med box. Spoke with DOLL WIGS HACKLER via phone she is going to picked edge sewing machine operator the prescriptions tomorrow @ [facility] to meet the VNA. Dr. Abbott aware F2F is needed and to send all scripts to [facility] pharmacy as, [facility] is closed tomorrow. Corie @ [facility] aware of plan.
[2022-05-23 14:50] LABS: ABG Base Excess 0.9 mmol/L; ABG HCO3 25 mmol/L (22-26); ABG pCO2 41 mmHg (32-45); ABG pO2 68 mmHg (83-108)
[2022-05-23 15:39] LABS: Glucose, Whole Blood 189 mg/dL (60-115)
[2022-05-23] MEDS: Acetaminophen 325 MG TABLET 650 MG PO (15:53)
[2022-05-23 16:00] LABS: ABG Refer to POC result
[2022-05-23 20:29] LABS: Glucose, Whole Blood 215 mg/dL (60-115)
[2022-05-23] MEDS: Atorvastatin Calcium 20 MG TABLET PO (21:09)
[2022-05-23] MEDS: Tamsulosin HCL 0.4 MG CAPSULE PO (21:17)
[2022-05-23] MEDS: 0.9 % Sodium Chloride Flush 3 ML SYRINGE IVFLUSH (21:18)
[2022-05-24] VITALS (10 sets, daily range): BP systolic 106–158; BP diastolic 62–72; PULSE 67–80; RESP 18–20; TEMP 36.1–36.9; O2SAT 93–99
[2022-05-24] MEDS: Heparin Sodium,Porcine 5,000 UNIT/ML VIAL 5000 UNIT SUBCUT ×3 (03:56→20:51)
[2022-05-24 04:00] LABS: ABG Base Excess 10.7 mmol/L; ABG HCO3 39 mmol/L (22-26); ABG pCO2 64 mmHg (32-45); ABG pH 7.38 (7.35-7.45); ABG pO2 164 mmHg (83-108)
[2022-05-24 04:02] LABS: ABG Refer to POC result
--- NOTE | 2022-05-24 04:20 | PC.RT ---
Pt was restless throughout the night, getting in and out of the bed to the chair due to sob. Pt was awake more then asleep during nocturnal oximetry test. NOC test may be inconclusive due to these events.
[2022-05-24 06:16] LABS: Basophils Percent Auto 0.1 % (0-2); Hematocrit 48.4 % (42.0-52.0); Imm Gran Pct Auto 0.7 % (0.0-0.4); Lymphocytes Absolute Auto 1.2 X10*3/uL (1.2-4.9); Lymphocytes Percent Auto 7.8 % (20-40); MANUAL DIFF FLAG SCAN; Mean Corpuscular HGB Conc 33.1 g/dl (31.0-36.0); Mean Corpuscular Hemoglobin 32.1 pg (27.0-33.0); Mean Platelet Volume 12.4 fL (9.4-12.4); Monocytes Absolute Auto 1.5 X10*3/uL (0.1-1.2); Neutrophils Absolute Auto 12.5 x10*3/uL (2.0-8.3); Neutrophils Percent Auto 81.4 % (45-73); Platelet Count 117 X10*3/uL (160-400); Red Blood Count 4.99 X10*6/uL (4.60-5.80); Red Cell Distribution Width 12.4 % (11.0-16.0); SCAN SMEAR FLAG 1; White Blood Count 15.3 X10*3/uL (4.8-10.8)
[2022-05-24 06:17] LABS: Venous Blood Gas Refer to POC result
[2022-05-24 06:18] LABS: VBG Base Excess 8.8 mmol/L; VBG HCO3 33 mmol/L (22-26); VBG pCO2 45 mmHg; VBG pH 7.47 (7.32-7.43); VBG pO2 109 mmHg
[2022-05-24 06:36] LABS: SLIDE REVIEW VERIFIED
[2022-05-24 06:41] LABS: Alanine Aminotransferase 59 U/L (0-40); Alkaline Phosphatase 65 U/L (39-117); Anion Gap 11 (12-20); Aspartate Amino Transferase 41 U/L (5-37); Bilirubin Total 0.7 mg/dL (0.0-1.0); Blood Urea Nitrogen 18 mg/dL (9-16); Calcium 7.6 mg/dL (8.4-10.2); Carbon Dioxide 31 mmol/L (22-29); Chloride 104 mmol/L (96-108); Creatinine Clr Calc Pharmacy 93.6; Estimated Glomerular Filt Rate > 60; Glucose Random 85 mg/dL (60-115); Magnesium 2.1 mg/dL (1.6-2.6); Phosphorus 2.4 mg/dL (2.7-4.5); Potassium 3.6 mmol/L (3.3-5.1); Sodium 142 mmol/L (135-145); Total Protein 5.1 g/dL (6.5-8.0)
[2022-05-24 08:18] LABS: Glucose, Whole Blood 76 mg/dL (60-115)
[2022-05-24] MEDS: predniSONE 20 MG TABLET 40 MG PO (09:06)
[2022-05-24] MEDS: Famotidine 20 MG TABLET PO ×2 (09:06→20:51)
[2022-05-24] MEDS: carvediloL 12.5 MG TABLET PO ×2 (09:06→20:51)
[2022-05-24] MEDS: Aspirin Enteric Coated 81 MG TABLET.DR PO (09:06)
[2022-05-24] MEDS: Ferrous Sulfate 324 MG TABLET.DR PO (09:06)
[2022-05-24] MEDS: Spironolactone 25 MG TABLET PO (09:06)
[2022-05-24] MEDS: Valsartan 160 MG TABLET PO (09:06)
[2022-05-24] MEDS: Magnesium Oxide 400 MG TABLET PO ×2 (09:06→20:51)
[2022-05-24] MEDS: 0.9 % Sodium Chloride Flush 3 ML SYRINGE IVFLUSH ×5 (09:07→21:02)
[2022-05-24] MEDS: Insulin Glargine,Hum.rec.anlog 100 UNIT/ML 10 ML VIAL 30 UNIT SUBCUT (09:10)
[2022-05-24 12:06] LABS: Glucose, Whole Blood 107 mg/dL (60-115)
--- NOTE | 2022-05-24 14:23 | HO.PM.IMPN ---
Subjective Subjective Date of Service: 05/24/22 Interval History: History obtained via certified court interpreter, patient denies shortness of breath, no cough, events from last night noted patient was restless and out of bed due to shortness of breath, significant hypoxia will obtain report of overnight oximetry from respiratory, patient is poor historian not aware of his medical issues, denies history of urine retention denies urinary frequency, no urgency. 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 Anicteric sclera Neck no JVD. CVS regular rate rhythm, Respiratory lungs clear to auscultation, no respiratory distress, no wheeze, no rhonchi. Gastrointestinal abdomen soft, nontender, bowel sounds audible, no guarding , no rigidity. Extremities no edema. Neuro nonfocal Psych appropriate affect Objective Data Active Medications Acetaminophen (Acetaminophen 325 Mg Tablet) 650 mg PO Q6H PRN PRN Reason: Pain, Mild (Pain Scale 1-3) Last Admin: 05/23/22 15:53 Dose: 650 mg Documented By: MAJO Albuterol Sulfate (Albuterol Sulfate (0.083%) 2.5 Mg/3 Ml Vial.Neb) 2.5 mg INHALE Q4H PRN PRN Reason: Wheezing Aspirin (Aspirin Enteric Coated 81 Mg Tablet.) 81 mg PO DAILY [facility] Last Admin: 05/24/22 09:06 Dose: 81 mg Documented By: RAFAEL Atorvastatin Calcium (Atorvastatin Calcium 20 Mg Tablet) 20 mg PO BEDTIME [facility] Last Admin: 05/23/22 21:09 Dose: 20 mg Documented By: YOSELIN Carvedilol (Carvedilol 12.5 Mg Tablet) 12.5 mg PO BID [facility]; Protocol Last Admin: 05/24/22 09:06 Dose: 12.5 mg Documented By: RAFAEL Dextrose (Dextrose 50 % 25 Gm/50 Ml Syringe) 25 gm IVPUSH Q15M PRN; Protocol PRN Reason: per Hypoglycemia Standing Ord. Docusate Sodium (Docusate Sodium 100 Mg Capsule) 100 mg PO DAILY PRN PRN Reason: Constipation Famotidine (Famotidine 20 Mg Tablet) 20 mg PO BID [facility] Last Admin: 05/24/22 09:06 Dose: 20 mg Documented By: RAFAEL Ferrous Sulfate (Ferrous Sulfate 324 Mg Tablet.Dr) 324 mg PO DAILY [facility] Last Admin: 05/24/22 09:06 Dose: 324 mg Documented By: RAFAEL Fluticasone Propionate (Fluticasone Propionate Nasal 16 Gm [place]) 2 spray NOSTRIL-B DAILY [facility] Last Admin: 05/24/22 10:15 Dose: Not Given Documented By: RAFAEL Non-Admin Reason: Patient Refused Glucose (Glucose Gel 15 Gm Gel..Gram.) 15 gm PO Q15M PRN; Protocol PRN Reason: per Hypoglycemia Standing Ord. Glucose (Glucose Gel 15 Gm Gel..Gram.) 15 gm PO Q15M PRN; Protocol PRN Reason: Per Hypoglycemia Standing Ord. Heparin Sodium (Porcine) (Heparin Sodium,Porcine 5,000 Unit/Ml Vial) 5,000 unit SUBCUT Q8H [facility] Last Admin: 05/24/22 12:12 Dose: 5,000 unit Documented By: RAFAEL Insulin Glargine (Insulin Glargine,Hum.Rec.Anlog 100 Unit/Ml 10 Ml Vial) 30 unit SUBCUT DAILY [facility] Last Admin: 05/24/22 09:10 Dose: 30 unit Documented By: RAFAEL Insulin Human Lispro (Insulin Lispro 100 Unit/Ml 3 Ml Vial) 0 unit SUBCUT QIDACHS [facility]; Protocol Last Admin: 05/24/22 12:08 Dose: Not Given Documented By: RAFAEL Non-Admin Reason: No Insulin Coverage Magnesium Oxide (Magnesium Oxide 400 Mg Tablet) 400 mg PO BID [facility] Last Admin: 05/24/22 09:06 Dose: 400 mg Documented By: RAFAEL Ondansetron HCl (Ondansetron Hcl 4 Mg/2 Ml Vial) 4 mg IVPUSH Q8H PRN PRN Reason: Nausea and Vomiting Last Admin: 05/19/22 20:32 Dose: 4 mg Documented By: MERARI Pharmacy Consult (Consult Rx Perform Med Rec) 1 each MISCELLANE ONCE PRN PRN Reason: Consult order Prednisone (Prednisone 20 Mg Tablet) 40 mg PO DAILY [facility] Last Admin: 05/24/22 09:06 Dose: 40 mg Documented By: RAFAEL Sodium Chloride (0.9 % Sodium Chloride Flush 3 Ml Syringe) [facility] Last Admin: 05/24/22 09:10 Dose: 3 ml Documented By: RAFAEL Sodium Chloride (0.9 % Sodium Chloride Flush 3 Ml Syringe) [facility] Last Admin: 05/24/22 09:07 Dose: 3 ml Documented By: RAFAEL Spironolactone (Spironolactone 25 Mg Tablet) 25 mg PO DAILY [facility]; Protocol Last Admin: 05/24/22 09:06 Dose: 25 mg Documented By: RAFAEL Tamsulosin HCl (Tamsulosin Hcl 0.4 Mg Capsule) 0.4 mg PO BEDTIME [facility] Last Admin: 05/23/22 21:17 Dose: 0.4 mg Documented By: NAUMBERYL Valsartan (Valsartan 160 Mg Tablet) 160 mg PO DAILY [facility] Last Admin: 05/24/22 09:06 Dose: 160 mg Documented By: RAFAEL Labs CBC & Chem 7: 05/24/22 06:07 05/24/22 06:07 Labs: Laboratory Results - last 24 hr 05/23/22 05/23/22 05/23/22 14:45 15:12 20:14 MCV MCH MCHC RDW Plt Count MPV Immature Gran % (Auto) Neut % (Auto) Lymph % (Auto) [place] % (Auto) Eos % (Auto) Baso % (Auto) Lymph # (Auto) [place] # (Auto) Eos # (Auto) Baso # (Auto) Abs Immat Gran (auto) Absolute Neuts (auto) Absolute Nucleated RBC Nucleated RBC % (auto) Smear Tech's Comments O2 Saturation 92.0 ABG pH at Pt Temp 7.40 ABG pCO2 at Pt Temp 41 ABG pO2 at Pt Temp 68 L ABG HCO3 25 ABG Base Excess (Actual) 0.9 VBG pH VBG pCO2 VBG pO2 VBG HCO3 VBG O2 Saturation VBG Base Excess Anion Gap Estim Creat Clear Calc Estimated GFR POC Glucose 189 H 215 H Random Glucose Calcium Phosphorus Magnesium Total Bilirubin AST ALT Alkaline Phosphatase Total Protein Albumin 05/24/22 05/24/22 05/24/22 03:50 06:07 06:07 MCV 97.0 MCH 32.1 MCHC 33.1 RDW 12.4 Plt Count 117 L MPV 12.4 Immature Gran % (Auto) 0.7 H Neut % (Auto) 81.4 H Lymph % (Auto) 7.8 L [place] % (Auto) 10.0 Eos % (Auto) 0.0 Baso % (Auto) 0.1 Lymph # (Auto) 1.2 [place] # (Auto) 1.5 H Eos # (Auto) 0.0 Baso # (Auto) 0.0 Abs Immat Gran (auto) 0.10 H Absolute Neuts (auto) 12.5 H Absolute Nucleated RBC 0.000 Nucleated RBC % (auto) 0.0 Smear Tech's Comments VERIFIED O2 Saturation 99.0 ABG pH at Pt Temp 7.38 ABG pCO2 at Pt Temp 64 H* ABG pO2 at Pt Temp 164 H ABG HCO3 39 H ABG Base Excess (Actual) 10.7 VBG pH VBG pCO2 VBG pO2 VBG HCO3 VBG O2 Saturation VBG Base Excess Anion Gap 11 L Estim Creat Clear Calc 93.6 Estimated GFR > 60 POC Glucose Random Glucose 85 D Calcium 7.6 L Phosphorus 2.4 L Magnesium 2.1 Total Bilirubin 0.7 AST 41 H D ALT 59 H Alkaline Phosphatase 65 Total Protein 5.1 L Albumin 3.0 L 05/24/22 05/24/22 05/24/22 06:12 07:38 11:41 MCV MCH MCHC RDW Plt Count MPV Immature Gran % (Auto) Neut % (Auto) Lymph % (Auto) [place] % (Auto) Eos % (Auto) Baso % (Auto) Lymph # (Auto) [place] # (Auto) Eos # (Auto) Baso # (Auto) Abs Immat Gran (auto) Absolute Neuts (auto) Absolute Nucleated RBC Nucleated RBC % (auto) Smear Tech's Comments O2 Saturation ABG pH at Pt Temp ABG pCO2 at Pt Temp ABG pO2 at Pt Temp ABG HCO3 ABG Base Excess (Actual) VBG pH 7.47 H VBG pCO2 45 VBG pO2 109 VBG HCO3 33 H VBG O2 Saturation 99.0 VBG Base Excess 8.8 Anion Gap Estim Creat Clear Calc Estimated GFR POC Glucose 76 107 Random Glucose Calcium Phosphorus Magnesium Total Bilirubin AST ALT Alkaline Phosphatase Total Protein Albumin Assessment and Plan (1) Hypoventilation syndrome: Status: Acute (2) Encephalopathy: Status: Acute (3) Acute exacerbation of COPD with asthma: Status: Acute (4) Acute on chronic respiratory failure with hypoxia and hypercapnia: Status: Acute (5) STEPH (obstructive sleep apnea): Status: Acute Plan 76-year-old male with past medical history COPD presents to the hospital with acute on chronic respiratory failure found to be hypoxic as well as hypercapnic and confused patient was admitted to medical floor with a diagnosis of acute encephalopathy, however on 05/17 patient became combative, agitated pulling oxygen he was given Haldol subsequently he became somnolent ABG showed a pH of 7.26 patient was subsequently transferred to ICU for rescue BiPAP, patient was treated with BiPAP and despite improvement in CO2 he was noted to be sedated it was felt that his symptoms are also related to use of high-dose narcotics and benzos patient was review recently given a prescription that he finished in short duration of time, since patient became more awake alert with stable CO2 he was transferred to IM on 05/23, toxic metabolic encephalopathy Resolved, was likely multifactorial due to polypharmacy on anti- antidepressants, narcotic pain medications, benzos, was recently placed on Valium 2 mg t.i.d. 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 Chilel DARREN Resolved with IVF follow BMP DM Blood sugars stable, Continue Lantus 30 units, insulin sliding scale and ADA diet HTN Blood pressure is stable, Continue valsartan, , spironolactone and Coreg, previously was on metoprolol. BPH Continue Flomax, Eubanks in place, will give voiding trial and DC Eubanks at a.m. DVT ppx: Heparin SubQ Disposition seen by physical therapy they recommend short-term rehab for pulmonary rehab or home with PT after home O2 evaluation is done to optimize function Patient requires ongoing inpatient hospitalization for management of acute hypercarbic respiratory failure and hypoxia. Quality Stroke Does the patient have a stroke diagnosis?: No VTE Prior VTE?: No VTE Risk Level:: Medical - moderate - high VTE Device Contraindication: Treatment Not Indicated VTE Drug Contraindication: N/A - Med Ordered
[2022-05-24] MEDS: ondansetron HCL 4 MG/2 ML VIAL IVPUSH (15:04)
[2022-05-24 16:18] LABS: Glucose, Whole Blood 109 mg/dL (60-115)
[2022-05-24 19:50] LABS: Glucose, Whole Blood 225 mg/dL (60-115)
[2022-05-24] MEDS: Tamsulosin HCL 0.4 MG CAPSULE PO (20:51)
[2022-05-24] MEDS: Insulin Lispro 100 UNIT/ML 3 ML VIAL SUBCUT (20:51)
[2022-05-24] MEDS: Atorvastatin Calcium 20 MG TABLET PO (20:51)
[2022-05-24] MEDS: Acetaminophen 325 MG TABLET 650 MG PO (20:55)
[2022-05-25] VITALS (8 sets, daily range): BP systolic 114–143; BP diastolic 55–74; PULSE 77–81; RESP 16–20; TEMP 36.4–37.2; O2SAT 94–99
--- NOTE | 2022-05-25 | ECG_ITS ---
Test Reason : cehst pain Blood Pressure : / mmHG Vent. Rate : 086 BPM Atrial Rate : 086 BPM P-R Int : 160 ms QRS Dur : 110 ms QT Int : 360 ms P-R-T Axes : 040 -33 032 degrees QTc Int : 430 ms Normal sinus rhythm Left axis deviation Abnormal ECG When compared with ECG of 18-MAY-2022 17:56, Heart rate has decreased Premature atrial complexes are no longer Present QRS axis Shifted left Referred By: Brandon Bellamy Electronically Signed By:RUDY PENA
[2022-05-25] MEDS: ondansetron HCL 4 MG/2 ML VIAL IVPUSH (03:50)
[2022-05-25 04:04] LABS: Glucose, Whole Blood 60 mg/dL (60-115)
[2022-05-25] MEDS: Heparin Sodium,Porcine 5,000 UNIT/ML VIAL 5000 UNIT SUBCUT ×3 (04:14→20:45)
[2022-05-25] MEDS: Dextrose 50 % 25 GM/50 ML SYRINGE IVPUSH (04:20)
[2022-05-25] MEDS: 0.9 % Sodium Chloride Flush 3 ML SYRINGE IVFLUSH ×3 (04:24→16:43)
[2022-05-25 05:06] LABS: Glucose, Whole Blood 60 mg/dL (60-115)
[2022-05-25 05:06] LABS: Glucose, Whole Blood 179 mg/dL (60-115)
[2022-05-25 05:06] LABS: Glucose, Whole Blood 254 mg/dL (60-115)
[2022-05-25 05:21] LABS: Glucose, Whole Blood 183 mg/dL (60-115)
[2022-05-25 06:51] LABS: Venous Blood Gas Refer to POC result
[2022-05-25 06:52] LABS: VBG Base Excess 12.7 mmol/L; VBG HCO3 41 mmol/L (22-26); VBG pCO2 68 mmHg; VBG pH 7.39 (7.32-7.43); VBG pO2 75 mmHg
[2022-05-25 07:07] LABS: Basophils Percent Auto 0.1 % (0-2); Hematocrit 49.5 % (42.0-52.0); Hemoglobin 16.2 g/dl (14.0-18.0); Imm Gran Pct Auto 0.7 % (0.0-0.4); Lymphocytes Absolute Auto 1.4 X10*3/uL (1.2-4.9); Lymphocytes Percent Auto 9.3 % (20-40); MANUAL DIFF FLAG SCAN; Mean Corpuscular HGB Conc 32.7 g/dl (31.0-36.0); Mean Corpuscular Volume 97.6 fL (80.0-98.0); Mean Platelet Volume 12.7 fL (9.4-12.4); Monocytes Absolute Auto 1.7 X10*3/uL (0.1-1.2); Monocytes Percent Auto 11.2 % (2-11); Neutrophils Absolute Auto 12.1 x10*3/uL (2.0-8.3); Neutrophils Percent Auto 78.7 % (45-73); Platelet Count 133 X10*3/uL (160-400); Red Blood Count 5.07 X10*6/uL (4.60-5.80); Red Cell Distribution Width 12.7 % (11.0-16.0); SCAN SMEAR FLAG 1; White Blood Count 15.3 X10*3/uL (4.8-10.8)
[2022-05-25 07:35] LABS: SLIDE REVIEW VERIFIED
[2022-05-25 07:44] LABS: Alanine Aminotransferase 72 U/L (0-40); Albumin Level 3.1 g/dL (3.5-5.0); Alkaline Phosphatase 73 U/L (39-117); Anion Gap 13 (12-20); Aspartate Amino Transferase 37 U/L (5-37); Bilirubin Total 0.8 mg/dL (0.0-1.0); Blood Urea Nitrogen 19 mg/dL (9-16); Carbon Dioxide 33 mmol/L (22-29); Chloride 99 mmol/L (96-108); Creatinine Clr Calc Pharmacy 82.2; Estimated Glomerular Filt Rate > 60; Glucose Random 135 mg/dL (60-115); Magnesium 2.1 mg/dL (1.6-2.6); Phosphorus 3.1 mg/dL (2.7-4.5); Sodium 141 mmol/L (135-145); Total Protein 5.2 g/dL (6.5-8.0)
[2022-05-25 08:00] LABS: Calcium 8.1 mg/dL (8.4-10.2)
[2022-05-25] MEDS: Fluticasone/Vilanterol 200/25 BLST.W.DEV 1 PUFF INHALE (08:02)
[2022-05-25 08:15] LABS: Glucose, Whole Blood 105 mg/dL (60-115)
[2022-05-25] MEDS: Famotidine 20 MG TABLET PO ×2 (10:30→20:45)
[2022-05-25] MEDS: carvediloL 12.5 MG TABLET PO ×2 (10:31→20:45)
[2022-05-25] MEDS: Acetaminophen 325 MG TABLET 650 MG PO ×2 (10:31→16:37)
[2022-05-25] MEDS: Aspirin Enteric Coated 81 MG TABLET.DR PO (10:31)
[2022-05-25] MEDS: Spironolactone 25 MG TABLET PO (10:32)
[2022-05-25] MEDS: Ferrous Sulfate 324 MG TABLET.DR PO (10:32)
[2022-05-25] MEDS: predniSONE 20 MG TABLET 40 MG PO (10:32)
[2022-05-25] MEDS: Valsartan 160 MG TABLET PO (10:32)
[2022-05-25] MEDS: Magnesium Oxide 400 MG TABLET PO ×2 (10:44→20:45)
--- NOTE | 2022-05-25 11:43 | HO.PM.IMPN ---
Subjective Subjective Date of Service: 05/25/22 Interval History: no acute issues overnight. Oximetry not done Review of Systems denies chest pain Denies Palpitations Denies nausea vomiting diarrhea Physical Exam Vital Signs: Vital Signs: Last Vital Signs Temp 97.5 F 05/25/22 07:51 Pulse 77 05/25/22 08:04 Resp 18 05/25/22 08:04 BP 143/74 H 05/25/22 07:51 Pulse Ox 94 05/25/22 07:51 O2 Del Method 05/25/22 07:51 O2 Flow Rate 3 05/25/22 07:51 FiO2 43 05/23/22 14:00 BMI result Body Mass Index 26.9 Const: Other: no acute issues overnight Resp: Other: clear to auscultation bilaterally but diminished at bases. No rales rhonchi or wheezes Cardio: Other: no S4; positive S1-S2; no S3 murmurs rubs or gallops GI: Other: soft nontender nondistended with normoac Extrem: Other: no edema bilaterally Objective Data Active Medications Acetaminophen (Acetaminophen 325 Mg Tablet) 650 mg PO Q6H PRN PRN Reason: Pain, Mild (Pain Scale 1-3) Last Admin: 05/25/22 10:31 Dose: 650 mg Documented By: DONY Albuterol Sulfate (Albuterol Sulfate (0.083%) 2.5 Mg/3 Ml Vial.[place]) 2.5 mg INHALE Q4H PRN PRN Reason: Wheezing Aspirin (Aspirin Enteric Coated 81 Mg Tablet.) 81 mg PO DAILY [facility] Last Admin: 05/25/22 10:31 Dose: 81 mg Documented By: DONY Atorvastatin Calcium (Atorvastatin Calcium 20 Mg Tablet) 20 mg PO BEDTIME [facility] Last Admin: 05/24/22 20:51 Dose: 20 mg Documented By: YOSELIN Carvedilol (Carvedilol 12.5 Mg Tablet) 12.5 mg PO BID [facility]; Protocol Last Admin: 05/25/22 10:31 Dose: 12.5 mg Documented By: DONY Dextrose (Dextrose 50 % 25 Gm/50 Ml Syringe) 25 gm IVPUSH Q15M PRN; Protocol PRN Reason: per Hypoglycemia Standing Ord. Last Admin: 05/25/22 04:20 Dose: 25 gm Documented By: YOSELIN Docusate Sodium (Docusate Sodium 100 Mg Capsule) 100 mg PO DAILY PRN PRN Reason: Constipation Famotidine (Famotidine 20 Mg Tablet) 20 mg PO BID [facility] Last Admin: 05/25/22 10:30 Dose: 20 mg Documented By: DONY Ferrous Sulfate (Ferrous Sulfate 324 Mg Tablet.Dr) 324 mg PO DAILY [facility] Last Admin: 05/25/22 10:32 Dose: 324 mg Documented By: DONY Fluticasone Propionate (Fluticasone Propionate Nasal 16 Gm [place]) 2 spray NOSTRIL-B DAILY [facility] Last Admin: 05/24/22 10:15 Dose: Not Given Documented By: RAFAEL Non-Admin Reason: Patient Refused Fluticasone/Vilanterol (Fluticasone/Vilanterol 200/25 Blst.W.Dev) 1 puff INHALE RDAILY [facility] Last Admin: 05/25/22 08:02 Dose: 1 puff Documented By: LORETTA Glucose (Glucose Gel 15 Gm Gel..Gram.) 15 gm PO Q15M PRN; Protocol PRN Reason: per Hypoglycemia Standing Ord. Glucose (Glucose Gel 15 Gm Gel..Gram.) 15 gm PO Q15M PRN; Protocol PRN Reason: Per Hypoglycemia Standing Ord. Heparin Sodium (Porcine) (Heparin Sodium,Porcine 5,000 Unit/Ml Vial) 5,000 unit SUBCUT Q8H [facility] Last Admin: 05/25/22 04:14 Dose: 5,000 unit Documented By: YOSELIN Insulin Glargine (Insulin Glargine,Hum.Rec.Anlog 100 Unit/Ml 10 Ml Vial) 30 unit SUBCUT DAILY [facility] Last Admin: 05/24/22 09:10 Dose: 30 unit Documented By: RAFAEL Insulin Human Lispro (Insulin Lispro 100 Unit/Ml 3 Ml Vial) 0 unit SUBCUT QIDACHS [facility]; Protocol Last Admin: 05/25/22 08:32 Dose: Not Given Documented By: DONY Non-Admin Reason: No Insulin Coverage Magnesium Oxide (Magnesium Oxide 400 Mg Tablet) 400 mg PO BID [facility] Last Admin: 05/25/22 10:44 Dose: 400 mg Documented By: DONY Ondansetron HCl (Ondansetron Hcl 4 Mg/2 Ml Vial) 4 mg IVPUSH Q8H PRN PRN Reason: Nausea and Vomiting Last Admin: 05/25/22 03:50 Dose: 4 mg Documented By: YOSELIN Pharmacy Consult (Consult Rx Perform Med Rec) 1 each MISCELLANE ONCE PRN PRN Reason: Consult order Prednisone (Prednisone 20 Mg Tablet) 40 mg PO DAILY [facility] Last Admin: 05/25/22 10:32 Dose: 40 mg Documented By: DONY Sodium Chloride (0.9 % Sodium Chloride Flush 3 Ml Syringe) [facility] Last Admin: 05/25/22 10:33 Dose: 3 ml Documented By: DONY Sodium Chloride (0.9 % Sodium Chloride Flush 3 Ml Syringe) 3 ml IVFLUSH [facility] Last Admin: 05/25/22 10:48 Dose: Not Given Documented By: DONY Non-Admin Reason: Previously Administered Spironolactone (Spironolactone 25 Mg Tablet) 25 mg PO DAILY [facility]; Protocol Last Admin: 05/25/22 10:32 Dose: 25 mg Documented By: DONY Tamsulosin HCl (Tamsulosin Hcl 0.4 Mg Capsule) 0.4 mg PO BEDTIME [facility] Last Admin: 05/24/22 20:51 Dose: 0.4 mg Documented By: YOSELIN Valsartan (Valsartan 160 Mg Tablet) 160 mg PO DAILY [facility] Last Admin: 05/25/22 10:32 Dose: 160 mg Documented By: DONY Labs CBC & Chem 7: 05/25/22 06:40 05/25/22 06:40 Labs: Laboratory Results - last 24 hr 05/24/22 05/24/22 05/24/22 11:41 15:52 19:46 MCV MCH MCHC RDW Plt Count MPV Immature Gran % (Auto) Neut % (Auto) Lymph % (Auto) [place] % (Auto) Eos % (Auto) Baso % (Auto) Lymph # (Auto) [place] # (Auto) Eos # (Auto) Baso # (Auto) Abs Immat Gran (auto) Absolute Neuts (auto) Absolute Nucleated RBC Nucleated RBC % (auto) Smear Tech's Comments VBG pH VBG pCO2 VBG pO2 VBG HCO3 VBG O2 Saturation VBG Base Excess Anion Gap Estim Creat Clear Calc Estimated GFR POC Glucose 107 109 225 H Random Glucose Calcium Phosphorus Magnesium Total Bilirubin AST ALT Alkaline Phosphatase Total Protein Albumin 05/25/22 05/25/22 05/25/22 03:58 04:13 04:40 MCV MCH MCHC RDW Plt Count MPV Immature Gran % (Auto) Neut % (Auto) Lymph % (Auto) [place] % (Auto) Eos % (Auto) Baso % (Auto) Lymph # (Auto) [place] # (Auto) Eos # (Auto) Baso # (Auto) Abs Immat Gran (auto) Absolute Neuts (auto) Absolute Nucleated RBC Nucleated RBC % (auto) Smear Tech's Comments VBG pH VBG pCO2 VBG pO2 VBG HCO3 VBG O2 Saturation VBG Base Excess Anion Gap Estim Creat Clear Calc Estimated GFR POC Glucose 60 60 254 H Random Glucose Calcium Phosphorus Magnesium Total Bilirubin AST ALT Alkaline Phosphatase Total Protein Albumin 05/25/22 05/25/22 05/25/22 05:01 05:17 06:40 MCV 97.6 MCH 32.0 MCHC 32.7 RDW 12.7 Plt Count 133 L MPV 12.7 H Immature Gran % (Auto) 0.7 H Neut % (Auto) 78.7 H Lymph % (Auto) 9.3 L [place] % (Auto) 11.2 H Eos % (Auto) 0.0 Baso % (Auto) 0.1 Lymph # (Auto) 1.4 [place] # (Auto) 1.7 H Eos # (Auto) 0.0 Baso # (Auto) 0.0 Abs Immat Gran (auto) 0.10 H Absolute Neuts (auto) 12.1 H Absolute Nucleated RBC 0.000 Nucleated RBC % (auto) 0.0 Smear Tech's Comments VERIFIED VBG pH VBG pCO2 VBG pO2 VBG HCO3 VBG O2 Saturation VBG Base Excess Anion Gap Estim Creat Clear Calc Estimated GFR POC Glucose 179 H 183 H Random Glucose Calcium Phosphorus Magnesium Total Bilirubin AST ALT Alkaline Phosphatase Total Protein Albumin 05/25/22 05/25/22 05/25/22 06:40 06:46 07:55 MCV MCH MCHC RDW Plt Count MPV Immature Gran % (Auto) Neut % (Auto) Lymph % (Auto) [place] % (Auto) Eos % (Auto) Baso % (Auto) Lymph # (Auto) [place] # (Auto) Eos # (Auto) Baso # (Auto) Abs Immat Gran (auto) Absolute Neuts (auto) Absolute Nucleated RBC Nucleated RBC % (auto) Smear Tech's Comments VBG pH 7.39 VBG pCO2 68 VBG pO2 75 VBG HCO3 41 H VBG O2 Saturation 95.0 VBG Base Excess 12.7 Anion Gap 13 Estim Creat Clear Calc 82.2 Estimated GFR > 60 POC Glucose 105 Random Glucose 135 H D Calcium 8.1 L D Phosphorus 3.1 Magnesium 2.1 Total Bilirubin 0.8 AST 37 ALT 72 H Alkaline Phosphatase 73 Total Protein 5.2 L Albumin 3.1 L Assessment and Plan (1) Encephalopathy: Status: Acute (2) Acute on chronic respiratory failure with hypoxia and hypercapnia: Status: Acute (3) Acute kidney injury: Status: Acute (4) T2DM (type 2 diabetes mellitus): Status: Acute (5) HTN (hypertension): Status: Acute Plan 76-year-old male with past medical history COPD presents to the hospital with acute on chronic respiratory failure found to be hypoxic as well as hypercapnic and confused patient was admitted to medical floor with a diagnosis of acute encephalopathy, however on 05/17 patient became combative, agitated pulling oxygen he was given Haldol subsequently he became somnolent ABG showed a pH of 7.26 patient was subsequently transferred to ICU for rescue BiPAP, patient was treated with BiPAP and despite improvement in CO2 he was noted to be sedated it was felt that his symptoms are also related to use of high-dose narcotics and benzos patient was review recently given a prescription that he finished in short duration of time, since patient became more awake alert with stable CO2 he was transferred to [facility] on 05/23, 1.Toxic metabolic encephalopathy( resolved) - multifactorial likely related to chronic respiratory failure hypercapnia and medications - will require close outpatient monitoring 2.Acute on chronic respiratory failure with hypoxia and hypercapnia - stable on 3 liters/minute - will need overnight oximetry along with ambulatory oximetry - treat as indicated 3.DARREN(normalized) - at baseline -follow renals/divalents 4.DM - acceptable control on current therapies - continue Lantus/Lispro correctional scale 5.HTN - acceptable control on current therapies - adjust as indicated Disposition seen by physical therapy they recommend short-term rehab for pulmonary rehab or home with PT after home O2 evaluation is done to optimize function Patient requires ongoing inpatient hospitalization for management of acute hypercarbic respiratory failure and hypoxia. Quality Stroke Does the patient have a stroke diagnosis?: No VTE Prior VTE?: No VTE Risk Level:: Medical - moderate - high VTE Device Contraindication: Treatment Not Indicated VTE Drug Contraindication: N/A - Med Ordered
[2022-05-25 12:16] LABS: Glucose, Whole Blood 217 mg/dL (60-115)
[2022-05-25] MEDS: Insulin Lispro 100 UNIT/ML 3 ML VIAL SUBCUT ×3 (12:29→20:45)
[2022-05-25] MEDS: Fluticasone Propionate Nasal 16 GM SPRAY 2 SPRAY NOSTRIL-B (12:31)
[2022-05-25] MEDS: oxyCODONE HCl Immed Release 5 MG TABLET PO (13:52)
[2022-05-25 15:46] LABS: Glucose, Whole Blood 221 mg/dL (60-115)
[2022-05-25 20:02] LABS: Glucose, Whole Blood 311 mg/dL (60-115)
[2022-05-25] MEDS: Tamsulosin HCL 0.4 MG CAPSULE PO (20:45)
[2022-05-25] MEDS: Atorvastatin Calcium 20 MG TABLET PO (20:45)
--- NOTE | 2022-05-25 20:51 | PM.EVENT ---
Event Note Date of Service: 05/25/22 Event Note: complaining of chest pain, EKG and trop ordered
[2022-05-25 21:34] LABS: Troponin-I High Sensitivity 5.4 ng/L (<3.5-35.0)
--- NOTE | 2022-05-25 23:03 | PC.NURSE ---
around 2044 pt c/o chest pain, EKG ordered and done, trops ordered and done.
[2022-05-26] VITALS (11 sets, daily range): BP systolic 115–162; BP diastolic 59–77; PULSE 74–92; RESP 16–20; TEMP 36.4–37.2; O2SAT 92–98
[2022-05-26] MEDS: Acetaminophen 325 MG TABLET 650 MG PO ×2 (00:02→20:20)
[2022-05-26] MEDS: ondansetron HCL 4 MG/2 ML VIAL IVPUSH ×2 (00:58→11:38)
[2022-05-26] MEDS: Heparin Sodium,Porcine 5,000 UNIT/ML VIAL 5000 UNIT SUBCUT ×3 (03:21→19:56)
[2022-05-26 06:15] LABS: Basophils Percent Auto 0.2 % (0-2); Hematocrit 46.7 % (42.0-52.0); Imm Gran Abs Auto 0.13 X10*3/uL (0.00-0.03); Imm Gran Pct Auto 0.7 % (0.0-0.4); Lymphocytes Absolute Auto 1.6 X10*3/uL (1.2-4.9); MANUAL DIFF FLAG SCAN; Mean Corpuscular HGB Conc 32.1 g/dl (31.0-36.0); Mean Corpuscular Hemoglobin 31.7 pg (27.0-33.0); Mean Corpuscular Volume 98.7 fL (80.0-98.0); Mean Platelet Volume 12.3 fL (9.4-12.4); Monocytes Absolute Auto 2.1 X10*3/uL (0.1-1.2); Neutrophils Absolute Auto 13.6 x10*3/uL (2.0-8.3); Neutrophils Percent Auto 78.1 % (45-73); Platelet Count 145 X10*3/uL (160-400); Red Blood Count 4.73 X10*6/uL (4.60-5.80); Red Cell Distribution Width 12.6 % (11.0-16.0); SCAN SMEAR FLAG 1; White Blood Count 17.4 X10*3/uL (4.8-10.8)
[2022-05-26 06:33] LABS: Alanine Aminotransferase 80 U/L (0-40); Albumin Level 2.9 g/dL (3.5-5.0); Alkaline Phosphatase 72 U/L (39-117); Anion Gap 11 (12-20); Aspartate Amino Transferase 30 U/L (5-37); Bilirubin Total 0.4 mg/dL (0.0-1.0); Blood Urea Nitrogen 18 mg/dL (9-16); Calcium 8.4 mg/dL (8.4-10.2); Carbon Dioxide 38 mmol/L (22-29); Chloride 97 mmol/L (96-108); Creatinine Clr Calc Pharmacy 75.1; Estimated Glomerular Filt Rate > 60; Glucose Fasting 103 mg/dL (60-99); Potassium 4.4 mmol/L (3.3-5.1); Sodium 142 mmol/L (135-145); Total Protein 4.8 g/dL (6.5-8.0)
[2022-05-26 06:46] LABS: SLIDE REVIEW VERIFIED
[2022-05-26 07:38] LABS: Glucose, Whole Blood 95 mg/dL (60-115)
[2022-05-26] MEDS: Fluticasone/Vilanterol 200/25 BLST.W.DEV 1 PUFF INHALE (07:54)
[2022-05-26] MEDS: Magnesium Oxide 400 MG TABLET PO ×2 (07:58→19:57)
[2022-05-26] MEDS: Famotidine 20 MG TABLET PO ×2 (07:58→19:56)
[2022-05-26] MEDS: predniSONE 20 MG TABLET 40 MG PO (07:58)
[2022-05-26] MEDS: Ferrous Sulfate 324 MG TABLET.DR PO (07:59)
[2022-05-26] MEDS: Spironolactone 25 MG TABLET PO (08:02)
[2022-05-26] MEDS: Valsartan 160 MG TABLET PO (08:03)
[2022-05-26] MEDS: carvediloL 12.5 MG TABLET PO ×2 (08:03→19:57)
[2022-05-26] MEDS: 0.9 % Sodium Chloride Flush 3 ML SYRINGE IVFLUSH ×6 (08:03→19:57)
[2022-05-26] MEDS: Aspirin Enteric Coated 81 MG TABLET.DR PO (08:03)
[2022-05-26] MEDS: Insulin Lispro 100 UNIT/ML 3 ML VIAL SUBCUT ×3 (11:36→20:16)
[2022-05-26 11:42] LABS: Glucose, Whole Blood 214 mg/dL (60-115)
[2022-05-26] MEDS: Magnesium Hydrox/Alum Hydrox 30 ML ORAL.SUSP PO (12:24)
--- NOTE | 2022-05-26 15:33 | MHC.CM.PN ---
Pt is on 2L O2 via [place]. A home O2 eval has been ordered. results pending.
[2022-05-26 16:20] LABS: Glucose, Whole Blood 170 mg/dL (60-115)
--- NOTE | 2022-05-26 16:32 | P.PNIM_ITS ---
Subjective Subjective Date of Service: 05/26/22 Interval History: complaining of dysuria, no acute issues Review of Systems denies chest pain Denies Palpitations Denies nausea vomiting diarrhea Physical Exam Vital Signs: Vital Signs: Last Vital Signs Temp 98.8 F 05/26/22 15:29 Pulse 80 05/26/22 15:29 Resp 19 05/26/22 15:29 BP 115/59 L 05/26/22 15:29 Pulse Ox 95 05/26/22 15:29 O2 Del Method 05/26/22 15:29 O2 Flow Rate 2 05/26/22 15:29 FiO2 43 05/23/22 14:00 BMI result Body Mass Index 26.9 Const: Other: no acute issues overnight Resp: Other: clear to auscultation bilaterally but diminished at bases. No rales rhonchi or wheezes Cardio: Other: no S4; positive S1-S2; no S3 murmurs rubs or gallops GI: Other: soft nontender nondistended with normoac Extrem: Other: no edema bilaterally Objective Data Active Medications Acetaminophen (Acetaminophen 325 Mg Tablet) 650 mg PO Q6H PRN PRN Reason: Pain, Mild (Pain Scale 1-3) Last Admin: 05/26/22 00:02 Dose: 650 mg Documented By: RAYNA Al Hydroxide/Mg Hydroxide (Magnesium Hydrox/Alum Hydrox 30 Ml Oral.Susp) 30 ml PO Q4H PRN PRN Reason: Heartburn Last Admin: 05/26/22 12:24 Dose: 30 ml Documented By: ADALGISA Albuterol Sulfate (Albuterol Sulfate (0.083%) 2.5 Mg/3 Ml Vial.Neb) 2.5 mg INHALE Q4H PRN PRN Reason: Wheezing Aspirin (Aspirin Enteric Coated 81 Mg Tablet.) 81 mg PO DAILY [facility] Last Admin: 05/26/22 08:03 Dose: 81 mg Documented By: ADALGISA Atorvastatin Calcium (Atorvastatin Calcium 20 Mg Tablet) 20 mg PO BEDTIME [facility] Last Admin: 05/25/22 20:45 Dose: 20 mg Documented By: JACKIE Carvedilol (Carvedilol 12.5 Mg Tablet) 12.5 mg PO BID [facility]; Protocol Last Admin: 05/26/22 08:03 Dose: 12.5 mg Documented By: ADALGISA Comments: BP-162/77, HR-88 Dextrose (Dextrose 50 % 25 Gm/50 Ml Syringe) 25 gm IVPUSH Q15M PRN; Protocol PRN Reason: per Hypoglycemia Standing Ord. Last Admin: 05/25/22 04:20 Dose: 25 gm Documented By: YOSELIN Docusate Sodium (Docusate Sodium 100 Mg Capsule) 100 mg PO DAILY PRN PRN Reason: Constipation Famotidine (Famotidine 20 Mg Tablet) 20 mg PO BID [facility] Last Admin: 05/26/22 07:58 Dose: 20 mg Documented By: ADALGISA Ferrous Sulfate (Ferrous Sulfate 324 Mg Tablet.Dr) 324 mg PO DAILY [facility] Last Admin: 05/26/22 07:59 Dose: 324 mg Documented By: ADALGISA Fluticasone Propionate (Fluticasone Propionate Nasal 16 Gm [place]) 2 spray NOSTRIL-B DAILY [facility] Last Admin: 05/26/22 08:13 Dose: Not Given Documented By: ADALGISA Non-Admin Reason: Patient Refused Fluticasone/Vilanterol (Fluticasone/Vilanterol 200/25 Blst.W.Dev) 1 puff INHALE RDAILY [facility] Last Admin: 05/26/22 07:54 Dose: 1 puff Documented By: YASMIN Glucose (Glucose Gel 15 Gm Gel..Gram.) 15 gm PO Q15M PRN; Protocol PRN Reason: per Hypoglycemia Standing Ord. Glucose (Glucose Gel 15 Gm Gel..Gram.) 15 gm PO Q15M PRN; Protocol PRN Reason: Per Hypoglycemia Standing Ord. Heparin Sodium (Porcine) (Heparin Sodium,Porcine 5,000 Unit/Ml Vial) 5,000 unit SUBCUT Q8H [facility] Last Admin: 05/26/22 11:36 Dose: 5,000 unit Documented By: ADALGISA Ceftriaxone Sodium 1 gm/ (Sodium Chloride) 50 mls @ 100 mls/hr IV Q24H [facility] Insulin Human Lispro (Insulin Lispro 100 Unit/Ml 3 Ml Vial) 0 unit SUBCUT QIDACHS [facility]; Protocol Last Admin: 05/26/22 16:27 Dose: 4 unit Documented By: ADALGISA Magnesium Oxide (Magnesium Oxide 400 Mg Tablet) 400 mg PO BID [facility] Last Admin: 05/26/22 07:58 Dose: 400 mg Documented By: ADALGISA Ondansetron HCl (Ondansetron Hcl 4 Mg/2 Ml Vial) 4 mg IVPUSH Q8H PRN PRN Reason: Nausea and Vomiting Last Admin: 05/26/22 11:38 Dose: 4 mg Documented By: ADALGISA Pharmacy Consult (Consult Rx Perform Med Rec) 1 each MISCELLANE ONCE PRN PRN Reason: Consult order Prednisone (Prednisone 20 Mg Tablet) 40 mg PO DAILY [facility] Last Admin: 05/26/22 07:58 Dose: 40 mg Documented By: ADALGISA Sodium Chloride (0.9 % Sodium Chloride Flush 3 Ml Syringe) [facility] Last Admin: 05/26/22 16:27 Dose: 3 ml Documented By: ADALGISA Sodium Chloride (0.9 % Sodium Chloride Flush 3 Ml Syringe) 3 ml IVFLUSH QSVAFT [facility] Last Admin: 05/26/22 11:21 Dose: Not Given Documented By: ADALGISA Non-Admin Reason: Duplicate Order Spironolactone (Spironolactone 25 Mg Tablet) 25 mg PO DAILY [facility]; Protocol Last Admin: 05/26/22 08:02 Dose: 25 mg Documented By: ADALGISA Comments: BP-162/77, HR-88 Tamsulosin HCl (Tamsulosin Hcl 0.4 Mg Capsule) 0.4 mg PO BEDTIME [facility] Last Admin: 05/25/22 20:45 Dose: 0.4 mg Documented By: JACKIE Valsartan (Valsartan 160 Mg Tablet) 160 mg PO DAILY [facility] Last Admin: 05/26/22 08:03 Dose: 160 mg Documented By: ADALGISA Labs CBC & Chem 7: 05/26/22 05:55 05/26/22 05:55 Labs: Laboratory Results - last 24 hr 05/25/22 05/26/22 05/26/22 19:58 05:55 05:55 MCV 98.7 H MCH 31.7 MCHC 32.1 RDW 12.6 Plt Count 145 L MPV 12.3 Immature Gran % (Auto) 0.7 H Neut % (Auto) 78.1 H Lymph % (Auto) 9.[address] % (Auto) 12.0 H Eos % (Auto) 0.0 Baso % (Auto) 0.2 Lymph # (Auto) 1.6 [place] # (Auto) 2.1 H Eos # (Auto) 0.0 Baso # (Auto) 0.0 Abs Immat Gran (auto) 0.13 H Absolute Neuts (auto) 13.6 H Absolute Nucleated RBC 0.000 Nucleated RBC % (auto) 0.0 Smear Tech's Comments VERIFIED Anion Gap 11 L Estim Creat Clear Calc 75.1 Estimated GFR > 60 POC Glucose 311 H Fasting Glucose 103 H Calcium 8.4 Total Bilirubin 0.4 AST 30 ALT 80 H Alkaline Phosphatase 72 Total Protein 4.8 L Albumin 2.9 L 05/26/22 05/26/22 05/26/22 07:33 11:29 16:17 MCV MCH MCHC RDW Plt Count MPV Immature Gran % (Auto) Neut % (Auto) Lymph % (Auto) [place] % (Auto) Eos % (Auto) Baso % (Auto) Lymph # (Auto) [place] # (Auto) Eos # (Auto) Baso # (Auto) Abs Immat Gran (auto) Absolute Neuts (auto) Absolute Nucleated RBC Nucleated RBC % (auto) Smear Tech's Comments Anion Gap Estim Creat Clear Calc Estimated GFR POC Glucose 95 214 H 170 H Fasting Glucose Calcium Total Bilirubin AST ALT Alkaline Phosphatase Total Protein Albumin Assessment and Plan (1) Uncontrolled type 2 diabetes mellitus with hyperglycemia: Status: Acute (2) HTN (hypertension): Status: Acute (3) Dysuria: Status: Acute Plan 76-year-old male with past medical history COPD presents to the hospital with acute on chronic respiratory failure found to be hypoxic as well as hypercapnic and confused patient was admitted to medical floor with a diagnosis of acute encephalopathy, however on 05/17 patient became combative, agitated pulling oxygen he was given Haldol subsequently he became somnolent ABG showed a pH of 7.26 patient was subsequently transferred to ICU for rescue BiPAP, patient was treated with BiPAP and despite improvement in CO2 he was noted to be sedated it was felt that his symptoms are also related to use of high-dose narcotics and benzos patient was review recently given a prescription that he finished in short duration of time, since patient became more awake alert with stable CO2 he was transferred to [facility] on .Toxic metabolic encephalopathy( resolved) - multifactorial likely related to chronic respiratory failure hypercapnia and medications - will require close outpatient monitoring 2.Acute on chronic respiratory failure with hypoxia and hypercapnia - stable on 3 liters/minute - qualifies for home O2 - treat as indicated 3.DARREN(normalized) - at baseline -follow renals/divalents 4.DM - acceptable control on current therapies - continue Lantus/Lispro correctional scale 5.HTN - acceptable control on current therapies - adjust as indicated 6. Dysuria - UA with culture - empiric ceftriaxone Disposition seen by physical therapy they recommend short-term rehab for pulmonary rehab or home with PT after home O2 evaluation is done to optimize function Patient requires ongoing inpatient hospitalization for management of acute hypercarbic respiratory failure and hypoxia. Quality Stroke Does the patient have a stroke diagnosis?: No VTE Prior VTE?: No VTE Risk Level:: Medical - moderate - high VTE Device Contraindication: Treatment Not Indicated VTE Drug Contraindication: N/A - Med Ordered
[2022-05-26] MEDS: Atorvastatin Calcium 20 MG TABLET PO (19:57)
[2022-05-26] MEDS: Tamsulosin HCL 0.4 MG CAPSULE PO (19:57)
[2022-05-26 20:07] LABS: Glucose, Whole Blood 253 mg/dL (60-115)
[2022-05-26 20:11] LABS: Appearance Urine Clear; Color Urine Yellow; Glucose Urine UA >=1000 mg/dL (Negative); Leukocyte Esterase Urine Trace (Negative); Nitrite Urine Negative (Negative); Urine Blood Moderate (2+) (Negative); Urine Ketones Negative (Negative); Urine Protein Negative (Neg-Trace)
[2022-05-26 20:16] LABS: Bacteria Urine None Seen (None Seen); Hyaline Casts Urine 0-2 /LPF (0-2); RBC Urine >20 /HPF (0-2); Squamous Epithelial Cell Urine 0-2 /HPF (0-2); WBC Urine 0-5 /HPF (0-5)
[2022-05-26] MEDS: cefTRIAXone sodium 1 GM in 0.9 % Sodium Chloride 50 ML IV (20:16)
[2022-05-26] MEDS: traZODone HCL 50 MG TABLET PO (23:30)
[2022-05-26] MEDS: hydrOXYzine HCL 25 MG TABLET PO (23:31)
[2022-05-27] VITALS (11 sets, daily range): BP systolic 100–169; BP diastolic 60–78; PULSE 77–96; RESP 15–20; TEMP 36.2–36.7; O2SAT 95–100
--- NOTE | 2022-05-27 | ECG_ITS ---
Test Reason : cp Blood Pressure : / mmHG Vent. Rate : 076 BPM Atrial Rate : 076 BPM P-R Int : 164 ms QRS Dur : 072 ms QT Int : 366 ms P-R-T Axes : 050 002 053 degrees QTc Int : 411 ms Normal sinus rhythm Normal ECG When compared with ECG of 25-MAY-2022 21:17, Questionable change in QRS duration Referred By: Dusty Penn Electronically Signed By:RUDY PENA
--- NOTE | 2022-05-27 00:49 | PC.NURSE ---
Pt received Atarax and Trazadone around 23:31 after requesting for something to help him relax (he was having a hard time with the BIPAP). Resp in to adjust Bipap 3-4 times. Around 00:50, pt refusing Bipap and requesting NC. Patient switched over to NC and respiratory therapist notified. Will continue to monitor.
[2022-05-27] MEDS: Heparin Sodium,Porcine 5,000 UNIT/ML VIAL 5000 UNIT SUBCUT ×3 (03:34→21:06)
[2022-05-27 06:32] LABS: Basophils Percent Auto 0.1 % (0-2); Eosinophils Percent Auto 0.1 % (0-4); Hematocrit 49.3 % (42.0-52.0); Hemoglobin 15.8 g/dl (14.0-18.0); Imm Gran Abs Auto 0.14 X10*3/uL (0.00-0.03); Imm Gran Pct Auto 0.8 % (0.0-0.4); Lymphocytes Absolute Auto 1.8 X10*3/uL (1.2-4.9); Lymphocytes Percent Auto 10.1 % (20-40); MANUAL DIFF FLAG SCAN; Mean Corpuscular Hemoglobin 31.8 pg (27.0-33.0); Mean Corpuscular Volume 99.2 fL (80.0-98.0); Mean Platelet Volume 12.2 fL (9.4-12.4); Monocytes Absolute Auto 2.2 X10*3/uL (0.1-1.2); Monocytes Percent Auto 12.1 % (2-11); Neutrophils Absolute Auto 13.8 x10*3/uL (2.0-8.3); Neutrophils Percent Auto 76.8 % (45-73); Platelet Count 168 X10*3/uL (160-400); Red Blood Count 4.97 X10*6/uL (4.60-5.80); Red Cell Distribution Width 12.6 % (11.0-16.0); SCAN SMEAR FLAG 1
[2022-05-27 06:43] LABS: Alanine Aminotransferase 65 U/L (0-40); Albumin Level 3.1 g/dL (3.5-5.0); Alkaline Phosphatase 71 U/L (39-117); Anion Gap 12 (12-20); Aspartate Amino Transferase 24 U/L (5-37); Bilirubin Total 0.6 mg/dL (0.0-1.0); Blood Urea Nitrogen 15 mg/dL (9-16); Calcium 8.2 mg/dL (8.4-10.2); Carbon Dioxide 40 mmol/L (22-29); Chloride 96 mmol/L (96-108); Creatinine Clr Calc Pharmacy 80.1; Estimated Glomerular Filt Rate > 60; Glucose Fasting 172 mg/dL (60-99); Potassium 4.3 mmol/L (3.3-5.1); Sodium 144 mmol/L (135-145); Total Protein 5.2 g/dL (6.5-8.0)
--- NOTE | 2022-05-27 06:53 | PM.EVENT ---
Event Note Date of Service: 05/27/22 Event Note: pt was very anxious, needed something to help him keep BiPAP on and asked for something to help him relax. received hydroxysine and trazodone but did not keep BiPAP on overnight
[2022-05-27 07:11] LABS: SLIDE REVIEW VERIFIED
[2022-05-27 07:38] LABS: Glucose, Whole Blood 186 mg/dL (60-115)
[2022-05-27 07:45] LABS: VBG Base Excess 22.6 mmol/L; VBG HCO3 54 mmol/L (22-26); VBG pCO2 95 mmHg; VBG pH 7.36 (7.32-7.43); VBG pO2 46 mmHg
[2022-05-27 07:48] LABS: Venous Blood Gas Refer to POC result
[2022-05-27] MEDS: Fluticasone/Vilanterol 200/25 BLST.W.DEV 1 PUFF INHALE (07:50)
[2022-05-27] MEDS: Insulin Lispro 100 UNIT/ML 3 ML VIAL SUBCUT ×3 (08:17→21:07)
[2022-05-27] MEDS: Ferrous Sulfate 324 MG TABLET.DR PO (08:18)
[2022-05-27] MEDS: carvediloL 12.5 MG TABLET PO ×2 (08:18→21:03)
[2022-05-27] MEDS: predniSONE 20 MG TABLET 40 MG PO (08:18)
[2022-05-27] MEDS: Valsartan 160 MG TABLET PO (08:18)
[2022-05-27] MEDS: Famotidine 20 MG TABLET PO ×2 (08:18→21:03)
[2022-05-27] MEDS: Spironolactone 25 MG TABLET PO (08:18)
[2022-05-27] MEDS: 0.9 % Sodium Chloride Flush 3 ML SYRINGE IVFLUSH ×2 (08:18→16:56)
[2022-05-27] MEDS: Aspirin Enteric Coated 81 MG TABLET.DR PO (08:18)
[2022-05-27] MEDS: Magnesium Oxide 400 MG TABLET PO ×2 (08:18→21:02)
--- NOTE | 2022-05-27 08:38 | PC.NURSE ---
Addendum entered by Michelle Patel RN 05/27/22 08:40: Patient asymptomatic at this time and denies chest pain. Sitting up and eating breakfast. Original Note: Patient had a 14 beat run of [place] , Dusty Penn MD paged at this time.
[2022-05-27 11:26] LABS: Glucose, Whole Blood 246 mg/dL (60-115)
[2022-05-27] MEDS: Morphine Sulfate 2 MG/ML CARTRIDGE IVPUSH (11:42)
--- NOTE | 2022-05-27 11:42 | MHC.CM.PN ---
Addendum entered by Analilia Flaherty RN 05/27/22 14:55: CM ATTEMPTED TO MEET W/PT VIA CUSTOMER RELATIONS ADVISOR HOWEVER PT AND BED NOT IN ROOM, CM WILL REVISIT. Original Note: EMR REVIEWED, PER HOSPITALIST PT NOW AGREEABLE TO STR, REFERRALS TP LOCAL SNFS AND SNFS THAT PROVIDE PULMONARY REHAB, ANTIC PT WILL D/C TOMORROW 05/28, CM WILL CONT TO FOLLOW D/C NEEDS.
[2022-05-27] MEDS: ondansetron HCL 4 MG/2 ML VIAL IVPUSH (11:46)
[2022-05-27] MEDS: Barium Sulfate Oral (Mocha) 450 ML ORAL.SUSP 900 ML PO (15:03)
[2022-05-27] MEDS: iohexoL 350 MG/ML 100 ML INFUS..BTL IV (15:04)
--- NOTE | 2022-05-27 16:02 | P.PNIM_ITS ---
Subjective Subjective Date of Service: 05/27/22 Interval History: no acute events overnight. Complained of 7/10 right lower quadrant pain this a.m. Review of Systems denies chest pain Denies Palpitations Denies nausea vomiting diarrhea Physical Exam Vital Signs: Vital Signs: Last Vital Signs Temp 98.0 F 05/27/22 15:13 Pulse 86 05/27/22 15:13 Resp 18 05/27/22 15:56 BP 113/60 05/27/22 15:13 Pulse Ox 97 05/27/22 15:13 O2 Del Method 05/27/22 15:13 O2 Flow Rate 2 05/27/22 11:53 FiO2 43 05/23/22 14:00 BMI result Body Mass Index 26.9 Const: Other: no acute issues overnight Resp: Other: clear to auscultation bilaterally but diminished at bases. No rales rhonchi or wheezes Cardio: Other: no S4; positive S1-S2; no S3 murmurs rubs or gallops GI: Other: soft nontender nondistended with normoac Extrem: Other: no edema bilaterally Objective Data Active Medications Acetaminophen (Acetaminophen 325 Mg Tablet) 650 mg PO Q6H PRN PRN Reason: Pain, Mild (Pain Scale 1-3) Last Admin: 05/26/22 20:20 Dose: 650 mg Documented By: LULU Al Hydroxide/Mg Hydroxide (Magnesium Hydrox/Alum Hydrox 30 Ml Oral.Susp) 30 ml PO Q4H PRN PRN Reason: Heartburn Last Admin: 05/26/22 12:24 Dose: 30 ml Documented By: ADALGISA Albuterol Sulfate (Albuterol Sulfate (0.083%) 2.5 Mg/3 Ml Vial.Neb) 2.5 mg INHALE Q4H PRN PRN Reason: Wheezing Aspirin (Aspirin Enteric Coated 81 Mg Tablet.) 81 mg PO DAILY [facility] Last Admin: 05/27/22 08:18 Dose: 81 mg Documented By: ADALGISA Atorvastatin Calcium (Atorvastatin Calcium 20 Mg Tablet) 20 mg PO BEDTIME [facility] Last Admin: 05/26/22 19:57 Dose: 20 mg Documented By: LULU Carvedilol (Carvedilol 12.5 Mg Tablet) 12.5 mg PO BID [facility]; Protocol Last Admin: 05/27/22 08:18 Dose: 12.5 mg Documented By: ADALGISA Dextrose (Dextrose 50 % 25 Gm/50 Ml Syringe) 25 gm IVPUSH Q15M PRN; Protocol PRN Reason: per Hypoglycemia Standing Ord. Last Admin: 05/25/22 04:20 Dose: 25 gm Documented By: YOSELIN Docusate Sodium (Docusate Sodium 100 Mg Capsule) 100 mg PO DAILY PRN PRN Reason: Constipation Famotidine (Famotidine 20 Mg Tablet) 20 mg PO BID [facility] Last Admin: 05/27/22 08:18 Dose: 20 mg Documented By: ADALGISA Ferrous Sulfate (Ferrous Sulfate 324 Mg Tablet.Dr) 324 mg PO DAILY [facility] Last Admin: 05/27/22 08:18 Dose: 324 mg Documented By: ADALGISA Fluticasone Propionate (Fluticasone Propionate Nasal 16 Gm [place]) 2 spray NOSTRIL-B DAILY [facility] Last Admin: 05/27/22 08:18 Dose: Not Given Documented By: ADALGISA Non-Admin Reason: Patient Refused Fluticasone/Vilanterol (Fluticasone/Vilanterol 200/25 Blst.W.Dev) 1 puff INHALE RDAILY [facility] Last Admin: 05/27/22 07:50 Dose: 1 puff Documented By: YASMIN Glucose (Glucose Gel 15 Gm Gel..Gram.) 15 gm PO Q15M PRN; Protocol PRN Reason: per Hypoglycemia Standing Ord. Glucose (Glucose Gel 15 Gm Gel..Gram.) 15 gm PO Q15M PRN; Protocol PRN Reason: Per Hypoglycemia Standing Ord. Heparin Sodium (Porcine) (Heparin Sodium,Porcine 5,000 Unit/Ml Vial) 5,000 unit SUBCUT Q8H [facility] Last Admin: 05/27/22 11:41 Dose: 5,000 unit Documented By: ADALGISA Ceftriaxone Sodium 1 gm/ (Sodium Chloride) 50 mls @ 100 mls/hr IV Q24H [facility] Last Infusion: 05/26/22 20:46 Dose: 0 mls/hr Documented By: LULU Insulin Human Lispro (Insulin Lispro 100 Unit/Ml 3 Ml Vial) 0 unit SUBCUT QIDACHS [facility]; Protocol Last Admin: 05/27/22 11:42 Dose: 8 unit Documented By: ADALGISA Magnesium Oxide (Magnesium Oxide 400 Mg Tablet) 400 mg PO BID [facility] Last Admin: 05/27/22 08:18 Dose: 400 mg Documented By: ADALGISA Ondansetron HCl (Ondansetron Hcl 4 Mg/2 Ml Vial) 4 mg IVPUSH Q8H PRN PRN Reason: Nausea and Vomiting Last Admin: 05/27/22 11:46 Dose: 4 mg Documented By: ADALGISA Pharmacy Consult (Consult Rx Perform Med Rec) 1 each MISCELLANE ONCE PRN PRN Reason: Consult order Prednisone (Prednisone 20 Mg Tablet) 40 mg PO DAILY [facility] Last Admin: 05/27/22 08:18 Dose: 40 mg Documented By: ADALGISA Sodium Chloride (0.9 % Sodium Chloride Flush 3 Ml Syringe) [facility] Last Admin: 05/27/22 08:18 Dose: 3 ml Documented By: ADALGISA Sodium Chloride (0.9 % Sodium Chloride Flush 3 Ml Syringe) 3 ml IVFLUSH [facility] Last Admin: 05/27/22 14:56 Dose: Not Given Documented By: ADALGISA Non-Admin Reason: Duplicate Order Spironolactone (Spironolactone 25 Mg Tablet) 25 mg PO DAILY [facility]; Protocol Last Admin: 05/27/22 08:18 Dose: 25 mg Documented By: ADALGISA Tamsulosin HCl (Tamsulosin Hcl 0.4 Mg Capsule) 0.4 mg PO BEDTIME [facility] Last Admin: 05/26/22 19:57 Dose: 0.4 mg Documented By: LULU Valsartan (Valsartan 160 Mg Tablet) 160 mg PO DAILY [facility] Last Admin: 05/27/22 08:18 Dose: 160 mg Documented By: ADALGISA Labs CBC & Chem 7: 05/27/22 05:52 05/27/22 05:52 Labs: Laboratory Results - last 24 hr 05/26/22 05/26/22 05/26/22 16:17 19:48 20:03 MCV MCH MCHC RDW Plt Count MPV Immature Gran % (Auto) Neut % (Auto) Lymph % (Auto) [place] % (Auto) Eos % (Auto) Baso % (Auto) Lymph # (Auto) [place] # (Auto) Eos # (Auto) Baso # (Auto) Abs Immat Gran (auto) Absolute Neuts (auto) Absolute Nucleated RBC Nucleated RBC % (auto) Smear Tech's Comments VBG pH VBG pCO2 VBG pO2 VBG HCO3 VBG O2 Saturation VBG Base Excess Anion Gap Estim Creat Clear Calc Estimated GFR POC Glucose 170 H 253 H Fasting Glucose Calcium Total Bilirubin AST ALT Alkaline Phosphatase Total Protein Albumin Urine Color Yellow Urine Appearance Clear Urine pH 7.0 Ur Specific [place] 1.010 Urine Protein Negative Urine Glucose (UA) >=1000 H Urine Ketones Negative Urine Blood Moderate (2+) H Urine Nitrite Negative Ur Leukocyte Esterase Trace H Urine RBC >20 H Urine WBC 0-5 Ur Squamous Epith Cells 0-2 Urine Bacteria None Seen Hyaline Casts 0-2 05/27/22 05/27/22 05/27/22 05:52 05:52 07:29 MCV 99.2 H MCH 31.8 MCHC 32.0 RDW 12.6 Plt Count 168 MPV 12.2 Immature Gran % (Auto) 0.8 H Neut % (Auto) 76.8 H Lymph % (Auto) 10.1 L [place] % (Auto) 12.1 H Eos % (Auto) 0.1 Baso % (Auto) 0.1 Lymph # (Auto) 1.8 [place] # (Auto) 2.2 H Eos # (Auto) 0.0 Baso # (Auto) 0.0 Abs Immat Gran (auto) 0.14 H Absolute Neuts (auto) 13.8 H Absolute Nucleated RBC 0.000 Nucleated RBC % (auto) 0.0 Smear Tech's Comments VERIFIED VBG pH VBG pCO2 VBG pO2 VBG HCO3 VBG O2 Saturation VBG Base Excess Anion Gap 12 Estim Creat Clear Calc 80.1 Estimated GFR > 60 POC Glucose 186 H Fasting Glucose 172 H D Calcium 8.2 L Total Bilirubin 0.6 AST 24 ALT 65 H Alkaline Phosphatase 71 Total Protein 5.2 L Albumin 3.1 L Urine Color Urine Appearance Urine pH Ur Specific [place] Urine Protein Urine Glucose (UA) Urine Ketones Urine Blood Urine Nitrite Ur Leukocyte Esterase Urine RBC Urine WBC Ur Squamous Epith Cells Urine Bacteria Hyaline Casts 05/27/22 05/27/22 07:36 11:15 MCV MCH MCHC RDW Plt Count MPV Immature Gran % (Auto) Neut % (Auto) Lymph % (Auto) [place] % (Auto) Eos % (Auto) Baso % (Auto) Lymph # (Auto) [place] # (Auto) Eos # (Auto) Baso # (Auto) Abs Immat Gran (auto) Absolute Neuts (auto) Absolute Nucleated RBC Nucleated RBC % (auto) Smear Tech's Comments VBG pH 7.36 VBG pCO2 95 VBG pO2 46 VBG HCO3 54 H VBG O2 Saturation 70.0 VBG Base Excess 22.6 Anion Gap Estim Creat Clear Calc Estimated GFR POC Glucose 246 H Fasting Glucose Calcium Total Bilirubin AST ALT Alkaline Phosphatase Total Protein Albumin Urine Color Urine Appearance Urine pH Ur Specific [place] Urine Protein Urine Glucose (UA) Urine Ketones Urine Blood Urine Nitrite Ur Leukocyte Esterase Urine RBC Urine WBC Ur Squamous Epith Cells Urine Bacteria Hyaline Casts Microbiology Microbiology Results: Microbiology 05/26/22 20:03 Urine Culture - Preliminary Urine Catheterized - [place] Catheter No growth to date. Assessment and Plan (1) Encephalopathy: Status: Acute (2) Acute on chronic respiratory failure with hypoxia and hypercapnia: Status: Acute Plan 76-year-old male with past medical history COPD presents to the hospital with acute on chronic respiratory failure found to be hypoxic as well as hypercapnic and confused patient was admitted to medical floor with a diagnosis of acute encephalopathy, however on 05/17 patient became combative, agitated pulling oxygen he was given Haldol subsequently he became somnolent ABG showed a pH of 7.26 patient was subsequently transferred to ICU for rescue BiPAP, patient was treated with BiPAP and despite improvement in CO2 he was noted to be sedated it was felt that his symptoms are also related to use of high-dose narcotics and benzos patient was review recently given a prescription that he finished in short duration of time, since patient became more awake alert with stable CO2 he was transferred to [facility] on 05/23, 1.Toxic metabolic encephalopathy( resolved) - multifactorial likely related to chronic respiratory failure hypercapnia and medications - will require close outpatient monitoring 2.Acute on chronic respiratory failure with hypoxia and hypercapnia - given small dose of morphine for abdominal pain - somewhat agitated and confused. . . Back on BiPAP will check ABGs 3.DM - acceptable control on current therapies - continue Lantus/Lispro correctional scale 4.HTN - acceptable control on current therapies - adjust as indicated 5. Dysuria - UA with culture - empiric ceftriaxone Disposition seen by physical therapy they recommend short-term rehab for pulmonary rehab or home with PT after home O2 evaluation is done to optimize function Patient requires ongoing inpatient hospitalization for management of acute hypercarbic respiratory failure and hypoxia. Quality Stroke Does the patient have a stroke diagnosis?: No VTE Prior VTE?: No VTE Risk Level:: Medical - moderate - high VTE Device Contraindication: Treatment Not Indicated VTE Drug Contraindication: N/A - Med Ordered
[2022-05-27 16:03] LABS: Glucose, Whole Blood 162 mg/dL (60-115)
--- NOTE | 2022-05-27 16:09 | PC.NURSE ---
Patient noted to be more lethargic post CT scan. Episode of increased confusion, pulled IV out of arm and nasal cannula off; oxygen sat at that time 90%. Respiratory paged to place patient on bipap. Dusty Penn MD aware. ABG's to be drawn via respiratory therapist. Current bipap settings- RR-15, Tidal volume 650, PEEP 5, and 25% O2. IV Access reestablished- now has a 20 in right forearm.
[2022-05-27 16:21] LABS: ABG Base Excess 7.5 mmol/L; ABG HCO3 33 mmol/L (22-26); ABG pCO2 51 mmHg (32-45); ABG pH 7.41 (7.35-7.45); ABG pO2 70 mmHg (83-108)
[2022-05-27 16:38] LABS: ABG Refer to POC result
[2022-05-27 19:54] LABS: Glucose, Whole Blood 198 mg/dL (60-115)
[2022-05-27] MEDS: Tamsulosin HCL 0.4 MG CAPSULE PO (21:02)
[2022-05-27] MEDS: Atorvastatin Calcium 20 MG TABLET PO (21:03)
[2022-05-27] MEDS: cefTRIAXone sodium 1 GM in 0.9 % Sodium Chloride 50 ML IV (21:07)
[2022-05-28] VITALS (7 sets, daily range): BP systolic 117–141; BP diastolic 58–73; PULSE 77–93; RESP 16–22; TEMP 36.2–36.9; O2SAT 92–97
[2022-05-28] MEDS: Magnesium Hydrox/Alum Hydrox 30 ML ORAL.SUSP PO (00:07)
[2022-05-28] MEDS: ondansetron HCL 4 MG/2 ML VIAL IVPUSH (00:07)
[2022-05-28] MEDS: 0.9 % Sodium Chloride Flush 3 ML SYRINGE IVFLUSH ×4 (01:47→17:29)
[2022-05-28] MEDS: Heparin Sodium,Porcine 5,000 UNIT/ML VIAL 5000 UNIT SUBCUT ×2 (04:16→13:17)
[2022-05-28 06:39] LABS: Basophils Percent Auto 0.1 % (0-2); Eosinophils Percent Auto 0.2 % (0-4); Hematocrit 46.3 % (42.0-52.0); Hemoglobin 14.5 g/dl (14.0-18.0); Imm Gran Abs Auto 0.14 X10*3/uL (0.00-0.03); Imm Gran Pct Auto 0.8 % (0.0-0.4); Lymphocytes Absolute Auto 2.2 X10*3/uL (1.2-4.9); Lymphocytes Percent Auto 12.3 % (20-40); MANUAL DIFF FLAG SCAN; Mean Corpuscular HGB Conc 31.3 g/dl (31.0-36.0); Mean Corpuscular Hemoglobin 31.5 pg (27.0-33.0); Mean Corpuscular Volume 100.7 fL (80.0-98.0); Mean Platelet Volume 12.2 fL (9.4-12.4); Monocytes Absolute Auto 2.1 X10*3/uL (0.1-1.2); Monocytes Percent Auto 11.8 % (2-11); Neutrophils Absolute Auto 13.5 x10*3/uL (2.0-8.3); Neutrophils Percent Auto 74.8 % (45-73); Platelet Count 203 X10*3/uL (160-400); Red Cell Distribution Width 12.7 % (11.0-16.0); SCAN SMEAR FLAG 1
[2022-05-28 07:25] LABS: Alanine Aminotransferase 64 U/L (0-40); Albumin Level 3.2 g/dL (3.5-5.0); Alkaline Phosphatase 73 U/L (39-117); Anion Gap 13 (12-20); Aspartate Amino Transferase 25 U/L (5-37); Bilirubin Total 0.4 mg/dL (0.0-1.0); Blood Urea Nitrogen 16 mg/dL (9-16); Calcium 8.5 mg/dL (8.4-10.2); Carbon Dioxide 45 mmol/L (22-29); Chloride 89 mmol/L (96-108); Creatinine Clr Calc Pharmacy 75.1; Estimated Glomerular Filt Rate > 60; Glucose Fasting 208 mg/dL (60-99); Sodium 143 mmol/L (135-145); Total Protein 5.3 g/dL (6.5-8.0)
[2022-05-28] MEDS: Fluticasone/Vilanterol 200/25 BLST.W.DEV 1 PUFF INHALE (07:27)
[2022-05-28 07:52] LABS: SLIDE REVIEW VERIFIED
[2022-05-28 08:26] LABS: Glucose, Whole Blood 197 mg/dL (60-115)
[2022-05-28] MEDS: acetaZOLAMIDE sodium 500 MG VIAL IVPUSH (08:42)
[2022-05-28] MEDS: Valsartan 160 MG TABLET PO (08:42)
[2022-05-28] MEDS: Insulin Lispro 100 UNIT/ML 3 ML VIAL SUBCUT ×2 (08:42→17:28)
[2022-05-28] MEDS: carvediloL 12.5 MG TABLET PO (08:43)
[2022-05-28] MEDS: Magnesium Oxide 400 MG TABLET PO (08:43)
[2022-05-28] MEDS: Ferrous Sulfate 324 MG TABLET.DR PO (08:43)
[2022-05-28] MEDS: predniSONE 20 MG TABLET 40 MG PO (08:43)
[2022-05-28] MEDS: Aspirin Enteric Coated 81 MG TABLET.DR PO (08:43)
[2022-05-28] MEDS: Famotidine 20 MG TABLET PO (08:43)
[2022-05-28] MEDS: Spironolactone 25 MG TABLET PO (08:43)
[2022-05-28 12:12] LABS: Glucose, Whole Blood 144 mg/dL (60-115)
[2022-05-28] MEDS: Acetaminophen 325 MG TABLET 650 MG PO (12:34)
--- NOTE | 2022-05-28 12:48 | P.DS_ITS ---
DS: Providers Provider Date of Service: 05/28/22 Date of admission: 05/16/22 03:39 Date of discharge: 05/28/22 Primary care physician: Pastora Prasad DO Consults: 05/16/22 11:37 Consult to Pulmonology Routine Consulting Provider: Isacc Chilel Reason for consultation: respiratory failure Has provider been notified: No DS: Diagnosis Discharge Diagnosis (1) Encephalopathy: Status: Acute (2) Acute on chronic respiratory failure with hypoxia and hypercapnia: Status: Acute (3) Hypoventilation syndrome: Status: Acute (4) Acute exacerbation of COPD with asthma: Status: Acute (5) STEPH (obstructive sleep apnea): Status: Acute (6) Uncontrolled type 2 diabetes mellitus with hyperglycemia: Status: Acute (7) HTN (hypertension): Status: Acute (8) Chronic ITP (idiopathic thrombocytopenia): Status: Acute DS: Summary Hospital Course Hospital Course: 76-year-old male with past medical history of COPD, STEPH, type 2 diabetes, BPH, HLD, HTN, who is sent to the hospital via EMS with reported shortness of breath.? Patient is Iranian-speaking, tried to obtain history from him, and although he is awake oriented to self, he knows he is in the hospital but does not know which 1, and he knows the year he appears to be very confused, unable to give an accurate history.? He is all over the place given me different unrelated stories.? Therefore so history is obtained mostly from EMR and ED physician? with limited? patient in regards to history and cause of presentation ?per triage nurse patient was brought into the hospital with 1 week of general was weakness, was found to be 86% on room air at home, I tried to call the 2 numbers available on EMR and neither 1 answered. ? On review of system patient reports no chest pain, denies any shortness of breath, no abdominal pain nausea or vomiting, patient is sitting upright in bed refusing to lay down, denies no lower extremity swelling.? He keeps saying that they asked him to come here but he does not know who they are ?on arrival to the ED patient found to have a heart rate of 119 satting 88-90% on room air Labs are significant for WBC count of 9.6, otherwise unremarkable, VBG showed a pH of 7.28 with a CO2 of 63, patient was placed on BiPAP for few hours, and is now off BiPAP sitting in bed appears comfortable, with no distress.? COVID-[address] angiogram shows no pulmonary emboli, subsegmental atelectasis and trace pleural effusiion On 05/17/2022 patient became extremely somnolent and difficult to arouse; ABGs demonstrated hypercapnic respiratory failure. He was placed on BiPAP and transferred to ICU on over the next 72 hours his status improved to baseline and he was transferred back to the floor. Meds were adjusted to avoid sedating therapies. Continues to be compliant with BiPAP at and should continue this a.m. Time Spent with Patient Time attestation: Total time spent providing and/or coordinating discharge services: Discharge coordination time: Greater than 30 minutes Quality: Safe Use of Opioids Does Pt have an Active Cancer Diagnosis on the Problem List?: No Quality: Stroke Does the patient have a stroke diagnosis?: No Physical Exam Vital Signs: Vital Signs: Last Vital Signs Temp 97.9 F 05/28/22 11:21 Pulse 78 05/28/22 11:21 Resp 20 05/28/22 11:21 BP 135/62 05/28/22 11:21 Pulse Ox 95 05/28/22 11:21 O2 Del Method 05/28/22 11:21 O2 Flow Rate 2 05/28/22 11:21 FiO2 43 05/23/22 14:00 BMI result Body Mass Index 26.9 Const: Other: no acute issues overnight Resp: Other: clear to auscultation bilaterally but diminished at bases. No rales rhonchi or wheezes Cardio: Other: no S4; positive S1-S2; no S3 murmurs rubs or gallops GI: Other: soft nontender nondistended with normoac Extrem: Other: no edema bilaterally DS: Data Data Completed and Pending Labs on day of discharge: Laboratory Results - last 24 hr 05/27/22 05/27/22 05/27/22 15:58 16:16 19:49 WBC RBC Hgb Hct MCV MCH MCHC RDW Plt Count MPV Immature Gran % (Auto) Neut % (Auto) Lymph % (Auto) [place] % (Auto) Eos % (Auto) Baso % (Auto) Lymph # (Auto) [place] # (Auto) Eos # (Auto) Baso # (Auto) Abs Immat Gran (auto) Absolute Neuts (auto) Absolute Nucleated RBC Nucleated RBC % (auto) Smear Tech's Comments O2 Saturation 94.0 ABG pH at Pt Temp 7.41 ABG pCO2 at Pt Temp 51 H ABG pO2 at Pt Temp 70 L ABG HCO3 33 H ABG Base Excess (Actual) 7.5 Sodium Potassium Chloride Carbon Dioxide Anion Gap BUN Creatinine Estim Creat Clear Calc Estimated GFR POC Glucose 162 H 198 H Fasting Glucose Calcium Total Bilirubin AST ALT Alkaline Phosphatase Total Protein Albumin 05/28/22 05/28/22 05/28/22 05:52 05:52 08:22 WBC 18.0 H RBC 4.60 Hgb 14.5 Hct 46.3 MCV 100.7 H MCH 31.5 MCHC 31.3 RDW 12.7 Plt Count 203 MPV 12.2 Immature Gran % (Auto) 0.8 H Neut % (Auto) 74.8 H Lymph % (Auto) 12.3 L [place] % (Auto) 11.8 H Eos % (Auto) 0.2 Baso % (Auto) 0.1 Lymph # (Auto) 2.2 [place] # (Auto) 2.1 H Eos # (Auto) 0.0 Baso # (Auto) 0.0 Abs Immat Gran (auto) 0.14 H Absolute Neuts (auto) 13.5 H Absolute Nucleated RBC 0.000 Nucleated RBC % (auto) 0.0 Smear Tech's Comments VERIFIED O2 Saturation ABG pH at Pt Temp ABG pCO2 at Pt Temp ABG pO2 at Pt Temp ABG HCO3 ABG Base Excess (Actual) Sodium 143 Potassium 4.0 Chloride 89 L Carbon Dioxide 45 H* Anion Gap 13 BUN 16 Creatinine 0.81 Estim Creat Clear Calc 75.1 Estimated GFR > 60 POC Glucose 197 H Fasting Glucose 208 H Calcium 8.5 Total Bilirubin 0.4 AST 25 ALT 64 H Alkaline Phosphatase 73 Total Protein 5.3 L Albumin 3.2 L 05/28/22 11:19 WBC RBC Hgb Hct MCV MCH MCHC RDW Plt Count MPV Immature Gran % (Auto) Neut % (Auto) Lymph % (Auto) [place] % (Auto) Eos % (Auto) Baso % (Auto) Lymph # (Auto) [place] # (Auto) Eos # (Auto) Baso # (Auto) Abs Immat Gran (auto) Absolute Neuts (auto) Absolute Nucleated RBC Nucleated RBC % (auto) Smear Tech's Comments O2 Saturation ABG pH at Pt Temp ABG pCO2 at Pt Temp ABG pO2 at Pt Temp ABG HCO3 ABG Base Excess (Actual) Sodium Potassium Chloride Carbon Dioxide Anion Gap BUN Creatinine Estim Creat Clear Calc Estimated GFR POC Glucose 144 H Fasting Glucose Calcium Total Bilirubin AST ALT Alkaline Phosphatase Total Protein Albumin Preliminary micro results at discharge 05/26/22 20:03 Urine Culture - Preliminary Urine Catheterized - [place] Catheter Staphylococcus species Discharge Plan Discharge Patient Disposition: Xfer [facility] Discharge Diagnosis: acute on chronic respiratory failure with hypoxia and hypercapnia related to acute exacerbation of COPD Referrals: [facility] [Outside] - 1 Week Pastora Prasad DO [Primary Care Provider] - 1 Week Discharge Medications: New carvedilol 12.5 mg Tablet 12.5 mg PO BID Qty: 60 0RF Protocol: Hold for SBP/HR < HOLD for SBP < : 90 HOLD for HR < : 60 albuterol sulfate 2.5 mg /3 mL (0.083 %) Solution For Nebulization 2.5 mg inhalation Q4H PRN (Reason: Wheezing) Qty: 270 0RF acetazolamide 250 mg Tablet 250 mg PO BID Qty: 60 0RF spironolactone 25 mg Tablet 25 mg PO DAILY Qty: 30 0RF Protocol: Hold for SBP< HOLD for SBP < : 90 fluticasone furoate-vilanterol [Breo Ellipta] 200-25 mcg/dose Blister With Device 1 ea inhalation RDAILY Qty: 60 0RF Continued (DME) blood-glucose meter [FreeStyle [place] Lite] Kit See Rx Instructions .Route Qty: 1 0RF Rx Instructions: As directed (DME) FreeStyle Lite Strips Strip See Rx Instructions .Route Qty: 100 11RF Rx Instructions: 4x daily tamsulosin 0.4 mg capsule 0.4 mg PO BEDTIME 90 Days Qty: 90 2RF testosterone cypionate 200 mg/mL oil 200 mg IM Q3W 21 Days Qty: 1 5RF amitriptyline 10 mg tablet 1 tab PO BEDTIME aspirin 81 mg tablet,delayed release (DR/EC) 1 tab PO DAILY nitroglycerin 0.4 mg Tablet, Sublingual 0.4 mg SUBLINGUAL Q5M PRN (Reason: Chest Pain) Rx Instructions: do not exceed 3 doses per episode dextrose [Glutose-15] 40 % Gel 15 g PO Q15M PRN (Reason: Per Hypoglycemia Standing Ord.) Qty: 60 0RF Protocol: Glucose Gel Hypoglycemia Standing Order Protocol Text: For patients able to take PO (patient cooperative and able to swallow). Give Glucose Gel 15 gm PO for Blood Glucose (BG) < 70. Repeat BG every 15 min until BG > 70 x 3, if BG still < 70 and/or patient symptomatic repeat glucose gel or rapid acting carbohydrate. Notify MD if BG does not improve with treatment. (DME) pen needle, diabetic 32 gauge x 12/04 needle See Rx Instructions .Route Qty: 50 0RF Rx Instructions: As directed sertraline 25 mg tablet 12.5 mg PO DAILY diazepam [Valium] 2 mg tablet 2 mg PO TID PRN (Reason: muscle twitching) Qty: 20 0RF fluticasone propionate 50 mcg/actuation spray,suspension 2 spray intranasal DAILY Trelegy Ellipta 100-62.5-25 mcg blister with device 1 puff inhalation DAILY insulin glargine [Lantus Solostar U-100 Insulin] 100 unit/mL (3 mL) insulin pen 24 unit subcut QAM albuterol sulfate [Ventolin HFA] 90 mcg/actuation HFA aerosol inhaler 2 inh inhalation Q4H PRN (Reason: Shortness Of Breath) hydrocodone-acetaminophen 5-300 mg tablet 1 tab PO Q8H PRN (Reason: Pain (Scale Score 4-6)) metoprolol succinate 100 mg tablet extended release 24 hr 100 mg PO DAILY ferrous sulfate 325 mg (65 mg iron) tablet 325 mg PO DAILY cholecalciferol (vitamin D3) 50 mcg (2,000 unit) tablet 50 mcg PO DAILY (DME) lancets 33 gauge misc See Rx Instructions .ROUTE .MEDSUPPLY Qty: 100 Rx Instructions: As directed magnesium oxide 400 mg magnesium capsule 400 mg PO BID Trelegy Ellipta 100-62.5-25 mcg blister with device 1 ea inhalation DAILY famotidine 20 mg tablet 20 mg PO BID atorvastatin 20 mg tablet 20 mg PO BEDTIME Trulicity 3 mg/0.5 mL pen injector 3 mg subcut QWEEK (DME) pen needle, diabetic [UltiCare Pen Needle] 32 gauge x needle See Rx Instructions .ROUTE DAILY Qty: 50 Rx Instructions: As directed (DME) pen needle, diabetic [BD Ultra-Fine Mini Pen Needle] 31 gauge x 3/16 needle See Rx Instructions subcut DAILY Qty: 50 Rx Instructions: As directed irbesartan 300 mg tablet 300 mg PO DAILY Discontinued sildenafil [Viagra] 100 mg tablet 1 tab PO DAILY PRN (Reason: Sexual Activity) baclofen 10 mg tablet 10 mg PO TID PRN (Reason: muscle spasm) Discharge Orders: Discharge Order (Routine); Ordered 05/28/22 Ordered By: Dusty Penn Diet: Advance to usual diet Activity on Discharge: As tolerated Stand Alone Forms: Patient Portal Discharge page Care Plan Goals: continue BiPAP at night 12/5 and when napping Health Concerns: avoid narcotics and other sedating drugs Plan of Treatment: as outlined; to be determined by receiving physician Assessment: see discharge summary
[2022-05-28] MEDS: Fluticasone Propionate Nasal 16 GM SPRAY 2 SPRAY NOSTRIL-B (13:14)
[2022-05-28 13:38] LABS: Influenza A PCR NEGATIVE (Negative); Influenza B PCR NEGATIVE (Negative); Resp Syncy Virus RNA Qual PCR NEGATIVE (Negative); SARS COV2 PCR INHOUSE NEGATIVE (Negative)
[2022-05-28 17:02] LABS: Glucose, Whole Blood 359 mg/dL (60-115)
== END 2022-05-28 22:13 | disposition skilled nursing facility (03) | DRG 917 ==
LOC: HO.ED 21:27 → HO.EDOVER 05-16 03:43 → HO.S3 05-16 15:39 → HO.ICU 05-17 11:14 → HO.IMC 05-23 13:29
PROVIDERS: Anesthesiology; Hospitalist; Internal Medicine; Internal Medicine Cardiovascular Disease; Physician Assistant; Physician Assistant Medical; Admitting Provider Internal Medicine; Emergency Provider Emergency Medicine Emergency Medical Services; PCP Family Medicine; Visit Provider Hospitalist
DX: T42.4X1A Poisoning by benzodiazepines, accidental (unintentional), initial encounter (principal); G92.8 Other toxic encephalopathy; J96.21 Acute and chronic respiratory failure with hypoxia; J96.22 Acute and chronic respiratory failure with hypercapnia; J44.1 Chronic obstructive pulmonary disease with (acute) exacerbation; N17.9 Acute kidney failure, unspecified; J98.11 Atelectasis; E66.2 Morbid (severe) obesity with alveolar hypoventilation; E87.3 Alkalosis; D69.3 Immune thrombocytopenic purpura; T40.2X1A Poisoning by other opioids, accidental (unintentional), initial encounter; K21.9 Gastro-esophageal reflux disease without esophagitis; E78.5 Hyperlipidemia, unspecified; I10 Essential (primary) hypertension; N40.0 Benign prostatic hyperplasia without lower urinary tract symptoms; G89.29 Other chronic pain; R00.0 Tachycardia, unspecified; E87.5 Hyperkalemia; F41.1 Generalized anxiety disorder; Z68.27 Body mass index [BMI] 27.0-27.9, adult; E11.65 Type 2 diabetes mellitus with hyperglycemia; Z20.822 Contact with and (suspected) exposure to COVID-19; Z90.79 Acquired absence of other genital organ(s); Z87.891 Personal history of nicotine dependence; Z79.4 Long term (current) use of insulin; Z79.51 Long term (current) use of inhaled steroids; Z79.82 Long term (current) use of aspirin; Z79.899 Other long term (current) drug therapy
CPT/HCPCS: 0241U; 36415; 36600; 70450; 71045; 71275; 74176; 74177; 80048; 80053; 80076; 80307; 81001; 82140; 82607; 82746; 82803; 82947; 83605; 83690; 83735; 83880; 84100; 84145; 84443; 84484; 85025; 85027; 87040; 87086; 87088; 93005; 94640; 94660; 97116; 97162; 99285; C1758; J0696; J2250; J2270; J2405; J2765; J2920; J2930; J3475; Q9967

== ENCOUNTER 2022-05-29 04:46 | Emergency (ER) | payer OTHER, SELFPAY ==
--- NOTE | ~2022-05-29 | XR_ITS ---
EXAMINATION: XR CHEST CLINICAL INFORMATION: Chest pain COMPARISON: 05/27/2022 TECHNIQUE: Frontal view of the chest was obtained. FINDINGS: Lung volumes are symmetric. Linear atelectasis at the medial right lung base. No additional consolidation. No evidence of pneumothorax, pulmonary edema, or pleural effusions. The cardiomediastinal silhouette is unremarkable. No acute osseous findings. Degenerative changes are noted in the spine. XR/XR chest 1V IMPRESSION: No acute cardiopulmonary findings.
[2022-05-29 04:52] VITALS: BP 142/70; PULSE 64; PULSE 97; RESP 16; O2SAT 97; BMI 31.8
--- NOTE | 2022-05-29 05:04 | ECG_ITS ---
Test Reason : CHEST PAIN Blood Pressure : / mmHG Vent. Rate : 097 BPM Atrial Rate : 097 BPM P-R Int : 150 ms QRS Dur : 092 ms QT Int : 332 ms P-R-T Axes : 050 -14 053 degrees QTc Int : 421 ms Normal sinus rhythm Septal infarct , age undetermined Abnormal ECG When compared with ECG of 27-MAY-2022 16:50, Septal infarct is now Present Referred By: Generic ED Physician Electronically Signed By:RUDY PENA
[2022-05-29 05:08] VITALS: BP 142/70; PULSE 100; RESP 41; TEMP 37.3; O2SAT 98
[2022-05-29 05:29] LABS: Basophils Percent Auto 0.2 % (0-2); Hematocrit 49.6 % (42.0-52.0); Hemoglobin 15.9 g/dl (14.0-18.0); Imm Gran Abs Auto 0.23 X10*3/uL (0.00-0.03); Imm Gran Pct Auto 0.9 % (0.0-0.4); Lymphocytes Absolute Auto 1.6 X10*3/uL (1.2-4.9); Lymphocytes Percent Auto 6.1 % (20-40); MANUAL DIFF FLAG SCAN; Mean Corpuscular HGB Conc 32.1 g/dl (31.0-36.0); Mean Corpuscular Hemoglobin 31.7 pg (27.0-33.0); Mean Platelet Volume 11.4 fL (9.4-12.4); Monocytes Absolute Auto 2.2 X10*3/uL (0.1-1.2); Monocytes Percent Auto 8.8 % (2-11); Neutrophils Absolute Auto 21.2 x10*3/uL (2.0-8.3); Platelet Count 254 X10*3/uL (160-400); Red Blood Count 5.01 X10*6/uL (4.60-5.80); Red Cell Distribution Width 12.8 % (11.0-16.0); SCAN SMEAR FLAG 1; White Blood Count 25.2 X10*3/uL (4.8-10.8)
[2022-05-29 05:46] LABS: SLIDE REVIEW VERIFIED
[2022-05-29 05:48] LABS: Anion Gap 16 (12-20); Blood Urea Nitrogen 25 mg/dL (9-16); Calcium 9.6 mg/dL (8.4-10.2); Carbon Dioxide 38 mmol/L (22-29); Chloride 91 mmol/L (96-108); Creatinine Clr Calc Pharmacy 58.1; Estimated Glomerular Filt Rate > 60; Glucose Random 278 mg/dL (60-115); Sodium 140 mmol/L (135-145)
[2022-05-29 05:49] LABS: Troponin-I High Sensitivity 8.6 ng/L (<3.5-35.0)
[2022-05-29 06:34] VITALS: BP 132/44; PULSE 100; RESP 16; TEMP 36.6; O2SAT 100
--- NOTE | 2022-05-29 06:43 | ED.CHESTPAIN ---
HPI - Chest Pain General Chief Complaint: Chest Pain Stated Complaint: CP Time Seen by Provider: 05/29/22 06:43 Source: patient Mode of arrival: EMS Limitations: no limitations History of Present Illness HPI narrative: 76-year-old male who presents emergency department for evaluation of chest pain. The patient was recently hospitalized from 05/10 until 05/28/2022 (discharge 1 day prior to arrival) for COPD exacerbation with CO2 retention/encephalopathy requiring BiPAP treatment. The patient was discharged to a intermediate facility. According to nursing notes, the patient complained of chest pain at 17:00 hours last night. At 03:00 hours this morning he was given 2 nitroglycerin sublingually for his chest pain without improvement he was then transferred to our facility for evaluation. The patient states that he developed chest pain last night. He points to his sternum when asked to localize the pain. He describes the pain is an intermittent pressure-like pain which is 9/10 at its worst. Told me that the pain was constant and did not very with movement or with breathing. He denied fever, chills, rhinorrhea, sore throat, cough, nausea, vomiting or diarrhea. States that he has been having difficulty sleeping and did not sleep at all last night and is requesting something to help him sleep. MD complaint: chest pain Pertinent past history: other (COPD) Onset (ago): hour(s) (14) Timing of current episode: constant Prior episodes: Yes Onset: during rest Pain location: substernal Pain radiation: none Severity: severe Pain scale (0-10): 9 Quality: heaviness (Pressure) Relieving factors: nothing Exacerbating factors: nothing Context: recent illness (See HPI, recently hospitalized for COPD exacerbation with CO2 retention requiring BiPAP) Treatment prior to arrival: nitroglycerin (X2 sublingually without relief of his symptoms) Risk Factors Coronary artery disease risk factors: diabetes and hypertension Related Data Home Medications Medication Instructions Recorded Confirmed cholecalciferol (vitamin D3) 50 50 mcg PO DAILY 06/23/20 05/15/22 mcg (2,000 unit) tablet ferrous sulfate 325 mg (65 mg 325 mg PO DAILY 06/23/20 05/15/22 iron) tablet hydrocodone 5 mg-acetaminophen 300 1 tab PO Q8H PRN Pain (Scale Score 06/23/20 05/15/22 mg tablet 4-6) lancets 33 gauge #100 ea 06/23/20 04/14/22 magnesium oxide 400 mg PO BID 06/23/20 05/15/22 metoprolol succinate 100 mg 100 mg PO DAILY 06/23/20 05/15/22 tablet,extended release 24 hr albuterol sulfate 90 mcg/actuation 2 inh inhalation Q4H PRN Shortness 06/10/21 05/15/22 aerosol inhaler (Ventolin HFA) Of Breath irbesartan 300 mg tablet 300 mg PO DAILY 11/06/21 05/15/22 amitriptyline 10 mg tablet 1 tab PO BEDTIME 01/30/22 05/15/22 aspirin 81 mg tablet,delayed 1 tab PO DAILY 01/31/22 05/15/22 release nitroglycerin 0.4 mg sublingual 0.4 mg sublingual Q5M PRN Chest 01/31/22 05/15/22 tablet Pain sertraline 25 mg tablet 12.5 mg PO DAILY 03/05/22 05/15/22 atorvastatin 20 mg tablet 20 mg PO BEDTIME 05/14/22 05/15/22 dulaglutide 3 mg/0.5 mL 3 mg subcut QWEEK 05/14/22 05/15/22 subcutaneous pen injector (Trulicity) famotidine 20 mg tablet 20 mg PO BID heartburn 05/14/22 05/15/22 fluticasone fur. 100 mcg-umeclid 1 ea inhalation DAILY 05/14/22 05/15/22 62.5 mcg-vilant 25 mcg inhalat.powder (Trelegy Ellipta) pen needle, diabetic 31 gauge x #50 ea 05/14/22 3/16 (BD Ultra-Fine Mini Pen Needle) pen needle, diabetic 32 gauge x #50 ea 05/14/22 5/32 (UltiCare Pen Needle) fluticasone fur. 100 mcg-umeclid 1 puff inhalation DAILY 05/15/22 05/15/22 62.5 mcg-vilant 25 mcg inhalat.powder (Trelegy Ellipta) fluticasone propionate 50 2 spray intranasal DAILY 05/15/22 05/15/22 mcg/actuation nasal spray,suspension insulin glargine 100 unit/mL (3 24 unit subcut QAM 05/15/22 05/15/22 mL) subcutaneous pen (Lantus Solostar U-100 Insulin) Previous Rx's Medication Instructions Recorded blood sugar diagnostic (FreeStyle #100 ea 06/26/21 Lite Strips) blood-glucose meter (FreeStyle #1 ea 06/26/21 [place] Lite kit) tamsulosin 0.4 mg capsule 0.4 mg PO BEDTIME 90 days #90 caps 11/07/21 dextrose 40 % oral gel (Glutose-15) 15 g PO Q15M PRN Per Hypoglycemia 02/01/22 Standing Ord. #60 grams pen needle, diabetic 32 gauge x #50 ea 02/01/22 3/16 diazepam 2 mg tablet (Valium) 2 mg PO TID PRN muscle twitching 04/11/22 #20 tabs testosterone cypionate 200 mg/mL 200 mg IM Q3W 21 days #1 mL 04/16/22 intramuscular oil acetazolamide 250 mg tablet 250 mg PO BID #60 tabs 05/28/22 albuterol sulfate 2.5 mg/3 mL 2.5 mg (3 mL) inhalation Q4H PRN 05/28/22 (0.083 %) solution for nebulization Wheezing #270 mL carvedilol 12.5 mg tablet 12.5 mg PO BID #60 tabs 05/28/22 fluticasone furoate 200 1 ea inhalation RDAILY #60 ea 05/28/22 mcg-vilanterol 25 mcg/dose inhalation powder (Breo Ellipta) spironolactone 25 mg tablet 25 mg PO DAILY #30 tabs 05/28/22 Allergies Allergy/AdvReac Type Severity Reaction Status Date / Time No Known Allergies Allergy Verified 05/14/22 08:35 Review of Systems Review of Systems: Yes all other systems are reviewed and are negative [facility] Past Medical History [facility] Narrative: Social history: Patient lives at home but after his hospitalization from 05/16/2022 until 05/28/2022 he was sent to a intermediate facility for rehab. He denies tobacco, alcohol and drug use. Medical History Anemia Benign prostatic hyperplasia without lower urinary tract symptoms Chest pain Chronic GERD Erectile dysfunction HLD (hyperlipidemia) HTN (hypertension) Hypertriglyceridemia Hypertrophic cardiomegaly Hypoventilation syndrome Hypoxia Mild bibasilar atelectasis STEPH (obstructive sleep apnea) Osteoarthritis Reactive airway disease T2DM (type 2 diabetes mellitus) Type 2 diabetes mellitus Uncontrolled type 2 diabetes mellitus with hyperglycemia Vitamin D deficiency Surgical History History of eye surgery History of left knee surgery History of removal of testicle Family History Family History Father No problems noted. Mother No problems noted. Social History Social History Household Members: None Housing: House Do you presently have visiting nurse or other home services: Yes ([employer] for 13 hrs /day. Visiting nurse weekly) Alcohol intake: never Patient Tobacco Use Status: Former Tobacco user Advance Directives: Yes Advance Directives on File: Yes Advance Directives Date on File: 01/31/22 service: No Current occupational status: disabled Physical Exam Vital Signs: Vital Signs: Last Vital Signs Temp 98.6 F 05/29/22 07:16 Pulse 92 05/29/22 07:56 Resp 30 H 05/29/22 07:56 BP 127/70 05/29/22 07:56 Pulse Ox 98 05/29/22 07:56 O2 Del Method 05/29/22 07:56 O2 Flow Rate 2 05/29/22 07:56 Oxygen Flow Rate 2 05/29/22 04:52 BMI result Body Mass Index 31.8 Const: General: cooperative and no acute distress Orientation/consciousness: oriented to person and oriented to place Limitations: no limitations HEENT: Head: Yes normal to inspection, Yes normocephalic and Yes atraumatic Ears: external ears normal General nose exam: Normal external nose present Face and sinus: Yes normal facial exam Mouth: Normal oral and palatal mucosa present Throat: Yes posterior oropharynx normal Eyes: General: appearance normal, both eyes and all related structures Pupils: Equal, round and reactive pupils present Neck: Neck: Yes normal visual inspection, Yes no lymphadenopathy, Yes trachea midline and Yes supple Chest: Chest palpation & inspection: normal inspection of the chest and tenderness sternum Resp: Effort & Inspection: normal respiratory effort and able to speak in complete sentences Auscultation: clear to auscultation bilaterally Cardio: Rate: regular rate Rhythm: regular rhythm Heart sounds: S1 normal heart sound present, S2 normal heart sound present and no murmurs GI: Inspection: Yes normal to inspection Palpation (GI): Soft to palpation, nontender and no guarding Auscultation: normal bowel sounds : General: Yes no CVA tenderness Back/Spine/Pelvis: Back: no CVA tenderness Skin: General skin exam: no rashes or lesions noted Neuro: General: oriented to person and oriented to place Cranial nerves: Yes CN's II-XII intact bilaterally and Yes Equal, round and reactive pupils present Cognition (Neuro): normal cognition Motor exam (neuro): 5/5 motor strength present throughout Extrem: General: Yes normal to inspection Psych: Appearance: grossly normal Speech and movement: Normal speech and movement present Affect: normal affect Attitude: cooperative Thought process: Normal thought process present Thought content: Normal thought content present Course Course Course Narrative: 76-year-old male who presents emergency department for evaluation of chest pain which began yesterday at 17:00 hours. The pain is been constant and is 9/10 at its worst. Patient's vital signs were unremarkable. Physical exam did reveal chest wall tenderness otherwise was normal. Patient's laboratory evaluation revealed an elevated WBC 98824, elevated glucose 278, elevated CO2 of 38. Patient's high sensitivity troponin I was detectable but not elevated at 8.6. This will be repeated at 08:15 hours patient's COVID-19, influenza and RSV tests were negative. Chest x-ray revealed no acute disease. Twelve EKG was unremarkable. Patient's pain was treated with Toradol 30 mg IV. 0911: Patient's repeat high sensitive troponin was 8.9 which is not significantly changed. Given his constant chest pain and his non elevated troponins, I do not think the patient's pain is secondary to myocardial infarction is most likely musculoskeletal. I did discuss this with the patient. The patient was discharged back to his intermediate facility. Patient was advised to take Tylenol for his pain. MDM - Chest Pain Medical Records Data Attestation: I reviewed the patient's medical records. Lab Data Attestation: I reviewed the patient's lab results. Result diagrams: 05/29/22 05:22 05/29/22 05:22 Labs: Lab Results 05/29/22 05/29/22 05/29/22 Range/Units 05:22 05:22 05:22 WBC 25.2 H (4.8-10.8) X10*3/uL RBC 5.01 (4.60-5.80) X10*6/uL Hgb 15.9 (14.0-18.0) g/dl Hct 49.6 (42.0-52.0) % MCV 99.0 H (80.0-98.0) fL MCH 31.7 (27.0-33.0) pg MCHC 32.1 (31.0-36.0) g/dl RDW 12.8 (11.0-16.0) % Plt Count 254 D (160-400) X10*3/uL MPV 11.4 (9.4-12.4) fL Immature Gran % (Auto) 0.9 H (0.0-0.4) % Neut % (Auto) 84.0 H (45-73) % Lymph % (Auto) 6.1 L (20-40) % [place] % (Auto) 8.8 (2-11) % Eos % (Auto) 0.0 (0-4) % Baso % (Auto) 0.2 (0-2) % Lymph # (Auto) 1.6 (1.2-4.9) X10*3/uL [place] # (Auto) 2.2 H (0.1-1.2) X10*3/uL Eos # (Auto) 0.0 (0.0-0.4) X10*3/uL Baso # (Auto) 0.0 (0.0-0.2) X10*3/uL Abs Immat Gran (auto) 0.23 H (0.00-0.03) X10*3/uL Absolute Neuts (auto) 21.2 H (2.0-8.3) x10*3/uL Absolute Nucleated RBC 0.000 (0.0-0.012) X10*3/uL Nucleated RBC % (auto) 0.0 (0.0-0.2) /100WBC Smear Tech's Comments VERIFIED Sodium 140 (135-145) mmol/L Potassium 5.0 D (3.3-5.1) mmol/L Chloride 91 L (96-108) mmol/L Carbon Dioxide 38 H (22-29) mmol/L Anion Gap 16 (12-20) BUN 25 H D (9-16) mg/dL Creatinine 0.99 (0.5-1.4) mg/dL Estim Creat Clear Calc 58.1 Estimated GFR > 60 Random Glucose 278 H D (60-115) mg/dL Calcium 9.6 D (8.4-10.2) mg/dL Troponin I High Sens 8.6 D (<3.5-35.0) ng/L 05/29/22 Range/Units 08:12 WBC (4.8-10.8) X10*3/uL RBC (4.60-5.80) X10*6/uL Hgb (14.0-18.0) g/dl Hct (42.0-52.0) % MCV (80.0-98.0) fL MCH (27.0-33.0) pg MCHC (31.0-36.0) g/dl RDW (11.0-16.0) % Plt Count (160-400) X10*3/uL MPV (9.4-12.4) fL Immature Gran % (Auto) (0.0-0.4) % Neut % (Auto) (45-73) % Lymph % (Auto) (20-40) % [place] % (Auto) (2-11) % Eos % (Auto) (0-4) % Baso % (Auto) (0-2) % Lymph # (Auto) (1.2-4.9) X10*3/uL [place] # (Auto) (0.1-1.2) X10*3/uL Eos # (Auto) (0.0-0.4) X10*3/uL Baso # (Auto) (0.0-0.2) X10*3/uL Abs Immat Gran (auto) (0.00-0.03) X10*3/uL Absolute Neuts (auto) (2.0-8.3) x10*3/uL Absolute Nucleated RBC (0.0-0.012) X10*3/uL Nucleated RBC % (auto) (0.0-0.2) /100WBC Smear Tech's Comments Sodium (135-145) mmol/L Potassium (3.3-5.1) mmol/L Chloride (96-108) mmol/L Carbon Dioxide (22-29) mmol/L Anion Gap (12-20) BUN (9-16) mg/dL Creatinine (0.5-1.4) mg/dL Estim Creat Clear Calc Estimated GFR Random Glucose (60-115) mg/dL Calcium (8.4-10.2) mg/dL Troponin I High Sens 8.9 (<3.5-35.0) ng/L ECG Data ECG #1: Attestation: I personally reviewed and interpreted this ECG as follows: Interpretation: 0449: Normal sinus rhythm with a rate of 97, normal LA interval, QRS duration QTC interval, no ST segment elevation, no ST segment depression, no Q-waves. No T-wave abnormalities. This is a normal EKG. Discharge Plan Discharge Clinical Impression: Acute chest wall pain Patient Disposition: [facility] Instructions: Chest Wall Pain (ED) Additional Instructions: Your chest x-ray was unremarkable. Your laboratory evaluation did reveal an elevated white blood cell count but otherwise was unremarkable. You had two high sensitivity troponin I which were three hours apart and both of these were detectable but not elevated at 8.6 and a 8.9. This suggests that you did not have a heart attack. Your COVID-19, influenza and RSV tests were negative You were treated with Toradol 30 mg IV. Your pain is most likely caused by muscle or joint pain in your chest. Take Tylenol (acetaminophen) 500 mg pills, 2 pills every 4 to 6 hours as needed for pain. Continue taking your prescribed medications. Follow-up with your doctor in 2 days. Please return to the emergency department if your symptoms get worse or if you develop any symptoms that are concerning to you. Prescriptions: No Action (DME) blood-glucose meter [FreeStyle [place] Lite] Kit See Rx Instructions .Route Qty: 1 0RF Rx Instructions: As directed (DME) FreeStyle Lite Strips Strip See Rx Instructions .Route Qty: 100 11RF Rx Instructions: 4x daily tamsulosin 0.4 mg capsule 0.4 mg PO BEDTIME 90 Days Qty: 90 2RF testosterone cypionate 200 mg/mL oil 200 mg IM Q3W 21 Days Qty: 1 5RF amitriptyline 10 mg tablet 1 tab PO BEDTIME aspirin 81 mg tablet,delayed release (DR/EC) 1 tab PO DAILY nitroglycerin 0.4 mg Tablet, Sublingual 0.4 mg SUBLINGUAL Q5M PRN (Reason: Chest Pain) Rx Instructions: do not exceed 3 doses per episode dextrose [Glutose-15] 40 % Gel 15 g PO Q15M PRN (Reason: Per Hypoglycemia Standing Ord.) Qty: 60 0RF Protocol: Glucose Gel Hypoglycemia Standing Order Protocol Text: For patients able to take PO (patient cooperative and able to swallow). Give Glucose Gel 15 gm PO for Blood Glucose (BG) < 70. Repeat BG every 15 min until BG > 70 x 3, if BG still < 70 and/or patient symptomatic repeat glucose gel or rapid acting carbohydrate. Notify MD if BG does not improve with treatment. (DME) pen needle, diabetic 32 gauge x 3/16 needle See Rx Instructions .Route Qty: 50 0RF Rx Instructions: As directed sertraline 25 mg tablet 12.5 mg PO DAILY diazepam [Valium] 2 mg tablet 2 mg PO TID PRN (Reason: muscle twitching) Qty: 20 0RF fluticasone propionate 50 mcg/actuation spray,suspension 2 spray intranasal DAILY Trelegy Ellipta 100-62.5-25 mcg blister with device 1 puff inhalation DAILY insulin glargine [Lantus Solostar U-100 Insulin] 100 unit/mL (3 mL) insulin pen 24 unit subcut QAM carvedilol 12.5 mg Tablet 12.5 mg PO BID Qty: 60 0RF Protocol: Hold for SBP/HR < HOLD for SBP < : 90 HOLD for HR < : 60 albuterol sulfate 2.5 mg /3 mL (0.083 %) Solution For Nebulization 2.5 mg inhalation Q4H PRN (Reason: Wheezing) Qty: 270 0RF acetazolamide 250 mg Tablet 250 mg PO BID Qty: 60 0RF spironolactone 25 mg Tablet 25 mg PO DAILY Qty: 30 0RF Protocol: Hold for SBP< HOLD for SBP < : 90 fluticasone furoate-vilanterol [Breo Ellipta] 200-25 mcg/dose Blister With Device 1 ea inhalation RDAILY Qty: 60 0RF albuterol sulfate [Ventolin HFA] 90 mcg/actuation HFA aerosol inhaler 2 inh inhalation Q4H PRN (Reason: Shortness Of Breath) hydrocodone-acetaminophen 5-300 mg tablet 1 tab PO Q8H PRN (Reason: Pain (Scale Score 4-6)) metoprolol succinate 100 mg tablet extended release 24 hr 100 mg PO DAILY ferrous sulfate 325 mg (65 mg iron) tablet 325 mg PO DAILY cholecalciferol (vitamin D3) 50 mcg (2,000 unit) tablet 50 mcg PO DAILY (DME) lancets 33 gauge misc See Rx Instructions .ROUTE .MEDSUPPLY Qty: 100 Rx Instructions: As directed magnesium oxide 400 mg magnesium capsule 400 mg PO BID Trelegy Ellipta 100-62.5-25 mcg blister with device 1 ea inhalation DAILY famotidine 20 mg tablet 20 mg PO BID atorvastatin 20 mg tablet 20 mg PO BEDTIME Trulicity 3 mg/0.5 mL pen injector 3 mg subcut QWEEK (DME) pen needle, diabetic [UltiCare Pen Needle] 32 gauge x 5/32 needle See Rx Instructions .ROUTE DAILY Qty: 50 Rx Instructions: As directed (DME) pen needle, diabetic [BD Ultra-Fine Mini Pen Needle] 31 gauge x 3/16 needle See Rx Instructions subcut DAILY Qty: 50 Rx Instructions: As directed irbesartan 300 mg tablet 300 mg PO DAILY
[2022-05-29 07:16] VITALS: BP 116/73; PULSE 103; RESP 33; TEMP 37; O2SAT 98
[2022-05-29] MEDS: Ketorolac Tromethamine 15 MG/ML VIAL 30 MG IVPUSH (07:51)
[2022-05-29 07:56] VITALS: BP 127/70; PULSE 92; RESP 30; O2SAT 98
[2022-05-29 08:36] LABS: Troponin-I High Sensitivity 8.9 ng/L (<3.5-35.0)
--- NOTE | 2022-06-23 11:13 | ED.CHESTPAIN ---
HPI - Chest Pain General Chief Complaint: Chest Pain Stated Complaint: CP Time Seen by Provider: 05/29/22 06:43 Source: patient Mode of arrival: EMS Limitations: no limitations History of Present Illness Pain location: substernal Quality: heaviness (Pressure) Relieving factors: nothing Exacerbating factors: nothing Context: recent illness (See HPI, recently hospitalized for COPD exacerbation with CO2 retention requiring BiPAP) Related Data Home Medications Medication Instructions Recorded Confirmed cholecalciferol (vitamin D3) 50 50 mcg PO DAILY 06/23/20 05/30/22 mcg (2,000 unit) tablet ferrous sulfate 325 mg (65 mg 325 mg PO DAILY 06/23/20 05/30/22 iron) tablet hydrocodone 5 mg-acetaminophen 300 1 tab PO Q8H PRN Pain (Scale Score 06/23/20 05/30/22 mg tablet 4-6) lancets 33 gauge #100 ea 06/23/20 04/14/22 magnesium oxide 400 mg PO BID 06/23/20 05/30/22 metoprolol succinate 100 mg 100 mg PO DAILY 06/23/20 05/30/22 tablet,extended release 24 hr albuterol sulfate 90 mcg/actuation 2 inh inhalation Q4H PRN Shortness 06/10/21 05/30/22 aerosol inhaler (Ventolin HFA) Of Breath irbesartan 300 mg tablet 300 mg PO DAILY 11/06/21 05/30/22 amitriptyline 10 mg tablet 1 tab PO BEDTIME 01/30/22 05/30/22 aspirin 81 mg tablet,delayed 1 tab PO DAILY 01/31/22 05/30/22 release nitroglycerin 0.4 mg sublingual 0.4 mg sublingual Q5M PRN Chest 01/31/22 05/30/22 tablet Pain sertraline 25 mg tablet 12.5 mg PO DAILY 03/05/22 05/30/22 atorvastatin 20 mg tablet 20 mg PO BEDTIME 05/14/22 05/30/22 dulaglutide 3 mg/0.5 mL 3 mg subcut QWEEK 05/14/22 05/30/22 subcutaneous pen injector (Trulicity) famotidine 20 mg tablet 20 mg PO BID heartburn 05/14/22 05/30/22 pen needle, diabetic 31 gauge x #50 ea 05/14/2212/04 (BD Ultra-Fine Mini Pen Needle) pen needle, diabetic 32 gauge x #50 ea 05/14/2232 (UltiCare Pen Needle) fluticasone propionate 50 2 spray intranasal DAILY 05/15/22 05/30/22 mcg/actuation nasal spray,suspension insulin glargine 100 unit/mL (3 24 unit subcut QAM 05/15/22 05/30/22 mL) subcutaneous pen (Lantus Solostar U-100 Insulin) Previous Rx's Medication Instructions Recorded blood sugar diagnostic (FreeStyle #100 ea 06/26/21 Lite Strips) blood-glucose meter (FreeStyle #1 ea 06/26/21 [place] Lite kit) tamsulosin 0.4 mg capsule 0.4 mg PO BEDTIME 90 days #90 caps 11/07/21 dextrose 40 % oral gel (Glutose-15) 15 g PO Q15M PRN Per Hypoglycemia 02/01/22 Standing Ord. #60 grams pen needle, diabetic 32 gauge x #50 ea 02/01/22 3/16 diazepam 2 mg tablet (Valium) 2 mg PO TID PRN muscle twitching 04/11/22 #20 tabs testosterone cypionate 200 mg/mL 200 mg IM Q3W 21 days #1 mL 04/16/22 intramuscular oil acetazolamide 250 mg tablet 250 mg PO BID #60 tabs 05/28/22 albuterol sulfate 2.5 mg/3 mL 2.5 mg (3 mL) inhalation Q4H PRN 05/28/22 (0.083 %) solution for nebulization Wheezing #270 mL carvedilol 12.5 mg tablet 12.5 mg PO BID #60 tabs 05/28/22 fluticasone furoate 200 1 ea inhalation RDAILY #60 ea 05/28/22 mcg-vilanterol 25 mcg/dose inhalation powder (Breo Ellipta) spironolactone 25 mg tablet 25 mg PO DAILY #30 tabs 05/28/22 Allergies Allergy/AdvReac Type Severity Reaction Status Date / Time No Known Allergies Allergy Verified 05/14/22 08:35 [facility] Past Medical History Medical History Anemia Benign prostatic hyperplasia without lower urinary tract symptoms Chest pain Chronic GERD Erectile dysfunction HLD (hyperlipidemia) HTN (hypertension) Hypertriglyceridemia Hypertrophic cardiomegaly Hypoventilation syndrome Hypoxia Mild bibasilar atelectasis STEPH (obstructive sleep apnea) Osteoarthritis Reactive airway disease T2DM (type 2 diabetes mellitus) Type 2 diabetes mellitus Uncontrolled type 2 diabetes mellitus with hyperglycemia Vitamin D deficiency Surgical History History of eye surgery History of left knee surgery History of removal of testicle Family History Family History Father No problems noted. Mother No problems noted. Social History Social History Household Members: None Housing: [facility] Do you presently have visiting nurse or other home services: Yes ([employer] for 13 hrs /day. Visiting nurse weekly) Unable to assess alcohol history related to: Unable to respond Alcohol intake: never Patient Tobacco Use Status: Former Tobacco user Advance Directives Date on File: 06/02/22 service: No Current occupational status: disabled Physical Exam Vital Signs: Vital Signs: Last Vital Signs Temp 98.6 F 05/29/22 07:16 Pulse 92 05/29/22 07:56 Resp 30 H 05/29/22 07:56 BP 127/70 05/29/22 07:56 Pulse Ox 98 05/29/22 07:56 O2 Del Method 05/29/22 07:56 O2 Flow Rate 2 05/29/22 07:56 Oxygen Flow Rate 2 05/29/22 04:52 BMI result Body Mass Index 31.8 MDM - Chest Pain Lab Data Result diagrams: 05/29/22 05:22 05/29/22 05:22 Labs: Lab Results 05/29/22 05/29/22 05/29/22 Range/Units 05:22 05:22 05:22 WBC 25.2 H (4.8-10.8) X10*3/uL RBC 5.01 (4.60-5.80) X10*6/uL Hgb 15.9 (14.0-18.0) g/dl Hct 49.6 (42.0-52.0) % MCV 99.0 H (80.0-98.0) fL MCH 31.7 (27.0-33.0) pg MCHC 32.1 (31.0-36.0) g/dl RDW 12.8 (11.0-16.0) % Plt Count 254 D (160-400) X10*3/uL MPV 11.4 (9.4-12.4) fL Immature Gran % (Auto) 0.9 H (0.0-0.4) % Neut % (Auto) 84.0 H (45-73) % Lymph % (Auto) 6.1 L (20-40) % [place] % (Auto) 8.8 (2-11) % Eos % (Auto) 0.0 (0-4) % Baso % (Auto) 0.2 (0-2) % Lymph # (Auto) 1.6 (1.2-4.9) X10*3/uL [place] # (Auto) 2.2 H (0.1-1.2) X10*3/uL Eos # (Auto) 0.0 (0.0-0.4) X10*3/uL Baso # (Auto) 0.0 (0.0-0.2) X10*3/uL Abs Immat Gran (auto) 0.23 H (0.00-0.03) X10*3/uL Absolute Neuts (auto) 21.2 H (2.0-8.3) x10*3/uL Absolute Nucleated RBC 0.000 (0.0-0.012) X10*3/uL Nucleated RBC % (auto) 0.0 (0.0-0.2) /100WBC Smear Tech's Comments VERIFIED Sodium 140 (135-145) mmol/L Potassium 5.0 D (3.3-5.1) mmol/L Chloride 91 L (96-108) mmol/L Carbon Dioxide 38 H (22-29) mmol/L Anion Gap 16 (12-20) BUN 25 H D (9-16) mg/dL Creatinine 0.99 (0.5-1.4) mg/dL Estim Creat Clear Calc 58.1 Estimated GFR > 60 Random Glucose 278 H D (60-115) mg/dL Calcium 9.6 D (8.4-10.2) mg/dL Troponin I High Sens 8.6 D (<3.5-35.0) ng/L 05/29/22 Range/Units 08:12 WBC (4.8-10.8) X10*3/uL RBC (4.60-5.80) X10*6/uL Hgb (14.0-18.0) g/dl Hct (42.0-52.0) % MCV (80.0-98.0) fL MCH (27.0-33.0) pg MCHC (31.0-36.0) g/dl RDW (11.0-16.0) % Plt Count (160-400) X10*3/uL MPV (9.4-12.4) fL Immature Gran % (Auto) (0.0-0.4) % Neut % (Auto) (45-73) % Lymph % (Auto) (20-40) % [place] % (Auto) (2-11) % Eos % (Auto) (0-4) % Baso % (Auto) (0-2) % Lymph # (Auto) (1.2-4.9) X10*3/uL [place] # (Auto) (0.1-1.2) X10*3/uL Eos # (Auto) (0.0-0.4) X10*3/uL Baso # (Auto) (0.0-0.2) X10*3/uL Abs Immat Gran (auto) (0.00-0.03) X10*3/uL Absolute Neuts (auto) (2.0-8.3) x10*3/uL Absolute Nucleated RBC (0.0-0.012) X10*3/uL Nucleated RBC % (auto) (0.0-0.2) /100WBC Smear Tech's Comments Sodium (135-145) mmol/L Potassium (3.3-5.1) mmol/L Chloride (96-108) mmol/L Carbon Dioxide (22-29) mmol/L Anion Gap (12-20) BUN (9-16) mg/dL Creatinine (0.5-1.4) mg/dL Estim Creat Clear Calc Estimated GFR Random Glucose (60-115) mg/dL Calcium (8.4-10.2) mg/dL Troponin I High Sens 8.9 (<3.5-35.0) ng/L Discharge Plan Discharge Clinical Impression: Acute chest wall pain Patient Disposition: er [facility] Instructions: Chest Wall Pain (ED) Additional Instructions: Your chest x-ray was unremarkable. Your laboratory evaluation did reveal an elevated white blood cell count but otherwise was unremarkable. You had two high sensitivity troponin I which were three hours apart and both of these were detectable but not elevated at 8.6 and a 8.9. This suggests that you did not have a heart attack. Your COVID-19, influenza and RSV tests were negative You were treated with Toradol 30 mg IV. Your pain is most likely caused by muscle or joint pain in your chest. Take Tylenol (acetaminophen) 500 mg pills, 2 pills every 4 to 6 hours as needed for pain. Continue taking your prescribed medications. Follow-up with your doctor in 2 days. Please return to the emergency department if your symptoms get worse or if you develop any symptoms that are concerning to you. Prescriptions: No Action (DME) blood-glucose meter [FreeStyle [place] Lite] Kit See Rx Instructions .Route Qty: 1 0RF Rx Instructions: As directed (DME) FreeStyle Lite Strips Strip See Rx Instructions .Route Qty: 100 11RF Rx Instructions: 4x daily tamsulosin 0.4 mg capsule 0.4 mg PO BEDTIME 90 Days Qty: 90 2RF testosterone cypionate 200 mg/mL oil 200 mg IM Q3W 21 Days Qty: 1 5RF amitriptyline 10 mg tablet 1 tab PO BEDTIME aspirin 81 mg tablet,delayed release (DR/EC) 1 tab PO DAILY nitroglycerin 0.4 mg Tablet, Sublingual 0.4 mg SUBLINGUAL Q5M PRN (Reason: Chest Pain) Rx Instructions: do not exceed 3 doses per episode dextrose [Glutose-15] 40 % Gel 15 g PO Q15M PRN (Reason: Per Hypoglycemia Standing Ord.) Qty: 60 0RF Protocol: Glucose Gel Hypoglycemia Standing Order Protocol Text: For patients able to take PO (patient cooperative and able to swallow). Give Glucose Gel 15 gm PO for Blood Glucose (BG) < 70. Repeat BG every 15 min until BG > 70 x 3, if BG still < 70 and/or patient symptomatic repeat glucose gel or rapid acting carbohydrate. Notify MD if BG does not improve with treatment. (DME) pen needle, diabetic 32 gauge x 3/16 needle See Rx Instructions .Route Qty: 50 0RF Rx Instructions: As directed sertraline 25 mg tablet 12.5 mg PO DAILY diazepam [Valium] 2 mg tablet 2 mg PO TID PRN (Reason: muscle twitching) Qty: 20 0RF fluticasone propionate 50 mcg/actuation spray,suspension 2 spray intranasal DAILY insulin glargine [Lantus Solostar U-100 Insulin] 100 unit/mL (3 mL) insulin pen 24 unit subcut QAM carvedilol 12.5 mg Tablet 12.5 mg PO BID Qty: 60 0RF Protocol: Hold for SBP/HR < HOLD for SBP < : 90 HOLD for HR < : 60 albuterol sulfate 2.5 mg /3 mL (0.083 %) Solution For Nebulization 2.5 mg inhalation Q4H PRN (Reason: Wheezing) Qty: 270 0RF acetazolamide 250 mg Tablet 250 mg PO BID Qty: 60 0RF spironolactone 25 mg Tablet 25 mg PO DAILY Qty: 30 0RF Protocol: Hold for SBP< HOLD for SBP < : 90 fluticasone furoate-vilanterol [Breo Ellipta] 200-25 mcg/dose Blister With Device 1 ea inhalation RDAILY Qty: 60 0RF albuterol sulfate [Ventolin HFA] 90 mcg/actuation HFA aerosol inhaler 2 inh inhalation Q4H PRN (Reason: Shortness Of Breath) hydrocodone-acetaminophen 5-300 mg tablet 1 tab PO Q8H PRN (Reason: Pain (Scale Score 4-6)) metoprolol succinate 100 mg tablet extended release 24 hr 100 mg PO DAILY ferrous sulfate 325 mg (65 mg iron) tablet 325 mg PO DAILY cholecalciferol (vitamin D3) 50 mcg (2,000 unit) tablet 50 mcg PO DAILY (DME) lancets 33 gauge misc See Rx Instructions .ROUTE .MEDSUPPLY Qty: 100 Rx Instructions: As directed magnesium oxide 400 mg magnesium capsule 400 mg PO BID famotidine 20 mg tablet 20 mg PO BID atorvastatin 20 mg tablet 20 mg PO BEDTIME Trulicity 3 mg/0.5 mL pen injector 3 mg subcut QWEEK (DME) pen needle, diabetic [UltiCare Pen Needle] 32 gauge x 5/32 needle See Rx Instructions .ROUTE DAILY Qty: 50 Rx Instructions: As directed (DME) pen needle, diabetic [BD Ultra-Fine Mini Pen Needle] 31 gauge x 3/16 needle See Rx Instructions subcut DAILY Qty: 50 Rx Instructions: As directed irbesartan 300 mg tablet 300 mg PO DAILY Interventions: ED Discharge Assessment Last Done: 05/29/22 10:18 Discharge Date/Time: 05/29/22 10:18
== END 2022-05-29 10:18 | disposition skilled nursing facility (03) ==
PROVIDERS: Emergency Provider Emergency Medicine Emergency Medical Services
DX: R07.89 Other chest pain (principal); J44.1 Chronic obstructive pulmonary disease with (acute) exacerbation; Z87.891 Personal history of nicotine dependence; Z79.899 Other long term (current) drug therapy
CPT/HCPCS: 36415; 71045; 80048; 84484; 85025; 93005; 96374; 99284; 99285; J1885

== ENCOUNTER 2022-05-30 14:51 | Inpatient (IN) | payer OTHER, SELFPAY ==
[2022-05-30] VITALS (17 sets, daily range): BP systolic 72–118; BP diastolic 32–64; PULSE 55–84; RESP 15–27; TEMP 36.2–36.3; O2SAT 90–100; BMI 26.1
--- NOTE | 2022-05-30 | ECG_ITS ---
Test Reason : unresponsive Blood Pressure : / mmHG Vent. Rate : 078 BPM Atrial Rate : 078 BPM P-R Int : 180 ms QRS Dur : 092 ms QT Int : 372 ms P-R-T Axes : 057 017 044 degrees QTc Int : 424 ms Normal sinus rhythm Normal ECG When compared with ECG of 29-MAY-2022 04:49, Criteria for Septal infarct are no longer Present Referred By: Thaddeus Rodriguez Electronically Signed By:RUDY PENA
--- NOTE | ~2022-05-30 | CT_ITS ---
EXAMINATION: CT HEAD WITHOUT CONTRAST CLINICAL INFORMATION: Altered mental status COMPARISON: None TECHNIQUE: Contiguous axial imaging was performed from the skull base to vertex without intravenous administration of contrast. This CT examination was performed using dose optimization techniques as appropriate, variously including the following: *Automated exposure control *Adjustment of mA and/or kV according to patient size (this includes techniques or standardized protocols for targeted exams where dose is matched to indication/reason for exam; i.e. extremities or head) *Use of iterative reconstruction technique DLP: 762 mGy-cm FINDINGS: There is significant motion artifact, degrading images, limiting evaluation of the inferior supratentorial region and the posterior fossa. There is loss of coronado-white matter differentiation in the left frontal lobe, which appears new as compared to the prior study. This raises the possibility of infarction, of indeterminate age. In the nonobscured brain, there is no evidence of acute intracranial hemorrhage. No abnormal mass effect or midline shift is seen. Coronado to white matter differentiation is well preserved. No extra-axial fluid collections are identified. Mild periventricular and deep white matter hypodensities suggestive of chronic microangiopathic ischemic changes. The nonobscured bones, no acute calvarial fracture. The mastoid air cells and visualized portions of the paranasal sinuses are well aerated. CT/CT head/brain wo IV con IMPRESSION: 1. Loss of coronado-white matter differentiation in the left frontal lobe, raises concern for infarction, of indeterminate age. Acute infarction cannot be excluded. Recommend further evaluation with CTA or MRI. 2. There is significant motion artifact degrading images, limiting evaluation of the inferior aspect of the brain and posterior fossa. Suggest repeat imaging. 3. In the nonobscured portions of the brain, no acute intracranial hemorrhage is seen. This critical result was discussed with Barbara Mckenzie NP at 6:38 PM on 05/30/2022 and it was ascertained that the content and urgency of the report was understood at the time of direct communication.
--- NOTE | ~2022-05-30 | CT_ITS ---
EXAMINATION: CT HEAD WITHOUT CONTRAST CLINICAL INFORMATION: Encephalopathy. Question stroke. COMPARISON: 05/30/2022 TECHNIQUE: Contiguous axial imaging was performed from the skull base to vertex without intravenous contrast. This CT examination was performed using dose optimization techniques as appropriate, variously including the following: * Automated exposure control * Adjustment of mA and/or kV according to patient size (this includes techniques or standardized protocols for targeted exams where dose is matched to indication/reason for exam; i.e. extremities or head) Use of iterative reconstruction technique DLP: 764 mGy-cm. FINDINGS: There is no evidence of acute intracranial hemorrhage or territorial infarction. No abnormal mass effect or midline shift is seen. Coronado to white matter differentiation is well preserved. No extra-axial fluid collections are identified. No hydrocephalus. Proportional prominence of the ventricles and sulcal spaces is consistent with mild volume loss. Patchy periventricular and deep white matter hypoattenuation is consistent with mild small vessel ischemic changes. The osseous structures and soft tissues are normal. The mastoid air cells and visualized portions of the paranasal sinuses are well aerated. CT/CT head/brain wo IV con IMPRESSION: No acute intracranial pathology. Mild chronic volume loss with small vessel ischemic change
--- NOTE | ~2022-05-30 | XR_ITS ---
EXAMINATION: XR CHEST CLINICAL INFORMATION: NG tube placement. COMPARISON: May 30, 2022. TECHNIQUE: Portable AP view of the chest was obtained. XR/XR chest 1V FINDINGS/IMPRESSION: The tip of a new nasogastric tube projects over the left upper quadrant gastric air bubble. Otherwise, there has been no significant radiographic change compared with one day prior. Findings suggest small bibasilar atelectasis, infiltrates, and/or pleural fluid. No pneumothorax is seen. The heart appears normal in size. There are degenerative changes of the left, equivocal joint. There may be postsurgical changes of the right acromioclavicular joint. There are degenerative changes of the spine. The tip of a right internal jugular central venous line projects over the superior vena cava.
--- NOTE | ~2022-05-30 | CT_ITS ---
STUDY PERFORMED: CTA OF THE CHEST, ABDOMEN AND PELVIS WITH AND WITHOUT CONTRAST CLINICAL INFORMATION: Reason for Exam CP, hypotension, r/o dissection DESCRIPTION: Contrast timing was performed at the level of the distal descending thoracic aorta. Subsequently, arterial phase multidetector volumetric imaging was performed through the chest, abdomen and pelvis following the administration of 80 mL Omnipaque 350 intravenous contrast No contrast reaction reported Sagittal and coronal reformatted images were obtained on the technologist workstation. Three-dimensional MIP reformatted imaging was performed and reviewed. This CT examination was performed using dose optimization techniques as appropriate, variously including the following: *Automated exposure control *Adjustment of mA and/or kV according to patient size (this includes techniques or standardized protocols for targeted exams where dose is matched to indication/reason for exam; i.e. extremities or head) *Use of iterative reconstruction technique Total exam dose-length product 943 mGy-cm COMPARISON: CT abdomen pelvis 05/20/2022 FINDINGS: VASCULAR FINDINGS: 1. 3 cusped aortic valve. Normal origins of the main coronary arteries. The ascending thoracic aorta is normal in course and caliber without dissection. Prominent pulsation artifact. 2. The aortic arch is normal in course and caliber without dissection. Normal 3 vessel branching configuration. 3. The descending thoracic aorta is normal in course and caliber without dissection. 4. The abdominal aorta, iliac vessels, and visualized femoral vasculature are normal in course and caliber without dissection. 5. The celiac axis, superior mesenteric artery, and inferior mesenteric artery origins are widely patent. 6. Single bilateral renal arteries are widely patent. 7. Although not tailored for evaluation of the pulmonary arteries, there is no central pulmonary embolism. NONVASCULAR FINDINGS: CHEST: Lungs: Mild bibasilar atelectasis. No airspace consolidation. No suspicious appearing pulmonary nodule. Airways: Central airways are clear. No bronchial wall thickening in the lower lobes bilaterally. Pleura and pericardium: No pleural or pericardial effusions. Heart and mediastinum: No cardiomegaly. Fluid-filled slightly distended thoracic esophagus. Lymph nodes:No mediastinal, hilar, or axillary lymphadenopathy. Chest Wall: No chest wall mass. ABDOMEN/PELVIS: Liver: Normal size and attenuation. No liver lesions. Gallbladder and bile ducts:No calcified gallstones, mural thickening, or pericholecystic fluid/inflammatory change. No biliary ductal dilation. Pancreas: No pancreatic lesion, ductal dilation, or peripancreatic inflammatory change. Spleen: Normal size. No splenic lesion. Small 1.2 cm splenule. Adrenal Glands: Unremarkable. Kidneys and Ureters: Symmetric nephrograms. Focal cortical scarring/atrophy in the posterior left mid upper pole. No hydronephrosis or renal calculi identified. No renal lesion Lymph nodes: No lymphadenopathy. Gastrointestinal Tract: Prominent fluid-filled gastric distention. No dilated loops of small bowel or colonic dilation. No bowel wall thickening. There is positive for oral contrast throughout the colon into the rectum. Appendix not visualized. No inflammatory change at the cecal base. Peritoneum: No ascites or intra-abdominal free air. Abdominal wall: No hernia. Bladder: Largely decompressed with Eubanks catheter in place. Small amount of iatrogenic gas. Pelvic Viscera: Slightly prominent size of the prostate gland. Bones: No acute fracture or suspicious osseous lesion. 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 Ankylosis of L4-L5 and facet joint ankylosis at the L3-S1. CT/CT angio abdomen pelvis IMPRESSION: 1. No evidence of aortic aneurysm, dissection, or other acute aortic syndrome. 2. Prominent fluid-filled distention of stomach and thoracic esophagus. Correlate clinically with signs or symptoms of reflux and/or vomiting and consider NG tube decompression as clinically indicated. 3. Mild bibasilar atelectasis. No airspace consolidation or effusions. 4. No acute intra-abdominal process identified.
--- NOTE | ~2022-05-30 | US_ITS ---
EXAMINATION: US EXTRACRANIAL CAROTID DUPLEX, BILATERAL CLINICAL INFORMATION: Stroke COMPARISON: Carotid ultrasound 08/23/2007 TECHNIQUE: Real-time ultrasound and Doppler techniques (integrating B-mode 2-D vascular images, Doppler spectral analysis and color-flow Doppler imaging) were utilized to interrogate the extracranial carotid arteries, the vertebral arteries and proximal subclavian arteries bilaterally. The degree of stenosis is determined by criteria similar to NASCET. FINDINGS: Right Side: 1. There is minimal atherosclerotic plaque seen in the bifurcation/proximal ICA region. 2. The common carotid artery PSV proximally is 156 cm/s and distally 110 cm/s. 3. The proximal internal carotid artery velocities are 120 cm/s systolic and 26 cm/s diastolic. 4. The proximal external carotid artery PSV is 112 cm/s. 5. The vertebral artery shows normal antegrade flow. 6. The subclavian artery waveforms are normal. Left Side: 1. There is minimal atherosclerotic plaque seen in the bifurcation/proximal ICA region. 2. The common carotid artery PSV proximally is 122 cm/s and distally 109 cm/s. 3. The proximal internal carotid artery velocities are 106 cm/s systolic and 39 cm/s diastolic. 4. The proximal external carotid artery PSV is 88 cm/s. 5. The vertebral artery shows normal antegrade flow. 6. The subclavian artery waveforms are normal. US/US carotid duplex BI IMPRESSION: 1. RIGHT: Minimal, non-hemodynamically significant stenosis of the proximal right internal carotid artery corresponding to a 0-49% stenosis by velocity criteria. 2. LEFT: Minimal, non-hemodynamically significant stenosis of the proximal left internal carotid artery corresponding to a 0-49% stenosis by velocity criteria. 3. There is no change in the category severity of disease when compared to the previous study dated 08/23/2007.
--- NOTE | ~2022-05-30 | XR_ITS ---
EXAMINATION: XR CHEST CLINICAL INFORMATION: Left IJ central venous catheter. COMPARISON: 05/31/2022 TECHNIQUE: Frontal view of the chest was obtained. FINDINGS: Previous right internal jugular central venous catheter is been removed. Left internal jugular central venous catheter terminates over the lower SVC. Lung volumes are low. Minimal bibasilar opacities favor atelectasis. No dense consolidation. No significant effusion. No pneumothorax. The cardiomediastinal silhouette is within normal limits. XR/XR chest 1V IMPRESSION: Left internal jugular central venous catheter terminates over the mid SVC. No pneumothorax.
--- NOTE | ~2022-05-30 | XR_ITS ---
EXAMINATION: XR CHEST CLINICAL INFORMATION: Weakness COMPARISON: Chest x-ray 05/29/2022 TECHNIQUE: Frontal view of the chest was obtained. FINDINGS: Minimal hazy/patchy bibasilar opacities, presumably mild atelectasis. Slightly indistinct costophrenic sulci equivocal for trace pleural effusions. No pneumothorax. Normal cardiomediastinal silhouette and pulmonary vascularity. No acute osseous injury. Residual oral contrast from recent CT noted in the right colon. XR/XR chest 1V IMPRESSION: 1. Probable mild bibasilar atelectasis and equivocal trace pleural effusions.
--- NOTE | ~2022-05-30 | XR_ITS ---
EXAMINATION: XR CHEST CLINICAL INFORMATION: Line placement COMPARISON: Chest x-ray performed earlier the same day TECHNIQUE: Frontal view of the chest was obtained. FINDINGS: Right IJ central venous catheter tip projects over the distal SVC/proximal right atrium. Hypoinflated lungs with mild bibasilar atelectasis. No definite pleural effusions. No pneumothorax. No new focal airspace opacity. Unchanged cardiomediastinal silhouette. No evidence pulmonary edema. No acute osseous injury. Prominent gaseous distention of the stomach. XR/XR chest 1V IMPRESSION: 1. Right IJ central venous catheter tip terminates in the distal SVC/proximal RA. 2. Hypoinflated lungs with mild bibasilar atelectasis.
--- NOTE | 2022-05-30 14:56 | ECG_ITS ---
Test Reason : repeat Blood Pressure : / mmHG Vent. Rate : 082 BPM Atrial Rate : 082 BPM P-R Int : 176 ms QRS Dur : 098 ms QT Int : 390 ms P-R-T Axes : 039 019 050 degrees QTc Int : 455 ms Normal sinus rhythm Normal ECG When compared with ECG of 30-MAY-2022 14:45, No significant change was found Referred By: Thaddeus Rodriguez Electronically Signed By:RUDY PENA
--- NOTE | 2022-05-30 15:06 | ED_ITS ---
HPI - Weakness General Chief complaint: Recheck/Abnormal Lab/Rx Stated complaint: AB LABS,LOW BP, RESPONSIVE ONLY TO PAIN Time Seen by Provider: 05/30/22 14:56 Source: EMS Mode of arrival: EMS Limitations: altered mental status History of Present Illness HPI Narrative: This is a 76-year-old male who comes from a long-term care facility with concern for alteration of mental status and abnormal labs which were drawn today showing a elevated white blood cell count of 33.3 K. per EMS on arrival patient was noted to be unresponsive and responding to painful stimuli only with a blood pressure of 70 systolic. They report spontaneous respirations, otherwise vital signs normal. They gave the patient 500 mL of normal saline [employer]. Related Data Home Medications Medication Instructions Recorded Confirmed cholecalciferol (vitamin D3) 50 50 mcg PO DAILY 06/23/20 05/30/22 mcg (2,000 unit) tablet ferrous sulfate 325 mg (65 mg 325 mg PO DAILY 06/23/20 05/30/22 iron) tablet hydrocodone 5 mg-acetaminophen 300 1 tab PO Q8H PRN Pain (Scale Score 06/23/20 05/30/22 mg tablet 4-6) lancets 33 gauge #100 ea 06/23/20 04/14/22 magnesium oxide 400 mg PO BID 06/23/20 05/30/22 metoprolol succinate 100 mg 100 mg PO DAILY 06/23/20 05/30/22 tablet,extended release 24 hr albuterol sulfate 90 mcg/actuation 2 inh inhalation Q4H PRN Shortness 06/10/21 05/30/22 aerosol inhaler (Ventolin HFA) Of Breath irbesartan 300 mg tablet 300 mg PO DAILY 11/06/21 05/30/22 amitriptyline 10 mg tablet 1 tab PO BEDTIME 01/30/22 05/30/22 aspirin 81 mg tablet,delayed 1 tab PO DAILY 01/31/22 05/30/22 release nitroglycerin 0.4 mg sublingual 0.4 mg sublingual Q5M PRN Chest 01/31/22 05/30/22 tablet Pain sertraline 25 mg tablet 12.5 mg PO DAILY 03/05/22 05/30/22 atorvastatin 20 mg tablet 20 mg PO BEDTIME 05/14/22 05/30/22 dulaglutide 3 mg/0.5 mL 3 mg subcut QWEEK 05/14/22 05/30/22 subcutaneous pen injector (Trulicity) famotidine 20 mg tablet 20 mg PO BID heartburn 05/14/22 05/30/22 pen needle, diabetic 31 gauge x #50 ea 05/14/22 3/16 (BD Ultra-Fine Mini Pen Needle) pen needle, diabetic 32 gauge x #50 ea 05/14/22 5/32 (UltiCare Pen Needle) fluticasone propionate 50 2 spray intranasal DAILY 05/15/22 05/30/22 mcg/actuation nasal spray,suspension insulin glargine 100 unit/mL (3 24 unit subcut QAM 05/15/22 05/30/22 mL) subcutaneous pen (Lantus Solostar U-100 Insulin) Previous Rx's Medication Instructions Recorded blood sugar diagnostic (FreeStyle #100 ea 06/26/21 Lite Strips) blood-glucose meter (FreeStyle #1 ea 06/26/21 Bruin Lite kit) tamsulosin 0.4 mg capsule 0.4 mg PO BEDTIME 90 days #90 caps 11/07/21 dextrose 40 % oral gel (Glutose-15) 15 g PO Q15M PRN Per Hypoglycemia 02/01/22 Standing Ord. #60 grams pen needle, diabetic 32 gauge x #50 ea 02/01/22 3 diazepam 2 mg tablet (Valium) 2 mg PO TID PRN muscle twitching 04/11/22 #20 tabs testosterone cypionate 200 mg/mL 200 mg IM Q3W 21 days #1 mL 04/16/22 intramuscular oil acetazolamide 250 mg tablet 250 mg PO BID #60 tabs 05/28/22 albuterol sulfate 2.5 mg/3 mL 2.5 mg (3 mL) inhalation Q4H PRN 05/28/22 (0.083 %) solution for nebulization Wheezing #270 mL carvedilol 12.5 mg tablet 12.5 mg PO BID #60 tabs 05/28/22 fluticasone furoate 200 1 ea inhalation RDAILY #60 ea 05/28/22 mcg-vilanterol 25 mcg/dose inhalation powder (Breo Ellipta) spironolactone 25 mg tablet 25 mg PO DAILY #30 tabs 05/28/22 Allergies Allergy/AdvReac Type Severity Reaction Status Date / Time No Known Allergies Allergy Verified 05/14/22 08:35 Review of Systems Review of Systems: Yes Unobtainable due to mental status [facility] Past Medical History Attestation statement: The following information was validated with the patient. Source: old records reviewed and nursing notes reviewed Medical History Anemia Benign prostatic hyperplasia without lower urinary tract symptoms Chest pain Chronic GERD Erectile dysfunction HLD (hyperlipidemia) HTN (hypertension) Hypertriglyceridemia Hypertrophic cardiomegaly Hypoventilation syndrome Hypoxia Mild bibasilar atelectasis STEPH (obstructive sleep apnea) Osteoarthritis Reactive airway disease T2DM (type 2 diabetes mellitus) Type 2 diabetes mellitus Uncontrolled type 2 diabetes mellitus with hyperglycemia Vitamin D deficiency Surgical History History of eye surgery History of left knee surgery History of removal of testicle Family History Family History Father No problems noted. Mother No problems noted. Social History Social History Household Members: None Housing: House Do you presently have visiting nurse or other home services: Yes ([employer] for 13 hrs /day. Visiting nurse weekly) Alcohol intake: never Patient Tobacco Use Status: Former Tobacco user Advance Directives: Yes Advance Directives on File: Yes Advance Directives Date on File: 01/31/22 service: No Current occupational status: disabled Physical Exam Vital Signs: Vital Signs: Last Vital Signs Temp 97.2 F 05/30/22 15:36 Pulse 55 05/30/22 18:40 Resp 25 H 05/30/22 18:13 BP 83/46 L 05/30/22 18:40 Pulse Ox 96 05/30/22 15:39 O2 Del Method 05/30/22 15:39 O2 Flow Rate 1 05/30/22 15:39 Oxygen Flow Rate 1 05/30/22 15:36 BMI result Body Mass Index 26.1 Const: Other: Eyes closed-opens to verbal stimuli Patient mumbling-difficult to discern words Limitations: altered mental status HEENT: Head: Yes normal to inspection Ears: hearing grossly normal bilaterally Eyes: General: appearance normal, both eyes and all related structures Pupils: Equal, round and reactive pupils present Neck: Neck: Yes normal visual inspection, Yes no lymphadenopathy and Yes no meningeal signs Chest: Chest palpation & inspection: normal inspection of the chest Resp: Effort & Inspection: normal respiratory effort Auscultation: clear to auscultation bilaterally Cardio: Other: Delayed cap refill Rate: regular rate Rhythm: regular rhythm GI: Inspection: Yes normal to inspection Palpation (GI): Soft to palpation and Tenderness to palpation present (GI) (Diffusely tender) Skin: Other: Cool extremities with delayed cap refill Neuro: Other: Eyes open to verbal stimuli Patient follows brief commands for extremities General: no meningeal signs Cranial nerves: Yes Equal, round and reactive pupils present Extrem: General: Yes normal to inspection, Yes no pedal edema and Yes no calf tenderness Course Course Course Narrative: -patient reports chest pain. Patient now more alert and able to make his needs known through the lang interpreter. Patient continues to be hypotensive. Fluids are still infusing. Initial EKG shows no ischemic changes. Initial troponin is still pending. Patient to have repeat EKG. Patient to have dissection study due to hypotension. Patient of note was seen here yesterday for similar symptoms with multiple troponins which were negative for ACS. Reevaluation(s) Reevaluation #1: 1650-spoke to family. Confirm patient DNR/DNI. Updated MOLST completed. Patient family is agreeable to central line placement and vasopressers. Consent done via the phone with lang interpreter. Patient started on Levophed a prior to CT scan. Patient brought to CT scan a on cardiac monitoring by nursing. Patient had some agitation and hypoxia (improved with oxygen) while in CT scan and received 1 mg of Versed with improvement. To place central line on return from CT scan and obtain ABG. Reevaluation #2: [id number] catheter placed in the right IJ. Chest x-ray done to confirm placement. Patient quite lethargic, responsive only to painful stimuli post Versed for CT scan. After line placement patient noted to be spontaneously moving arms and legs. He is confused. Not following complaints. Still quite l ethargic. To obtain VBG. Anticipate ICU admit once imaging resulted. 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 Mixed metabolic/resp acidosis. To start on BIPAP which family is aggreable to. I spoke to Dr. Rodriguez who accepted patient. Imaging is pending. I spoke to at length with the health care proxy Asai. She is aware that her father is critically ill and we are doing all that we can for him. She will try to visit [facility]. Additional Reevaluation(s): 1840-Call from radiology. Ct head shows left frontal lobe infarction may be acute or subacute. There is lots of motion is unable to fully evaluate the brain. No evidence of bleeding. Recommend further evaluation with CTA and or MRI. Sign out to Sarah GRIJALVA pending additional imaging results, admission MDM - Weakness MDM Narrative Medical decision making narrative: 76-year-old male with a past medical history of anemia, GERD, HLD, HTN, STEPH, diabetes who presents from SNF with AMS, hypotension, and elevated WBC. On arrival patient is hypotensive with systolic blood pressure of 70. Extremities are cool to touch with delayed cap refill. Vital signs otherwise are stable. Patient does respond to verbal stimuli and seems to follow some simple commands. Abdomen is soft but diffusely tender. Lungs are clear throughout. Patient will need labs including blood cultures and lactic acid, UA, EKG, chest x-ray, COVID screen. At this time infection is suspected. Antibiotics ordered. Patient's initial blood pressure is 70 systolic. His weight is 75 kg. Patient to received 30 cc/kilos of normal saline. Of note, patient did receive 500 cc of fluid prior to arrival so this will be deducted by nursing from his overall for fluid bolus. Per EMS family is on their way. Patient has a listed DNR/DNI in his chart. Unaware of further wishes from family. Will discuss this with them when they arrive Differential Diagnosis Differential diagnosis: Likely UTI, anemia, hypoglycemia, rhabdomyolysis, sepsis and dehydration Medical Records Attestation: I reviewed the patient's medical records. Lab Data Attestation: I reviewed the patient's lab results. Result diagrams: 05/30/22 15:55 05/30/22 15:56 Labs: Lab Results 05/30/22 05/30/22 05/30/22 Range/Units 15:07 15:09 15:19 WBC (4.8-10.8) X10*3/uL RBC (4.60-5.80) X10*6/uL Hgb (14.0-18.0) g/dl Hct (42.0-52.0) % MCV (80.0-98.0) fL MCH (27.0-33.0) pg MCHC (31.0-36.0) g/dl RDW (11.0-16.0) % Plt Count (160-400) X10*3/uL MPV (9.4-12.4) fL Immature Gran % (Auto) (0.0-0.4) % Neut % (Auto) (45-73) % Lymph % (Auto) (20-40) % [place] % (Auto) (2-11) % Eos % (Auto) (0-4) % Baso % (Auto) (0-2) % Lymph # (Auto) (1.2-4.9) X10*3/uL [place] # (Auto) (0.1-1.2) X10*3/uL Eos # (Auto) (0.0-0.4) X10*3/uL Baso # (Auto) (0.0-0.2) X10*3/uL Abs Immat Gran (auto) (0.00-0.03) X10*3/uL Absolute Neuts (auto) (2.0-8.3) x10*3/uL Absolute Nucleated RBC (0.0-0.012) X10*3/uL Nucleated RBC % (auto) (0.0-0.2) /100WBC Smear Tech's Comments PT (10.0-13.1) SEC INR (0.9-1.1) VBG pH (7.32-7.43) VBG pCO2 mmHg VBG pO2 mmHg VBG HCO3 (22-26) mmol/L VBG O2 Saturation % VBG Base Excess mmol/L Sodium (135-145) mmol/L Potassium (3.3-5.1) mmol/L Chloride (96-108) mmol/L Carbon Dioxide (22-29) mmol/L Anion Gap (12-20) BUN (9-16) mg/dL Creatinine (0.5-1.4) mg/dL Estim Creat Clear Calc Estimated GFR Random Glucose (60-115) mg/dL Lactic Acid TNP Calcium (8.4-10.2) mg/dL Magnesium (1.6-2.6) mg/dL Total Bilirubin (0.0-1.0) mg/dL Direct Bilirubin (0.0-0.5) mg/dL AST (5-37) U/L ALT (0-40) U/L Alkaline Phosphatase (39-117) U/L Troponin I High Sens (<3.5-35.0) ng/L Total Protein (6.5-8.0) g/dL Albumin (3.5-5.0) g/dL Procalcitonin ng/mL Urine Color Yellow Urine Appearance Clear Urine pH 6.5 (5.0-9.0) Ur Specific [place] 1.020 (1.005-1.025) Urine Protein 30 (1+) H (Neg-Trace) mg/dL Urine Glucose (UA) >=1000 H (Negative) mg/dL Urine Ketones Trace (Negative) mg/dL Urine Blood Moderate (2+) H (Negative) Urine Nitrite Negative (Negative) Ur Leukocyte Esterase Small (1+) H (Negative) Urine RBC >20 H (0-2) /HPF Urine WBC 6-10 H (0-5) /HPF Ur Squamous Epith Cells 0-2 (0-2) /HPF Urine Bacteria None Seen (None Seen) Hyaline Casts 3-5 (0-2) /LPF COVID-19 (JASSON) Negative (Negative) COVID-19 Clin Com See Note 05/30/22 05/30/22 05/30/22 Range/Units 15:55 15:55 15:55 WBC 29.8 H (4.8-10.8) X10*3/uL RBC 3.53 L D (4.60-5.80) X10*6/uL Hgb 11.3 L D (14.0-18.0) g/dl Hct 36.3 L D (42.0-52.0) % MCV 102.8 H (80.0-98.0) fL MCH 32.0 (27.0-33.0) pg MCHC 31.1 (31.0-36.0) g/dl RDW 13.0 (11.0-16.0) % Plt Count 188 D (160-400) X10*3/uL MPV 11.8 (9.4-12.4) fL Immature Gran % (Auto) 1.1 H (0.0-0.4) % Neut % (Auto) 88.3 H (45-73) % Lymph % (Auto) 2.6 L (20-40) % [place] % (Auto) 7.9 (2-11) % Eos % (Auto) 0.0 (0-4) % Baso % (Auto) 0.1 (0-2) % Lymph # (Auto) 0.8 L (1.2-4.9) X10*3/uL [place] # (Auto) 2.4 H (0.1-1.2) X10*3/uL Eos # (Auto) 0.0 (0.0-0.4) X10*3/uL Baso # (Auto) 0.0 (0.0-0.2) X10*3/uL Abs Immat Gran (auto) 0.32 H (0.00-0.03) X10*3/uL Absolute Neuts (auto) 26.3 H (2.0-8.3) x10*3/uL Absolute Nucleated RBC 0.000 (0.0-0.012) X10*3/uL Nucleated RBC % (auto) 0.0 (0.0-0.2) /100WBC Smear Tech's Comments VERIFIED PT 12.0 (10.0-13.1) SEC INR 1.0 (0.9-1.1) VBG pH (7.32-7.43) VBG pCO2 mmHg VBG pO2 mmHg VBG HCO3 (22-26) mmol/L VBG O2 Saturation % VBG Base Excess mmol/L Sodium (135-145) mmol/L Potassium (3.3-5.1) mmol/L Chloride (96-108) mmol/L Carbon Dioxide (22-29) mmol/L Anion Gap (12-20) BUN (9-16) mg/dL Creatinine (0.5-1.4) mg/dL Estim Creat Clear Calc Estimated GFR Random Glucose (60-115) mg/dL Lactic Acid Calcium (8.4-10.2) mg/dL Magnesium (1.6-2.6) mg/dL Total Bilirubin (0.0-1.0) mg/dL Direct Bilirubin (0.0-0.5) mg/dL AST (5-37) U/L ALT (0-40) U/L Alkaline Phosphatase (39-117) U/L Troponin I High Sens 9.0 (<3.5-35.0) ng/L Total Protein (6.5-8.0) g/dL Albumin (3.5-5.0) g/dL Procalcitonin ng/mL Urine Color Urine Appearance Urine pH (5.0-9.0) Ur Specific [place] (1.005-1.025) Urine Protein (Neg-Trace) mg/dL Urine Glucose (UA) (Negative) mg/dL Urine Ketones (Negative) mg/dL Urine Blood (Negative) Urine Nitrite (Negative) Ur Leukocyte Esterase (Negative) Urine RBC (0-2) /HPF Urine WBC (0-5) /HPF Ur Squamous Epith Cells (0-2) /HPF Urine Bacteria (None Seen) Hyaline Casts (0-2) /LPF COVID-19 (JSASON) (Negative) COVID-19 Clin Com 05/30/22 05/30/22 05/30/22 Range/Units 15:55 15:56 16:32 WBC (4.8-10.8) X10*3/uL RBC (4.60-5.80) X10*6/uL Hgb (14.0-18.0) g/dl Hct (42.0-52.0) % MCV (80.0-98.0) fL MCH (27.0-33.0) pg MCHC (31.0-36.0) g/dl RDW (11.0-16.0) % Plt Count (160-400) X10*3/uL MPV (9.4-12.4) fL Immature Gran % (Auto) (0.0-0.4) % Neut % (Auto) (45-73) % Lymph % (Auto) (20-40) % [place] % (Auto) (2-11) % Eos % (Auto) (0-4) % Baso % (Auto) (0-2) % Lymph # (Auto) (1.2-4.9) X10*3/uL [place] # (Auto) (0.1-1.2) X10*3/uL Eos # (Auto) (0.0-0.4) X10*3/uL Baso # (Auto) (0.0-0.2) X10*3/uL Abs Immat Gran (auto) (0.00-0.03) X10*3/uL Absolute Neuts (auto) (2.0-8.3) x10*3/uL Absolute Nucleated RBC (0.0-0.012) X10*3/uL Nucleated RBC % (auto) (0.0-0.2) /100WBC Smear Tech's Comments PT (10.0-13.1) SEC INR (0.9-1.1) VBG pH (7.32-7.43) VBG pCO2 mmHg VBG pO2 mmHg VBG HCO3 (22-26) mmol/L VBG O2 Saturation % VBG Base Excess mmol/L Sodium 136 (135-145) mmol/L Potassium 5.0 (3.3-5.1) mmol/L Chloride 101 (96-108) mmol/L Carbon Dioxide 27 (22-29) mmol/L Anion Gap 13 (12-20) BUN 54 H D (9-16) mg/dL Creatinine 1.53 H (0.5-1.4) mg/dL Estim Creat Clear Calc 38.4 Estimated GFR 44 Random Glucose 352 H* (60-115) mg/dL Lactic Acid 0.7 Calcium 6.9 L D (8.4-10.2) mg/dL Magnesium 2.0 (1.6-2.6) mg/dL Total Bilirubin 0.5 (0.0-1.0) mg/dL Direct Bilirubin 0.2 (0.0-0.5) mg/dL AST 13 D (5-37) U/L ALT 36 (0-40) U/L Alkaline Phosphatase 55 D (39-117) U/L Troponin I High Sens (<3.5-35.0) ng/L Total Protein 4.1 L D (6.5-8.0) g/dL Albumin 2.4 L D (3.5-5.0) g/dL Procalcitonin 0.10 ng/mL Urine Color Urine Appearance Urine pH (5.0-9.0) Ur Specific [place] (1.005-1.025) Urine Protein (Neg-Trace) mg/dL Urine Glucose (UA) (Negative) mg/dL Urine Ketones (Negative) mg/dL Urine Blood (Negative) Urine Nitrite (Negative) Ur Leukocyte Esterase (Negative) Urine RBC (0-2) /HPF Urine WBC (0-5) /HPF Ur Squamous Epith Cells (0-2) /HPF Urine Bacteria (None Seen) Hyaline Casts (0-2) /LPF COVID-19 (JASSON) (Negative) COVID-19 Clin Com 05/30/22 Range/Units 17:49 WBC (4.8-10.8) X10*3/uL RBC (4.60-5.80) X10*6/uL Hgb (14.0-18.0) g/dl Hct (42.0-52.0) % MCV (80.0-98.0) fL MCH (27.0-33.0) pg MCHC (31.0-36.0) g/dl RDW (11.0-16.0) % Plt Count (160-400) X10*3/uL MPV (9.4-12.4) fL Immature Gran % (Auto) (0.0-0.4) % Neut % (Auto) (45-73) % Lymph % (Auto) (20-40) % [place] % (Auto) (2-11) % Eos % (Auto) (0-4) % Baso % (Auto) (0-2) % Lymph # (Auto) (1.2-4.9) X10*3/uL [place] # (Auto) (0.1-1.2) X10*3/uL Eos # (Auto) (0.0-0.4) X10*3/uL Baso # (Auto) (0.0-0.2) X10*3/uL Abs Immat Gran (auto) (0.00-0.03) X10*3/uL Absolute Neuts (auto) (2.0-8.3) x10*3/uL Absolute Nucleated RBC (0.0-0.012) X10*3/uL Nucleated RBC % (auto) (0.0-0.2) /100WBC Smear Tech's Comments PT (10.0-13.1) SEC INR (0.9-1.1) VBG pH 7.10 L* (7.32-7.43) VBG pCO2 73 mmHg VBG pO2 122 mmHg VBG HCO3 23 (22-26) mmol/L VBG O2 Saturation 100.0 % VBG Base Excess -7.2 mmol/L Sodium (135-145) mmol/L Potassium (3.3-5.1) mmol/L Chloride (96-108) mmol/L Carbon Dioxide (22-29) mmol/L Anion Gap (12-20) BUN (9-16) mg/dL Creatinine (0.5-1.4) mg/dL Estim Creat Clear Calc Estimated GFR Random Glucose (60-115) mg/dL Lactic Acid Calcium (8.4-10.2) mg/dL Magnesium (1.6-2.6) mg/dL Total Bilirubin (0.0-1.0) mg/dL Direct Bilirubin (0.0-0.5) mg/dL AST (5-37) U/L ALT (0-40) U/L Alkaline Phosphatase (39-117) U/L Troponin I High Sens (<3.5-35.0) ng/L Total Protein (6.5-8.0) g/dL Albumin (3.5-5.0) g/dL Procalcitonin ng/mL Urine Color Urine Appearance Urine pH (5.0-9.0) Ur Specific [place] (1.005-1.025) Urine Protein (Neg-Trace) mg/dL Urine Glucose (UA) (Negative) mg/dL Urine Ketones (Negative) mg/dL Urine Blood (Negative) Urine Nitrite (Negative) Ur Leukocyte Esterase (Negative) Urine RBC (0-2) /HPF Urine WBC (0-5) /HPF Ur Squamous Epith Cells (0-2) /HPF Urine Bacteria (None Seen) Hyaline Casts (0-2) /LPF COVID-19 (JASSON) (Negative) COVID-19 Clin Com ECG Data Attestation: I personally reviewed and interpreted this ECG as follows: ECG interpretation date: 05/30/22 ECG interpretation time: 14:45 Interpretation: NSR with rate 78, normal pr, normal qrs, normal qt Procedures Central Line Placement Right IJ: Time Out Performed: Yes Patient Placed on Monitor/Pulse Ox: Yes MD Prep: mask, gown and gloves Central Line Prep: Chlorhexidine scrub and sterile drapes applied Local Anesthetic: lidocaine 1% Amount of anesthesia used (mL): 5 Ultrasound Used for Placement: Yes Central Line Lumen Inserted: triple Post Procedure: sutured in place, good blood return, all ports aspirated, flushed, capped and sterile dressing applied Post Procedure X-Ray: tip of catheter in good position and no pneumothorax seen Patient Tolerated Procedure: well Complications: none Additional Comments: Done by Sarah GRIJALVA Critical Care Time Critical Care Time Critical Care Time: Yes Total Critical Care Time: 120 Attestation: Multiple re-evaluations for blood pressure, discussion with intense this, multiple discussions with family to discuss goals of care, central line placement, Discharge Plan Discharge Clinical Impression: Acute kidney injury, Acute hypotension, Chest pain, Acute UTI, Acute metabolic encephalopathy, Acute on chronic respiratory failure with hypoxia and hyp ercapnia, Leukocytosis Patient Disposition: Admitted As Inpatient
--- NOTE | 2022-05-30 15:10 | PHA.MEDREC ---
Pharmacy Consult ? Medication Reconciliation Pharmacy has completed the medication reconciliation.
[2022-05-30 15:31] LABS: Appearance Urine Clear; Color Urine Yellow; Glucose Urine UA >=1000 mg/dL (Negative); Leukocyte Esterase Urine Small (1+) (Negative); Nitrite Urine Negative (Negative); PH 6.5 (5.0-9.0); Urine Blood Moderate (2+) (Negative); Urine Ketones Trace mg/dL (Negative); Urine Protein 30 (1+) mg/dL (Neg-Trace)
[2022-05-30] MEDS: cefTRIAXone sodium 2 GM in 0.9 % Sodium Chloride 50 ML IV (15:33)
[2022-05-30 15:38] LABS: Bacteria Urine None Seen (None Seen); RBC Urine >20 /HPF (0-2); Squamous Epithelial Cell Urine 0-2 /HPF (0-2); UACC Culture Trigger YES
[2022-05-30 15:54] LABS: COVID-19 Test Negative (Negative); IDNOW Serial# 16C4AD1C
[2022-05-30 16:14] LABS: Basophils Percent Auto 0.1 % (0-2); MANUAL DIFF FLAG SCAN; SCAN SMEAR FLAG 1
[2022-05-30 16:27] LABS: Hematocrit 36.3 % (42.0-52.0); Hemoglobin 11.3 g/dl (14.0-18.0); Imm Gran Abs Auto 0.32 X10*3/uL (0.00-0.03); Imm Gran Pct Auto 1.1 % (0.0-0.4); Lymphocytes Absolute Auto 0.8 X10*3/uL (1.2-4.9); Lymphocytes Percent Auto 2.6 % (20-40); Mean Corpuscular HGB Conc 31.1 g/dl (31.0-36.0); Mean Corpuscular Volume 102.8 fL (80.0-98.0); Mean Platelet Volume 11.8 fL (9.4-12.4); Monocytes Absolute Auto 2.4 X10*3/uL (0.1-1.2); Monocytes Percent Auto 7.9 % (2-11); Neutrophils Absolute Auto 26.3 x10*3/uL (2.0-8.3); Neutrophils Percent Auto 88.3 % (45-73); Platelet Count 188 X10*3/uL (160-400); Red Blood Count 3.53 X10*6/uL (4.60-5.80); White Blood Count 29.8 X10*3/uL (4.8-10.8)
[2022-05-30 16:39] LABS: Alanine Aminotransferase 36 U/L (0-40); Albumin Level 2.4 g/dL (3.5-5.0); Alkaline Phosphatase 55 U/L (39-117); Anion Gap 13 (12-20); Aspartate Amino Transferase 13 U/L (5-37); Bilirubin Direct 0.2 mg/dL (0.0-0.5); Bilirubin Total 0.5 mg/dL (0.0-1.0); Blood Urea Nitrogen 54 mg/dL (9-16); Calcium 6.9 mg/dL (8.4-10.2); Carbon Dioxide 27 mmol/L (22-29); Chloride 101 mmol/L (96-108); Creatinine Clr Calc Pharmacy 38.4; Estimated Glomerular Filt Rate 44; Glucose Random 352 mg/dL (60-115); Sodium 136 mmol/L (135-145); Total Protein 4.1 g/dL (6.5-8.0)
[2022-05-30 16:55] LABS: Lactic Acid 0.7 mmol/L (0.5-2.0)
[2022-05-30 17:00] LABS: SLIDE REVIEW VERIFIED
[2022-05-30] MEDS: iohexoL 350 MG/ML 100 ML INFUS..BTL IV (17:31)
[2022-05-30] MEDS: Midazolam HCl/PF 2 MG/2 ML VIAL 1 MG IVPUSH (17:36)
[2022-05-30 17:57] LABS: Venous Blood Gas Refer to POC result
[2022-05-30 18:02] LABS: VBG Base Excess -7.2 mmol/L; VBG HCO3 23 mmol/L (22-26); VBG pCO2 73 mmHg; VBG pO2 122 mmHg
--- NOTE | 2022-05-30 18:31 | PC.NURSE ---
PT PLACED ON THE BIPAP FOR SUPPORT AND VBG CORRECTION
[2022-05-30 18:50] LABS: Lactic Acid 0.6 mmol/L (0.5-2.0)
[2022-05-30] MEDS: Heparin Sodium,Porcine 5,000 UNIT/ML VIAL 5000 UNIT SUBCUT (18:50)
[2022-05-30] MEDS: Sodium Bicarbonate 8.4% 50 MEQ/50 ML SYRINGE IVPUSH (18:50)
[2022-05-30] MEDS: Albumin Human 25 % 100 ML IV ×2 (19:13→23:52)
--- NOTE | 2022-05-30 19:28 | PHA.PROG ---
Admission Date/Time: May 30, 2022 18:40 Indication: Possible Sepsis Weight in k kg Adjusted body weight in K.24 [place] body weight in Kg: n/a Obesity Dosing Indication % IBW: n/a Serum Creatinine - Last 168 Hours 05/30/22 15:56 Creatinine 1.53 H Estimated CrCl and GFR - Last 168 Hours 05/30/22 15:56 Estim Creat Clear Calc 38.4 Estimated GFR 44 Vancomycin Loading Dose: 2000 mg (~25 mg/kg) Current Vancomycin Dosing Regimen: 1000 Q 24hr Vancomycin Monitoring using AUC goal of 400 - 600 range with trough as surrogate marker: 497 mg/L/hr Date and Time for next Vancomycin Level to be drawn: 06/01 @1700 Pharmacist Comments on Vancomycin Plan: Patients renal function upon arrival was 1.53 mg/dL. Because of this I chose to do Q 24 hr dosing to allow doses to clear, and because patient is older than 65 yrs old. Patient received a proper load at this time. Will dose at 1000 mg Q 24hr. Pharmacy to monitor renal function daily. Will obtain level and watch renal function and will adjust dose if necessary. Predicted AUC 497 mg/L/hr. Vancomycin dosing will take advantage of [employer] as a clinical decision support tool that uses Bayesian modeling to calculate individual patient's pharmacokinetic parameters and forecast the patient's drug concentration time course with the target goal AUC 24 range of 400 - 600 mg/L/hr.
--- NOTE | 2022-05-30 19:58 | PM.CCHP ---
History of Present Illness Date of Service: 05/30/22 Attending physician on admission: Thaddeus Rodriguez Chief Complaint: Altered mental status The patient is 76-year-old uzbek speaking only male with? past medical history of? hypertension, obesity, COPD, STEPH not currently on CPAP, ? diabetes mellitus, BPH,? hyperlipidemia, hypertrophic cardiomyopathy, reactive airway disease, peripheral neuropathy, and chronic pain? who presented to the emergency room? from long-term care facility with altered mental status.? Per EMS patient was unresponsive and only responding to painful stimuli with systolic blood pressures in the 70s,? he received 500 mL bolus en route to hospital.? On arrival at the emergency room, he was slightly more alert,? with blood pressure 99/48,? but later dropped again to systolic of 70s.? Laboratory data was significant for? WBC 29, hemoglobin 11.3, BUN 54, 1.53,? albumin 2.4. VBGs as follow: / 122/23 ?Urine positive? for UTI Imaging Chest CTA- ? no acute findings Abdomen/pelvis CTA: Prominent fluid-filled distention of stomach and thoracic esophagus. ED course:? patient received? 30 mL/kg? fluid bolus, ceftriaxone 2 g, and? sodium bicarb? IV push.? He required? central line placement and initiation of vasopressors.? ED provider spoke with the family,? who changed code status to DNR/DNI,? but okay with BiPAP and pressors.? Review of Systems Review of Systems: patient not a good historian, unable to do review of systems [facility] Past Medical History Medical History Anemia Benign prostatic hyperplasia without lower urinary tract symptoms Chest pain Chronic GERD Erectile dysfunction HLD (hyperlipidemia) HTN (hypertension) Hypertriglyceridemia Hypertrophic cardiomegaly Hypoventilation syndrome Hypoxia Mild bibasilar atelectasis STEPH (obstructive sleep apnea) Osteoarthritis Reactive airway disease T2DM (type 2 diabetes mellitus) Type 2 diabetes mellitus Uncontrolled type 2 diabetes mellitus with hyperglycemia Vitamin D deficiency Family History Family History Father No problems noted. Mother No problems noted. Surgical History Surgical History History of eye surgery History of left knee surgery History of removal of testicle Social History Social History Household Members: None Housing: House Do you presently have visiting nurse or other home services: Yes ([employer]OND[employer] ANALY[employer] for 13 hrs /day. Visiting nurse weekly) Alcohol intake: never Patient Tobacco Use Status: Former Tobacco user Advance Directives: Yes Advance Directives on File: Yes Advance Directives Date on File: 01/31/22 service: No Current occupational status: disabled Meds Allergies Allergy/AdvReac Type Severity Reaction Status Date / Time No Known Allergies Allergy Verified 05/14/22 08:35 Active Medications: Current Medications Heparin Sodium (Porcine) (Heparin Sodium,Porcine 5,000 Unit/Ml Vial) 5,000 unit SUBCUT Q8H [facility] Last Admin: 05/30/22 18:50 Dose: 5,000 unit Norepinephrine Bitartrate (Levophed) 8 mg in 250 mls @ 0 mls/hr IVCONT .Q0M [facility]; Protocol Last Titration: 05/30/22 18:40 Dose: 0.3 mcg/kg/min, 43.88 mls/hr Piperacillin Sod/Tazobactam (Sod 3.375 gm/ Sodium Chloride) 50 mls @ 100 mls/hr IV Q6H [facility] Albumin Human (Kedbumin 25 %) 100 mls @ 100 mls/hr IV Q6H [facility] Stop: 05/31/22 13:44 Last Admin: 05/30/22 19:13 Dose: 100 mls/hr Vancomycin HCl (Vancomycin/Ns) 2,000 mg in 520 mls @ 260 mls/hr IV ONCE ONE Stop: 05/30/22 20:59 Last Admin: 05/30/22 19:12 Dose: 260 mls/hr Vancomycin HCl 1,000 mg/ (Sodium Chloride) 270 mls @ 270 mls/hr IV Q24H [facility] Pharmacy Consult (Consult Rx Perform Med Rec) 1 each MISCELLANE ONCE PRN PRN Reason: Consult order Pharmacy Consult (Consult Rx Vancomycin Dosing) 1 each MISCELLANE DAILY PRN PRN Reason: Consult order Home Medications Medication Instructions Recorded Confirmed Last Taken Type cholecalciferol (vitamin D3) 50 50 mcg PO DAILY 06/23/20 05/30/22 Unknown History mcg (2,000 unit) tablet ferrous sulfate 325 mg (65 mg 325 mg PO DAILY 06/23/20 05/30/22 Unknown History iron) tablet hydrocodone 5 mg-acetaminophen 300 1 tab PO Q8H PRN Pain (Scale Score 06/23/20 05/30/22 Unknown History mg tablet 4-6) lancets 33 gauge #100 ea 06/23/20 04/14/22 Unknown History magnesium oxide 400 mg PO BID 06/23/20 05/30/22 Unknown History metoprolol succinate 100 mg 100 mg PO DAILY 06/23/20 05/30/22 Unknown History tablet,extended release 24 hr albuterol sulfate 90 mcg/actuation 2 inh inhalation Q4H PRN Shortness 06/10/21 05/30/22 Unknown History aerosol inhaler (Ventolin HFA) Of Breath irbesartan 300 mg tablet 300 mg PO DAILY 11/06/21 05/30/22 Unknown History amitriptyline 10 mg tablet 1 tab PO BEDTIME 01/30/22 05/30/22 Unknown History aspirin 81 mg tablet,delayed 1 tab PO DAILY 01/31/22 05/30/22 Unknown History release nitroglycerin 0.4 mg sublingual 0.4 mg sublingual Q5M PRN Chest 01/31/22 05/30/22 Unknown History tablet Pain sertraline 25 mg tablet 12.5 mg PO DAILY 03/05/22 05/30/22 Unknown History atorvastatin 20 mg tablet 20 mg PO BEDTIME 05/14/22 05/30/22 Unknown History dulaglutide 3 mg/0.5 mL 3 mg subcut QWEEK 05/14/22 05/30/22 Unknown History subcutaneous pen injector (Trulicity) famotidine 20 mg tablet 20 mg PO BID heartburn 05/14/22 05/30/22 Unknown History pen needle, diabetic 31 gauge x #50 ea 05/14/22 Unknown History 3 (BD Ultra-Fine Mini Pen Needle) pen needle, diabetic 32 gauge x #50 ea 05/14/22 Unknown History (UltiCare Pen Needle) fluticasone propionate 50 2 spray intranasal DAILY 05/15/22 05/30/22 Unknown History mcg/actuation nasal spray,suspension insulin glargine 100 unit/mL (3 24 unit subcut QAM 05/15/22 05/30/22 Unknown History mL) subcutaneous pen (Lantus Solostar U-100 Insulin) Physical Exam Vital Signs: Vital Signs: Last Vital Signs Temp 97.2 F 05/30/22 15:36 Pulse 58 05/30/22 18:46 Resp 25 H 05/30/22 18:13 BP 90/48 L 05/30/22 18:46 Pulse Ox 96 05/30/22 15:39 O2 Del Method 05/30/22 15:39 O2 Flow Rate 1 05/30/22 15:39 Oxygen Flow Rate 1 05/30/22 15:36 BMI result Body Mass Index 26.1 Constitutional: Alert, responds to verbal stimuli Mental Status: Confused, alert x self only Head: Normocephalic. Eyes: Pupils are equal, round and reactive to light. Ear, Nose and Throat: Oropharynx clear, mucous membranes moist. Ears and nose without masses, lesions or deformities. Trachea midline. Neck: Supple, Full range of motion. Respiratory: Lungs with rhonchi throughout. On BIPAP, with some increase work of breathing. Cardiovascular: Sinus rhythm. S1 S2 regular. No murmurs, rubs or gallops. Gastrointestinal: Abdomen soft, non-tender, non-distended. Normal bowel sounds. No pulsatile mass. No hepatosplenomegaly. Genitourinary: No costovertebral angle tenderness. Neurologic: No focal neurological deficits. Moves all extremities spontaneously. Skin: No rashes or lesions. No petechiae or purpura. Musculoskeletal: No cyanosis or clubbing. No gross deformities. Normal range of motion. Psychiatric: anxious, agitated Results Labs CBC and Chem 7: 05/30/22 15:55 05/30/22 15:56 Labs: Laboratory Results - last 24 hr 05/30/22 05/30/22 05/30/22 15:07 15:09 15:19 MCV MCH MCHC RDW Plt Count MPV Immature Gran % (Auto) Neut % (Auto) Lymph % (Auto) Dewitt % (Auto) Eos % (Auto) Baso % (Auto) Lymph # (Auto) Dewitt # (Auto) Eos # (Auto) Baso # (Auto) Abs Immat Gran (auto) Absolute Neuts (auto) Absolute Nucleated RBC Nucleated RBC % (auto) Smear Tech's Comments PT INR VBG pH VBG pCO2 VBG pO2 VBG HCO3 VBG O2 Saturation VBG Base Excess Anion Gap Estim Creat Clear Calc Estimated GFR Random Glucose Lactic Acid TNP Calcium Magnesium Total Bilirubin Direct Bilirubin AST ALT Alkaline Phosphatase Total Protein Albumin Procalcitonin Urine Color Yellow Urine Appearance Clear Urine pH 6.5 Ur Specific [place] 1.020 Urine Protein 30 (1+) H Urine Glucose (UA) >=1000 H Urine Ketones Trace Urine Blood Moderate (2+) H Urine Nitrite Negative Ur Leukocyte Esterase Small (1+) H Urine RBC >20 H Urine WBC 6-10 H Ur Squamous Epith Cells 0-2 Urine Bacteria None Seen Hyaline Casts 3-5 COVID-19 (JASSON) Negative COVID-19 Clin Com See Note 05/30/22 05/30/22 05/30/22 15:55 15:55 15:55 MCV 102.8 H MCH 32.0 MCHC 31.1 RDW 13.0 Plt Count 188 D MPV 11.8 Immature Gran % (Auto) 1.1 H Neut % (Auto) 88.3 H Lymph % (Auto) 2.6 L Dewitt % (Auto) 7.9 Eos % (Auto) 0.0 Baso % (Auto) 0.1 Lymph # (Auto) 0.8 L Dewitt # (Auto) 2.4 H Eos # (Auto) 0.0 Baso # (Auto) 0.0 Abs Immat Gran (auto) 0.32 H Absolute Neuts (auto) 26.3 H Absolute Nucleated RBC 0.000 Nucleated RBC % (auto) 0.0 Smear Tech's Comments VERIFIED PT 12.0 INR 1.0 VBG pH VBG pCO2 VBG pO2 VBG HCO3 VBG O2 Saturation VBG Base Excess Anion Gap Estim Creat Clear Calc Estimated GFR Random Glucose Lactic Acid Calcium Magnesium Total Bilirubin Direct Bilirubin AST ALT Alkaline Phosphatase Total Protein Albumin Procalcitonin 0.10 Urine Color Urine Appearance Urine pH Ur Specific [place] Urine Protein Urine Glucose (UA) Urine Ketones Urine Blood Urine Nitrite Ur Leukocyte Esterase Urine RBC Urine WBC Ur Squamous Epith Cells Urine Bacteria Hyaline Casts COVID-19 (JASSON) COVID-19 Clin Com 05/30/22 05/30/22 05/30/22 15:56 16:32 17:49 MCV MCH MCHC RDW Plt Count MPV Immature Gran % (Auto) Neut % (Auto) Lymph % (Auto) Dewitt % (Auto) Eos % (Auto) Baso % (Auto) Lymph # (Auto) Dewitt # (Auto) Eos # (Auto) Baso # (Auto) Abs Immat Gran (auto) Absolute Neuts (auto) Absolute Nucleated RBC Nucleated RBC % (auto) Smear Tech's Comments PT INR VBG pH 7.10 L* VBG pCO2 73 VBG pO2 122 VBG HCO3 23 VBG O2 Saturation 100.0 VBG Base Excess -7.2 Anion Gap 13 Estim Creat Clear Calc 38.4 Estimated GFR 44 Random Glucose 352 H* Lactic Acid 0.7 Calcium 6.9 L D Magnesium 2.0 Total Bilirubin 0.5 Direct Bilirubin 0.2 AST 13 D ALT 36 Alkaline Phosphatase 55 D Total Protein 4.1 L D Albumin 2.4 L D Procalcitonin Urine Color Urine Appearance Urine pH Ur Specific York Urine Protein Urine Glucose (UA) Urine Ketones Urine Blood Urine Nitrite Ur Leukocyte Esterase Urine RBC Urine WBC Ur Squamous Epith Cells Urine Bacteria Hyaline Casts COVID-19 (JASSON) COVID-19 Clin Com 05/30/22 18:30 MCV MCH MCHC RDW Plt Count MPV Immature Gran % (Auto) Neut % (Auto) Lymph % (Auto) Dewitt % (Auto) Eos % (Auto) Baso % (Auto) Lymph # (Auto) Dewitt # (Auto) Eos # (Auto) Baso # (Auto) Abs Immat Gran (auto) Absolute Neuts (auto) Absolute Nucleated RBC Nucleated RBC % (auto) Smear Tech's Comments PT INR VBG pH VBG pCO2 VBG pO2 VBG HCO3 VBG O2 Saturation VBG Base Excess Anion Gap Estim Creat Clear Calc Estimated GFR Random Glucose Lactic Acid 0.6 Calcium Magnesium Total Bilirubin Direct Bilirubin AST ALT Alkaline Phosphatase Total Protein Albumin Procalcitonin Urine Color Urine Appearance Urine pH Ur Specific [place] Urine Protein Urine Glucose (UA) Urine Ketones Urine Blood Urine Nitrite Ur Leukocyte Esterase Urine RBC Urine WBC Ur Squamous Epith Cells Urine Bacteria Hyaline Casts COVID-19 (JASSON) COVID-19 Clin Com Imaging Radiologist's Impressions: Impressions Chest X-Ray 05/30/22 16:11 IMPRESSION: 1. Probable mild bibasilar atelectasis and equivocal trace pleural effusions. Abdomen/Pelvis CTA 05/30/22 17:40 IMPRESSION: 1. No evidence of aortic aneurysm, dissection, or other acute aortic syndrome. 2. Prominent fluid-filled distention of stomach and thoracic esophagus. Correlate clinically with signs or symptoms of reflux and/or vomiting and consider NG tube decompression as clinically indicated. 3. Mild bibasilar atelectasis. No airspace consolidation or effusions. 4. No acute intra-abdominal process identified. Chest CTA 05/30/22 17:40 IMPRESSION: 1. No evidence of aortic aneurysm, dissection, or other acute aortic syndrome. 2. Prominent fluid-filled distention of stomach and thoracic esophagus. Correlate clinically with signs or symptoms of reflux and/or vomiting and consider NG tube decompression as clinically indicated. 3. Mild bibasilar atelectasis. No airspace consolidation or effusions. 4. No acute intra-abdominal process identified. Head CT 05/30/22 17:45 IMPRESSION: 1. Loss of crisostomo-white matter differentiation in the left frontal lobe, raises concern for infarction, of indeterminate age. Acute infarction cannot be excluded. Recommend further evaluation with CTA or MRI. 2. There is significant motion artifact degrading images, limiting evaluation of the inferior aspect of the brain and posterior fossa. Suggest repeat imaging. 3. In the nonobscured portions of the brain, no acute intracranial hemorrhage is seen. This critical result was discussed with Barbara Mckenzie NP at 6:38 PM on 05/30/2022 and it was ascertained that the content and urgency of the report was understood at the time of direct communication. Chest X-Ray 05/30/22 18:05 IMPRESSION: 1. Right IJ central venous catheter tip terminates in the distal SVC/proximal RA. 2. Hypoinflated lungs with mild bibasilar atelectasis. Assessment and Plan (1) Acute on chronic respiratory failure with hypoxia and hypercapnia: Status: Acute (2) Acute hypotension: Status: Acute (3) Acute UTI: Status: Acute (4) Leukocytosis: Status: Acute (5) DARREN (acute kidney injury): Status: Acute Plan 76? with sepsis UTI requiring vasopressors and bipap support? Neuro:? ?Altered mental status-? much improved since arrival to the emergency room,? according to family still not back at baseline.? Likely from sepsis.? Cardiac:?? Sepsis, likely from urinary source,? no evidence of a severe septic shock,? lactic acid low at 0.7.? Will continue with antibiotics.? ?Hypotension-? likely setting of sepsis. ? Received appropriate fluid resuscitation.? Started on? on pressors in the emergency room.? Will wean off as? tolerated.? Pulmonary:? Acute respiratory distress-? patient was hypoxic when arrived to the emergency room, VBGs 7.10/73/122/23,? required initiation of BiPAP.? Patient is DNR DNI. Will wean off ? BiPAP? as tolerated.? Renal:? DARREN- most likely related to hypoperfusion, nonoliguric.? 2.3L in the floor.? Continue to check renal induces and urine output Endo:? No acute issues.?? GI:?CT of the abdomen? showing Prominent fluid-filled distention of stomach and thoracic esophagus.? Will insert? NG tube? for decompression ID: ? sepsis likely from UTI.? received ceftriaxone in the ED.? will broaden? antibiotic coverage? with Zosyn and vanco Heme/Onc:? No acute issues. Psych:? No acute issues. Diet: NPO Prophylaxis: ? subQ heparin.? ?Critical care time: x 60 minutes? Code? status:? ? DNR/DNI? confirmed with family ? Case discussed with attending Critical Care Time Critical Care Time (minutes): 60
--- NOTE | 2022-05-30 20:10 | PC.NURSE ---
Nurse to nurse report given Katherine TRAIN BRAKE OPERATOR. Patient to be transported to ICU bed 254 on tele, BIPAP, and IV medications runing.
[2022-05-30] MEDS: Piperacillin Sodium/Tazobactam 3.375 GM in 0.9 % Sodium Chloride 50 ML IV ×2 (21:39→23:46)
[2022-05-30 21:40] LABS: VBG HCO3 23 mmol/L (22-26); VBG pCO2 70 mmHg; VBG pH 7.12 (7.32-7.43); VBG pO2 72 mmHg
[2022-05-30 21:41] LABS: Venous Blood Gas Refer to POC result
[2022-05-31] VITALS (35 sets, daily range): BP systolic 98–150; BP diastolic 47–86; PULSE 60–92; RESP 9–24; TEMP 35.9–36.7; O2SAT 93–100; BMI 25.8
[2022-05-31] MEDS: Heparin Sodium,Porcine 5,000 UNIT/ML VIAL 5000 UNIT SUBCUT ×3 (03:24→18:17)
--- NOTE | 2022-05-31 05:05 | PC.NURSE ---
CARE ASSUMED 23:15.....REMAINS LETHARGIC/SOMNOLENT...AGITATED WITH CARE..MUMBLES INCOHERANTLY..WEAKLY GANDHI AND ATTEMPT TO GRAB AT LINES/ROSS/BIPAP TUBING..BILATERAL WRIST RESTRAINTS MAINTAINED FOR LINE SAFETY....BIPAP/AVAP REMAINS IN PLACE...FIO2 WEANED FROM 30% TO 255 BY RT..SAO2 REMAINS 99-100%...Ve 7-10 L/M...LEVOPHED WEANED FROM 0.35 TO 0.13 MCG/KG/MIN WITH STABLE BP...ROSS DRAINING 125-190 CC/.HR....NO VOMITING OVERNIGHT..NPO...PER SHIFT REPORT NG-TUBE INSERTION ATTEMPTED POST ARRIVAL TO ICU BUT HR 30'S-40'S AND SAO2 40'S WHEN BRIEFLY OFF BIPAP..FURTHER NG TUBE INSERTION ATTEMPTS HELD PER ICU TECHNICAL SOLUTIONS CONSULTANT..NSR..NO ECTOPY..AFEBRILE
[2022-05-31 05:25] LABS: VBG Base Excess -6.2 mmol/L; VBG HCO3 20 mmol/L (22-26); VBG pCO2 42 mmHg; VBG pH 7.27 (7.32-7.43); VBG pO2 48 mmHg
[2022-05-31 05:37] LABS: Venous Blood Gas Refer to POC result
[2022-05-31 05:43] LABS: Basophils Percent Auto 0.1 % (0-2); Hematocrit 33.1 % (42.0-52.0); Hemoglobin 10.5 g/dl (14.0-18.0); Imm Gran Pct Auto 0.8 % (0.0-0.4); Lymphocytes Percent Auto 3.9 % (20-40); MANUAL DIFF FLAG SCAN; Mean Corpuscular HGB Conc 31.7 g/dl (31.0-36.0); Mean Corpuscular Hemoglobin 32.8 pg (27.0-33.0); Mean Corpuscular Volume 103.4 fL (80.0-98.0); Mean Platelet Volume 11.6 fL (9.4-12.4); Monocytes Absolute Auto 1.8 X10*3/uL (0.1-1.2); Monocytes Percent Auto 6.9 % (2-11); Neutrophils Absolute Auto 23.4 x10*3/uL (2.0-8.3); Neutrophils Percent Auto 88.3 % (45-73); Platelet Count 176 X10*3/uL (160-400); Red Cell Distribution Width 12.8 % (11.0-16.0); SCAN SMEAR FLAG 1; White Blood Count 26.5 X10*3/uL (4.8-10.8)
[2022-05-31] MEDS: Albumin Human 25 % 100 ML IV ×2 (05:46→11:32)
[2022-05-31] MEDS: Piperacillin Sodium/Tazobactam 3.375 GM in 0.9 % Sodium Chloride 50 ML IV ×4 (05:48→23:58)
[2022-05-31 06:00] LABS: SLIDE REVIEW VERIFIED
[2022-05-31 06:05] LABS: Albumin Level 3.5 g/dL (3.5-5.0); Anion Gap 14 (12-20); Blood Urea Nitrogen 44 mg/dL (9-16); Calcium 7.9 mg/dL (8.4-10.2); Carbon Dioxide 29 mmol/L (22-29); Chloride 101 mmol/L (96-108); Creatinine Clr Calc Pharmacy 57.1; Estimated Glomerular Filt Rate > 60; Glucose Random 318 mg/dL (60-115); Magnesium 2.2 mg/dL (1.6-2.6); Phosphorus 3.9 mg/dL (2.7-4.5); Potassium 4.6 mmol/L (3.3-5.1); Sodium 139 mmol/L (135-145)
--- NOTE | 2022-05-31 09:55 | HE.PHANOTE ---
Vancomycin Dosing Addendum Vancomycin random level schedule for 06/01/22 @1700. Creatinine down to 1.03 ( from 1.53). Adjusted dose to 1250 mg q24h
--- NOTE | 2022-05-31 09:56 | P.PNCC_ITS ---
Subjective Subjective Date of Service: 05/31/22 Interval History: 76-year-old gentleman with underlying history of obesity, COPD, STEPH, diabetes mellitus, hypertrophic cardiomyopathy, with DNR/ DNI code status admitted on 05/30/2022 with septic shock likely secondary to source requiring vasopressor support, further complicated by acute hypoxic and hypercapnic respiratory failure requiring BiPAP support. Patient has been started on broad-spectrum antibiotics and admitted to the intensive care unit. CT chest/abdomen/pelvis demonstrated dilated at stomach, but no evidence of obstruction or ileus. NG tube was placed for decompression. No events overnight. Critical Care Time (minutes): 60 Physical Exam Vital Signs: Vital Signs: Last Vital Signs Temp 96.7 F L 05/31/22 09:00 Pulse 81 05/31/22 09:00 Resp 19 05/31/22 09:00 BP 135/63 05/31/22 09:00 Pulse Ox 99 05/31/22 09:00 O2 Del Method 05/31/22 09:00 O2 Flow Rate 1 05/30/22 15:39 FiO2 25 05/31/22 08:00 Oxygen Flow Rate 1 05/30/22 15:36 BMI result Body Mass Index 25.8 Const: General: no acute distress and lethargic ( Arousable) Nutritional Appearance: obese Orientation/consciousness: lethargic ( Arousable) Eyes: Sclerae: sclerae normal EOM: EOMs intact bilaterally Neck: Neck: Yes no lymphadenopathy, Yes trachea midline and Yes supple Resp: Effort & Inspection: normal respiratory effort ( on BiPAP) Auscultation: crackles ( bibasilar) Cardio: Rate: regular rate Rhythm: regular rhythm Heart sounds: no gallops, no murmurs and no rubs GI: Palpation (GI): Soft to palpation and Other GI palpation findings present ( Nontender) Auscultation: normal bowel sounds Extrem: General: No clubbing, No cyanosis and Yes edema ( 1+ bilateral) Objective Data Labs CBC & Chem 7: 05/31/22 05:15 05/31/22 05:15 Labs: Laboratory Results - last 24 hr 05/30/22 05/30/22 05/30/22 15:07 15:09 15:19 WBC RBC Hgb Hct MCV MCH MCHC RDW Plt Count MPV Immature Gran % (Auto) Neut % (Auto) Lymph % (Auto) [place] % (Auto) Eos % (Auto) Baso % (Auto) Lymph # (Auto) [place] # (Auto) Eos # (Auto) Baso # (Auto) Abs Immat Gran (auto) Absolute Neuts (auto) Absolute Nucleated RBC Nucleated RBC % (auto) Smear Tech's Comments PT INR VBG pH VBG pCO2 VBG pO2 VBG HCO3 VBG O2 Saturation VBG Base Excess Sodium Potassium Chloride Carbon Dioxide Anion Gap BUN Creatinine Estim Creat Clear Calc Estimated GFR Random Glucose Lactic Acid TNP Calcium Phosphorus Magnesium Total Bilirubin Direct Bilirubin AST ALT Alkaline Phosphatase Troponin I High Sens Total Protein Albumin Procalcitonin Urine Color Yellow Urine Appearance Clear Urine pH 6.5 Ur Specific [place] 1.020 Urine Protein 30 (1+) H Urine Glucose (UA) >=1000 H Urine Ketones Trace Urine Blood Moderate (2+) H Urine Nitrite Negative Ur Leukocyte Esterase Small (1+) H Urine RBC >20 H Urine WBC 6-10 H Ur Squamous Epith Cells 0-2 Urine Bacteria None Seen Hyaline Casts 3-5 COVID-19 (JASSON) Negative COVID-19 Clin Com See Note 05/30/22 05/30/22 05/30/22 15:55 15:55 15:55 WBC 29.8 H RBC 3.53 L D Hgb 11.3 L D Hct 36.3 L D MCV 102.8 H MCH 32.0 MCHC 31.1 RDW 13.0 Plt Count 188 D MPV 11.8 Immature Gran % (Auto) 1.1 H Neut % (Auto) 88.3 H Lymph % (Auto) 2.6 L [place] % (Auto) 7.9 Eos % (Auto) 0.0 Baso % (Auto) 0.1 Lymph # (Auto) 0.8 L [place] # (Auto) 2.4 H Eos # (Auto) 0.0 Baso # (Auto) 0.0 Abs Immat Gran (auto) 0.32 H Absolute Neuts (auto) 26.3 H Absolute Nucleated RBC 0.000 Nucleated RBC % (auto) 0.0 Smear Tech's Comments VERIFIED PT 12.0 INR 1.0 VBG pH VBG pCO2 VBG pO2 VBG HCO3 VBG O2 Saturation VBG Base Excess Sodium Potassium Chloride Carbon Dioxide Anion Gap BUN Creatinine Estim Creat Clear Calc Estimated GFR Random Glucose Lactic Acid Calcium Phosphorus Magnesium Total Bilirubin Direct Bilirubin AST ALT Alkaline Phosphatase Troponin I High Sens 9.0 Total Protein Albumin Procalcitonin Urine Color Urine Appearance Urine pH Ur Specific [place] Urine Protein Urine Glucose (UA) Urine Ketones Urine Blood Urine Nitrite Ur Leukocyte Esterase Urine RBC Urine WBC Ur Squamous Epith Cells Urine Bacteria Hyaline Casts COVID-19 (JASSON) COVID-19 Clin Com 05/30/22 05/30/22 05/30/22 15:55 15:56 16:32 WBC RBC Hgb Hct MCV MCH MCHC RDW Plt Count MPV Immature Gran % (Auto) Neut % (Auto) Lymph % (Auto) [place] % (Auto) Eos % (Auto) Baso % (Auto) Lymph # (Auto) [place] # (Auto) Eos # (Auto) Baso # (Auto) Abs Immat Gran (auto) Absolute Neuts (auto) Absolute Nucleated RBC Nucleated RBC % (auto) Smear Tech's Comments PT INR VBG pH VBG pCO2 VBG pO2 VBG HCO3 VBG O2 Saturation VBG Base Excess Sodium 136 Potassium 5.0 Chloride 101 Carbon Dioxide 27 Anion Gap 13 BUN 54 H D Creatinine 1.53 H Estim Creat Clear Calc 38.4 Estimated GFR 44 Random Glucose 352 H* Lactic Acid 0.7 Calcium 6.9 L D Phosphorus Magnesium 2.0 Total Bilirubin 0.5 Direct Bilirubin 0.2 AST 13 D ALT 36 Alkaline Phosphatase 55 D Troponin I High Sens Total Protein 4.1 L D Albumin 2.4 L D Procalcitonin 0.10 Urine Color Urine Appearance Urine pH Ur Specific [place] Urine Protein Urine Glucose (UA) Urine Ketones Urine Blood Urine Nitrite Ur Leukocyte Esterase Urine RBC Urine WBC Ur Squamous Epith Cells Urine Bacteria Hyaline Casts COVID-19 (JASSON) COVID-19 Clin Com 05/30/22 05/30/22 05/30/22 17:43 17:49 18:30 WBC RBC Hgb Hct MCV MCH MCHC RDW Plt Count MPV Immature Gran % (Auto) Neut % (Auto) Lymph % (Auto) [place] % (Auto) Eos % (Auto) Baso % (Auto) Lymph # (Auto) [place] # (Auto) Eos # (Auto) Baso # (Auto) Abs Immat Gran (auto) Absolute Neuts (auto) Absolute Nucleated RBC Nucleated RBC % (auto) Smear Tech's Comments PT INR VBG pH Cancelled 7.10 L* VBG pCO2 Cancelled 73 VBG pO2 Cancelled 122 VBG HCO3 Cancelled 23 VBG O2 Saturation Cancelled 100.0 VBG Base Excess Cancelled -7.2 Sodium Potassium Chloride Carbon Dioxide Anion Gap BUN Creatinine Estim Creat Clear Calc Estimated GFR Random Glucose Lactic Acid 0.6 Calcium Phosphorus Magnesium Total Bilirubin Direct Bilirubin AST ALT Alkaline Phosphatase Troponin I High Sens Total Protein Albumin Procalcitonin Urine Color Urine Appearance Urine pH Ur Specific [place] Urine Protein Urine Glucose (UA) Urine Ketones Urine Blood Urine Nitrite Ur Leukocyte Esterase Urine RBC Urine WBC Ur Squamous Epith Cells Urine Bacteria Hyaline Casts COVID-19 (JASSON) COVID-19 Clin Com 05/30/22 05/31/22 05/31/22 21:30 05:15 05:15 WBC 26.5 H RBC 3.20 L Hgb 10.5 L Hct 33.1 L MCV 103.4 H MCH 32.8 MCHC 31.7 RDW 12.8 Plt Count 176 MPV 11.6 Immature Gran % (Auto) 0.8 H Neut % (Auto) 88.3 H Lymph % (Auto) 3.9 L [place] % (Auto) 6.9 Eos % (Auto) 0.0 Baso % (Auto) 0.1 Lymph # (Auto) 1.0 L [place] # (Auto) 1.8 H Eos # (Auto) 0.0 Baso # (Auto) 0.0 Abs Immat Gran (auto) 0.20 H Absolute Neuts (auto) 23.4 H Absolute Nucleated RBC 0.000 Nucleated RBC % (auto) 0.0 Smear Tech's Comments VERIFIED PT INR VBG pH 7.12 L* VBG pCO2 70 VBG pO2 72 VBG HCO3 23 VBG O2 Saturation 92.0 VBG Base Excess -7.0 Sodium 139 Potassium 4.6 Chloride 101 Carbon Dioxide 29 Anion Gap 14 BUN 44 H Creatinine 1.03 Estim Creat Clear Calc 57.1 Estimated GFR > 60 Random Glucose 318 H Lactic Acid Calcium 7.9 L D Phosphorus 3.9 Magnesium 2.2 Total Bilirubin Direct Bilirubin AST ALT Alkaline Phosphatase Troponin I High Sens Total Protein Albumin 3.5 D Procalcitonin Urine Color Urine Appearance Urine pH Ur Specific [place] Urine Protein Urine Glucose (UA) Urine Ketones Urine Blood Urine Nitrite Ur Leukocyte Esterase Urine RBC Urine WBC Ur Squamous Epith Cells Urine Bacteria Hyaline Casts COVID-19 (JASSON) COVID-19 Clin Com 05/31/22 05:19 WBC RBC Hgb Hct MCV MCH MCHC RDW Plt Count MPV Immature Gran % (Auto) Neut % (Auto) Lymph % (Auto) [place] % (Auto) Eos % (Auto) Baso % (Auto) Lymph # (Auto) [place] # (Auto) Eos # (Auto) Baso # (Auto) Abs Immat Gran (auto) Absolute Neuts (auto) Absolute Nucleated RBC Nucleated RBC % (auto) Smear Tech's Comments PT INR VBG pH 7.27 L VBG pCO2 42 VBG pO2 48 VBG HCO3 20 L VBG O2 Saturation 78.0 VBG Base Excess -6.2 Sodium Potassium Chloride Carbon Dioxide Anion Gap BUN Creatinine Estim Creat Clear Calc Estimated GFR Random Glucose Lactic Acid Calcium Phosphorus Magnesium Total Bilirubin Direct Bilirubin AST ALT Alkaline Phosphatase Troponin I High Sens Total Protein Albumin Procalcitonin Urine Color Urine Appearance Urine pH Ur Specific [place] Urine Protein Urine Glucose (UA) Urine Ketones Urine Blood Urine Nitrite Ur Leukocyte Esterase Urine RBC Urine WBC Ur Squamous Epith Cells Urine Bacteria Hyaline Casts COVID-19 (JASSON) COVID-19 Clin Com Progress Note: A&P Assessment and plan (1) DARREN (acute kidney injury): Status: Acute (2) Septic shock: Status: Acute (3) Acute UTI: Status: Acute (4) COPD (chronic obstructive pulmonary disease): Status: Acute (5) STEPH (obstructive sleep apnea): Status: Acute (6) Acute and chronic respiratory failure with hypoxia: Status: Acute (7) Uncontrolled type 2 diabetes mellitus with hyperglycemia: Status: Acute Plan Assessment: 76-year-old gentleman admitted with septic shock with likely source further complicated by acute on chronic hypoxic and hypercapnic respiratory failure requiring BiPAP support and acute kidney injury. Plan: Neuro: No acute issues. Cardiac: Continue to titrate off pressor support as tolerated. Pulmonary: Acute no chronic hypoxic and hypercapnic respiratory failure secondary to underlying sepsis now requiring BiPAP support, continues titrate off as tolerated. Renal: Acute renal failure likely secondary to underlying sepsis. Non oliguric. Continue to monitor renal indices and urine output. Endo: No acute issues. Underlying diabetes mellitus. GI: No acute issues. Gastric distension without obstruction, likely ileus, NG tube placed for decompression. ID: Septic shock with likely source. Cultures are pending. Continue broad-spectrum antibiotics. Heme/Onc: No acute issues. Psych: No acute issues. Miscellaneous: No acute issues. Prophylaxis: heparin Diet: NPO Critical care time spent: 60 minutes Quality Stroke Does the patient have a stroke diagnosis?: No VTE Prior VTE?: No VTE Risk Level:: Medical - moderate - high VTE Device Contraindication: N/A - Device Ordered VTE Drug Contraindication: N/A - Med Ordered
--- NOTE | 2022-05-31 11:09 | MHC.CM.PN ---
Pt in ICU on BiPAP: unable to tolerate conversation. Call placed to pts next of contact, Arpit who is also his HCP #2. She states pt had been at [facility] but did not like the facility. He requires assistance with ADL's and medical management. Arpit would like broad referrals placed to [facility] contracted STR centers. Pt has a verified HCP on file, is up to date on [facility] and will transport to STR via BLS. CM to make broad referrals in anticipation of STR d/c. IMM completed w/Arpit and in chart
[2022-05-31 11:30] LABS: Glucose, Whole Blood 206 mg/dL (60-115)
[2022-05-31] MEDS: Insulin Glargine,Hum.rec.anlog 100 UNIT/ML 10 ML VIAL 15 UNIT SUBCUT (11:31)
[2022-05-31] MEDS: fentaNYL citrate/PF 100 MCG/2 ML VIAL 25 MCG IVPUSH (11:53)
[2022-05-31 17:49] LABS: VBG HCO3 20 mmol/L (22-26); VBG pCO2 36 mmHg; VBG pH 7.34 (7.32-7.43); VBG pO2 69 mmHg
[2022-05-31 18:04] LABS: Glucose, Whole Blood 166 mg/dL (60-115)
[2022-05-31 18:16] LABS: Venous Blood Gas Refer to POC result
--- NOTE | 2022-05-31 18:38 | PC.NURSE ---
0905 NG TUBE PLACED BY MD FOR ABDOMINAL SWELLING, PLACED ON INTERMITTENT SUCTION. 1155 FENTANYL 25 MCG X 1 GIVEN FOR CHEST AND ABDOMINAL PAIN, NOT EFFECTIVE PER PATIENT. 1715 BIPAP TITRATED OFF AND PATENT PLACED ON 4L GLENN, MASTER PILOT PRESENT TO EDUCATE THE PATIENT ON NEED FOR BIPAP AND VBG DRAW. 1735 LEVOPHED TITRATED OFF, PATIENT TOLERATED WELL AND MAINTAINING MAP > 65. 1830 SMALL SMEARING BOWEL MOVEMENT Q2HR REPOSITIONED, BATHED.
[2022-05-31] MEDS: vancomycin HCL 1,250 MG in 0.9 % Sodium Chloride 250 ML 166.67 MG IV (20:15)
[2022-05-31] MEDS: Morphine Sulfate 2 MG/ML CARTRIDGE 0.5 MG IVPUSH (20:48)
[2022-05-31 23:54] LABS: Glucose, Whole Blood 113 mg/dL (60-115)
[2022-06-01] VITALS (17 sets, daily range): BP systolic 97–140; BP diastolic 39–68; PULSE 77–108; RESP 14–33; TEMP 36.1–37; O2SAT 93–105; BMI 25.2
[2022-06-01] MEDS: Heparin Sodium,Porcine 5,000 UNIT/ML VIAL 5000 UNIT SUBCUT ×3 (02:42→18:09)
[2022-06-01] MEDS: Morphine Sulfate 2 MG/ML CARTRIDGE 0.5 MG IVPUSH (04:27)
[2022-06-01 05:27] LABS: Glucose, Whole Blood 116 mg/dL (60-115)
[2022-06-01 05:28] LABS: VBG Base Excess -5.1 mmol/L; VBG HCO3 20 mmol/L (22-26); VBG pCO2 39 mmHg; VBG pH 7.31 (7.32-7.43); VBG pO2 52 mmHg
[2022-06-01] MEDS: Piperacillin Sodium/Tazobactam 3.375 GM in 0.9 % Sodium Chloride 50 ML IV ×3 (05:33→18:09)
[2022-06-01 06:04] LABS: Venous Blood Gas Refer to POC result
[2022-06-01 06:25] LABS: Basophils Percent Auto 0.2 % (0-2); Hematocrit 32.1 % (42.0-52.0); Hemoglobin 10.1 g/dl (14.0-18.0); Imm Gran Abs Auto 0.45 X10*3/uL (0.00-0.03); Imm Gran Pct Auto 1.8 % (0.0-0.4); Lymphocytes Absolute Auto 1.1 X10*3/uL (1.2-4.9); Lymphocytes Percent Auto 4.5 % (20-40); MANUAL DIFF FLAG SCAN; Mean Corpuscular HGB Conc 31.5 g/dl (31.0-36.0); Mean Corpuscular Hemoglobin 31.9 pg (27.0-33.0); Mean Corpuscular Volume 101.3 fL (80.0-98.0); Monocytes Absolute Auto 1.9 X10*3/uL (0.1-1.2); Monocytes Percent Auto 7.5 % (2-11); Neutrophils Absolute Auto 21.8 x10*3/uL (2.0-8.3); Platelet Count 183 X10*3/uL (160-400); Red Blood Count 3.17 X10*6/uL (4.60-5.80); Red Cell Distribution Width 13.1 % (11.0-16.0); SCAN SMEAR FLAG 1; White Blood Count 25.3 X10*3/uL (4.8-10.8)
[2022-06-01 06:41] LABS: Alanine Aminotransferase 37 U/L (0-40); Albumin Level 3.8 g/dL (3.5-5.0); Alkaline Phosphatase 56 U/L (39-117); Anion Gap 12 (12-20); Aspartate Amino Transferase 15 U/L (5-37); Bilirubin Total 0.5 mg/dL (0.0-1.0); Blood Urea Nitrogen 25 mg/dL (9-16); Calcium 8.5 mg/dL (8.4-10.2); Carbon Dioxide 32 mmol/L (22-29); Chloride 106 mmol/L (96-108); Creatinine Clr Calc Pharmacy 80.6; Estimated Glomerular Filt Rate > 60; Glucose Random 121 mg/dL (60-115); Phosphorus 2.1 mg/dL (2.7-4.5); Potassium 3.8 mmol/L (3.3-5.1); Sodium 146 mmol/L (135-145); Total Protein 5.3 g/dL (6.5-8.0)
[2022-06-01 07:14] LABS: SLIDE REVIEW VERIFIED
[2022-06-01 08:32] LABS: VBG Base Excess -4.3 mmol/L; VBG HCO3 21 mmol/L (22-26); VBG pCO2 39 mmHg; VBG pH 7.33 (7.32-7.43); VBG pO2 48 mmHg
[2022-06-01 08:46] LABS: Glucose, Whole Blood 133 mg/dL (60-115)
[2022-06-01] MEDS: Insulin Glargine,Hum.rec.anlog 100 UNIT/ML 10 ML VIAL 15 UNIT SUBCUT (09:01)
--- NOTE | 2022-06-01 09:49 | P.PNCC_ITS ---
Subjective Subjective Date of Service: 06/01/22 Interval History: 76-year-old gentleman with underlying history of obesity, COPD, STEPH, diabetes mellitus, hypertrophic cardiomyopathy, with DNR/ DNI code status admitted on 05/30/2022 with septic shock likely secondary to source requiring vasopressor support, further complicated by acute hypoxic and hypercapnic respiratory failure requiring BiPAP support. Patient has been started on broad-spectrum antibiotics and admitted to the intensive care unit. CT chest/abdomen/pelvis demonstrated dilated at stomach, but no evidence of obstruction or ileus. NG tube was placed for decompression. No events overnight. Titrated off pressors and BiPAP. NG tube still with significant output. Critical Care Time (minutes): 0 Physical Exam Vital Signs: Vital Signs: Last Vital Signs Temp 98.1 F 06/01/22 08:00 Pulse 94 06/01/22 09:00 Resp 17 06/01/22 09:00 BP 120/53 L 06/01/22 09:00 Pulse Ox 99 06/01/22 09:00 O2 Del Method 06/01/22 09:00 O2 Flow Rate 4 06/01/22 09:00 FiO2 25 06/01/22 03:42 Oxygen Flow Rate 1 05/30/22 15:36 BMI result Body Mass Index 25.2 Const: General: no acute distress, alert and awake Eyes: Sclerae: sclerae normal EOM: EOMs intact bilaterally Neck: Neck: Yes no lymphadenopathy, Yes trachea midline and Yes supple Resp: Effort & Inspection: normal respiratory effort and no respiratory distre ss Auscultation: clear to auscultation bilaterally Cardio: Rate: regular rate Rhythm: regular rhythm Heart sounds: no gallops, no murmurs and no rubs GI: Palpation (GI): Soft to palpation and Other GI palpation findings present ( Nontender) Auscultation: normal bowel sounds Extrem: General: No clubbing, No cyanosis and Yes edema (Trace bilateral) Objective Data Labs CBC & Chem 7: 06/01/22 05:22 06/01/22 05:22 Labs: Laboratory Results - last 24 hr 05/31/22 05/31/22 05/31/22 11:26 17:44 17:57 WBC RBC Hgb Hct MCV MCH MCHC RDW Plt Count MPV Immature Gran % (Auto) Neut % (Auto) Lymph % (Auto) [place] % (Auto) Eos % (Auto) Baso % (Auto) Lymph # (Auto) [place] # (Auto) Eos # (Auto) Baso # (Auto) Abs Immat Gran (auto) Absolute Neuts (auto) Absolute Nucleated RBC Nucleated RBC % (auto) Smear Tech's Comments VBG pH 7.34 VBG pCO2 36 VBG pO2 69 VBG HCO3 20 L VBG O2 Saturation 93.0 VBG Base Excess -5.0 Sodium Potassium Chloride Carbon Dioxide Anion Gap BUN Creatinine Estim Creat Clear Calc Estimated GFR POC Glucose 206 H 166 H Random Glucose Calcium Phosphorus Magnesium Total Bilirubin AST ALT Alkaline Phosphatase Total Protein Albumin 05/31/22 06/01/22 06/01/22 23:50 05:22 05:22 WBC 25.3 H RBC 3.17 L Hgb 10.1 L Hct 32.1 L MCV 101.3 H MCH 31.9 MCHC 31.5 RDW 13.1 Plt Count 183 MPV 12.0 Immature Gran % (Auto) 1.8 H Neut % (Auto) 86.0 H Lymph % (Auto) 4.5 L [place] % (Auto) 7.5 Eos % (Auto) 0.0 Baso % (Auto) 0.2 Lymph # (Auto) 1.1 L [place] # (Auto) 1.9 H Eos # (Auto) 0.0 Baso # (Auto) 0.0 Abs Immat Gran (auto) 0.45 H Absolute Neuts (auto) 21.8 H Absolute Nucleated RBC 0.000 Nucleated RBC % (auto) 0.0 Smear Tech's Comments VERIFIED VBG pH VBG pCO2 VBG pO2 VBG HCO3 VBG O2 Saturation VBG Base Excess Sodium 146 H Potassium 3.8 Chloride 106 Carbon Dioxide 32 H Anion Gap 12 BUN 25 H Creatinine 0.73 Estim Creat Clear Calc 80.6 Estimated GFR > 60 POC Glucose 113 Random Glucose 121 H D Calcium 8.5 D Phosphorus 2.1 L Magnesium 2.0 Total Bilirubin 0.5 AST 15 ALT 37 Alkaline Phosphatase 56 Total Protein 5.3 L D Albumin 3.8 06/01/22 06/01/22 06/01/22 05:23 05:23 08:26 WBC RBC Hgb Hct MCV MCH MCHC RDW Plt Count MPV Immature Gran % (Auto) Neut % (Auto) Lymph % (Auto) [place] % (Auto) Eos % (Auto) Baso % (Auto) Lymph # (Auto) [place] # (Auto) Eos # (Auto) Baso # (Auto) Abs Immat Gran (auto) Absolute Neuts (auto) Absolute Nucleated RBC Nucleated RBC % (auto) Smear Tech's Comments VBG pH 7.31 L 7.33 VBG pCO2 39 39 VBG pO2 52 48 VBG HCO3 20 L 21 L VBG O2 Saturation 82.0 80.0 VBG Base Excess -5.1 -4.3 Sodium Potassium Chloride Carbon Dioxide Anion Gap BUN Creatinine Estim Creat Clear Calc Estimated GFR POC Glucose 116 H Random Glucose Calcium Phosphorus Magnesium Total Bilirubin AST ALT Alkaline Phosphatase Total Protein Albumin 06/01/22 08:43 WBC RBC Hgb Hct MCV MCH MCHC RDW Plt Count MPV Immature Gran % (Auto) Neut % (Auto) Lymph % (Auto) [place] % (Auto) Eos % (Auto) Baso % (Auto) Lymph # (Auto) [place] # (Auto) Eos # (Auto) Baso # (Auto) Abs Immat Gran (auto) Absolute Neuts (auto) Absolute Nucleated RBC Nucleated RBC % (auto) Smear Tech's Comments VBG pH VBG pCO2 VBG pO2 VBG HCO3 VBG O2 Saturation VBG Base Excess Sodium Potassium Chloride Carbon Dioxide Anion Gap BUN Creatinine Estim Creat Clear Calc Estimated GFR POC Glucose 133 H Random Glucose Calcium Phosphorus Magnesium Total Bilirubin AST ALT Alkaline Phosphatase Total Protein Albumin Microbiology Microbiology Results: Microbiology 05/30/22 16:45 Blood - Venous Blood Culture - Preliminary No growth after 24 hours. 05/30/22 16:32 Blood - Venous Blood Culture - Preliminary No growth after 24 hours. 05/30/22 15:20 Blood - Venous Blood Culture - Preliminary No growth after 24 hours. 05/30/22 15:19 Blood - Venous Blood Culture - Preliminary No growth after 24 hours. 05/30/22 15:09 Urine clean catch - Urine crisostomo top Urine Culture - Final No growth. Progress Note: A&P Assessment and plan (1) DARREN (acute kidney injury): Status: Acute (2) Septic shock: Status: Acute (3) Acute metabolic encephalopathy: Status: Acute (4) Acute on chronic respiratory failure with hypoxia and hypercapnia: Status: Acute (5) COPD (chronic obstructive pulmonary disease): Status: Acute (6) STEPH (obstructive sleep apnea): Status: Acute (7) Uncontrolled type 2 diabetes mellitus with hyperglycemia: Status: Acute Plan Assessment: 76-year-old gentleman admitted with septic shock with likely source further complicated by acute on chronic hypoxic and hypercapnic respiratory failure requiring BiPAP support and acute kidney injury. Plan: Neuro: No acute issues. Cardiac: Septic shock resolved, titrated off pressors. Pulmonary: Acute no chronic hypoxic and hypercapnic respiratory failure secondary to underlying sepsis initially requiring BiPAP support, now titrated off. Restarted on acetazolamide. Renal: Acute renal failure likely secondary to underlying sepsis, resolved. Continue to monitor renal indices and urine output. Endo: No acute issues. Underlying diabetes mellitus. GI: No acute issues. Gastric distension without obstruction, likely ileus, NG tube still with significant output. ID: Septic shock with likely source. Cultures are pending. Continue broad-spectrum antibiotics. Heme/Onc: No acute issues. Psych: No acute issues. Miscellaneous: No acute issues. Prophylaxis: heparin Diet: NPO Quality Stroke Does the patient have a stroke diagnosis?: No VTE Prior VTE?: No VTE Risk Level:: Medical - moderate - high VTE Device Contraindication: N/A - Device Ordered VTE Drug Contraindication: N/A - Med Ordered
[2022-06-01] MEDS: Lactulose 20 GM/30 ML SOLUTION 30 GM PO (09:53)
[2022-06-01] MEDS: acetaZOLAMIDE sodium 500 MG VIAL 250 MG IVPUSH ×2 (09:54→20:35)
[2022-06-01] MEDS: Metoclopramide HCl 10 MG/2 ML VIAL 5 MG IVPUSH ×2 (09:54→18:08)
[2022-06-01 10:15] LABS: Venous Blood Gas Refer to POC result
--- NOTE | 2022-06-01 10:24 | MHC.CM.PN ---
Pt continues ICU level care. Review of SNF referrals shows several facilities interested and following for clinical stability. Of note, pt had been at [facility] however, pt and family do not wish for a return. Please defer all d/c plans to pt and dtr/HCP Desmaris. [facility] to follow.
[2022-06-01 12:54] LABS: Glucose, Whole Blood 159 mg/dL (60-115)
[2022-06-01 13:12] LABS: MANUAL DIFF FLAG NO
[2022-06-01 13:14] LABS: Basophils Percent Auto 0.1 % (0-2); Hematocrit 34.2 % (42.0-52.0); Hemoglobin 10.6 g/dl (14.0-18.0); Imm Gran Abs Auto 0.26 X10*3/uL (0.00-0.03); Lymphocytes Absolute Auto 0.9 X10*3/uL (1.2-4.9); Lymphocytes Percent Auto 3.4 % (20-40); Mean Corpuscular Hemoglobin 31.6 pg (27.0-33.0); Mean Corpuscular Volume 102.1 fL (80.0-98.0); Mean Platelet Volume 11.5 fL (9.4-12.4); Monocytes Absolute Auto 2.1 X10*3/uL (0.1-1.2); Monocytes Percent Auto 7.6 % (2-11); Neutrophils Absolute Auto 23.6 x10*3/uL (2.0-8.3); Neutrophils Percent Auto 87.9 % (45-73); Platelet Count 202 X10*3/uL (160-400); Red Blood Count 3.35 X10*6/uL (4.60-5.80); Red Cell Distribution Width 13.3 % (11.0-16.0); SCAN SMEAR FLAG 1; White Blood Count 26.9 X10*3/uL (4.8-10.8)
--- NOTE | 2022-06-01 17:20 | PC.NURSE ---
NG TUBE TURNED TO CONTINUOUS SUCTION AND 700 ML OF BROWN BILE NOTED - MD NOTIFIED. LACTULOSE AND REGLAN ORDERED AND ADMINISTERED WITH POSITIVE EFFECT - SEE EMAR. MULTIPLE DARK GREEN/BLACK BMS - INCONTINENT AND BEDSIDE COMMODE THROUGHOUT THE DAY. MD NOTIFIED AND LAB WORK ORDERED. NO CHANGE IN H&H NOTED POST BM. POST BM NG TUBE REMOVED PER MD. PATIENT REMAINS ON 4L NC - TOLERATING WELL. PATIENTS HCP AND SON BEDSIDE TODAY TO HAVE A MEETING WITH THIS RN, AND THE CARTON MAKING MACHINE OPERATOR IN REGARDS TO UPDATE IN MOLST FORM. PATIENT MADE HIS WISHES KNOWN THAT HE DOES NOT WANT TO WEAR A BIPAP ANYMORE. HCP AND FAMILY AGREED AND NEW MOLST FORM COMPLETED AND ADDED TO CHART. PATIENT REMAINS DNR/DNI AND NO BIPAP/CPAP.
[2022-06-01 17:30] LABS: Vancomycin Random 7.8 mcg/mL (15-20)
[2022-06-01 18:00] LABS: Glucose, Whole Blood 197 mg/dL (60-115)
[2022-06-01] MEDS: vancomycin HCL 1,000 MG in 0.9 % Sodium Chloride 250 ML 270 MG IV (20:36)
[2022-06-01 23:51] LABS: Glucose, Whole Blood 206 mg/dL (60-115)
[2022-06-02] VITALS (19 sets, daily range): BP systolic 79–127; BP diastolic 40–70; PULSE 99–170; RESP 15–33; TEMP 36.1–37.4; O2SAT 95–100
[2022-06-02] MEDS: Insulin Lispro 100 UNIT/ML 3 ML VIAL SUBCUT ×4 (00:03→23:55)
[2022-06-02] MEDS: Piperacillin Sodium/Tazobactam 3.375 GM in 0.9 % Sodium Chloride 50 ML IV ×3 (00:04→13:14)
[2022-06-02] MEDS: Metoclopramide HCl 10 MG/2 ML VIAL 5 MG IVPUSH ×2 (03:23→10:47)
[2022-06-02] MEDS: Heparin Sodium,Porcine 5,000 UNIT/ML VIAL 5000 UNIT SUBCUT ×2 (03:23→10:48)
[2022-06-02] MEDS: Lactated Ringers 500 ML 999 ML IV (04:47)
[2022-06-02 04:52] LABS: Glucose, Whole Blood 195 mg/dL (60-115)
[2022-06-02 05:09] LABS: VBG Base Excess -6.5 mmol/L; VBG HCO3 19 mmol/L (22-26); VBG pCO2 37 mmHg; VBG pO2 36 mmHg
[2022-06-02 05:14] LABS: Venous Blood Gas Refer to POC result
[2022-06-02 05:22] LABS: Basophils Percent Auto 0.1 % (0-2); Hematocrit 35.5 % (42.0-52.0); Hemoglobin 11.2 g/dl (14.0-18.0); Imm Gran Abs Auto 0.21 X10*3/uL (0.00-0.03); Imm Gran Pct Auto 0.9 % (0.0-0.4); Lymphocytes Absolute Auto 1.4 X10*3/uL (1.2-4.9); Lymphocytes Percent Auto 5.7 % (20-40); MANUAL DIFF FLAG SCAN; Mean Corpuscular HGB Conc 31.5 g/dl (31.0-36.0); Mean Corpuscular Hemoglobin 32.6 pg (27.0-33.0); Mean Corpuscular Volume 103.2 fL (80.0-98.0); Monocytes Absolute Auto 2.3 X10*3/uL (0.1-1.2); Monocytes Percent Auto 9.5 % (2-11); Neutrophils Absolute Auto 20.5 x10*3/uL (2.0-8.3); Neutrophils Percent Auto 83.8 % (45-73); PLT CLUMP 1; Red Blood Count 3.44 X10*6/uL (4.60-5.80); Red Cell Distribution Width 13.2 % (11.0-16.0); SCAN SMEAR FLAG 1; White Blood Count 24.4 X10*3/uL (4.8-10.8)
[2022-06-02 05:23] LABS: Platelet Count 184 X10*3/uL (160-400)
[2022-06-02 05:26] LABS: Alanine Aminotransferase 40 U/L (0-40); Albumin Level 3.8 g/dL (3.5-5.0); Alkaline Phosphatase 70 U/L (39-117); Anion Gap 16 (12-20); Aspartate Amino Transferase 21 U/L (5-37); Bilirubin Total 0.6 mg/dL (0.0-1.0); Blood Urea Nitrogen 35 mg/dL (9-16); Calcium 8.3 mg/dL (8.4-10.2); Carbon Dioxide 28 mmol/L (22-29); Chloride 106 mmol/L (96-108); Creatinine Clr Calc Pharmacy 75.5; Estimated Glomerular Filt Rate > 60; Glucose Random 223 mg/dL (60-115); Magnesium 1.8 mg/dL (1.6-2.6); Phosphorus 1.9 mg/dL (2.7-4.5); Potassium 4.4 mmol/L (3.3-5.1); Sodium 146 mmol/L (135-145); Total Protein 5.8 g/dL (6.5-8.0)
[2022-06-02 05:34] LABS: SLIDE REVIEW VERIFIED
--- NOTE | 2022-06-02 05:35 | PM.EVENT ---
Event Note Date of Service: 06/02/22 Event Note: bp in the 80s SBP w HR AFIb gave 500cc fluid, w improvement
[2022-06-02] MEDS: Morphine Sulfate 2 MG/ML CARTRIDGE IVPUSH (05:52)
--- NOTE | 2022-06-02 06:25 | PC.NURSE ---
At approx 0400- tele showing new afib, HR 130-170s, BP 82/55 manually, RR 30s, c/o SOB/chest pressure w/ inspiration. EKG ordered and obtained. notified- new order for bolus of LR 500 ml x1, BP 94/54 s/p IVF. Pt converted on own to sinus tach at approx 0430. Still endorsing pain, HR 100-120s, RR 30s- morphine 2mg IVP x1 ordered and administered with good effect. Pt resting comfortably in recliner. Telesitter in room for pt safety.
[2022-06-02] MEDS: vancomycin HCL 1,000 MG in 0.9 % Sodium Chloride 250 ML 270 MG IV (07:56)
[2022-06-02 10:35] LABS: Glucose, Whole Blood 187 mg/dL (60-115)
[2022-06-02] MEDS: Insulin Glargine,Hum.rec.anlog 100 UNIT/ML 10 ML VIAL 15 UNIT SUBCUT (10:47)
[2022-06-02] MEDS: Lactulose 20 GM/30 ML SOLUTION 30 GM PO (10:47)
--- NOTE | 2022-06-02 11:02 | MHC.CM.PN ---
DISCUSSION WITH DAUGHTER TONY ([phone]) SHE IS ON HER WAY IN TO SEE PATIENT AND IS AWARE THAT A NEW MOLST IS ON CHART AND NEEDING OF HER SIGNATURE (ON BOTH SIDES) RN MADE AWARE OF PLAN.
[2022-06-02 12:50] LABS: Ammonia 37 umol/L (13-55)
[2022-06-02 13:05] LABS: Glucose, Whole Blood 207 mg/dL (60-115)
[2022-06-02 13:05] LABS: Anion Gap 13 (12-20); Blood Urea Nitrogen 38 mg/dL (9-16); Carbon Dioxide 28 mmol/L (22-29); Chloride 106 mmol/L (96-108); Creatinine Clr Calc Pharmacy 67.7; Estimated Glomerular Filt Rate > 60; Glucose Random 242 mg/dL (60-115); Potassium 3.9 mmol/L (3.3-5.1); Sodium 143 mmol/L (135-145)
[2022-06-02 13:40] LABS: ABG Base Excess 1.8 mmol/L; ABG HCO3 30 mmol/L (22-26); ABG pCO2 71 mmHg (32-45); ABG pH 7.23 (7.35-7.45); ABG pO2 81 mmHg (83-108)
[2022-06-02 13:54] LABS: ABG Refer to POC result
--- NOTE | 2022-06-02 15:00 | CA_ITS ---
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 Technically very limited study due to poor windows despite use of contrast agent 2. LV systolic function appears to be hyperdynamic with LVEF of greater than 70% with suggestion of mild left ventricular hypertrophy with possible dynamic obstructive physiology 3. Limited visualization of cardiac valves Findings Procedure Information Contrast agent, definity, is being given per protocol without apparent complications. Left Ventricle Normal left ventricular cavity size. There is mildly increased left ventricular wall thickness. The left ventricular systolic function is hyperdynamic. The visually estimated ejection fraction is >70%. Regional wall motion abnormalities can not be excluded due to suboptimal endocardial definition. Diastolic function is indeterminate on the basis of available data. on some views there is increased gradient across LVOT after Valsalva maneuver which may suggest dynamic obstruction. However this is not entirely clear on this study. Right Ventricle The right ventricle was not well visualized. Atria The left atrium was not well visualized. Interatrial shunt cannot be excluded. The right atrium was not well visualized. Aortic Valve The aortic valve was not well visualized. There is no aortic valve regurgitation. Mitral Valve The mitral valve was not well visualized. Pulmonic Valve The pulmonic valve was not well visualized. Tricuspid Valve The tricuspid valve was not well visualized. Tricuspid regurgitation envelope is inadequate for calculation of right ventricular systolic pressure. Great Vessels The aorta was not well visualized. The pulmonary artery was not well visualized. Venous The inferior vena cava was not well visualized. Pericardium/Pleural The pericardium was not well visualized. Prior Study Comparison No prior study available for comparison. Recommendations, Care & Conclusions Consider a MELANIE if clinically appropriate. Measurements 2D Linear Measurements IVSd: 1.38 0.6-0.9/0.6-1.0 cm LVIDd: 2.83 3.9-5.3/4.2-5.9 cm LVIDd Index: 1.50 2.4-3.2/2.2-3.1 cm/m2 LVIDs: 1.86 2.0-3.6 cm LVPWd: 1.33 0.7-1.1 cm Ao Root: 3.30 2.1-3.5 cm LA Diam: 3.20 2.7-3.8/3.0-4.0 cm LAIDs Index: 1.69 1.5-2.3 cm/m2 LV Mass: 153.26 67-162/88-224 g LV Mass Index: 81.09 43-95/49-115 g/m2 LVOT Diam: 2.00 3.0+(-)1.3 cm Mitral Valve MV Pk E: 0.81 MV PK A: 1.35 MV Decel Time: 120.00 E/A: 0.60 E'Lateral: 7.07 E'Medial: 5.66 E/E' Med: 14.20 E/E' Lat: 11.40 PHT: 35.00 MVA PHT: 6.29 Decel Robertson: 6.71 Aortic Valve AoV Pk Gaudencio: 2.54 AoV Mn Gaudencio: 1.77 AoV VTI: 0.46 AoV Pk Grad: 26.00 Aov Mn Grad: 15.00 NIMCO Cont.VTI: 2.09 LVOT LVOT Pk Gaudencio: 1.48 LVOT Mn Gaudencio: 1.07 LVOT VTI: 0.31 LVOT Pk Grad: 9.00 LVOT Mn Grad: 5.00 LVOT Diam: 2.00 LVOT Area: 3.14 Diastolic Function MV Pk E: 0.81 MV Pk A: 1.35 E/A: 0.60 E'Medial: 5.66 E/E' Med: 14.20 E' Laterial: 7.07 E/E' Lat: 11.40 Tricuspid Valve TR Pk Gaudencio: 3.41 TR Pk Grad: 47.00 Great Vessels Aorta Ao Root-2D: 3.30 2.0-3.7 cm Updated in Other Vendor System with Status of Final Harry Bui MD electronically signed on 06/02/2022 5:13:26 PM with status of Final
[2022-06-02] MEDS: 0.9 % Sodium Chloride 1,000 ML 999 ML IVCONT (15:43)
--- NOTE | 2022-06-02 15:43 | P.PNIM_ITS ---
Subjective Subjective Date of Service: 06/02/22 Interval History: Follow-up septic shock, attention Encephalopathic, non verbal Family with patient, BiPAP on Physical Exam Vital Signs: Vital Signs: Last Vital Signs Temp 97.9 F 06/02/22 12:00 Pulse 111 H 06/02/22 15:23 Resp 24 H 06/02/22 15:32 BP 98/55 L 06/02/22 15:23 Pulse Ox 98 06/02/22 15:07 O2 Del Method 06/02/22 15:07 O2 Flow Rate 2 06/02/22 12:00 FiO2 30 06/02/22 15:07 Oxygen Flow Rate 1 05/30/22 15:36 BMI result Body Mass Index 25.2 Appearing in no acute distress lung sounds are clear to auscultation, BIPAP heart regular rate rhythm, clear S1, S2 positive bowel sounds, abdomen is soft, nontender neuro patient is lethargic Objective Data Active Medications Heparin Sodium (Porcine) (Heparin Sodium,Porcine 5,000 Unit/Ml Vial) 5,000 unit SUBCUT Q8H [facility] Last Admin: 06/02/22 10:48 Dose: 5,000 unit Documented By: GOPI Piperacillin Sod/Tazobactam (Sod 3.375 gm/ Sodium Chloride) 50 mls @ 100 mls/hr IV Q6H [facility] Last Infusion: 06/02/22 14:18 Dose: 0 mls/hr Documented By: GOPI Vancomycin HCl 1,000 mg/ (Sodium Chloride) 270 mls @ 270 mls/hr IV Q12H [facility] Last Infusion: 06/02/22 10:10 Dose: 0 mls/hr Documented By: GOPI Sodium Chloride (Ns) 1,000 mls @ 999 mls/hr IVCONT .Q1H1M JENNA Stop: 06/02/22 17:30 Last Admin: 06/02/22 15:43 Dose: 999 mls/hr Documented By: GOPI Insulin Glargine (Insulin Glargine,Hum.Rec.Anlog 100 Unit/Ml 10 Ml Vial) 15 unit SUBCUT DAILY [facility] Last Admin: 06/02/22 10:47 Dose: 15 unit Documented By: GOPI Insulin Human Lispro (Insulin Lispro 100 Unit/Ml 3 Ml Vial) 0 unit SUBCUT Q6H [facility]; Protocol Last Admin: 06/02/22 13:12 Dose: 4 unit Documented By: GOPI Metoclopramide HCl (Metoclopramide Hcl 10 Mg/2 Ml Vial) 5 mg IVPUSH Q8H [facility] Last Admin: 06/02/22 10:47 Dose: 5 mg Documented By: GOPI Pharmacy Consult (Consult Rx Perform Med Rec) 1 each MISCELLANE ONCE PRN PRN Reason: Consult order Pharmacy Consult (Consult Rx Vancomycin Dosing) 1 each MISCELLANE DAILY PRN PRN Reason: Consult order Labs CBC & Chem 7: 06/02/22 05:02 06/02/22 12:38 Labs: Laboratory Results - last 24 hr 06/01/22 06/01/22 06/01/22 17:00 17:56 23:47 MCV MCH MCHC RDW Plt Count MPV Immature Gran % (Auto) Neut % (Auto) Lymph % (Auto) [place] % (Auto) Eos % (Auto) Baso % (Auto) Lymph # (Auto) [place] # (Auto) Eos # (Auto) Baso # (Auto) Abs Immat Gran (auto) Absolute Neuts (auto) Absolute Nucleated RBC Nucleated RBC % (auto) Smear Tech's Comments O2 Saturation ABG pH at Pt Temp ABG pCO2 at Pt Temp ABG pO2 at Pt Temp ABG HCO3 ABG Base Excess (Actual) VBG pH VBG pCO2 VBG pO2 VBG HCO3 VBG O2 Saturation VBG Base Excess Anion Gap Estim Creat Clear Calc Estimated GFR POC Glucose 197 H 206 H Random Glucose Calcium Phosphorus Magnesium Total Bilirubin AST ALT Alkaline Phosphatase Ammonia Total Protein Albumin Random Vancomycin 7.8 L 06/02/22 06/02/22 06/02/22 04:48 05:01 05:02 MCV 103.2 H MCH 32.6 MCHC 31.5 RDW 13.2 Plt Count 184 MPV 12.0 Immature Gran % (Auto) 0.9 H Neut % (Auto) 83.8 H Lymph % (Auto) 5.7 L [place] % (Auto) 9.5 Eos % (Auto) 0.0 Baso % (Auto) 0.1 Lymph # (Auto) 1.4 [place] # (Auto) 2.3 H Eos # (Auto) 0.0 Baso # (Auto) 0.0 Abs Immat Gran (auto) 0.21 H Absolute Neuts (auto) 20.5 H Absolute Nucleated RBC 0.000 Nucleated RBC % (auto) 0.0 Smear Tech's Comments VERIFIED O2 Saturation ABG pH at Pt Temp ABG pCO2 at Pt Temp ABG pO2 at Pt Temp ABG HCO3 ABG Base Excess (Actual) VBG pH 7.30 L VBG pCO2 37 VBG pO2 36 VBG HCO3 19 L VBG O2 Saturation 59.0 VBG Base Excess -6.5 Anion Gap Estim Creat Clear Calc Estimated GFR POC Glucose 195 H Random Glucose Calcium Phosphorus Magnesium Total Bilirubin AST ALT Alkaline Phosphatase Ammonia Total Protein Albumin Random Vancomycin 06/02/22 06/02/22 06/02/22 05:02 10:30 12:38 MCV MCH MCHC RDW Plt Count MPV Immature Gran % (Auto) Neut % (Auto) Lymph % (Auto) [place] % (Auto) Eos % (Auto) Baso % (Auto) Lymph # (Auto) [place] # (Auto) Eos # (Auto) Baso # (Auto) Abs Immat Gran (auto) Absolute Neuts (auto) Absolute Nucleated RBC Nucleated RBC % (auto) Smear Tech's Comments O2 Saturation ABG pH at Pt Temp ABG pCO2 at Pt Temp ABG pO2 at Pt Temp ABG HCO3 ABG Base Excess (Actual) VBG pH VBG pCO2 VBG pO2 VBG HCO3 VBG O2 Saturation VBG Base Excess Anion Gap 16 13 Estim Creat Clear Calc 75.5 67.7 Estimated GFR > 60 > 60 POC Glucose 187 H Random Glucose 223 H D 242 H Calcium 8.3 L 8.0 L Phosphorus 1.9 L Magnesium 1.8 Total Bilirubin 0.6 AST 21 ALT 40 Alkaline Phosphatase 70 D Ammonia Total Protein 5.8 L Albumin 3.8 Random Vancomycin 06/02/22 06/02/22 06/02/22 12:38 13:02 13:34 MCV MCH MCHC RDW Plt Count MPV Immature Gran % (Auto) Neut % (Auto) Lymph % (Auto) [place] % (Auto) Eos % (Auto) Baso % (Auto) Lymph # (Auto) [place] # (Auto) Eos # (Auto) Baso # (Auto) Abs Immat Gran (auto) Absolute Neuts (auto) Absolute Nucleated RBC Nucleated RBC % (auto) Smear Tech's Comments O2 Saturation 97.0 ABG pH at Pt Temp 7.23 L ABG pCO2 at Pt Temp 71 H* ABG pO2 at Pt Temp 81 L ABG HCO3 30 H ABG Base Excess (Actual) 1.8 VBG pH VBG pCO2 VBG pO2 VBG HCO3 VBG O2 Saturation VBG Base Excess Anion Gap Estim Creat Clear Calc Estimated GFR POC Glucose 207 H Random Glucose Calcium Phosphorus Magnesium Total Bilirubin AST ALT Alkaline Phosphatase Ammonia 37 Total Protein Albumin Random Vancomycin Microbiology Microbiology Results: Microbiology 05/30/22 16:45 Blood Culture - Preliminary Blood - Venous No growth after 48 hours. 05/30/22 16:32 Blood Culture - Preliminary Blood - Venous No growth after 48 hours. 05/30/22 15:20 Blood Culture - Preliminary Blood - Venous No growth after 48 hours. 05/30/22 15:19 Blood Culture - Preliminary Blood - Venous No growth after 48 hours. Assessment and Plan (1) Encephalopathy: Status: Acute (2) Acute on chronic respiratory failure with hypoxia and hypercapnia: Status: Acute Plan 76-year-old male with past medical history COPD presents to the hospital with acute on chronic respiratory failure found to be hypoxic as well as hypercapnic and confused patient was admitted to medical floor with a diagnosis of acute encephalopathy, however on 05/17 patient became combative, agitated pulling oxygen he was given Haldol subsequently he became somnolent ABG showed a pH of 7.26 patient was subsequently transferred to ICU for rescue BiPAP, patient was treated with BiPAP and despite improvement in CO2 he was noted to be sedated it was felt that his symptoms are also related to use of high-dose narcotics and benzos patient was recently given a prescription that he finished in short duration of time, since patient became more awake alert with stable CO2 he was transferred to [facility] on 05/23 and then subsequently discharged on 05/28/2022. He was then admitted to the ICU again on 05/30/2022 with altered mental status from long- term care facility. Apparently patient was unresponsive and only responding to painful stimuli with systolic blood pressures in the 70s. He was treated with pressors and BiPAP. Patient was subsequently transferred to medical floor yesterday. He has had issues today with hypotension and worsening encephalopathy. Had discussions with patient's healthcare proxy she was told by the patient that he does not want resuscitation or intubation but is okay with BiPAP for respiratory emergency. 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 For now patient will stay on hospitalist service, case discussed with Dr. Yuval osman, biochemistry teacher he is aware that if patient declines overnight he will be switched to the ICU service. Possible Stroke Findings from head CT on 05/30/2022 show loss of white matter differentiation in the left frontal lobe raising concern for infarction with acute infarction unable to be excluded, previous head CT from 05/16/2022 was negative Will proceed with stroke workup including neurology consultation, echocardiogram, carotid ultrasound, speech and swallow evaluation Remains NPO for now Will repeat head CT Hypotension. Unknown etiology, possibly hypovolemia Patient not on any antihypertensive medications No sepsis found as x-ray does not show over pneumonia, urine culture negative and patient has been on vancomycin and Zosyn Will treat with IV fluids as patient has had little volume due to question of bowel obstruction for which he had an NG tube, that was discontinued Toxic metabolic encephalopathy Possibly related to hypercarbia versus other etiology Patient assessed dictating BiPAP at this time Will follow blood gas No obvious infection noted Acute on chronic respiratory failure with hypoxia and hypercarbia Seems to all have started in January 2022 CT scan not showing any overt emphysema or chronic lung disease for now continue with BiPAP Diabetes mellitus Sliding scale NPO UTI Treated with Zosyn Urine culture negative Attending doctor Kahlil DNR/DNI Healthcare proxy [place] [phone] 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
--- NOTE | 2022-06-02 16:25 | P.CONCC_ITS ---
History of Present Illness Data of Consult Service Date: 06/02/22 Requesting physician: Thais Neri Primary Care Provider: Unknown Physician HPI I was asked to look at Mr. Sebas Marcus by VALENTINE Neri bec of AMS and hypotension. The patient is well known to me from admission to the ICU on May 17 during his previous admission.? 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 Not on oxygen at home.? Notable is the fact that his serum bicarb levels had been normal prior to the last hospitalization, so it would seem that he did not have chronic CO2 retention.? Furthermore, the patient was reportedly on valium, baclofen, and opiates for ? ?abdominal spasms?. The patient was admitted to [facility] on May 15 on bec of hypercarbic and hypoxemic resp failure due to COPD exacerbation, and toxic encephalopathy 2? to his meds.? He was transferred to ICU for BiPAP on May 17 because of altered mental status and hypercarbia.? Treated with bronchodilators, steroids, and b riefly Diamox.? His base excess resolved easily.? Sedating medications were held.? He improved, was transferred back to the floor on May 18, and was discharged to [facility] on May 29 on nocturnal BiPAP. The patient was transferred back to [facility] the next day, May 30, bec of AMS and WBC of 33K at the SNF.? In the ED, he was also hypotensive.? He came in with DNR /DNI status.? He was afebrile.? WBC was 29 (was ), BUN/creat 54/1.5 (baseline 20/0.8), lactate was negative.? VBG showed 7.10/73/-7.? Thought to have septic shock 2? source, and hypercarbic respiratory failure.? A head CT was were read by the radiologist as showing loss of crisostomo-white differentiation in the left frontal lobe, suggestive of a stroke. A CVC was placed and the patient was started on pressors, abx, volume resuscitation, and BiPAP, and admitted to ICU.? Abdominal CT demonstrated a dilated stomach, without obstruction or ileus.? An NG tube was placed for decompression. Shock and DARREN resolved rapidly and the pressors were titrated off. ?By the following morning (May 31), the venous pCO2 was down to 42. ?BiPAP was removed and patient was put on nasal cannula oxygen, The NG tube was removed.? The patient was transferred to medicine yesterday afternoon (Jun 01).? Last night, he pulled his central line out. Overnight last night, the patient was on 2-4 L oxygen by nasal cannula (not on BiPAP). ?Early this morning, he dropped his blood pressure to the 80s, and briefly went into atrial fibrillation with RVR. ?He was volume resuscitated and converted spontaneously to sinus rhythm.? Blood pressure went up into the 110s. ?The venous pCO2 was 37.? Early this afternoon he was found obtunded.? An arterial blood gas at 13:30 showed 7.23/71/81/+1 (unstated FiO2).? The patient was put back on BiPAP.? Subsequently, his blood pressure dropped into the 80s. At some point during the day today, a MOLST form was signed indicating DNR/DNI and no NIV. ?I was asked to offer an opinion on the whole affair. On my exam at 1644, the patient is quite somnolent, took very vigorous stimulation to get him to barely make eye opening movements and verbalize some groans.? No speech.? After about 500cc fluid, HR was 109, SR, BP 106/55.? On BiPAP 15/5/30%, RR 13-18, ? Joey Adkins, with Vt 300-750 cc, Ve 6.8L, leak 60cm, SpO2 98-100%.? No JVD at 30?.? Auscultation of the chest on the right shows very diminished breath sounds; I heard no wheezes.? Expiratory phase probably normal.? On the left, breath sounds were obscured by a loud 2-3/6 systolic ejection murmur. LABORATORY DATA:? Below.? Notably, WBC is steady at 24.? BUN and creatinine down to 38/0.8.? Ammonia level 37. ECHO done today by the tech with me watching, interpreted by me.? Findings:? Mild LVH.? Hyperdynamic LV fxn.? Dr. Ramya suggests the possibility of dynamic obstructive physiology.? Right ventricle was normal size and function.? Tricuspid valve CWD measured 2.1 m/s.? The IVC measured 1.2 cm; inspiratory collapse could not be assessed.? RVSP estimate is normal. MICROBIOLOGY:? Urine and blood cultures were negative. IMPRESSION: 1. Underlying obesity 2. 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 3. Underlying COPD.? He does not appear to be a chronic CO2 retainer. 4. Acute hypercarbic and hypoxemic resp failure on admission.? The cause is unclear, other than there was no evidence of pneumonia or CHF or severe CLD. 5. Hypotension on admission.? Cause is unclear.? Other than the WBC, which was not new, there was no evidence of sepsis (no fever, normal lactate, and all cultures negative).? Undoubtedly, he was hypovolemic though. 6. AMS on admission.? From his last admission, I suspect that he likely has underlying dementia.? Additional findings on the current admission included hypercarbia, hypotension, and ? an early stroke on the admission head CT.? I looked at his head CT from May 30 and compared it to the CT from 05/16.? I see no difference.? The patient needs a f/u head CT today or tomorrow to determine if he?s had a stroke. 7. DARREN.? With markedly elevated renal ratios.? Most likely 2? hypovolemia.? Would give him 2L Lactated Ringers now. 8. Hypercarbic resp failure today.? Cause is unclear.? The patient is not getting BDs or steroids.? I will start him on both, see if it makes a d ifference.? 9. Hypotension this afternoon.? Likely 2? hypovolemia.? Corrected quickly w fluids. 10. Acute obtundation today:? Metabolic encephalopathy.? Cause is likely 2? CO2 narcosis.? Treat w BiPAP.? And needs a repeat head CT. 11. DM.? On SSI and Lantus. 12. ID:? I don?t think he?s septic and I see no indication for Abx at this time. The main issue with this patient is where this is all headed -- which is critically dependent on his mental status.? Needs a head CT to determine if he?s actually had a stroke.? If so, the decision to move to HAND HOSE CUTTER status may be straightfwd.? If not, then further thought should be given to the cause of his AMS when he?s not hypercarbic, and why he keeps having episodes of hypercarbia.? (There?s no question that he becomes obtunded when his pCO2 is in the 70s.) Lastly, attention needs to be directed to his feeding.? This man is clearly in the ending phase of his life, and is no candidate for a feeding tube.? Accordingly, if he is unable to ingest the volume of food needed to sustain himself, then there is no point in any care management other than HAND HOSE CUTTER status. Time (including full chart rev and mult d/w VALENTINE Neri):? 120 min. [facility] Past Medical History Medical History Anemia Benign prostatic hyperplasia without lower urinary tract symptoms Chest pain Chronic GERD Erectile dysfunction HLD (hyperlipidemia) HTN (hypertension) Hypertriglyceridemia Hypertrophic cardiomegaly Hypoventilation syndrome Hypoxia Mild bibasilar atelectasis STEPH (obstructive sleep apnea) Osteoarthritis Reactive airway disease T2DM (type 2 diabetes mellitus) Type 2 diabetes mellitus Uncontrolled type 2 diabetes mellitus with hyperglycemia Vitamin D deficiency Family History Family History Father No problems noted. Mother No problems noted. Surgical History Surgical History History of eye surgery History of left knee surgery History of removal of testicle Social History Social History Household Members: None [facility]: [facility] Do you presently have visiting nurse or other home services: Yes ([employer] for 13 hrs /day. Visiting nurse weekly) Unable to assess alcohol history related to: Unable to respond Alcohol intake: never Patient Tobacco Use Status: Former Tobacco user Use of substances other than those prescribed or required for medical reasons: Unknown Currently Displaying Signs/Symptoms of Drug Intoxication Withdrawal: No Advance Directives: Yes Advance Directives on File: Yes Advance Directives Date on File: 06/02/22 Do you have thoughts of harming others: None Do you have a plan to hurt others: No Plan Recently lost weight without trying: Unsure service: No Current occupational status: disabled Meds Allergies Allergy/AdvReac Type Severity Reaction Status Date / Time No Known Allergies Allergy Verified 05/14/22 08:35 Active Medications: Current Medications Heparin Sodium (Porcine) (Heparin Sodium,Porcine 5,000 Unit/Ml Vial) 5,000 unit SUBCUT Q8H [facility] Last Admin: 06/02/22 10:48 Dose: 5,000 unit Piperacillin Sod/Tazobactam (Sod 3.375 gm/ Sodium Chloride) 50 mls @ 100 mls/hr IV Q6H [facility] Last Infusion: 06/02/22 14:18 Dose: Infused Vancomycin HCl 1,000 mg/ (Sodium Chloride) 270 mls @ 270 mls/hr IV Q12H [facility] Last Infusion: 06/02/22 10:10 Dose: Infused Lactated Ringer's (Lr) 1,000 mls @ 999 mls/hr IV .Q1H1M [facility] Stop: 06/02/22 17:30 Insulin Glargine (Insulin Glargine,Hum.Rec.Anlog 100 Unit/Ml 10 Ml Vial) 15 un it SUBCUT DAILY [facility] Last Admin: 06/02/22 10:47 Dose: 15 unit Insulin Human Lispro (Insulin Lispro 100 Unit/Ml 3 Ml Vial) 0 unit SUBCUT Q6H [facility]; Protocol Last Admin: 06/02/22 13:12 Dose: 4 unit Metoclopramide HCl (Metoclopramide Hcl 10 Mg/2 Ml Vial) 5 mg IVPUSH Q8H [facility] Last Admin: 06/02/22 10:47 Dose: 5 mg Pharmacy Consult (Consult Rx Perform Med Rec) 1 each MISCELLANE ONCE PRN PRN Reason: Consult order Pharmacy Consult (Consult Rx Vancomycin Dosing) 1 each MISCELLANE DAILY PRN PRN Reason: Consult order Home Medications Medication Instructions Recorded Confirmed Last Taken Type cholecalciferol (vitamin D3) 50 50 mcg PO DAILY 06/23/20 05/30/22 Unknown History mcg (2,000 unit) tablet ferrous sulfate 325 mg (65 mg 325 mg PO DAILY 06/23/20 05/30/22 Unknown History iron) tablet hydrocodone 5 mg-acetaminophen 300 1 tab PO Q8H PRN Pain (Scale Score 06/23/20 05/30/22 Unknown History mg tablet 4-6) lancets 33 gauge #100 ea 06/23/20 04/14/22 Unknown History magnesium oxide 400 mg PO BID 06/23/20 05/30/22 Unknown History metoprolol succinate 100 mg 100 mg PO DAILY 06/23/20 05/30/22 Unknown History tablet,extended release 24 hr albuterol sulfate 90 mcg/actuation 2 inh inhalation Q4H PRN Shortness 06/10/21 05/30/22 Unknown History aerosol inhaler (Ventolin HFA) Of Breath irbesartan 300 mg tablet 300 mg PO DAILY 11/06/21 05/30/22 Unknown History amitriptyline 10 mg tablet 1 tab PO BEDTIME 01/30/22 05/30/22 Unknown History aspirin 81 mg tablet,delayed 1 tab PO DAILY 01/31/22 05/30/22 Unknown History release nitroglycerin 0.4 mg sublingual 0.4 mg sublingual Q5M PRN Chest 01/31/22 05/30/22 Unknown History tablet Pain sertraline 25 mg tablet 12.5 mg PO DAILY 03/05/22 05/30/22 Unknown History atorvastatin 20 mg tablet 20 mg PO BEDTIME 05/14/22 05/30/22 Unknown History dulaglutide 3 mg/0.5 mL 3 mg subcut QWEEK 05/14/22 05/30/22 Unknown History subcutaneous pen injector (Trulicity) famotidine 20 mg tablet 20 mg PO BID heartburn 05/14/22 05/30/22 Unknown History pen needle, diabetic 31 gauge x #50 ea 05/14/22 Unknown History 3 (BD Ultra-Fine Mini Pen Needle) pen needle, diabetic 32 gauge x #50 ea 05/14/22 Unknown History (UltiCare Pen Needle) fluticasone propionate 50 2 spray intranasal DAILY 05/15/22 05/30/22 Unknown History mcg/actuation nasal spray,suspension insulin glargine 100 unit/mL (3 24 unit subcut QAM 05/15/22 05/30/22 Unknown H istory mL) subcutaneous pen (Lantus Solostar U-100 Insulin) Physical Exam Vital Signs: Vital Signs: Last Vital Signs Temp 97.9 F 06/02/22 12:00 Pulse 99 06/02/22 16:00 Resp 15 06/02/22 16:00 BP 91/40 L 06/02/22 16:00 Pulse Ox 99 06/02/22 16:00 O2 Del Method 06/02/22 16:00 O2 Flow Rate 2 06/02/22 12:00 FiO2 30 06/02/22 16:00 Oxygen Flow Rate 1 05/30/22 15:36 BMI result Body Mass Index 25.2 Results Labs CBC & Chem 7: 06/02/22 05:02 06/02/22 12:38 Labs: Short CBC 06/02/22 Range/Units 05:02 WBC 24.4 H (4.8-10.8) X10*3/uL Hgb 11.2 L (14.0-18.0) g/dl Hct 35.5 L (42.0-52.0) % Plt Count 184 (160-400) X10*3/uL BMP 06/02/22 06/02/22 05:02 12:38 Sodium 146 H 143 Potassium 4.4 3.9 Chloride 106 106 Carbon Dioxide 28 28 BUN 35 H 38 H Creatinine 0.78 0.87 Calcium 8.3 L 8.0 L Liver Function 06/02/22 Range/Units 05:02 Total Bilirubin 0.6 (0.0-1.0) mg/dL AST 21 (5-37) U/L ALT 40 (0-40) U/L Alkaline Phosphatase 70 D (39-117) U/L Albumin 3.8 (3.5-5.0) g/dL Microbiology Microbiology Results: Microbiology 05/30/22 16:45 Blood - Venous Blood Culture - Preliminary No growth after 48 hours. 05/30/22 16:32 Blood - Venous Blood Culture - Preliminary No growth after 48 hours. 05/30/22 15:20 Blood - Venous Blood Culture - Preliminary No growth after 48 hours. 05/30/22 15:19 Blood - Venous Blood Culture - Preliminary No growth after 48 hours. 05/30/22 15:09 Urine clean catch - Urine crisostomo top Urine Culture - Final No growth.
[2022-06-02] MEDS: Lactated Ringers 1,000 ML 999 ML IV ×2 (17:10→23:53)
[2022-06-02 17:55] LABS: Glucose, Whole Blood 192 mg/dL (60-115)
[2022-06-02 18:22] LABS: Vancomycin Random 16.7 mcg/mL (15-20)
[2022-06-02 19:25] LABS: OBS Int Ctl Valid YES; OBS1 POSITIVE (NEGATIVE)
[2022-06-02] MEDS: Lactated Ringers 1,000 ML 500 ML IVCONT (19:56)
[2022-06-02] MEDS: methylPREDNISolone Sod Succ 125 MG/2 ML VIAL 60 MG IVPUSH (21:36)
[2022-06-02] MEDS: Pantoprazole Sodium 40 MG/10 ML VIAL 80 MG IVPUSH (21:57)
[2022-06-02 22:23] LABS: ABG Base Excess 2.7 mmol/L; ABG HCO3 28 mmol/L (22-26); ABG pCO2 47 mmHg (32-45); ABG pH 7.37 (7.35-7.45); ABG pO2 110 mmHg (83-108)
[2022-06-02 22:40] LABS: MANUAL DIFF FLAG NO
[2022-06-02 22:41] LABS: Basophils Percent Auto 0.1 % (0-2); Eosinophils Percent Auto 0.1 % (0-4); Hematocrit 22.4 % (42.0-52.0); Hemoglobin 7.1 g/dl (14.0-18.0); Imm Gran Abs Auto 0.13 X10*3/uL (0.00-0.03); Imm Gran Pct Auto 0.7 % (0.0-0.4); Lymphocytes Absolute Auto 0.8 X10*3/uL (1.2-4.9); Lymphocytes Percent Auto 4.5 % (20-40); Mean Corpuscular HGB Conc 31.7 g/dl (31.0-36.0); Mean Corpuscular Hemoglobin 32.3 pg (27.0-33.0); Mean Corpuscular Volume 101.8 fL (80.0-98.0); Mean Platelet Volume 11.2 fL (9.4-12.4); Monocytes Absolute Auto 1.4 X10*3/uL (0.1-1.2); Monocytes Percent Auto 7.9 % (2-11); Neutrophils Absolute Auto 15.2 x10*3/uL (2.0-8.3); Neutrophils Percent Auto 86.7 % (45-73); Platelet Count 132 X10*3/uL (160-400); Red Cell Distribution Width 13.3 % (11.0-16.0); White Blood Count 17.5 X10*3/uL (4.8-10.8)
[2022-06-02 22:47] LABS: INTERNATIONAL NORM RATIO 1.2 (0.9-1.1); Prothrombin Time 14.1 SEC (10.0-13.1)
--- NOTE | 2022-06-02 22:50 | PM.CCPN ---
Subjective Subjective Date of Service: 06/02/22 Interval History: Clinical Precedent to this date: ?Please see doctors temp progress note from this morning for details on admission and brief hospital course. Subjective:? Today pt ?around 20:30, became hypotensive and had a very large black bowel movement.? Stool why act checked earlier was positive.? The patient remains on BiPAP due to hypercarbic respiratory failure.? He did not vomit, there was no retching.? Appears to be somewhat confused although follows basic commands upon request ? Focused Review of systems: ?Unable to obtain ? Objective VS: ?89/62, 112, 20, 100% on BiPAP at 30% FiO2 General:? Alert follows basic commands,. ? Skin:? Intact, no lesions or rash Cardiac:? Clear S1-S2, no murmurs rubs or gallops. Pulmonary:? Clear to auscultation, no wheezes, rales or rhonchi. Abdomen:? Protuberant, positive bowel sounds in all 4 quadrants.? Soft, nontender Musculoskeletal:? Moving all 4 extremities upon request a major joints, no calf tenderness, no edema. Neurologic:? As above, no focal deficits. Vascular:? 2+ pulses upper and lower extremities distally. ? SIGNIFICANT LABORATORY DATA:? Repeated labs 2230 pm white count 17.5, H&H of 7.1 and 22.4 respectively (down from 11.2 and 35.5 respectively), platelets 132 down from 184. PT 14.1 INR 1.2 ABG? pH 7.37, pCO2 47, PO2 110, HC03 28 Sodium 145, potassium 3.5, chloride 112, carbon dioxide 29, anion gap 8, BUN 35, creatinine 0.77.? Random glucose 192.? Albumin 2.8. ? ? REVISED ASSESSMENT 1. Acute upper GI bleed 2. Acute blood loss anemia 3. Acute kidney injury due to volume depletion and hypoperfusion 4. Acute thrombocytopenia likely in the setting of aspirin consumption and current sepsis 5. Hypercarbic respiratory failure 6. Agitation due to BiPAP use and current illness 7. Hypomagnesemia and hypophosphatemia PLAN OF CARE: Laboratories were ready obtained, it is clear that the patient lost at least 3-4 units of blood given the decrease in the H&H although some of what can be delusional as the patient received 500 cc of IV fluids. Will continue with volume resuscitation, will order LR IV bolus x1, type and cross, packed red blood cells x1 unit.? Will check H&H every 4 hours.? DC heparin. ?Replace magnesium and phosphorus, administer albumin salt.? Will start him on Protonix 80 mg IV x1 followed by a drip, there is no history of liver disease to my knowledge. The patient will need placement of a new central line for which verbal consent was obtained from the patient's healthcare proxy Malik Mattson [phone], who is aware of all the above, she also understands the need of transfusion. ?I also explained to her the possible need of an upper endoscopy may be later on today or tomorrow morning depending on the specialist decision. At 10:55 pm ?the case was discussed with Dr Shin (student support services director) who is aware of all the above, certainly the patient deteriorates and has more bleeding tonight,? he would like to be called, otherwise the patient will be scoped in the morning. GI PROPHYLAXIS: ?IV ppi DVT prophylaxis: ?Dc heparin due to bleed, place pneumatic stockings. Critical care time used for critical evaluation of this patient, diagnosis, treatment and coordination of care, review her records and documentation TOTAL CRITICAL CARE TIME 90 MIN; discussion and coordination with consultants, completely separate from any procedures performed. Patient's care was discussed in detail with Dr. Cantu.? He is aware of all the above as well as the plan of care for this patient.? Critical Care Time (minutes): 90 Physical Exam Vital Signs: Vital Signs: Last Vital Signs Temp 97.9 F 06/02/22 12:00 Pulse 112 H 06/02/22 20:00 Resp 20 06/02/22 20:00 BP 89/62 L 06/02/22 20:00 Pulse Ox 100 06/02/22 20:00 O2 Del Method 06/02/22 20:00 O2 Flow Rate 2 06/02/22 12:00 FiO2 30 06/02/22 20:00 Oxygen Flow Rate 1 05/30/22 15:36 BMI result Body Mass Index 25.2 Objective Data Labs CBC & Chem 7: 06/03/22 05:15 06/03/22 05:15 Labs: Laboratory Results - last 24 hr 06/01/22 06/02/22 06/02/22 23:47 04:48 05:01 WBC RBC Hgb Hct MCV MCH MCHC RDW Plt Count MPV Immature Gran % (Auto) Neut % (Auto) Lymph % (Auto) Clarke % (Auto) Eos % (Auto) Baso % (Auto) Lymph # (Auto) Clarke # (Auto) Eos # (Auto) Baso # (Auto) Abs Immat Gran (auto) Absolute Neuts (auto) Absolute Nucleated RBC Nucleated RBC % (auto) Smear Tech's Comments PT INR O2 Saturation ABG pH at Pt Temp ABG pCO2 at Pt Temp ABG pO2 at Pt Temp ABG HCO3 ABG Base Excess (Actual) VBG pH 7.30 L VBG pCO2 37 VBG pO2 36 VBG HCO3 19 L VBG O2 Saturation 59.0 VBG Base Excess -6.5 Sodium Potassium Chloride Carbon Dioxide Anion Gap BUN Creatinine Estim Creat Clear Calc Estimated GFR POC Glucose 206 H 195 H Random Glucose Calcium Phosphorus Magnesium Total Bilirubin AST ALT Alkaline Phosphatase Ammonia Troponin I High Sens Total Protein Albumin Stool Occult Blood Random Vancomycin 06/02/22 06/02/22 06/02/22 05:02 05:02 05:02 WBC 24.4 H RBC 3.44 L Hgb 11.2 L Hct 35.5 L MCV 103.2 H MCH 32.6 MCHC 31.5 RDW 13.2 Plt Count 184 MPV 12.0 Immature Gran % (Auto) 0.9 H Neut % (Auto) 83.8 H Lymph % (Auto) 5.7 L Clarke % (Auto) 9.5 Eos % (Auto) 0.0 Baso % (Auto) 0.1 Lymph # (Auto) 1.4 Clarke # (Auto) 2.3 H Eos # (Auto) 0.0 Baso # (Auto) 0.0 Abs Immat Gran (auto) 0.21 H Absolute Neuts (auto) 20.5 H Absolute Nucleated RBC 0.000 Nucleated RBC % (auto) 0.0 Smear Tech's Comments VERIFIED PT INR O2 Saturation ABG pH at Pt Temp ABG pCO2 at Pt Temp ABG pO2 at Pt Temp ABG HCO3 ABG Base Excess (Actual) VBG pH VBG pCO2 VBG pO2 VBG HCO3 VBG O2 Saturation VBG Base Excess Sodium 146 H Potassium 4.4 Chloride 106 Carbon Dioxide 28 Anion Gap 16 BUN 35 H Creatinine 0.78 Estim Creat Clear Calc 75.5 Estimated GFR > 60 POC Glucose Random Glucose 223 H D Calcium 8.3 L Phosphorus 1.9 L Magnesium 1.8 Total Bilirubin 0.6 AST 21 ALT 40 Alkaline Phosphatase 70 D Ammonia Troponin I High Sens 16.0 D Total Protein 5.8 L Albumin 3.8 Stool Occult Blood Random Vancomycin 06/02/22 06/02/22 06/02/22 10:30 12:38 12:38 WBC RBC Hgb Hct MCV MCH MCHC RDW Plt Count MPV Immature Gran % (Auto) Neut % (Auto) Lymph % (Auto) Clarke % (Auto) Eos % (Auto) Baso % (Auto) Lymph # (Auto) Clarke # (Auto) Eos # (Auto) Baso # (Auto) Abs Immat Gran (auto) Absolute Neuts (auto) Absolute Nucleated RBC Nucleated RBC % (auto) Smear Tech's Comments PT INR O2 Saturation ABG pH at Pt Temp ABG pCO2 at Pt Temp ABG pO2 at Pt Temp ABG HCO3 ABG Base Excess (Actual) VBG pH VBG pCO2 VBG pO2 VBG HCO3 VBG O2 Saturation VBG Base Excess Sodium 143 Potassium 3.9 Chloride 106 Carbon Dioxide 28 Anion Gap 13 BUN 38 H Creatinine 0.87 Estim Creat Clear Calc 67.7 Estimated GFR > 60 POC Glucose 187 H Random Glucose 242 H Calcium 8.0 L Phosphorus Magnesium Total Bilirubin AST ALT Alkaline Phosphatase Ammonia 37 Troponin I High Sens Total Protein Albumin Stool Occult Blood Random Vancomycin 06/02/22 06/02/22 06/02/22 13:02 13:34 17:42 WBC RBC Hgb Hct MCV MCH MCHC RDW Plt Count MPV Immature Gran % (Auto) Neut % (Auto) Lymph % (Auto) Clarke % (Auto) Eos % (Auto) Baso % (Auto) Lymph # (Auto) Clarke # (Auto) Eos # (Auto) Baso # (Auto) Abs Immat Gran (auto) Absolute Neuts (auto) Absolute Nucleated RBC Nucleated RBC % (auto) Smear Tech's Comments PT INR O2 Saturation 97.0 ABG pH at Pt Temp 7.23 L ABG pCO2 at Pt Temp 71 H* ABG pO2 at Pt Temp 81 L ABG HCO3 30 H ABG Base Excess (Actual) 1.8 VBG pH VBG pCO2 VBG pO2 VBG HCO3 VBG O2 Saturation VBG Base Excess Sodium Potassium Chloride Carbon Dioxide Anion Gap BUN Creatinine Estim Creat Clear Calc Estimated GFR POC Glucose 207 H Random Glucose Calcium Phosphorus Magnesium Total Bilirubin AST ALT Alkaline Phosphatase Ammonia Troponin I High Sens Total Protein Albumin Stool Occult Blood Random Vancomycin 16.7 06/02/22 06/02/22 06/02/22 17:52 18:38 22:17 WBC RBC Hgb Hct MCV MCH MCHC RDW Plt Count MPV Immature Gran % (Auto) Neut % (Auto) Lymph % (Auto) Clarke % (Auto) Eos % (Auto) Baso % (Auto) Lymph # (Auto) Clarke # (Auto) Eos # (Auto) Baso # (Auto) Abs Immat Gran (auto) Absolute Neuts (auto) Absolute Nucleated RBC Nucleated RBC % (auto) Smear Tech's Comments PT INR O2 Saturation 100.0 ABG pH at Pt Temp 7.37 ABG pCO2 at Pt Temp 47 H ABG pO2 at Pt Temp 110 H ABG HCO3 28 H ABG Base Excess (Actual) 2.7 VBG pH VBG pCO2 VBG pO2 VBG HCO3 VBG O2 Saturation VBG Base Excess Sodium Potassium Chloride Carbon Dioxide Anion Gap BUN Creatinine Estim Creat Clear Calc Estimated GFR POC Glucose 192 H Random Glucose Calcium Phosphorus Magnesium Total Bilirubin AST ALT Alkaline Phosphatase Ammonia Troponin I High Sens Total Protein Albumin Stool Occult Blood POSITIVE Random Vancomycin 06/02/22 06/02/22 22:35 22:35 WBC 17.5 H RBC 2.20 L D Hgb 7.1 L D Hct 22.4 L D MCV 101.8 H MCH 32.3 MCHC 31.7 RDW 13.3 Plt Count 132 L D MPV 11.2 Immature Gran % (Auto) 0.7 H Neut % (Auto) 86.7 H Lymph % (Auto) 4.5 L Clarke % (Auto) 7.9 Eos % (Auto) 0.1 Baso % (Auto) 0.1 Lymph # (Auto) 0.8 L Clarke # (Auto) 1.4 H Eos # (Auto) 0.0 Baso # (Auto) 0.0 Abs Immat Gran (auto) 0.13 H Absolute Neuts (auto) 15.2 H Absolute Nucleated RBC 0.000 Nucleated RBC % (auto) 0.0 Smear Tech's Comments PT 14.1 H INR 1.2 H O2 Saturation ABG pH at Pt Temp ABG pCO2 at Pt Temp ABG pO2 at Pt Temp ABG HCO3 ABG Base Excess (Actual) VBG pH VBG pCO2 VBG pO2 VBG HCO3 VBG O2 Saturation VBG Base Excess Sodium Potassium Chloride Carbon Dioxide Anion Gap BUN Creatinine Estim Creat Clear Calc Estimated GFR POC Glucose Random Glucose Calcium Phosphorus Magnesium Total Bilirubin AST ALT Alkaline Phosphatase Ammonia Troponin I High Sens Total Protein Albumin Stool Occult Blood Random Vancomycin Microbiology Microbiology Results: Microbiology 05/30/22 16:45 Blood - Venous Blood Culture - Preliminary No growth after 48 hours. 05/30/22 16:32 Blood - Venous Blood Culture - Preliminary No growth after 48 hours. 05/30/22 15:20 Blood - Venous Blood Culture - Preliminary No growth after 48 hours. 05/30/22 15:19 Blood - Venous Blood Culture - Preliminary No growth after 48 hours. 05/30/22 15:09 Urine clean catch - Urine crisostomo top Urine Culture - Final No growth. Quality Stroke Does the patient have a stroke diagnosis?: No VTE Prior VTE?: No VTE Risk Level:: Medical - moderate - high VTE Device Contraindication: N/A - Device Ordered VTE Drug Contraindication: N/A - Med Ordered
[2022-06-02] MEDS: Pantoprazole Sodium 80 MG in 0.9 % Sodium Chloride 80 ML 10 MG IV (22:54)
[2022-06-02 22:55] LABS: ABG Refer to POC result
[2022-06-02 23:05] LABS: Alanine Aminotransferase 32 U/L (0-40); Albumin Level 2.8 g/dL (3.5-5.0); Alkaline Phosphatase 50 U/L (39-117); Anion Gap 8 (12-20); Aspartate Amino Transferase 16 U/L (5-37); Bilirubin Total 0.5 mg/dL (0.0-1.0); Blood Urea Nitrogen 35 mg/dL (9-16); Calcium 7.6 mg/dL (8.4-10.2); Carbon Dioxide 29 mmol/L (22-29); Chloride 112 mmol/L (96-108); Creatinine Clr Calc Pharmacy 76.4; Estimated Glomerular Filt Rate > 60; Glucose Random 201 mg/dL (60-115); Potassium 3.5 mmol/L (3.3-5.1); Sodium 145 mmol/L (135-145); Total Protein 4.1 g/dL (6.5-8.0)
--- NOTE | 2022-06-02 23:28 | W.PM.CCHP ---
Procedures Date of Service Date of Service: 06/02/22 Central Line Placement Left IJ: Central Line Comments: Consent was obtained over the phone from the patient's healthcare proxy, please see progress note from candida for details. A quick time-out was made for clarification and proper patient identification, patient was positioned, landmarks were identified, US used to locate a large compressible IJ. The left neck was widely prepped and draped in a full sterile fashion. Ultrasound was used to locate again the left IJ, the vein was cannulated on the 1st pass with an 18 gauge thin needle, dark nonpulsatile blood return was obtained. The wire was threaded, a small incision was made at its base and dilator inserted. A triple-lumen central venous catheter was advanced into the vein up to the hub without problems, wired was removed. Ports had good blood return and flushed x3. The catheter was secured with 3 sutures at 3 sites, a Biopatch and dry sterile dressing were applied. Post procedure chest x-ray showed the line to be in good position without pneumothorax. No bleeding or complications noted.
[2022-06-02] MEDS: Magnesium Sulfate/H2O 2 GM/50 ML PIGGYBACK IV (23:32)
[2022-06-02 23:52] LABS: Glucose, Whole Blood 171 mg/dL (60-115)
[2022-06-03] VITALS (12 sets, daily range): BP systolic 86–147; BP diastolic 47–74; PULSE 92–120; RESP 15–46; TEMP 36.2–36.6; O2SAT 76–98; BMI 23.1
[2022-06-03] MEDS: Potassium Phosphate/NS 15 MMOL/250 ML PLAST..BAG 62.5 MMOL IV ×2 (02:07→06:40)
[2022-06-03] MEDS: Metoclopramide HCl 10 MG/2 ML VIAL 5 MG IVPUSH ×2 (02:10→11:04)
[2022-06-03 02:21] LABS: Hematocrit 21.1 % (42.0-52.0)
[2022-06-03 02:24] LABS: Hemoglobin 6.8 g/dl (14.0-18.0)
--- NOTE | 2022-06-03 04:57 | PC.NURSE ---
CARE ASSUMED 23:15...REMAINS ON BIPAP 15/5 AND FIO2 25%..NO DISTRESS ON BIPAP..PROTONIX DRIP 8 MG/HR...TLC INSERTED BY ICU PA AT ....KPO4 AND MGSO4 INFUSED PER MAR..1 UNIT PRBC INFUSED PER TAR...ICU PA STATED CONSENT OBTAINED FROM PATIENT;S HCP.....NO BM 11PM-PRESENT..ROSS YELLOW URINE....CONFUSED..INTERMITTANTLY ATTEMPTS TO PULL ON LINE...PREVIOUSLY HAD PULLED OUT PRIOR TLC PER REPORT...CAMERA AND 1:1 SITTER PRESENT
[2022-06-03 05:32] LABS: Basophils Percent Auto 0.1 % (0-2); Hematocrit 25.4 % (42.0-52.0); Hemoglobin 8.1 g/dl (14.0-18.0); Imm Gran Abs Auto 0.19 X10*3/uL (0.00-0.03); Lymphocytes Absolute Auto 0.3 X10*3/uL (1.2-4.9); Lymphocytes Percent Auto 1.8 % (20-40); MANUAL DIFF FLAG SCAN; Mean Corpuscular HGB Conc 31.9 g/dl (31.0-36.0); Mean Corpuscular Hemoglobin 31.2 pg (27.0-33.0); Mean Corpuscular Volume 97.7 fL (80.0-98.0); Mean Platelet Volume 11.3 fL (9.4-12.4); Monocytes Absolute Auto 0.3 X10*3/uL (0.1-1.2); Monocytes Percent Auto 1.6 % (2-11); Neutrophils Absolute Auto 17.6 x10*3/uL (2.0-8.3); Neutrophils Percent Auto 95.5 % (45-73); Platelet Count 123 X10*3/uL (160-400); Red Cell Distribution Width 14.8 % (11.0-16.0); SCAN SMEAR FLAG 1; White Blood Count 18.4 X10*3/uL (4.8-10.8)
[2022-06-03 05:32] LABS: VBG Base Excess 3.1 mmol/L; VBG HCO3 29 mmol/L (22-26); VBG pCO2 55 mmHg; VBG pH 7.33 (7.32-7.43); VBG pO2 49 mmHg
[2022-06-03 05:40] LABS: Venous Blood Gas Refer to POC result
[2022-06-03 05:45] LABS: Lactic Acid 0.5 mmol/L (0.5-2.0)
[2022-06-03 05:52] LABS: Cholesterol 69 mg/dL; HDL Cholesterol 24 mg/dL; LDL Cholesterol Calculated 26 mg/dl; Triglycerides 97 mg/dL
[2022-06-03 05:55] LABS: Anion Gap 9 (12-20); Blood Urea Nitrogen 28 mg/dL (9-16); Calcium 7.6 mg/dL (8.4-10.2); Carbon Dioxide 29 mmol/L (22-29); Chloride 112 mmol/L (96-108); Creatinine Clr Calc Pharmacy 84.1; Estimated Glomerular Filt Rate > 60; Glucose Random 202 mg/dL (60-115); Magnesium 1.8 mg/dL (1.6-2.6); Phosphorus 2.6 mg/dL (2.7-4.5); Sodium 146 mmol/L (135-145)
[2022-06-03 05:57] LABS: SLIDE REVIEW VERIFIED
[2022-06-03] MEDS: methylPREDNISolone Sod Succ 40 MG/ML VIAL IVPUSH (06:18)
[2022-06-03] MEDS: Insulin Lispro 100 UNIT/ML 3 ML VIAL SUBCUT (06:20)
[2022-06-03] MEDS: Lactated Ringers 1,000 ML 100 ML IVCONT (06:33)
[2022-06-03] MEDS: Magnesium Sulfate/H2O 2 GM/50 ML PIGGYBACK IV (06:43)
[2022-06-03] MEDS: Albumin Human 25 % 100 ML IV ×2 (06:46→07:57)
[2022-06-03] MEDS: Pantoprazole Sodium 80 MG in 0.9 % Sodium Chloride 80 ML 10 MG IV (07:56)
--- NOTE | 2022-06-03 08:15 | PM.EVENT ---
Event Note Date of Service: 06/03/22 Event Note: GI Consult-Full note dictated-Hx via ICU staff and EMR. Imp: UGI Bleed last evening with associated melena, hypotension, and significant drop in Hgb. He has been stable since that time without any further reported bleeding. He has had previous EGD's > 10 years ago with the finding of GERD and esophagitis. Diff dx: Erosive esophagitis, PUD, erosive gastitis. Rec: EGD today with myself or Dr. Chow. Full consent has been obtained from his HCP, Asia([phone]), including risks of bleeding and perforation. Continue IV PPI infusion, monitor Hgb, transfuse prn. Thanks
--- NOTE | 2022-06-03 08:22 | MHC.SHP ---
Pre-Procedural Eval Section A Date of Service: 06/03/22 The patient is an INPATIENT: Yes The History & Physical has been completed within 30 days and I have reviewed it.: Yes Section B Chief Complaint: Septic shock Allergies: Allergies Allergy/AdvReac Type Severity Reaction Status Date / Time No Known Allergies Allergy Verified 05/14/22 08:35 Plan I have reviewed the history and physical and performed a pertinent physical examination on my patient. No changes have occurred unless specified.
--- NOTE | 2022-06-03 09:24 | CONS_ITS ---
DATE OF SERVICE: 06/03/2022 REASON FOR CONSULTATION: Melena and anemia. History has been obtained from the ICU staff, his healthcare proxy Asia Guzman, and the medical record. HISTORY OF PRESENT ILLNESS: The patient is a 76-year-old male admitted to the hospital on May 30 with altered mental status and hypotension. He required initial support with vasopressors and respiratory support with BiPAP. He does have a previous history of upper endoscopies over 10 years ago with the finding of some reflux esophagitis, but no other significant abnormalities. I was called by the ICU PA last evening, Gallito Hatfield, regarding an episode in which the patient passed a large of black stool with associated hypotension and significant drop in hemoglobin from his morning hemoglobin of 11.2 yesterday to a hemoglobin of 7.1 last evening. There was no hematemesis, nor coffee-grounds emesis. There was no hematochezia. Since that time last evening, he has had no further reported bowel movements, nor any signs of active bleeding. He did receive a unit of blood and his hemoglobin has gone from as low as 6.8 to 8.1 this morning. There has been no reported previous history of GI bleeding, nor any known liver disease. He was receiving some DVT prophylaxis with either Lovenox or subcu heparin, but that has been discontinued. It does not appear that he was on any outpatient anticoagulation. However, he was on a single aspirin daily according to the outpatient medication list. PAST MEDICAL HISTORY: COPD, obstructive sleep apnea, hypertension, diabetes mellitus, hyperlipidemia, hypertrophic cardiomyopathy, peripheral neuropathy. There is reported history of eye surgery, knee surgery, and removal of a testicle. The most recent upper endoscopy in his records from 2008 revealed the finding of some mild reflux and duodenitis, but no evidence of any ulcer disease, nor significant esophagitis. He did have a colonoscopy in [address] Chow with the finding of a non-adenomatous polyp. CURRENT MEDICATIONS: Albuterol inhaler, insulin, methylprednisolone 40 mg IV q.8 hours, IV Reglan 5 mg q.8 hours, IV pantoprazole infusion. FAMILY HISTORY: Noncontributory. REVIEW OF SYSTEMS: Currently not obtainable. PHYSICAL EXAMINATION: GENERAL: The patient is an elderly male on BiPAP, who is sleepy and not particularly responsive. SKIN: Warm and dry. Anicteric sclerae. NECK: Supple. ABDOMEN: Soft, nondistended, nontender. LABORATORY DATA: White blood cell count 18.4, hemoglobin 8.1, MCV 98, platelets 123,000. PT 14.1, INR 1.2. Sodium 146, potassium 4.0, chloride 112, CO2 of 29, BUN 28, creatinine 0.7, blood sugar 202. LFTs yesterday showed a total bilirubin 0.5, AST 16, ALT 32, alkaline phosphatase 50, albumin 2.8. Chest x-ray early this morning revealed diminished lung volumes and atelectasis, but without any effusion, nor pneumothorax. IMPRESSION: The patient is an elderly male with multiple medical problems in the ICU primarily for respiratory support and altered mental status, who developed significant upper gastrointestinal bleeding last evening. He is presently stable. He does have a history of reflux in the past, but no other significant upper gastrointestinal pathology. Given the clinical history, this most likely represents upper gastrointestinal bleeding from peptic ulcer disease, erosive gastritis, or erosive esophagitis. At this point, he is hemodynamically stable without any further signs of bleeding. I did review things with his healthcare proxy, Asia Guzman, and she has given consent for an upper endoscopy. I did advise her this will be done either by myself or Dr. Chow. Full consent was obtained from his healthcare proxy for the procedure, including risks of bleeding and perforation. The procedure will be done later today. I would continue to monitor his hemoglobin and transfuse him as needed, as well as continue the IV Protonix infusion. Thank you for the consultation. MD OMA Eugene/JESSICA / [phone] KAYLEE
[2022-06-03 09:42] LABS: Glucose, Whole Blood 145 mg/dL (60-115)
--- NOTE | 2022-06-03 09:58 | MHC.SLORD ---
Speech Language Pathology Order Status: Attempted to see patient for Bedside Swallow this AM, Patient NPO for upper endoscopy. Will continue to yessi, re-attempt when appropriate.
[2022-06-03 10:00] LABS: Hematocrit 19.1 % (42.0-52.0); Hemoglobin 6.2 g/dl (14.0-18.0)
[2022-06-03] MEDS: HYDROmorphone HCl 0.5 MG/0.5 ML SYRINGE 0.25 MG IVPUSH (12:18)
[2022-06-03] MEDS: Lactated Ringers 1,000 ML 50 ML IVCONT (12:28)
[2022-06-03] MEDS: HYDROmorphone HCl 0.5 MG/0.5 ML SYRINGE IVPUSH (13:14)
--- NOTE | 2022-06-03 13:36 | PM.CCPN ---
Subjective Subjective Date of Service: 06/03/22 Interval History: Mr. Sebas Marcus was admitted to the ICU on May 30 bec of hypotension and hypoxemic/hypercarbic respiratory failure. The patient is well known to me from admission to the ICU on May 17 during his previous admission here.? 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 Not on oxygen at home.? Notable is the fact that his serum bicarb levels had been normal prior to the last hospitalization, so it would seem that he did not have chronic CO2 retention.? Furthermore, the patient was reportedly on valium, baclofen, and opiates for ? ?abdominal spasms?. The [place] [facility] on bec of hypercarbic and hypoxemic resp failure due to COPD exacerbation, and toxic encephalopathy 2? to his meds.? He was transferred to ICU for BiPAP on May 17 because of altered mental status and hypercarbia.? Treated with bronchodilators, steroids, and briefly Diamox.? His base excess resolved easily.? Sedating medications were held.? He improved, was transferred back to the floor on May 18, and was discharged to [facility] on May 29 on nocturnal BiPAP. The patient was transferred back [place] [facility] [place], [place] 30, bec of AMS and WBC of 33K at the [facility].? In the ED, he was also hypotensive.? He came in with DNR/DNI status.? He was afebrile.? WBC was 29 (was day), BUN/creat 54/1.5 (baseline 20/0.8), lactate was negative.? VBG showed 7.10/73/-7.? Thought to have septic shock 2? source, and hypercarbic respiratory failure.? A head CT was were read by the radiologist as showing loss of crisostomo-white differentiation in the left frontal lobe, suggestive of a stroke. A CVC was placed and the patient was started on pressors, abx, volume resuscitation, and BiPAP, and admitted to ICU.? Abdominal CT demonstrated a dilated stomach, without obstruction or ileus.? An NG tube was placed for decompression. Shock and DARREN resolved rapidly and the pressors were titrated off.? By the following morning (May 31), the venous pCO2 was down to 42.? The BiPAP was removed and the patient was put on nasal cannula oxygen, The NG tube was removed.? The patient was transferred to the medical service on Jun 01. That night he pulled out his central line.? He stayed on nasal cannula oxygen (not on BiPAP).? Early the following morning (yesterday morning), he dropped his blood pressure to the 80s, and briefly went into atrial fibrillation with RVR.? He was volume resuscitated and converted spontaneously to sinus rhythm.? Blood pressure went up into the 110s.? The venous pCO2 was 37.? Later yesterday afternoon he was found obtunded.? An arterial blood gas at 13:30 showed 7.23/71/81/+1 (unstated FiO2).? The patient was put back on BiPAP.? Subsequently, his blood pressure dropped into the 80s. Notably, a MOLST form was signed yesterday by his healthcare proxy indicating DNR/DNI, no NIV, no artificial nutrition or hydration. Given that the patient's renal ratio was still high, 38/0.8, the patient was volume resuscitated and his blood pressure came up.? But late last night, the patient had a large GI bleed with melanotic stool.? Hemoglobin dropped from 11.2 down to 6.8.? A central line was replaced, and the patient was given 1 unit RBCs.? Lactic acid was negative and he never required pressors.? This morning's hemoglobin was 8.1, but a repeat at 09:30 was down to 6.2.? He has not had a recurrence of melanotic stool (yet). I took him off BiPAP this morning.? He is awake, but minimally communicative, even with his son talking to him.? RR is in the 30s with very shallow excursion and mild paradox.? Repetitively asking for water. ?He?s obviously suffering. ?I gave him a cup of water which he sucked down vigorously, but with obvious difficulty swallowing, and some coughing. ?Sat is holding at 96% on 4 L nasal cannula.? I dropped him to 2 L, and sat was holding 89-90%. ?HR about 110, SR. ?BP 141/60.? No JVD at 30?.? Auscultation of the chest is clear bilat, with normal expiratory.? I do not hear his systolic ejection murmur this morning.? Abdomen is benign.? He has no peripheral edema. LABORATORY DATA:? Below.? Notably, WBC is down to 18.? Hemoglobin is down to 6.2 at 09:30. ?BUN and creatinine down to 28/0.7.? Phosphorus 2.6. MICROBIOLOGY:? Urine and blood cultures from admission were negative. Head CT done early this morning showed no stroke. IMPRESSION: 1. Underlying obesity 2. 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 3. Underlying COPD.? He does not appear to be a chronic CO2 retainer. 4. Acute hypercarbic and hypoxemic resp failure on admission.? The cause is unclear.? There was no evidence of pneumonia or CHF or obvious COPD exacerbation. 5. Hypotension on admission.? Cause is unclear.? Other than the WBC, which was not new, there was no evidence of sepsis (no fever, normal lactate, and all cultures negative).? Undoubtedly, he was hypovolemic though. 6. AMS on admission.? From his last admission, I suspect that he likely has underlying dementia.? Additional findings on the current admission included hypercarbia and hypotension.? A repeat head CT last night showed no evidence of any stroke. 7. DARREN.? With markedly elevated renal ratios.? Most likely 2? hypovolemia.? We continued volume resusc and his creat has normalized. 8. Hypercarbic resp failure yesterday and today, in the absence of hypercarbia.? Cause is unclear.? No evidence of COPD exacc or aspiration.? Chest CT doesn?t show severe CLD.? Clearly, his mental status is playing a role.? Regardless, the simple fact is he?s just not breathing well (ie. ventilatory failure). 9. Hypotension yesterday afternoon.? 2? hypovolemia, in large part probably due to as yet undiscovered UGI bleed. 10. UGI bleed last night w hemorrhagic shock.? Adequately resuscitated. 11. AMS today.? Metabolic encephalopathy.? Cause is likely combination of underlying dementia and hypoperfusion/hypoxemia. 12. DM.? On SSI and Lantus. 13. ID:? I don?t think he?s septic and I see no indication for Abx at this time. It?s clear that Mr. Mullen is in the very close ending phase of his life, and he has unremediable ventilatory and mental status failure that will preclude him living without artificial ventilatory and nutritional support that the family and HCP have no desire for -- to say nothing of the patient?s quality of life. I spoke with the patient's healthcare proxy (Chuck [phone]) and his son (Ramon [phone]) in conference today and voiced the above, including the fact that he?s clearly suffering.? They agreed to stop all exogenous support and focus simply on making him comfortable. I?ve written for [employer]PHOL[employer]PER status and written for a prn dialudid drip should he need it.? Also d/w the tour escort. ADDENDUM at 14:20: The patient comfortably at 1352. The family was notified. Critical care time:? 90+ min. Critical Care Time (minutes): 90 Physical Exam Vital Signs: Vital Signs: Last Vital Signs Temp 97.8 F 06/03/22 08:00 Pulse 120 H 06/03/22 12:00 Resp 44 H 06/03/22 13:14 BP 147/74 H 06/03/22 12:00 Pulse Ox 76 L 06/03/22 12:00 O2 Del Method 06/03/22 12:00 O2 Flow Rate 2 06/03/22 12:00 FiO2 25 06/03/22 08:00 Oxygen Flow Rate 1 05/30/22 15:36 BMI result Body Mass Index 23.1 Objective Data Labs CBC & Chem 7: 06/03/22 09:39 06/03/22 05:15 Labs: Laboratory Results - last 24 hr 06/02/22 06/02/22 06/02/22 13:34 17:42 17:52 WBC RBC Hgb Hct MCV MCH MCHC RDW Plt Count MPV Immature Gran % (Auto) Neut % (Auto) Lymph % (Auto) [place] % (Auto) Eos % (Auto) Baso % (Auto) Lymph # (Auto) [place] # (Auto) Eos # (Auto) Baso # (Auto) Abs Immat Gran (auto) Absolute Neuts (auto) Absolute Nucleated RBC Nucleated RBC % (auto) Smear Tech's Comments PT INR O2 Saturation 97.0 ABG pH at Pt Temp 7.23 L ABG pCO2 at Pt Temp 71 H* ABG pO2 at Pt Temp 81 L ABG HCO3 30 H ABG Base Excess (Actual) 1.8 VBG pH VBG pCO2 VBG pO2 VBG HCO3 VBG O2 Saturation VBG Base Excess Sodium Potassium Chloride Carbon Dioxide Anion Gap BUN Creatinine Estim Creat Clear Calc Estimated GFR POC Glucose 192 H Random Glucose Lactic Acid Calcium Phosphorus Magnesium Total Bilirubin AST ALT Alkaline Phosphatase Total Protein Albumin Triglycerides Cholesterol LDL Cholesterol, Calc HDL Cholesterol Stool Occult Blood Random Vancomycin 16.7 Blood Type Antibody Screen Crossmatch 06/02/22 06/02/22 06/02/22 18:38 22:17 22:35 WBC 17.5 H RBC 2.20 L D Hgb 7.1 L D Hct 22.4 L D MCV 101.8 H MCH 32.3 MCHC 31.7 RDW 13.3 Plt Count 132 L D MPV 11.2 Immature Gran % (Auto) 0.7 H Neut % (Auto) 86.7 H Lymph % (Auto) 4.5 L [place] % (Auto) 7.9 Eos % (Auto) 0.1 Baso % (Auto) 0.1 Lymph # (Auto) 0.8 L [place] # (Auto) 1.4 H Eos # (Auto) 0.0 Baso # (Auto) 0.0 Abs Immat Gran (auto) 0.13 H Absolute Neuts (auto) 15.2 H Absolute Nucleated RBC 0.000 Nucleated RBC % (auto) 0.0 Smear Tech's Comments PT INR O2 Saturation 100.0 ABG pH at Pt Temp 7.37 ABG pCO2 at Pt Temp 47 H ABG pO2 at Pt Temp 110 H ABG HCO3 28 H ABG Base Excess (Actual) 2.7 VBG pH VBG pCO2 VBG pO2 VBG HCO3 VBG O2 Saturation VBG Base Excess Sodium Potassium Chloride Carbon Dioxide Anion Gap BUN Creatinine Estim Creat Clear Calc Estimated GFR POC Glucose Random Glucose Lactic Acid Calcium Phosphorus Magnesium Total Bilirubin AST ALT Alkaline Phosphatase Total Protein Albumin Triglycerides Cholesterol LDL Cholesterol, Calc HDL Cholesterol Stool Occult Blood POSITIVE Random Vancomycin Blood Type Antibody Screen Crossmatch 06/02/22 06/02/22 06/02/22 22:35 22:35 23:07 WBC RBC Hgb Hct MCV MCH MCHC RDW Plt Count MPV Immature Gran % (Auto) Neut % (Auto) Lymph % (Auto) [place] % (Auto) Eos % (Auto) Baso % (Auto) Lymph # (Auto) [place] # (Auto) Eos # (Auto) Baso # (Auto) Abs Immat Gran (auto) Absolute Neuts (auto) Absolute Nucleated RBC Nucleated RBC % (auto) Smear Tech's Comments PT 14.1 H INR 1.2 H O2 Saturation ABG pH at Pt Temp ABG pCO2 at Pt Temp ABG pO2 at Pt Temp ABG HCO3 ABG Base Excess (Actual) VBG pH VBG pCO2 VBG pO2 VBG HCO3 VBG O2 Saturation VBG Base Excess Sodium 145 Potassium 3.5 Chloride 112 H Carbon Dioxide 29 Anion Gap 8 L BUN 35 H Creatinine 0.77 Estim Creat Clear Calc 76.4 Estimated GFR > 60 POC Glucose Random Glucose 201 H Lactic Acid Calcium 7.6 L Phosphorus Magnesium Total Bilirubin 0.5 AST 16 ALT 32 Alkaline Phosphatase 50 D Total Protein 4.1 L D Albumin 2.8 L D Triglycerides Cholesterol LDL Cholesterol, Calc HDL Cholesterol Stool Occult Blood Random Vancomycin Blood Type A Positive Antibody Screen NEGATIVE Crossmatch See Detail 06/02/22 06/03/22 06/03/22 23:47 02:07 05:15 WBC 18.4 H RBC 2.60 L Hgb 6.8 L* 8.1 L Hct 21.1 L 25.4 L D MCV 97.7 MCH 31.2 MCHC 31.9 RDW 14.8 Plt Count 123 L MPV 11.3 Immature Gran % (Auto) 1.0 H Neut % (Auto) 95.5 H Lymph % (Auto) 1.8 L [place] % (Auto) 1.6 L Eos % (Auto) 0.0 Baso % (Auto) 0.1 Lymph # (Auto) 0.3 L [place] # (Auto) 0.3 Eos # (Auto) 0.0 Baso # (Auto) 0.0 Abs Immat Gran (auto) 0.19 H Absolute Neuts (auto) 17.6 H Absolute Nucleated RBC 0.000 Nucleated RBC % (auto) 0.0 Smear Tech's Comments VERIFIED PT INR O2 Saturation ABG pH at Pt Temp ABG pCO2 at Pt Temp ABG pO2 at Pt Temp ABG HCO3 ABG Base Excess (Actual) VBG pH VBG pCO2 VBG pO2 VBG HCO3 VBG O2 Saturation VBG Base Excess Sodium Potassium Chloride Carbon Dioxide Anion Gap BUN Creatinine Estim Creat Clear Calc Estimated GFR POC Glucose 171 H Random Glucose Lactic Acid Calcium Phosphorus Magnesium Total Bilirubin AST ALT Alkaline Phosphatase Total Protein Albumin Triglycerides Cholesterol LDL Cholesterol, Calc HDL Cholesterol Stool Occult Blood Random Vancomycin Blood Type Antibody Screen Crossmatch 06/03/22 06/03/22 06/03/22 05:15 05:15 05:15 WBC RBC Hgb Hct MCV MCH MCHC RDW Plt Count MPV Immature Gran % (Auto) Neut % (Auto) Lymph % (Auto) [place] % (Auto) Eos % (Auto) Baso % (Auto) Lymph # (Auto) [place] # (Auto) Eos # (Auto) Baso # (Auto) Abs Immat Gran (auto) Absolute Neuts (auto) Absolute Nucleated RBC Nucleated RBC % (auto) Smear Tech's Comments PT INR O2 Saturation ABG pH at Pt Temp ABG pCO2 at Pt Temp ABG pO2 at Pt Temp ABG HCO3 ABG Base Excess (Actual) VBG pH VBG pCO2 VBG pO2 VBG HCO3 VBG O2 Saturation VBG Base Excess Sodium 146 H Potassium 4.0 Chloride 112 H Carbon Dioxide 29 Anion Gap 9 L BUN 28 H Creatinine 0.70 Estim Creat Clear Calc 84.1 Estimated GFR > 60 POC Glucose Random Glucose 202 H Lactic Acid 0.5 Calcium 7.6 L Phosphorus 2.6 L Magnesium 1.8 Total Bilirubin AST ALT Alkaline Phosphatase Total Protein Albumin Triglycerides 97 Cholesterol 69 D LDL Cholesterol, Calc 26 HDL Cholesterol 24 D Stool Occult Blood Random Vancomycin Blood Type Antibody Screen Crossmatch 06/03/22 06/03/22 06/03/22 05:27 09:39 09:39 WBC RBC Hgb 6.2 L* D Hct 19.1 L* D MCV MCH MCHC RDW Plt Count MPV Immature Gran % (Auto) Neut % (Auto) Lymph % (Auto) [place] % (Auto) Eos % (Auto) Baso % (Auto) Lymph # (Auto) [place] # (Auto) Eos # (Auto) Baso # (Auto) Abs Immat Gran (auto) Absolute Neuts (auto) Absolute Nucleated RBC Nucleated RBC % (auto) Smear Tech's Comments PT INR O2 Saturation ABG pH at Pt Temp ABG pCO2 at Pt Temp ABG pO2 at Pt Temp ABG HCO3 ABG Base Excess (Actual) VBG pH 7.33 VBG pCO2 55 VBG pO2 49 VBG HCO3 29 H VBG O2 Saturation 83.0 VBG Base Excess 3.1 Sodium Potassium Chloride Carbon Dioxide Anion Gap BUN Creatinine Estim Creat Clear Calc Estimated GFR POC Glucose 145 H Random Glucose Lactic Acid Calcium Phosphorus Magnesium Total Bilirubin AST ALT Alkaline Phosphatase Total Protein Albumin Triglycerides Cholesterol LDL Cholesterol, Calc HDL Cholesterol Stool Occult Blood Random Vancomycin Blood Type Antibody Screen Crossmatch Microbiology Microbiology Results: Microbiology 05/30/22 16:45 Blood - Venous Blood Culture - Preliminary No growth after 48 hours. 05/30/22 16:32 Blood - Venous Blood Culture - Preliminary No growth after 48 hours. 05/30/22 15:20 Blood - Venous Blood Culture - Preliminary No growth after 48 hours. 05/30/22 15:19 Blood - Venous Blood Culture - Preliminary No growth after 48 hours. 05/30/22 15:09 Urine clean catch - Urine crisostomo top Urine Culture - Final No growth. Quality Stroke Does the patient have a stroke diagnosis?: No VTE Prior VTE?: No VTE Risk Level:: Medical - moderate - high VTE Device Contraindication: N/A - Device Ordered VTE Drug Contraindication: N/A - Med Ordered Critical Care Time Critical Care Time (minutes): 90
--- NOTE | 2022-06-03 14:58 | PC.NURSE ---
Patient on bibpap 15/5, 25% at start of shift. Patient increasingly lethargic and difficult to arouse throughout the day. Hemoglobin and Hematocrit 6.2 and 19.1 MD Cantu aware. No new orders at this time. Patient MAP dropping down intermittently to the 50s and occasionally back to 60s. MD Cantu made aware. Patients son and hcp called to bedside to discuss plan of care. Decision made to make patient TEST CONSULTANT. Patient placed on 2L NC per Dr Cantu. Patients oxygen dropping to 50s. Dilaudid given prn for wob. At 1352 patient asystole on monitor. Patients family at bedside. NEDS notified and decline at 1340 and 1427. Ref #[id number]. Post mortem care completed. Notification of completed
--- NOTE | 2022-06-03 18:04 | P.DN_ITS ---
Discharge Sum: Prov Provider Primary care physician: Unknown Physician Consults: 06/02/22 15:29 Consult to Neurology Routine Consulting Provider: [facility] [place] [facility] Reason for consultation: stroke 06/02/22 22:42 Consult to Gastroenterology Stat Consulting Provider: Bryan Shin Reason for consultation: UGIB Has provider been notified: No Discharge Sum: Summary Date and Time Date of admission: 05/30/22 18:40 Date of : 06/03/22 Time of : 13:52 Summary Details: NOTE - DISCHARGE SUMMARY DISCHARGE DIAGNOSES: 1. Underlying obesity. 2. 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 3. Underlying COPD. 4. Underlying dementia. 5. Acute hypercarbic and hypoxemic respiratory failure. 6. Hypotension. 7. Hypovolemia. 8. Metabolic encephalopathy. 9. Acute kidney injury. 0. UGI bleed 11. Hemorrhagic shock. 12. DM. Mr. Sebas Marcus was a 76-year-old male w PMHx of obesity, COPD, STEPH not currently on CPAP, recent sleep study was negative, DM, BPH, HLD, HTN, hypertrophic cardiomyopathy, reactive airway disease, peripheral neuropathy, and chronic pain.? Not on oxygen at home.? The patient was reportedly on valium, baclofen, and opiates for ? ?abdominal spasms?. The patient was [place] [facility] [place] on bec of hypercarbic and hypoxemic resp failure due to COPD exacerbation, and toxic encephalopathy 2? to his meds.? He was transferred to ICU for BiPAP on May 17 because of altered mental status and hypercarbia.? Treated with bronchodilators, steroids, and briefly Diamox.? His base excess resolved easily.? Sedating medications were held.? He improved, was transferred back to the floor on May 18, and was discharged to [facility] on May 29 on nocturnal BiPAP. The patient was transferred back [place] [facility] the next day, May 30, bec of AMS and WBC of 33K at the SNF.? In the ED, he was also hypotensive.? He came in with DNR/DNI status.? He was afebrile.? WBC was 29 (was 25 day), BUN/creat 54/1.5 (baseline 20/0.8), lactate was negative.? VBG showed 7.10/73/-7.? Thought to have septic shock 2? possible source, and hypercarbic respiratory failure. A CVC was placed and the patient was started on pressors, abx, volume resuscitation, and BiPAP, and admitted to ICU.? Abdominal CT demonstrated a dilated stomach, without obstruction or ileus.? An NG tube was placed for decompression. Shock and DARREN resolved rapidly and the pressors were titrated off.? By the following morning (May 31), the venous pCO2 was down to 42.? The BiPAP was removed and the patient was put on nasal cannula oxygen, The NG tube was removed.? The patient was transferred to the medical service on Jun 01. That night, he stayed on nasal cannula oxygen.? Early the following morning (Jun 02), he dropped his blood pressure to the 80s, and briefly went into atrial fibrillation with RVR.? He was volume resuscitated and converted spontaneously to sinus rhythm.? Blood pressure went up into the 110s.? The venous pCO2 was 37.? Later that afternoon he was found obtunded.? An arterial blood gas showed 7.23/71/81/+1.? The patient was put back on BiPAP.? Subsequently, his blood pressure dropped into the 80s. Notably, a MOLST form was signed that day by his healthcare proxy indicating DNR/DNI, no NIV, no artificial nutrition or hydration. Given that the patient's renal ratio was still high, 38/0.8, the patient was volume resuscitated and his blood pressure came up.? But late that night, the patient had a large GI bleed with melanotic stool.? Hemoglobin dropped from 11.2 down to 6.8.? A central line was replaced, and the patient was given 1 unit RBCs.? Lactic acid was negative and he never required pressors.? The next morning's hemoglobin was 8.1, but a repeat at 09:30 was down to 6.2.? He had not had a recurrence of melanotic stool. We took him off BiPAP.? He was awake, but minimally communicative, even with his son talking to him in Arabic.? RR was in the 30s with very shallow excursion and mild paradox.? He was repetitively asking for water.? He was obviously suffering.? I gave him a cup of water which he sucked down vigorously, but with obvious difficulty swallowing, and some coughing. ?Sat was holding at 96% on 4 L nasal cannula.? HR about 110, SR. ?BP 141/60.? No JVD at 30?.? Auscultation of the chest was clear bilat, with normal expiratory phase.? Abdomen was benign.? He had no peripheral edema. WBC was down to 18.? Hemoglobin was down to 6.2 at 09:30.? BUN and creatinine were down to 28/0.7.? Phosphorus was 2.6.? Urine and blood cultures from admission were negative.? Repeat head CT showed no stroke. It was clear that Mr. Mullen was in the very close ending phase of his life, and he had unremediable ventilatory and mental status failure that would pr eclude him living without artificial ventilatory and nutritional support that the family and HCP had no desire for -- to say nothing of the patient?s quality of life. I spoke with the patient's healthcare proxy (Chuck [phone]) and the patient?s son (Ramon [phone]) in conference and voiced those issues, including the fact that Schuyler was clearly suffering.? They vociferously agreed to stop all exogenous support and focus simply on making him comfortable. The patient comfortably at 1352 on Jun 03, 2022.? The family was notified. Additional Data Attending physician: Yuval Cantu MD
--- NOTE | 2022-06-06 11:09 | P.CDIR_ITS ---
Documented by User: Krista Molina CCS, CDIS 06/06/22 11:18 Retrospective Query PHYSICIAN'S DOCUMENTATION REQUEST Date of Query: 06/06/22 [id number] Patient Name: Schuyler Marcus Admit Date: 05/30/22 Dear Doctor, A review of the medical record indicates additional documentation may be needed. Please review below and update the documentation accordingly. Clinical Indicators: Risk Factors/Clinical Indicators/Treatments ICU H&P 05/30 - Sepsis likely from the UTI. Hypotensive BP 83/46 L RR 25 H HR 55 WBC 29.8 Temp 96.7 Central line placed, IV Vasopressors, IV Ceftriaxone, Vancomycin, Zosyn, IV fluids ICU PN 05/31 - Admitted 05/30 with Septic shock likely 2nd to GI source requiring vasopressor support. Acute on chronic hypoxic respiratory failure likely 2nd to underlying Sepsis, DARREN likely 2nd to underlying Sepsis. ICU PN 06/02 - Acute Thrombocytopenia likely in the setting of aspirin component and current Sepsis. Sepsis Systemic manifestations of infection, with 2 or more SIRS criteria which include: * Fever > 100.4?F or hypothermia < 96.8?F * Leukocytosis ? WBC > 12,000 or leukopenia, WBC < 4,000, or > 10% bands * Tachycardia- > 90 beats/minute * Tachypnea- RR > 20 breaths/minute or PaCO2 < 32mmHg Source: Merck Manual 2013 Documentation should include the known or suspected organism, and the underlying infection, such as UTI or pneumonia Severe Sepsis Sepsis with associated acute organ dysfunction, such as renal or respiratory failure Documentation should indicate the association between the sepsis and the organ dysfunction Septic Shock Severe sepsis with associated with circulatory failure, evidenced by hypotension and hypoperfusion Based on the above information and the recognized standard for sepsis, could you please clarify in the Progress Notes if this diagnoses is still accurate and reflective of the patient's condition to ensure quality of the medical record. * Sepsis is/was present and is a clinical diagnosis based on Sepsis present on admission and resolved * Other (please specify) * Unable to determine Use of terms such as suspected, likely, concern for, or probable (associated with a specific diagnosis that is being evaluated, monitored, or treated as if it exists) are acceptable and can be coded in the inpatient setting, when documented at the time of discharge. Thank you, Krista Molina [facility], CDIS Extension: [phone] Please use your independent medical judgment in providing your response. THIS QUERY IS PART OF THE PERMANENT MEDICAL RECORD Documented by User: Yuval Cantu MD 06/07/22 12:46 Retrospective Query Provider Response: Other (Please see my progress note from Jun 03, point 5 in the IMPRESSION. I wrote that: Other than the WBC, which was not new, there was no evidence of sepsis (no fever, normal lactate, and all cultures negative). That's my opinion.)
== END 2022-06-03 13:52 | disposition expired | DRG 189 ==
LOC: HO.ED 18:43 → HO.EDOVER 18:45 → HO.ICU 20:03 → HO.IMC 06-02 14:39 → HO.ICU 06-02 14:49
PROVIDERS: Internal Medicine; Nurse Practitioner Acute Care; Nurse Practitioner Family; Physician Assistant Medical; Registered Nurse Community Health; Admitting Provider Internal Medicine Pulmonary Disease; Emergency Provider Internal Medicine; PCP Family Medicine; Visit Provider Anesthesiology
DX: J96.01 Acute respiratory failure with hypoxia (principal); G92.8 Other toxic encephalopathy; K27.4 Chronic or unspecified peptic ulcer, site unspecified, with hemorrhage; K29.61 Other gastritis with bleeding; K20.91 Esophagitis, unspecified with bleeding; N17.9 Acute kidney failure, unspecified; D62 Acute posthemorrhagic anemia; I42.2 Other hypertrophic cardiomyopathy; R57.9 Shock, unspecified; N39.0 Urinary tract infection, site not specified; Z66 Do not resuscitate; J96.02 Acute respiratory failure with hypercapnia; E11.42 Type 2 diabetes mellitus with diabetic polyneuropathy; N40.0 Benign prostatic hyperplasia without lower urinary tract symptoms; G47.33 Obstructive sleep apnea (adult) (pediatric); E86.1 Hypovolemia; D69.59 Other secondary thrombocytopenia; E83.42 Hypomagnesemia; E83.39 Other disorders of phosphorus metabolism; J44.9 Chronic obstructive pulmonary disease, unspecified; T39.015A Adverse effect of aspirin, initial encounter; E66.9 Obesity, unspecified; E78.5 Hyperlipidemia, unspecified; Z20.822 Contact with and (suspected) exposure to COVID-19; Z68.25 Body mass index [BMI] 25.0-25.9, adult; Z90.79 Acquired absence of other genital organ(s); Z87.891 Personal history of nicotine dependence; Z79.4 Long term (current) use of insulin; Z79.51 Long term (current) use of inhaled steroids; Z79.899 Other long term (current) drug therapy
CPT/HCPCS: 36415; 36600; 70450; 71045; 71275; 74174; 80048; 80053; 80061; 80076; 80202; 81001; 82040; 82140; 82272; 82803; 82947; 83605; 83735; 84100; 84145; 84484; 85014; 85018; 85025; 85610; 86850; 86900; 86901; 86923; 87040; 87086; 87635; 93005; 93306; 93880; 94660; 99285; C1758; J0696; J1170; J2250; J2270; J2543; J2765; J2920; J2930; J3010; J3370; J3475; P9016; P9047; Q9967